=== PATIENT | male | born 1945 | race American Indian/Alaskan Native ===

== ENCOUNTER 2019-01-18 06:24 | Inpatient (IN) | payer MEDICARE, OTHER ==
[2019-01-18 07:16] LABS: Hematocrit 25.9 % (35.5-45.6); Hemoglobin 8.9 gm/dl (11.8-15.2); Mean Corpuscular HGB Conc 34 % (32-34); Mean Corpuscular Volume 90 fl (84-94); Platelet Count 157 K/mm3 (140-440); Red Cell Distribution Width 16.6 % (13.2-15.2)
[2019-01-18 08:11] LABS: Alanine Aminotransferase 17 units/L (7-56); Albumin 3.6 g/dL (3.9-5); BUN/Creatinine Ratio 11; Blood Urea Nitrogen 72 mg/dL (9-20); Hemolysis Index 16
[2019-01-18 08:16] LABS: Calcium 15.5 mg/dL (8.4-10.2)
--- NOTE | 2019-01-18 09:08 | Emergency Department Report ---
ED GI Bleed HPI - General Chief complaint: Abdominal Pain Stated complaint: COUGHING UP BLOOD ABD PAIN Time Seen by Provider: 01/18/19 09:02 Source: patient Mode of arrival: Ambulatory Limitations: No Limitations - History of Present Illness Initial comments: Patient is a 73-year-old male that presents emergency room with complaints of nausea vomiting and vomiting blood and abdominal pain 2 days. Patient states symptoms are working. Patient states he feels weak and fatigued. Patient states he still is difficult for him to walk. Patient states she's had a poor appetite as well. Patient states his pain is a 10 out of 10. Patient states it's nonradiating and the pain is in his diffuse abdomen. Patient states the pain is better with rest and worse with eating and movement. is at bedside to assist with history. Patient states she has a past medical history hypertension, kidney disease and high cholesterol. MD complaint: gross hematemesis, melena -: Sudden Location: diffuse Radiation: none Severity scale (0 -10): 4 Quality: cramping Consistency: constant Improves with: rest Worsens with: eating, movement Associated Symptoms: abdominal pain, nausea, vomiting, malaise, weakness. denies: epistaxis, fever/chills, headaches, loss of appetite, easy bruising, rash, other bleeding, shortness of breath, syncope - Related Data Home Medications Medication Instructions Recorded Confirmed Last Taken Labetalol [Labetalol 200mg TAB] 200 mg PO BID 01/18/19 01/18/19 01/17/19 NIFEdipine [Nifedipine ER] 90 mg PO QDAY 01/18/19 01/18/19 01/17/19 Simvastatin 20 mg PO QHS 01/18/19 01/18/19 01/17/19 Allergies Allergy/AdvReac Type Severity Reaction Status Date / Time No Known Allergies Allergy Unverified 01/18/19 06:38 ED Review of Systems ROS: Stated complaint: COUGHING UP BLOOD ABD PAIN Other details as noted in HPI Constitutional: malaise, weakness. denies: chills, fever Eyes: denies: eye pain, eye discharge, vision change ENT: denies: ear pain, throat pain Respiratory: denies: cough, shortness of breath, wheezing Cardiovascular: denies: chest pain, palpitations Endocrine: no symptoms reported Gastrointestinal: abdominal pain, nausea, vomiting, hematemesis, melena. denies: diarrhea, constipation Genitourinary: denies: urgency, dysuria Musculoskeletal: denies: back pain, joint swelling, arthralgia Skin: denies: rash, lesions Neurological: weakness. denies: headache, paresthesias Psychiatric: denies: anxiety, depression Hematological/Lymphatic: denies: easy bleeding, easy bruising ED Past Medical Hx - Past Medical History Previous Medical History?: Yes Hx Hypertension: Yes Hx Renal Disease: Yes Additional medical history: High Cholesterol - Surgical History Past Surgical History?: Yes Hx Cholecystectomy: Yes - Family History Family history: no significant - Social History Smoking Status: Never Smoker Substance Use Type: None - Medications Home Medications: Home Medications Medication Instructions Recorded Confirmed Last Taken Type Labetalol [Labetalol 200mg TAB] 200 mg PO BID 01/18/19 01/18/19 01/17/19 History NIFEdipine [Nifedipine ER] 90 mg PO QDAY 01/18/19 01/18/19 01/17/19 History Simvastatin 20 mg PO QHS 01/18/19 01/18/19 01/17/19 History ED Physical Exam - General Limitations: No Limitations General appearance: alert, in no apparent distress - Head Head exam: Present: atraumatic, normocephalic - Eye Eye exam: Present: normal appearance - ENT ENT exam: Present: mucous membranes moist - Neck Neck exam: Present: normal inspection - Respiratory Respiratory exam: Present: normal lung sounds bilaterally. Absent: respiratory distress, wheezes, rales - Cardiovascular Cardiovascular Exam: Present: regular rate, normal rhythm. Absent: systolic murmur, diastolic murmur, rubs, gallop - GI/Abdominal GI/Abdominal exam: Present: soft, normal bowel sounds. Absent: distended, t enderness, guarding - Rectal Rectal exam: Present: deferred - Extremities Exam Extremities exam: Present: normal inspection - Back Exam Back exam: Present: normal inspection - Neurological Exam Neurological exam: Present: alert, oriented X3 - Psychiatric Psychiatric exam: Present: normal affect, normal mood - Skin Skin exam: Present: warm, dry, intact, normal color. Absent: rash ED Course Vital Signs 01/18/19 01/18/19 01/18/19 06:30 07:32 07:40 Temperature 97.7 F Pulse Rate 115 H 100 H Respiratory 20 Rate Blood Pressure 156/90 Blood Pressure [Left] O2 Sat by Pulse 96 93 Oximetry 07/18/19 07/18/19 07/18/19 08:00 09:00 10:00 Temperature Pulse Rate 99 H Respiratory 12 Rate Blood Pressure 162/87 159/96 152/72 Blood Pressure [Left] O2 Sat by Pulse 92 100 91 Oximetry 01/18/19 01/18/19 01/18/19 10:31 11:00 11:30 Temperature Pulse Rate 104 H Respiratory 24 Rate Blood Pressure 145/72 122/36 135/94 Blood Pressure [Left] O2 Sat by Pulse 94 94 Oximetry 01/18/19 01/18/19 01/18/19 12:00 12:30 13:44 Temperature Pulse Rate 98 H 97 H Respiratory 22 11 L Rate Blood Pressure 136/57 146/67 159/84 Blood Pressure [Left] O2 Sat by Pulse Oximetry 01/18/19 01/18/19 13:45 14:00 Temperature 97.7 F Pulse Rate 91 H Respiratory 16 Rate Blood Pressure 164/83 Blood Pressure 159/84 [Left] O2 Sat by Pulse 96 Oximetry - Reevaluation(s) Reevaluation #1: Discussed all results with patient and . Patient to be admitted to the hospitalist service. Patient and agree with the plan of care 01/18/19 11:16 - Consultations Consultation #1: Hospitalist consult for admission. Hospitalist to admit patient and assume care of patient. Bridge orders placed. 01/18/19 11:11 Consultation #2: Discussed case with GI nurse practitioner. GI to see the patient. 01/18/19 11:15 ED Medical Decision Making - Lab Data Result diagrams: 01/18/19 06:47 01/18/19 07:24 - Radiology Data Radiology results: report reviewed CT ABDOMEN AND PELVIS WITHOUT CONTRAST HISTORY: Abdominal pain, GI bleeding, spitting up blood COMPARISON: None. TECHNIQUE: Axial CT images were obtained through the abdomen and pelvis without IV contrast. Sagittal and coronal reformatted images. All CT scans at this location are perfo rmed using CT dose reduction for ALARA by means of automated exposure control. FINDINGS: CT ABDOMEN: Lung Bases: The visualized lung bases are clear. Mild cardiomegaly. Liver: No significant abnormality. Biliary: Cholecystectomy. No significant abnormality. Spleen: No significant abnormality. Unenlarged. Pancreas: No significant abnormality. Adrenals: No significant abnormality. Kidneys: No significant abnormality. Lymphatics: No lymphadenopathy. Vasculature: No significant abnormality. Bowel/Peritoneum: Mild diverticulosis of the distal colon is identified. Otherwise, the bowel loops are within normal limits.. No free air. No free fluid. The appendix is not confidently identified. CT PELVIS: : No significant abnormality. Osseous Structures: Severe osteopenia is evident. No evidence for suspicious bony lesion or fracture. Additional Findings: None IMPRESSION: No acute abdominal process is identified. Mild cardiomegaly. Assuming cholecystectomy and appendectomy. Severe osteopenia. Mild diverticulosis of the distal colon. No site of GI bleeding is appreciated on noncontrast CT. - Medical Decision Making Patient is a 73 -year-old male presents to emergency room for multiple complaints. Patient's complaints include dark stool, vomiting blood, nausea, abdominal pain, weakness and fatigue. Patient's labs are unremarkable for worsening renal disease, elevated bilirubin, anemia. Patient has CT done which shows no acute process. Patient has multiple chronic findings on the CT scan. GI consultation done in er. Patient admitted to the hospitalist service. - Differential Diagnosis abdominal pain. GI bleed. Melena. Vomiting. Anemia Critical Care Time: Yes Critical care attestation.: If time is entered above; I have spent that time in minutes in the direct care of this critically ill patient, excluding procedure time. Critical Care Time: 35 minutes ED Disposition Clinical Impression: Melena Hematemesis Qualifiers: Nausea presence: with nausea Qualified Code(s): K92.0 - Hematemesis Fatigue Qualifiers: Fatigue type: unspecified Qualified Code(s): R53.83 - Other fatigue Anemia Qualifiers: Anemia type: unspecified type Qualified Code(s): D64.9 - Anemia, unspecified Renal failure Qualifiers: Renal failure chronicity: acute on chronic Acute renal failure type: unspecified Chronic kidney disease stage: unspecified stage Qualified Code(s): N17.9 - Acute kidney failure, unspecified Abdominal pain Qualifiers: Abdominal location: generalized Qualified Code(s): R10.84 - Generalized abdominal pain Disposition: OP ADMIT IP TO THIS HOSP Is pt being admited?: Yes Does the pt Need Aspirin: No Condition: Critical Time of Disposition: 11:11
--- NOTE | 2019-01-18 10:55 | Cat Scan Report ---
CT ABDOMEN AND PELVIS WITHOUT CONTRAST HISTORY: Abdominal pain, GI bleeding, spitting up blood COMPARISON: None. TECHNIQUE: Axial CT images were obtained through the abdomen and pelvis without IV contrast. Sagittal and coronal reformatted images. All CT scans at this location are performed using CT dose reduction for ALARA by means of automated exposure control. FINDINGS: CT ABDOMEN: Lung Bases: The visualized lung bases are clear. Mild cardiomegaly. Liver: No significant abnormality. Biliary: Cholecystectomy. No significant abnormality. Spleen: No significant abnormality. Unenlarged. Pancreas: No significant abnormality. Adrenals: No significant abnormality. Kidneys: No significant abnormality. Lymphatics: No lymphadenopathy. Vasculature: No significant abnormality. Bowel/Peritoneum: Mild diverticulosis of the distal colon is identified. Otherwise, the bowel loops a re within normal limits.. No free air. No free fluid. The appendix is not confidently identified. CT PELVIS: : No significant abnormality. Osseous Structures: Severe osteopenia is evident. No evidence for suspicious bony lesion or fracture. Additional Findings: None IMPRESSION: No acute abdominal process is identified. Mild cardiomegaly. Assuming cholecystectomy and appendectomy. Severe osteopenia. Mild diverticulosis of the distal colon. No site of GI bleeding is appreciated on noncontrast CT. Signer Name: Ross Bucio Jr, MD Signed: 01/18/2019 10:51 AM Workstation Name: [id number]
[2019-01-18] MEDS ORDERED: NACL 0.9% 500 ML 500 ML IV ONE (11:16)
[2019-01-18] MEDS: PROTONIX 80 MG in NACL 0.9% 100 ML IV SCH (11:52)
[2019-01-18] MEDS ORDERED: NACL 0.9% 500 ML 500 ML ONE (11:56)
[2019-01-18 13:29] LABS: Band Neutrophils # (Manual) 0.2 K/mm3; Platelet Estimate Consistent w Auto; RBC Morphology Normal; Total Cells Counted 100
--- NOTE | 2019-01-18 14:16 | History and Physical Report ---
History of Present Illness Date of examination: 01/18/19 Date of admission: 01/18/19 11:17 Chief complaint: Vomiting blood for 1 day History of present illness: 73-year-old -[place] male with history of hypertension, chronic kidney disease and hyperlipidemia comes in for vomiting blood for 2 days and abdominal pain for 2 days. Patient is a very poor historian. Patient feels weak and fatigued and has difficulty walking. Patient feels as if he is going to pass out. Patient had a similar episode a few months ago . Pain is epigastric. Patient does not say whether he took Goody powders BC powders or any nonsteroidal anti-inflammatory drugs. No exacerbating or relieving factors. Patient also has dark melanotic stools. No fever or chills. Past Medical History Previous Medical History?: Yes Hypertension: Yes Renal Disease: Yes Additional medical history: High Cholesterol Surgical History Past Surgical History?: Yes Hx Cholecystectomy: Yes Family History Family history: no significant Social History Smoking Status: Never Smoker Substance Use Type: None Review of systems ROS: Stated complaint: COUGHING UP BLOOD ABD PAIN Other details as noted in HPI Constitutional: malaise, weakness. denies: chills, fever Eyes: denies: eye pain, eye discharge, vision change ENT: denies: ear pain, throat pain Respiratory: denies: cough, shortness of breath, wheezing Cardiovascular: denies: chest pain, palpitations Endocrine: no symptoms reported Gastrointestinal: abdominal pain, nausea, vomiting, hematemesis, melena. denies: diarrhea, constipation Genitourinary: denies: urgency, dysuria Musculoskeletal: denies: back pain, joint swelling, arthralgia Skin: denies: rash, lesions Neurological: weakness. denies: headache, paresthesias Psychiatric: denies: anxiety, depression Hematological/Lymphatic: denies: easy bleeding, easy bruising 14 point review of systems done--- otherwise negative Medications and Allergies Allergies Allergy/AdvReac Type Severity Reaction Status Date / Time No Known Allergies Allergy Unverified 01/18/19 06:38 Home Medications Medication Instructions Recorded Confirmed Last Taken Type Labetalol [Labetalol 200mg TAB] 200 mg PO BID 01/18/19 01/18/19 01/17/19 History NIFEdipine [Nifedipine ER] 90 mg PO QDAY 01/18/19 01/18/19 01/17/19 History Simvastatin 20 mg PO QHS 01/18/19 01/18/19 01/17/19 History Active Meds: Active Medications Pantoprazole Sodium 80 mg/ (Sodium Chloride) 100 mls @ 10 mls/hr IV DIRECT GILBERTO Last Admin: 01/18/19 11:52 Dose: 8 mg/hr, 10 mls/hr Documented by: Exam - Constitutional Vitals: Temp Pulse Resp BP Pulse Ox 97.7 F 91 H 16 159/84 96 01/18/19 13:45 01/18/19 13:45 01/18/19 13:45 01/18/19 13:45 01/18/19 13:45 General appearance: Present: no acute distress, well-nourished - EENT Eyes: Present: PERRL ENT: hearing intact, clear oral mucosa - Neck Neck: Present: supple, normal ROM - Respiratory Respiratory effort: normal Respiratory: bilateral: CTA - Cardiovascular Heart rate: 98 Rhythm: regular Heart Sounds: Present: S1 & S2. Absent: rub, click - Extremities Extremities: no ischemia, pulses intact, pulses symmetrical, No edema Peripheral Pulses: within normal limits - Abdominal General gastrointestinal: Present: soft, non-tender, tender, non-distended, normal bowel sounds Localized gastrointestinal: tender: epigastric periumbilical Male genitourinary: Present: normal - Rectal Rectal Exam: stool dark (occult blood positive) - Integumentary Integumentary: Present: clear, warm, dry - Musculoskeletal Musculoskeletal: gait normal, strength equal bilaterally - Psychiatric Psychiatric: appropriate mood/affect, intact judgment & insight - Neurologic Neurologic: CNII-XII intact, moves all extremities - Allied Health Allied health notes reviewed: nursing, case management Results - Labs CBC & Chem 7: 01/18/19 06:47 01/18/19 07:24 Labs: Laboratory Last Values WBC 8.2 K/mm3 (4.5-11.0) 01/18/19 06:47 RBC 2.90 M/mm3 (3.65-5.03) L 01/18/19 06:47 Hgb 8.9 gm/dl (11.8-15.2) L 01/18/19 06:47 Hct 25.9 % (35.5-45.6) L 01/18/19 06:47 MCV 90 fl (84-94) 01/18/19 06:47 MCH 31 pg (28-32) 01/18/19 06:47 MCHC 34 % (32-34) 01/18/19 06:47 RDW 16.6 % (13.2-15.2) H 01/18/19 06:47 Plt Count 157 K/mm3 (140-440) 01/18/19 06:47 Lymph % (Auto) Database Security Expert 01/18/19 06:47 [place] % (Auto) Database Security Expert 01/18/19 06:47 Eos % (Auto) Database Security Expert 01/18/19 06:47 Baso % (Auto) Database Security Expert 01/18/19 06:47 Lymph # Database Security Expert 01/18/19 06:47 [place] # Database Security Expert 01/18/19 06:47 Eos # Database Security Expert 01/18/19 06:47 Baso # Database Security Expert 01/18/19 06:47 Add Manual Diff Complete 01/18/19 06:47 Total Counted 100 01/18/19 06:47 Seg Neutrophils % Database Security Expert 01/18/19 06:47 Seg Neuts % (Manual) 74.0 % (40.0-70.0) H 01/18/19 06:47 3.0 % 01/18/19 06:47 12.0 % (13.4-35.0) L 01/18/19 06:47 Reactive Lymphs % (Man) 0 % 01/18/19 06:47 9.0 % (0.0-7.3) H 01/18/19 06:47 1.0 % (0.0-4.3) 01/18/19 06:47 1.0 % (0.0-1.8) 01/18/19 06:47 0 % 01/18/19 06:47 0 % 01/18/19 06:47 0 % 01/18/19 06:47 0 % 01/18/19 06:47 Nucleated RBC % Not Reportable 01/18/19 06:47 Seg Neutrophils # Database Security Expert 01/18/19 06:47 Seg Neutrophils # Man 6.1 K/mm3 (1.8-7.7) 01/18/19 06:47 Band Neutrophils # 0.2 K/mm3 01/18/19 06:47 1.0 K/mm3 (1.2-5.4) L 01/18/19 06:47 Abs React Lymphs (Man) 0.0 K/mm3 01/18/19 06:47 0.7 K/mm3 (0.0-0.8) 01/18/19 06:47 0.1 K/mm3 (0.0-0.4) 01/18/19 06:47 0.1 K/mm3 (0.0-0.1) 01/18/19 06:47 0.0 K/mm3 01/18/19 06:47 0.0 K/mm3 01/18/19 06:47 0.0 K/mm3 01/18/19 06:47 Blast Cells # 0.0 K/mm3 01/18/19 06:47 WBC Morphology Not Reportable 01/18/19 06:47 Hypersegmented Neuts Not Reportable 01/18/19 06:47 Hyposegmented Neuts Not Reportable 01/18/19 06:47 Hypogranular Neuts Not Reportable 01/18/19 06:47 Not Reportable 01/18/19 06:47 Not Reportable 01/18/19 06:47 Not Reportable 01/18/19 06:47 Not Reportable 01/18/19 06:47 Not Reportable 01/18/19 06:47 Not Reportable 01/18/19 06:47 Consistent w auto 01/18/19 06:47 Not Reportable 01/18/19 06:47 Plt Clumps, EDTA Not Reportable 01/18/19 06:47 Not Reportable 01/18/19 06:47 Not Reportable 01/18/19 06:47 Not Reportable 01/18/19 06:47 Plt Morphology Comment Not Reportable 01/18/19 06:47 RBC Morphology Normal 01/18/19 06:47 Dimorphic RBCs Not Reportable 01/18/19 06:47 Not Reportable 01/18/19 06:47 Not Reportable 01/18/19 06:47 Not Reportable 01/18/19 06:47 Not Reportable 01/18/19 06:47 Not Reportable 01/18/19 06:47 Not Reportable 01/18/19 06:47 Not Reportable 01/18/19 06:47 Not Reportable 01/18/19 06:47 Not Reportable 01/18/19 06:47 Not Reportable 01/18/19 06:47 Not Reportable 01/18/19 06:47 Not Reportable 01/18/19 06:47 Not Reportable 01/18/19 06:47 Not Reportable 01/18/19 06:47 Not Reportable 01/18/19 06:47 Not Reportable 01/18/19 06:47 Not Reportable 01/18/19 06:47 Not Reportable 01/18/19 06:47 Not Reportable 01/18/19 06:47 Acanthocytes (Spur) Not Reportable 01/18/19 06:47 Rouleaux Not Reportable 01/18/19 06:47 Not Reportable 01/18/19 06:47 Not Reportable 01/18/19 06:47 Not Reportable 01/18/19 06:47 Not Reportable 01/18/19 06:47 Hem Pathologist Commnt No 01/18/19 06:47 Sodium 134 mmol/L (137-145) L 01/18/19 07:24 Potassium 4.1 mmol/L (3.6-5.0) 01/18/19 07:24 Chloride 102.0 mmol/L (98-107) 01/18/19 07:24 Carbon Dioxide 23 mmol/L (22-30) 01/18/19 07:24 13 mmol/L 01/18/19 07:24 BUN 72 mg/dL (9-20) H 01/18/19 07:24 6.5 mg/dL (0.8-1.5) H 01/18/19 07:24 Estimated GFR 10 ml/min 01/18/19 07:24 11 % 01/18/19 07:24 Glucose 109 mg/dL (75-100) H 01/18/19 07:24 Calcium 15.5 mg/dL (8.4-10.2) H* 01/18/19 07:24 1.70 mg/dL (0.1-1.2) H 01/18/19 07:24 AST 20 units/L (5-40) 01/18/19 07:24 ALT 17 units/L (7-56) 01/18/19 07:24 105 units/L (35-129) 01/18/19 07:24 > 12.0 g/dL (6.3-8.2) H 01/18/19 07:24 3.6 g/dL (3.9-5) L 01/18/19 07:24 0.0 % 01/18/19 07:24 Blood Type O POSITIVE 01/18/19 10:38 Antibody Screen Negative 01/18/19 10:38 Short CBC 01/18/19 Range/Units 06:47 WBC 8.2 (4.5-11.0) K/mm3 Hgb 8.9 L (11.8-15.2) gm/dl Hct 25.9 L (35.5-45.6) % Plt Count 157 (140-440) K/mm3 BMP 01/18/19 07:24 Sodium 134 L Potassium 4.1 Chloride 102.0 Carbon Dioxide 23 BUN 72 H Creatinine 6.5 H Glucose 109 H Calcium 15.5 H* Liver Function 01/18/19 Range/Units 07:24 Total Bilirubin 1.70 H (0.1-1.2) mg/dL AST 20 (5-40) units/L ALT 17 (7-56) units/L Alkaline Phosphatase 105 (35-129) units/L Albumin 3.6 L (3.9-5) g/dL - Imaging and Cardiology EKG: report reviewed (no EKG was done) CT scan - abdomen: report reviewed Imaging and Cardiology: CT abdomen IMPRESSION: No acute abdominal process is identified. Mild cardiomegaly. Assuming cholecystectomy and appendectomy. Severe osteopenia. Mild diverticulosis of the distal colon. No site of GI bleeding is appreciated on noncontrast CT. Assessment and Plan Assessment and plan: 1.Upper GI bleed Patient initiated on IV Protonix drip IV fluids GI consult Possible upper endoscopy today or tomorrow 2. Hypertension Hold antihypertensives Catapres patch initiated 3. Hyperlipidemia Statins on hold 4.End-stage renal disease Nephrology consultation requested His dialysis status is not known 5. Acute anemia Multifactorial Secondary to end-stage renal disease and GI bleed Transfuse as necessary 6. Hyperglobulinemia Rule out multiple myeloma Skeletal survey ordered SPEP and UPEP ordered 7. Hypercalcemia Calcitrol given Will check PTH level 8. Hyponatremia Mild 9. DVT prophylaxis SCDs for now and GI prophylaxis Advance Directives: Yes (full code) VTE prophylaxis?: Mechanical Plan of care discussed with patient/family: Yes
--- NOTE | 2019-01-18 15:10 | Gastroenterology Consultation ---
History of Present Illness - Reason for Consult Consult date: 01/18/19 GI bleed, anemia Requesting physician: LANI MOBLEY III - History of Present Illness Patient is a 73 y/o male with PMH of HTN, CKD, and HLD who presented to ED with multiple complaints to include abdominal pain, N/V with bloody emesis, dark stools, weakness, fatigue, and decrease appetite with recent associated wt loss. Upon admission, patient was found to have kidney failure with Creat 6.5/BUN [address] was negative for acute process (mild cardiomegaly, cholecystectomy/appendectomy, osteopenia, mild diverticulosis). GI has been consulted for GI bleed. This afternoon patient was resting on stretcher in ED w/o acute distress but with noted weakness. at bedside. Patient/ reports "spitting up" white mucous mixed with small amount of dark red blood. When asked if patient was coughing up blood or vomiting up blood, states "he gags when he brushes his teeth" (answers are unclear; noted to be poor historian). Admits to dark black stool over the past 2-3 days, along with a significant recent decrease in appetite with ability to tolerate very limited PO intake with associated wt loss. Has abd pain described as predominately in RUQ (details of pain unable to obtain). Denies fever, CP, SOB, dysphagia, odynophagia, diarrhea, constipation, or hematochezia. No NSAID use or hx of PUD/liver disease. No prior EGD. Patient is previously known to our service due to a hx of colon polyps with last colonoscopy in 2016 that revealed polyps. No known Fhx of GI cancers. Upon exam, rectal revealed light brown stool. Past History Past Medical History: other (as per HPI) Past Surgical History: appendectomy, cholecystectomy Social history: denies: smoking, alcohol abuse Medications and Allergies Allergies Allergy/AdvReac Type Severity Reaction Status Date / Time No Known Allergies Allergy Unverified 01/18/19 06:38 Home Medications Medication Instructions Recorded Confirmed Last Taken Type Labetalol [Labetalol 200mg TAB] 200 mg PO BID 01/18/19 01/18/19 01/17/19 History NIFEdipine [Nifedipine ER] 90 mg PO QDAY 01/18/19 01/18/19 01/17/19 History Simvastatin 20 mg PO QHS 01/18/19 01/18/19 01/17/19 History Active Meds: Active Medications Pantoprazole Sodium 80 mg/ (Sodium Chloride) 100 mls @ 10 mls/hr IV DIRECT [facility] Last Admin: 01/18/19 11:52 Dose: 8 mg/hr, 10 mls/hr Documented by: medications reviewed/updated as required Review of Systems - Review of Systems All systems: negative Constitutional: weight loss, fatigue, weakness, poor appetite Gastrointestinal: abdominal pain, vomiting, hematemesis, melena Exam - Constitutional Vital Signs: Temp Pulse Resp BP Pulse Ox 97.7 F 91 H 16 159/84 96 01/18/19 13:45 01/18/19 13:45 01/18/19 13:45 01/18/19 13:45 01/18/19 13:45 General appearance: no acute distress, other (weak appearing) - Respiratory Respiratory effort: normal - Cardiovascular Rhythm: regular - Gastrointestinal General gastrointestinal: Present: soft, non-tender, non-distended, normal bowel sounds Rectal Exam: other (light brown stool-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 (moody MYERS)) - Labs CBC & Chem 7: 01/18/19 06:47 01/18/19 07:24 Lab Results: Laboratory Results - last 24 hr 01/18/19 01/18/19 01/18/19 06:47 07:24 10:38 WBC 8.2 RBC 2.90 L Hgb 8.9 L Hct 25.9 L MCV 90 MCH 31 MCHC 34 RDW 16.6 H Plt Count 157 Lymph % (Auto) Pilot Supervisor [place] % (Auto) Pilot Supervisor Eos % (Auto) Pilot Supervisor Baso % (Auto) Pilot Supervisor Lymph # Pilot Supervisor [place] # Pilot Supervisor Eos # Pilot Supervisor Baso # Pilot Supervisor Add Manual Diff Complete Total Counted 100 Seg Neutrophils % Pilot Supervisor Seg Neuts % (Manual) 74.0 H Band Neutrophils % 3.0 Lymphocytes % (Manual) 12.0 L Reactive Lymphs % (Man) 0 Monocytes % (Manual) 9.0 H Eosinophils % (Manual) 1.0 Basophils % (Manual) 1.0 Metamyelocytes % 0 Myelocytes % 0 Promyelocytes % 0 Blast Cells % 0 Nucleated RBC % Not Reportable Seg Neutrophils # Pilot Supervisor Seg Neutrophils # Man 6.1 Band Neutrophils # 0.2 Lymphocytes # (Manual) 1.0 L Abs React Lymphs (Man) 0.0 Monocytes # (Manual) 0.7 Eosinophils # (Manual) 0.1 Basophils # (Manual) 0.1 Metamyelocytes # 0.0 Myelocytes # 0.0 Promyelocytes # 0.0 Blast Cells # 0.0 WBC Morphology Not Reportable Hypersegmented Neuts Not Reportable Hyposegmented Neuts Not Reportable Hypogranular Neuts Not Reportable Smudge Cells Not Reportable Toxic Granulation Not Reportable Toxic Vacuolation Not Reportable Dohle Bodies Not Reportable Pelger-Huet Anomaly Not Reportable Lizet Rods Not Reportable Platelet Estimate Consistent w auto Clumped Platelets Not Reportable Plt Clumps, EDTA Not Reportable Large Platelets Not Reportable Giant Platelets Not Reportable Platelet Satelliting Not Reportable Plt Morphology Comment Not Reportable RBC Morphology Normal Dimorphic RBCs Not Reportable Polychromasia Not Reportable Hypochromasia Not Reportable Poikilocytosis Not Reportable Anisocytosis Not Reportable Microcytosis Not Reportable Macrocytosis Not Reportable Spherocytes Not Reportable Pappenheimer Bodies Not Reportable Sickle Cells Not Reportable Target Cells Not Reportable Tear Drop Cells Not Reportable Ovalocytes Not Reportable Helmet Cells Not Reportable [place] Bodies Not Reportable [place] Rings Not Reportable [place] Cells Not Reportable Bite Cells Not Reportable Crenated Cell Not Reportable Elliptocytes Not Reportable Acanthocytes (Spur) Not Reportable Rouleaux Not Reportable Hemoglobin C Crystals Not Reportable Schistocytes Not Reportable Malaria parasites Not Reportable Robin Bodies Not Reportable Hem Pathologist Commnt No Sodium 134 L Potassium 4.1 Chloride 102.0 Carbon Dioxide 23 Anion Gap 13 BUN 72 H Creatinine 6.5 H Estimated GFR 10 BUN/Creatinine Ratio 11 Glucose 109 H Calcium 15.5 H* Total Bilirubin 1.70 H AST 20 ALT 17 Alkaline Phosphatase 105 Total Protein > 12.0 H Albumin 3.6 L Albumin/Globulin Ratio 0.0 Blood Type O POSITIVE Antibody Screen Negative Assessment and Plan 1.GI bleed 2.anemia (unknown baseline) 3.decrease appetite/wt loss 4.abdominal pain -H/H 8.9/25.6 -continue to monitor H/H and transfuse as needed -abd CT negative for acute process (mild cardiomegaly, cholecystectomy/a ppendectomy, osteopenia, mild diverticulosis) -last colonoscopy in 2015 revealed polyps -patient reports "spitting up dark red blood" and dark black stools x 2-3 days- unclear if patient coughing up or vomiting blood and rectal exam revealed light brown stool. No hematochezia or active signs of bleeding noted since admission per nursing. -etiology unclear- no clinical evidence of significant GI bleeding; worsening kidney failure possibly contributing to anemia? -currently HD stable -will discuss with Dr. Almonte a possible EGD tomorrow for further evaluation -NPO after MN -continue PPI and supportive care -further recommendations to follow
[2019-01-18] MEDS ORDERED: TYLENOL PO PRN (15:51)
[2019-01-18] MEDS ORDERED: REGLAN IV PRN (15:51)
[2019-01-18] MEDS ORDERED: CATAPRES-TTS PATCH TD SCH (17:00)
[2019-01-18] MEDS ORDERED: NACL 0.9% 1000 ML 1,000 ML IV SCH (17:00)
[2019-01-18 17:24] LABS: Hematocrit 25.1 % (35.5-45.6); Hemoglobin 8.5 gm/dl (11.8-15.2)
[2019-01-18] MEDS: ROCALTROL PO SCH (18:02)
[2019-01-18] MEDS: NACL 0.9% IV SCH (18:03)
[2019-01-18] MEDS: AREDIA IV SCH (18:03)
[2019-01-18] MEDS: MIACALCIN SUB-Q SCH ×2 (18:04→23:01)
[2019-01-18] MEDS: DILAUDID IV PRN (20:03)
[2019-01-18] MEDS: ZOFRAN IV PRN (20:04)
[2019-01-18] MEDS: SODIUM CHLORIDE FLUSH SYRINGE 10 ML IV SCH (22:00)
--- NOTE | 2019-01-18 23:16 | Consultation ---
Past History Past Medical History: other (as per HPI) Past Surgical History: appendectomy, cholecystectomy Social history: denies: smoking, alcohol abuse Medications and Allergies Allergies Allergy/AdvReac Type Severity Reaction Status Date / Time No Known Allergies Allergy Unverified 01/18/19 06:38 Home Medications Medication Instructions Recorded Confirmed Last Taken Type Labetalol [Labetalol 200mg TAB] 200 mg PO BID 01/18/19 01/18/19 01/17/19 History NIFEdipine [Nifedipine ER] 90 mg PO QDAY 01/18/19 01/18/19 01/17/19 History Simvastatin 20 mg PO QHS 01/18/19 01/18/19 01/17/19 History Active Meds: Active Medications Acetaminophen (Tylenol) 650 mg PO Q4H PRN PRN Reason: Pain MILD(1-3)/Fever >100.5/SOTO Calcitonin [place] (Miacalcin) 50 unit SUB-Q Q12HR [facility] Last Admin: 01/18/19 23:01 Dose: 50 unit Documented by: Calcitriol (Rocaltrol) 0.5 mcg PO QDAY [facility] Last Admin: 01/18/19 18:02 Dose: 0.5 mcg Documented by: Clonidine HCl (Catapres-Tts Patch) 0.2 mg TD Th [facility] Last Admin: 01/18/19 18:07 Dose: 0.2 mg Documented by: Hydromorphone HCl (Dilaudid) 0.5 mg IV Q3H PRN PRN Reason: Pain , Severe (7-10) Last Admin: 01/18/19 20:03 Dose: 0.5 mg Documented by: Pantoprazole Sodium 80 mg/ (Sodium Chloride) 100 mls @ 10 mls/hr IV DIRECT [facility] Last Admin: 01/18/19 11:52 Dose: 8 mg/hr, 10 mls/hr Documented by: Pamidronate Disodium 30 mg/ (Sodium Chloride) 503.3333 mls @ 125 mls/hr IV Q24H [facility] Stop: 01/20/19 21:02 Last Admin: 01/18/19 18:03 Dose: 125 mls/hr Documented by: Metoclopramide HCl (Reglan) 10 mg IV Q6H PRN PRN Reason: Nausea And Vomiting Ondansetron HCl (Zofran) 4 mg IV Q8H PRN PRN Reason: Nausea And Vomiting Last Admin: 01/18/19 20:04 Dose: 4 mg Documented by: Sodium Chloride (Sodium Chloride Flush Syringe 10 Ml) 10 ml IV BID [facility] Sodium Chloride (Sodium Chloride Flush Syringe 10 Ml) 10 ml IV PRN PRN PRN Reason: LINE FLUSH Exam - Vital Signs Vital signs: Vital Signs Temp Pulse Resp BP Pulse Ox 97.7 F 115 H 20 156/90 96 01/18/19 06:30 01/18/19 06:30 01/18/19 06:30 01/18/19 06:30 01/18/19 06:30 Results - Lab Results 01/18/19 16:42 01/18/19 07:24 Most recent lab results Calcium 15.5 mg/dL (8.4-10.2) H* 01/18/19 07:24
[2019-01-19] MEDS: PROTONIX 80 MG in NACL 0.9% 100 ML IV SCH (00:46)
[2019-01-19 01:22] LABS: Hematocrit 25.2 % (35.5-45.6); Hemoglobin 8.4 gm/dl (11.8-15.2)
[2019-01-19] MEDS: DILAUDID IV PRN (03:02)
[2019-01-19 05:26] LABS: Hemoglobin 8.5 gm/dl (11.8-15.2); Mean Corpuscular HGB Conc 34 % (32-34); Mean Corpuscular Volume 90 fl (84-94); Platelet Count 137 K/mm3 (140-440); Red Blood Count 2.77 M/mm3 (3.65-5.03); Red Cell Distribution Width 16.4 % (13.2-15.2)
[2019-01-19 08:16] LABS: Hematocrit 24.1 % (35.5-45.6); Hemoglobin 8.1 gm/dl (11.8-15.2)
[2019-01-19 08:32] LABS: Alanine Aminotransferase 16 units/L (7-56); Albumin 3.3 g/dL (3.9-5); BUN/Creatinine Ratio 12; Blood Urea Nitrogen 81 mg/dL (9-20); Hemolysis Index 2
[2019-01-19 08:40] LABS: Calcium 13.9 mg/dL (8.4-10.2)
--- NOTE | 2019-01-19 08:48 | Consultation ---
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 Almonte in outpatient setting Abdominal pain nausea vomiting GI bleed: Currently being followed by gastroenterology service Discontinue calcitriol due to hypercalcemia Hypercalcemia: The patient has received pamidronate and is currently on calcitonin, calcitonin can be discontinued, calcium is to be monitored closely Anemia requires further workup requires GI and hematology follow-up, Had a long discussion with patient's yesterday and educated her about the process of dialysis and need to initiate renal replacement therapy during this admission Patient has very limited understanding of his health Prognosis remains guarded/poor at this time We'll continue to follow and make recommendation from renal standpoint She have any questions please feel free to contact me at [phone] Tano [address] M[address]. [facility], [address] [place] [address] History of presenting illness Patient is 73-year-old male who has been admitted here with multiple health issues including nausea vomiting abdominal pain GI bleed and has also been noted to be hypercalcemic patient also has been encephalopathy is unable to provide any history of most information is obtained from patient's yesterday. He is currently being followed by Dr. Cao and was also supposed to see Dr. Almonte in the outpatient setting details of which are not known. Patient's also is very poorly educated as far as his renal diagnosis is concern she told me that he was to supposed to see a blood specialist for something, He is currently being followed by multiple disciplines also been noted to be in severe renal failure with hypercalcemia Consultation is placed for management of renal failure Discussed with Dr. Martinez patient was treated for hypercalcemia yesterday as been started on Martha calcitonin He has been also noted to have elevated bilirubin Past medical history significant for advance chronic kidney disease Anemia Hypertension ? Myeloma Hyperlipidemia Current allergies: None Home medications present medication: Reviewed Social history, family history: Reviewed Review of system a difficult historian also appears to be encephalopathic Patient is not a reliable historian Motor to have nausea vomiting abdominal pain GI bleed Physical examination: General: No acute distress HEENT: Oral mucosa moist no icterus, no facial swelling, moderate pallor present Neck: Supple no thyromegaly no lymphadenopathy no JVD Chest: Clear to auscultation no crackles rales or wheezes Heart: Regular rate and rhythm S1-S2 heard no S3-S4 Abdomen: Soft patient has some epigastric tenderness ,no organomegaly no masses palpable no renal bruit no suprapubic masses no CVA tenderness Dermatology: No skin rashes noted Extremity: Recent has 1+ peripheral edema, dry skin no petechial rashes Musculoskeletal: No joint effusion noted in knee and ankle area Psych: patient appears to be encephalopathic Neurological: patient appears to be encephalopathic Back: No CVA tenderness Past History Past Medical History: other (as per HPI) Past Surgical History: appendectomy, cholecystectomy Social history: denies: smoking, alcohol abuse Medications and Allergies Allergies Allergy/AdvReac Type Severity Reaction Status Date / Time No Known Allergies Allergy Unverified 01/18/19 06:38 Home Medications Medication Instructions Recorded Confirmed Last Taken Type Labetalol [Labetalol 200mg TAB] 200 mg PO BID 01/18/19 01/18/19 01/17/19 History NIFEdipine [Nifedipine ER] 90 mg PO QDAY 01/18/19 01/18/19 01/17/19 History Simvastatin 20 mg PO QHS 01/18/19 01/18/19 01/17/19 History Active Meds: Active Medications Acetaminophen (Tylenol) 650 mg PO Q4H PRN PRN Reason: Pain MILD(1-3)/Fever >100.5/SOTO Alprazolam (Xanax) 1 mg PO ONCE [facility] Calcitonin [place] (Miacalcin) 50 unit SUB-Q Q12HR [facility] Last Admin: 01/18/19 23:01 Dose: 50 unit Documented by: Calcitriol (Rocaltrol) 0.5 mcg PO QDAY [facility] Last Admin: 01/18/19 18:02 Dose: 0.5 mcg Documented by: Clonidine HCl (Catapres-Tts Patch) 0.2 mg TD Th [facility] Last Admin: 01/18/19 18:07 Dose: 0.2 mg Documented by: Hydromorphone HCl (Dilaudid) 0.5 mg IV Q3H PRN PRN Reason: Pain , Severe (7-10) Last Admin: 01/19/19 03:02 Dose: 0.5 mg Documented by: Pantoprazole Sodium 80 mg/ (Sodium Chloride) 100 mls @ 10 mls/hr IV DIRECT [facility] Last Admin: 01/19/19 00:46 Dose: 8 mg/hr, 10 mls/hr Documented by: Pamidronate Disodium 30 mg/ (Sodium Chloride) 503.3333 mls @ 125 mls/hr IV Q24H [facility] Stop: 01/20/19 21:02 Last Admin: 01/18/19 18:03 Dose: 125 mls/hr Documented by: Metoclopramide HCl (Reglan) 10 mg IV Q6H PRN PRN Reason: Nausea And Vomiting Ondansetron HCl (Zofran) 4 mg IV Q8H PRN PRN Reason: Nausea And Vomiting Last Admin: 01/18/19 20:04 Dose: 4 mg Documented by: Sodium Chloride (Sodium Chloride Flush Syringe 10 Ml) 10 ml IV BID [facility] Last Admin: 01/18/19 22:00 Dose: 10 ml Documented by: Sodium Chloride (Sodium Chloride Flush Syringe 10 Ml) 10 ml IV PRN PRN PRN Reason: LINE FLUSH Exam - Vital Signs Vital signs: Vital Signs Temp Pulse Resp BP Pulse Ox 97.7 F 115 H 20 156/90 96 01/18/19 06:30 01/18/19 06:30 01/18/19 06:30 01/18/19 06:30 01/18/19 06:30 Results - Lab Results 01/19/19 06:28 01/19/19 06:28 Most recent lab results Calcium 13.9 mg/dL (8.4-10.2) H* 01/19/19 06:28
[2019-01-19] MEDS: MIACALCIN SUB-Q SCH ×2 (08:59→22:00)
[2019-01-19] MEDS: SODIUM CHLORIDE FLUSH SYRINGE 10 ML IV SCH (09:00)
[2019-01-19] MEDS: ROCALTROL PO SCH (09:00)
[2019-01-19] MEDS ORDERED: XANAX PO SCH (09:00)
[2019-01-19 09:20] LABS: Basophils % (Manual) 0 % (0.0-1.8); Platelet Estimate Consistent w Auto; RBC Morphology Normal; Total Cells Counted 100
[2019-01-19 09:38] LABS: Bacteria,Urine 1+ /HPF (Negative); Bilirubin,Urine NEG (Negative); Blood,Urine MOD (Negative); Color,Urine Yellow (Yellow); Mucus,Urine FEW /HPF; Urobilinogen,Urine < 2.0 mg/dL (<2.0)
[2019-01-19 11:04] LABS: Creatinine,Urine 181.1 mg/dL (0.1-20.0)
[2019-01-19 11:10] LABS: % Iron Saturation 46.63 %
[2019-01-19 11:19] LABS: Hepatitis B Surface Antigen Non-Reactive (Negative); Hepatitis C Virus Antibody Non-Reactive (NonReactive)
--- NOTE | 2019-01-19 11:19 | Consultation ---
History of Present Illness - Reason for Consult Consult date: 01/19/19 end stage renal disease - History of Present Illness Patient with a history of abdominal pain, altered mental status, possible GI bleed, hypercalcemia presents to the ER with worsening mental status and abdominal pain. Was noted to be in end-stage renal disease. Past History Past Medical History: other (as per HPI) Past Surgical History: appendectomy, cholecystectomy Social history: denies: smoking, alcohol abuse Medications and Allergies Allergies Allergy/AdvReac Type Severity Reaction Status Date / Time No Known Allergies Allergy Unverified 01/18/19 06:38 Home Medications Medication Instructions Recorded Confirmed Last Taken Type Labetalol [Labetalol 200mg TAB] 200 mg PO BID 01/18/19 01/18/19 01/17/19 History NIFEdipine [Nifedipine ER] 90 mg PO QDAY 01/18/19 01/18/19 01/17/19 History Simvastatin 20 mg PO QHS 01/18/19 01/18/19 01/17/19 History Active Meds: Active Medications Acetaminophen (Tylenol) 650 mg PO Q4H PRN PRN Reason: Pain MILD(1-3)/Fever >100.5/SOTO Calcitonin [place] (Miacalcin) 50 unit SUB-Q Q12HR [facility] Last Admin: 01/19/19 08:59 Dose: 50 unit Documented by: Clonidine HCl (Catapres-Tts Patch) 0.2 mg TD Th [facility] Last Admin: 01/18/19 18:07 Dose: 0.2 mg Documented by: Hydromorphone HCl (Dilaudid) 0.5 mg IV Q3H PRN PRN Reason: Pain , Severe (7-10) Last Admin: 01/19/19 03:02 Dose: 0.5 mg Documented by: Pantoprazole Sodium 80 mg/ (Sodium Chloride) 100 mls @ 10 mls/hr IV DIRECT [facility] Last Admin: 01/19/19 00:46 Dose: 8 mg/hr, 10 mls/hr Documented by: Pamidronate Disodium 30 mg/ (Sodium Chloride) 503.3333 mls @ 125 mls/hr IV Q24H [facility] Stop: 01/20/19 21:02 Last Admin: 01/18/19 18:03 Dose: 125 mls/hr Documented by: Metoclopramide HCl (Reglan) 10 mg IV Q6H PRN PRN Reason: Nausea And Vomiting Ondansetron HCl (Zofran) 4 mg IV Q8H PRN PRN Reason: Nausea And Vomiting Last Admin: 01/18/19 20:04 Dose: 4 mg Documented by: Sodium Chloride (Sodium Chloride Flush Syringe 10 Ml) 10 ml IV BID [facility] Last Admin: 01/19/19 09:00 Dose: 10 ml Documented by: Sodium Chloride (Sodium Chloride Flush Syringe 10 Ml) 10 ml IV PRN PRN PRN Reason: LINE FLUSH Review of Systems ROS unobtainable: due to mental status Exam - Constitutional Vitals: Temp Pulse Resp BP Pulse Ox 98.4 F 102 H 18 159/82 91 01/19/19 06:16 01/19/19 10:00 01/19/19 06:16 01/19/19 06:16 01/19/19 06:16 General appearance: Present: no acute distress - EENT Eyes: Present: EOM intact ENT: hearing intact - Neck Neck: Present: supple - Respiratory Respiratory effort: normal - Abdominal General gastrointestinal: Present: deferred Male genitourinary: Present: deferred - Rectal Rectal Exam: deferred - Psychiatric Psychiatric: agitated - Neurologic Neurologic: moves all extremities Results - Labs CBC & Chem 7: 01/19/19 06:28 01/19/19 06:28 Labs: Abnormal lab results 01/18/19 01/18/19 01/19/19 Range/Units 06:47 16:42 00:41 RBC (3.65-5.03) M/mm3 Hgb 8.5 L 8.4 L (11.8-15.2) gm/dl Hct 25.1 L 25.2 L (35.5-45.6) % RDW (13.2-15.2) % Plt Count (140-440) K/mm3 Seg Neuts % (Manual) 74.0 H (40.0-70.0) % Lymphocytes % (Manual) 12.0 L (13.4-35.0) % Monocytes % (Manual) 9.0 H (0.0-7.3) % Nucleated RBC % (0.0-0.9) % Lymphocytes # (Manual) 1.0 L (1.2-5.4) K/mm3 Chloride (98-107) mmol/L BUN (9-20) mg/dL Creatinine (0.8-1.5) mg/dL Glucose (75-100) mg/dL Calcium (8.4-10.2) mg/dL TIBC (250-450) mcg/dL Transferrin (180-329) mg/dl Total Bilirubin (0.1-1.2) mg/dL Total Protein (6.3-8.2) g/dL Albumin (3.9-5) g/dL Urine Creatinine (0.1-20.0) mg/dL Urine Total Protein (5-11.8) mg/dL 01/19/19 01/19/19 01/19/19 Range/Units 04:40 06:28 06:28 RBC 2.77 L (3.65-5.03) M/mm3 Hgb 8.5 L 8.1 L (11.8-15.2) gm/dl Hct 25.0 L 24.1 L (35.5-45.6) % RDW 16.4 H (13.2-15.2) % Plt Count 137 L (140-440) K/mm3 Seg Neuts % (Manual) (40.0-70.0) % Lymphocytes % (Manual) (13.4-35.0) % Monocytes % (Manual) (0.0-7.3) % Nucleated RBC % 1.0 H (0.0-0.9) % Lymphocytes # (Manual) (1.2-5.4) K/mm3 Chloride 107.4 H (98-107) mmol/L BUN 81 H (9-20) mg/dL Creatinine 7.0 H (0.8-1.5) mg/dL Glucose 102 H (75-100) mg/dL Calcium 13.9 H* (8.4-10.2) mg/dL TIBC (250-450) mcg/dL Transferrin (180-329) mg/dl Total Bilirubin 1.40 H (0.1-1.2) mg/dL Total Protein > 12.0 H (6.3-8.2) g/dL Albumin 3.3 L (3.9-5) g/dL Urine Creatinine (0.1-20.0) mg/dL Urine Total Protein (5-11.8) mg/dL 01/19/19 01/19/19 Range/Units 08:55 10:15 RBC (3.65-5.03) M/mm3 Hgb (11.8-15.2) gm/dl Hct (35.5-45.6) % RDW (13.2-15.2) % Plt Count (140-440) K/mm3 Seg Neuts % (Manual) (40.0-70.0) % Lymphocytes % (Manual) (13.4-35.0) % Monocytes % (Manual) (0.0-7.3) % Nucleated RBC % (0.0-0.9) % Lymphocytes # (Manual) (1.2-5.4) K/mm3 Chloride (98-107) mmol/L BUN (9-20) mg/dL Creatinine (0.8-1.5) mg/dL Glucose (75-100) mg/dL Calcium (8.4-10.2) mg/dL TIBC 163 L (250-450) mcg/dL Transferrin 129 L (180-329) mg/dl Total Bilirubin (0.1-1.2) mg/dL Total Protein (6.3-8.2) g/dL Albumin (3.9-5) g/dL Urine Creatinine 181.1 H (0.1-20.0) mg/dL Urine Total Protein 297 H (5-11.8) mg/dL Assessment and Plan We'll plan on placement of permacath today.
[2019-01-19] MEDS ORDERED: HEPARIN/NS 5000 UNIT/500ML(CATH LAB) 500 ML IR ONE (11:34)
[2019-01-19] MEDS ORDERED: VERSED ONE (11:34)
[2019-01-19] MEDS ORDERED: SUBLIMAZE ONE (11:34)
[2019-01-19] MEDS ORDERED: XYLOCAINE 1%/ EPI 1:100,000 INFILTRATI ONE (11:35)
[2019-01-19] MEDS ORDERED: NACL 0.9% 250ML 250 ML ONE (11:35)
[2019-01-19] MEDS: HEPARIN 10,000 UNITS/10 ML ONE ×2 (12:21→12:22)
--- NOTE | 2019-01-19 12:27 | Operative Report ---
Operative Report Operative Report: Exam: Ultrasound and fluoroscopic guided placement of tunneled hemodialysis catheter Clinical indication: Patient with end-stage renal disease requiring dialysis access Date: 01/19/2019 Procedure: Following an explanation of the risks, benefits and alternatives; written informed consent was obtained. The patient was brought to the angiographic suite and placed in supine position on the examination table. Initial ultrasound evaluation of the neck demonstrated a patent right internal jugular vein. The patient's right neck and chest wall were prepped and draped in the usual sterile fashion. 1% lidocaine was used for anesthesia. Under ultrasound guidance, the right internal jugular vein was cannulated with a 7 cm 18-gauge needle. A 0.035 guidewire was advanced into the IVC under fluoroscopy to document venous positioning and for anchoring. The needle was removed. An appropriate catheter exit site was chosen along the lateral right chest wall. 1% lidocaine was used for anesthesia at the catheter exit site and along the tunnel tract. A Bard 23 cm tunneled hemodialysis catheter was then tunneled anterior grade from the catheter exit site to the venotomy site. Following serial dilation over the guidewire under fluoroscopy, a 15 [place] peel-away sheath was placed over the guidewire under fluoroscopy and advanced centrally. The guidewire and trocar were removed. The catheter was placed through the peel-away sheath in the peel-away sheath removed. The catheter tip was positioned in the proximal right atrium. Both ports flushed and aspirated easily and were then locked with appropriate volumes of heparin. The ami was closed using 4-0 Vicryl suture and Dermabond. 4-0 Vicryl suture was also used to approximate the catheter exit site and additional Dermabond placed. Sterile dressings were then applied. The patient tolerated the procedure well. There were no immediate post procedure complications. Conscious sedation was performed under the guidance of radiologic nursing. Continuous cardiopulmonary monitoring was utilized. Impression: Ultrasound and fluoroscopic guided placement of tunneled hemodialysis catheter via the right internal jugular vein.
--- NOTE | 2019-01-19 14:06 | XRay Report ---
CHEST 1 VIEW INDICATION: hypercalcemia and hyperglobulinemia. COMPARISON: None FINDINGS: Support devices: A right IJ dual-lumen venous catheter terminates in the lower SVC. Heart: Mild cardiomegaly. Lungs/Pleura: Mild central pulmonary venous congestion. No infiltrate, pleural effusion or pneumothor ax. Additional findings: None. IMPRESSION: Mild cardiomegaly and central pulmonary venous congestion. Signer Name: Ross Bucio Jr, MD Signed: 01/19/2019 2:02 PM Workstation Name: [id number]
[2019-01-19] MEDS ORDERED: NACL 0.9% 100 ML IV PRN (14:36)
[2019-01-19] MEDS ORDERED: NACL 0.9% 1000 ML 1,000 ML ONE ×2 (14:40→15:30)
--- NOTE | 2019-01-19 14:42 | Anesthesia Day of Surgery ---
Anesthesia Day of Surgery - Day of Surgery Patient Examined: Yes Patient H&P Reviewed: Yes Patient is NPO: Yes
--- NOTE | 2019-01-19 14:57 | Progress Note ---
Assessment and Plan Assessment and plan: Severe hypercalcemia, with renal failure - Could be due to multiple myeloma - Calcium was 15.5 yesterday and was given IVF and this morning it was 13.2 - Hematology oncology consulted - Patient had polyuria and polydypsia for the last 2 weeks - Couldn't do skeletal survey because the patient was agitated, will do when the patient is more calm - CT showed severe osteoporosis Acute metabolic encephalopathy -Due to hypercalcemia -On haldol Acute on chronic renal failure - Nephrology was consulted and will start the patient on HD - Vasc cath placed Upper GI bleed - Patient initiated on IV Protonix drip - IV fluids - GI consulted and recommend EGD tomorrow Hypertension - Hold antihypertensives - Catapres patch initiated Hyperlipidemia - Statins on hold Anemia - Multifactorial - Secondary to end-stage renal disease and GI bleed, anemia of chronic illness, ?myeloma - Transfuse as necessary Hyperglobulinemia R/O MM - Rule out multiple myeloma - Skeletal survey ordered - SPEP and UPEP ordered - Hematology consulted Prognosis; Poor Discussed with the patient's . Disposition; continue inpatient care. History Interval history: Patient was seen and evaluated this morning is at bedside, patient was confused, agitated and on restraints. Management plan was discussed with patient's . Hospitalist Physical - Physical exam Narrative exam: Patient is agitated and on restraints. The patient is obese. Vital signs as documented. Head exam is unremarkable. No scleral icterus . Neck is without jugular venous distension, thyromegaly, or carotid bruits. Lungs are clear to auscultation. Cardiac exam reveals regular rate and Rhythm. Abdominal exam reveals normal bowel sounds, no masses, no organomegaly and no aortic enlargement. Extremities are nonedematous and both femoral and pedal pulses are normal. 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 - Constitutional Vitals: Temp Pulse Resp BP Pulse Ox 97.6 F 107 H 20 186/96 90 01/19/19 13:36 01/19/19 13:36 01/19/19 13:36 01/19/19 13:36 01/19/19 13:36 General appearance: Present: no acute distress Results - Labs CBC & Chem 7: 01/19/19 06:28 01/19/19 06:28 Labs: Laboratory Last Values WBC 6.8 K/mm3 (4.5-11.0) 01/19/19 04:40 RBC 2.77 M/mm3 (3.65-5.03) L 01/19/19 04:40 Hgb 8.1 gm/dl (11.8-15.2) L 01/19/19 06:28 Hct 24.1 % (35.5-45.6) L 01/19/19 06:28 MCV 90 fl (84-94) 01/19/19 04:40 MCH 31 pg (28-32) 01/19/19 04:40 MCHC 34 % (32-34) 01/19/19 04:40 RDW 16.4 % (13.2-15.2) H 01/19/19 04:40 Plt Count 137 K/mm3 (140-440) L 01/19/19 04:40 Lymph % (Auto) [employer] 01/18/19 06:47 [place] % (Auto) [employer] 01/18/19 06:47 Eos % (Auto) [employer] 01/18/19 06:47 Baso % (Auto) [employer] 01/18/19 06:47 Lymph # [employer] 01/18/19 06:47 [place] # [employer] 01/18/19 06:47 Eos # [employer] 01/18/19 06:47 Baso # [employer] 01/18/19 06:47 Add Manual Diff Complete 01/19/19 04:40 Total Counted 100 01/19/19 04:40 Seg Neutrophils % [employer] 01/18/19 06:47 Seg Neuts % (Manual) 65.0 % (40.0-70.0) 01/19/19 04:40 0 % 01/19/19 04:40 26.0 % (13.4-35.0) 01/19/19 04:40 Reactive Lymphs % (Man) 0 % 01/19/19 04:40 5.0 % (0.0-7.3) 01/19/19 04:40 1.0 % (0.0-4.3) 01/19/19 04:40 0 % (0.0-1.8) 01/19/19 04:40 3.0 % 01/19/19 04:40 0 % 01/19/19 04:40 0 % 01/19/19 04:40 0 % 01/19/19 04:40 Nucleated RBC % 1.0 % (0.0-0.9) H 01/19/19 04:40 Seg Neutrophils # [employer] 01/18/19 06:47 Seg Neutrophils # Man 4.4 K/mm3 (1.8-7.7) 01/19/19 04:40 Band Neutrophils # 0.0 K/mm3 01/19/19 04:40 1.8 K/mm3 (1.2-5.4) 01/19/19 04:40 Abs React Lymphs (Man) 0.0 K/mm3 01/19/19 04:40 0.3 K/mm3 (0.0-0.8) 01/19/19 04:40 0.1 K/mm3 (0.0-0.4) 01/19/19 04:40 0.0 K/mm3 (0.0-0.1) 01/19/19 04:40 0.2 K/mm3 01/19/19 04:40 0.0 K/mm3 01/19/19 04:40 0.0 K/mm3 01/19/19 04:40 Blast Cells # 0.0 K/mm3 01/19/19 04:40 WBC Morphology Not Reportable 01/19/19 04:40 Hypersegmented Neuts Not Reportable 01/19/19 04:40 Hyposegmented Neuts Not Reportable 01/19/19 04:40 Hypogranular Neuts Not Reportable 01/19/19 04:40 Not Reportable 01/19/19 04:40 Not Reportable 01/19/19 04:40 Not Reportable 01/19/19 04:40 Not Reportable 01/19/19 04:40 Not Reportable 01/19/19 04:40 Not Reportable 01/19/19 04:40 Consistent w auto 01/19/19 04:40 Not Reportable 01/19/19 04:40 Plt Clumps, EDTA Not Reportable 01/19/19 04:40 Not Reportable 01/19/19 04:40 Not Reportable 01/19/19 04:40 Not Reportable 01/19/19 04:40 Plt Morphology Comment Not Reportable 01/19/19 04:40 RBC Morphology Normal 01/19/19 04:40 Dimorphic RBCs Not Reportable 01/19/19 04:40 Not Reportable 01/19/19 04:40 Not Reportable 01/19/19 04:40 Not Reportable 01/19/19 04:40 Not Reportable 01/19/19 04:40 Not Reportable 01/19/19 04:40 Not Reportable 01/19/19 04:40 Not Reportable 01/19/19 04:40 Not Reportable 01/19/19 04:40 Not Reportable 01/19/19 04:40 Not Reportable 01/19/19 04:40 Not Reportable 01/19/19 04:40 Not Reportable 01/19/19 04:40 Not Reportable 01/19/19 04:40 Not Reportable 01/19/19 04:40 Not Reportable 01/19/19 04:40 Not Reportable 01/19/19 04:40 Not Reportable 01/19/19 04:40 Not Reportable 01/19/19 04:40 Not Reportable 01/19/19 04:40 Acanthocytes (Spur) Not Reportable 01/19/19 04:40 Rouleaux Not Reportable 01/19/19 04:40 Not Reportable 01/19/19 04:40 Not Reportable 01/19/19 04:40 Not Reportable 01/19/19 04:40 Not Reportable 01/19/19 04:40 Hem Pathologist Commnt No 01/19/19 04:40 Sodium 137 mmol/L (137-145) 01/19/19 06:28 Potassium 3.9 mmol/L (3.6-5.0) 01/19/19 06:28 Chloride 107.4 mmol/L (98-107) H 01/19/19 06:28 Carbon Dioxide 23 mmol/L (22-30) 01/19/19 06:28 11 mmol/L 01/19/19 06:28 BUN 81 mg/dL (9-20) H 01/19/19 06:28 7.0 mg/dL (0.8-1.5) H 01/19/19 06:28 Estimated GFR 9 ml/min 01/19/19 06:28 12 % 01/19/19 06:28 Glucose 102 mg/dL (75-100) H 01/19/19 06:28 POC Glucose 101 (70-105) 01/19/19 07:35 6.0 % (4-6) 01/19/19 04:40 Calcium 13.9 mg/dL (8.4-10.2) H* 01/19/19 06:28 Iron 76 ug/dL (49-181) 01/19/19 10:15 TIBC 163 mcg/dL (250-450) L 01/19/19 10:15 % Saturation 46.63 % 01/19/19 10:15 129 mg/dl (180-329) L 01/19/19 10:15 1.40 mg/dL (0.1-1.2) H 01/19/19 06:28 AST 20 units/L (5-40) 01/19/19 06:28 ALT 16 units/L (7-56) 01/19/19 06:28 104 units/L (35-129) 01/19/19 06:28 > 12.0 g/dL (6.3-8.2) H 01/19/19 06:28 3.3 g/dL (3.9-5) L 01/19/19 06:28 0.0 % 01/19/19 06:28 PTH Intact 30.34 pg/mL (15-65) 01/18/19 16:42 Yellow (Yellow) 01/19/19 09:18 Cloudy (Clear) 01/19/19 09:18 5.0 (5.0-7.0) 01/19/19 09:18 Ur Specific [place] 1.016 (1.003-1.030) 01/19/19 09:18 100 mg/dl mg/dL (Negative) 01/19/19 09:18 Neg mg/dL (Negative) 01/19/19 09:18 Neg mg/dL (Negative) 01/19/19 09:18 Mod (Negative) 01/19/19 09:18 Neg (Negative) 01/19/19 09:18 Neg (Negative) 01/19/19 09:18 < 2.0 mg/dL (<2.0) 01/19/19 09:18 Ur Leukocyte Esterase Neg (Negative) 01/19/19 09:18 6.0 /HPF (0.0-6.0) 01/19/19 09:18 3.0 /HPF (0.0-6.0) 01/19/19 09:18 U Epithel Cells (Auto) 3.0 /HPF (0-13.0) 01/19/19 09:18 1+ /HPF (Negative) 01/19/19 09:18 Few /HPF 01/19/19 09:18 181.1 mg/dL (0.1-20.0) H 01/19/19 08:55 19 mmol/L 01/19/19 08:55 297 mg/dL (5-11.8) H 01/19/19 08:55 Hepatitis A IgM Ab Non-reactive (NonReactive) 01/19/19 10:15 Hep Bs Antigen Non-reactive (Negative) 01/19/19 10:15 Hep B Core IgM Ab Non-reactive (NonReactive) 01/19/19 10:15 Non-reactive (NonReactive) 01/19/19 10:15 Blood Type O POSITIVE 01/18/19 10:38 Antibody Screen Negative 01/18/19 10:38 Active Medications - Current Medications Current Medications: Generic Name Dose Route Start Last Admin Trade Name Freq PRN Reason Stop Dose Admin Acetaminophen 650 mg 01/18/19 15:51 Tylenol PO Q4H PRN Pain MILD(1-3)/Fever >100.5/SOTO Calcitonin [place] 50 unit 01/18/19 16:00 01/19/19 08:59 Miacalcin SUB-Q 50 unit Q12HR GILBERTO Administration Clonidine HCl 0.2 mg 01/18/19 17:00 01/18/19 18:07 Catapres-Tts Patch TD 0.2 mg Th GILBERTO Administration Hydromorphone HCl 0.5 mg 01/18/19 15:51 01/19/19 03:02 Dilaudid IV 0.5 mg Q3H PRN Administration Pain , Severe (7-10) Pantoprazole Sodium 80 mg/ 100 mls @ 10 mls/hr 01/18/19 12:00 01/19/19 00:46 Sodium Chloride IV 8 mg/hr DIRECT GILBERTO 10 mls/hr Administration 8 MG/HR Pamidronate Disodium 30 mg/ 503.3333 mls @ 125 mls/hr 01/18/19 17:00 01/18/19 18:03 Sodium Chloride IV 01/20/19 21:02 125 mls/hr Q24H GILBERTO Administration Sodium Chloride 100 mls @ 999 mls/hr 01/19/19 14:36 Nacl 0.9% IV REYES PRN Hypotension Metoclopramide HCl 10 mg 01/18/19 15:51 Reglan IV Q6H PRN Nausea And Vomiting Ondansetron HCl 4 mg 01/18/19 15:51 01/18/19 20:04 Zofran IV 4 mg Q8H PRN Administration Nausea And Vomiting Sodium Chloride 10 ml 01/18/19 22:00 01/19/19 09:00 Sodium Chloride Flush Syringe 10 Ml IV 10 ml BID GILBERTO Administration Sodium Chloride 10 ml 01/18/19 15:51 Sodium Chloride Flush Syringe 10 Ml IV PRN PRN LINE FLUSH
--- NOTE | 2019-01-19 15:00 | Anesthesia Consultation ---
Anesthesia Consult and Med Hx Date of service: 01/19/19 - Pre-Operative Health Status ASA Pre-Surgery Classification: ASA4 Proposed Anesthetic Plan: MAC - Pre-Anesthesia Comment Pre-Anesthesia Comments: unable to assess airway/mental status. not following commands. - Pulmonary Hx Smoking: Yes (For the past 10 years) - Cardiovascular System Hx Hypertension: Yes (high cholesterol) - Endocrine Hx Renal Disease: Yes Hx End Stage Renal Disease: Yes - Other Systems Hx Cancer: No Hx Obesity: Yes
[2019-01-19] MEDS ORDERED: XYLOCAINE MPF 2% ONE (15:30)
--- NOTE | 2019-01-19 15:54 | Post Operative Note ---
Pre-op diagnosis: gi bleed Post-op diagnosis: same Findings: EGD; hiatal hernia - multiple shallow ulcers throughout stomach w/o bleeding stigmata (bx's) - negative other Procedure: EGD Anesthesia: MAC Surgeon: MAYKEL LAWTON Estimated blood loss: none Pathology: list Specimen disposition: to lab Condition: stable Disposition: floor
[2019-01-19] MEDS ORDERED: DIPRIVAN 10 MG/ML IV ONE (16:01)
--- NOTE | 2019-01-19 16:22 | Operative Report ---
PROCEDURE: EGD with cold biopsies. INDICATIONS: 1. Anemia. 2. Coffee emesis. MEDICATIONS: Propofol per CANDY DIPPER HAND. COMPLICATIONS: None. DESCRIPTION OF PROCEDURE: The patient was brought to the procedure suite. The patient had the procedure discussed with him and his family at length. All risks, complications, and benefits were discussed, after which the patient and family signed for the procedure to be performed. The patient was placed in left lateral decubitus position. Mouth block placed in the patient's oral cavity. After adequate sedation medication as above, endoscope was introduced into the mouth and brought to the level of the second portion of duodenum. Retroflexion view performed. The patient's vital signs remained stable throughout the procedure. FINDINGS: There was noted to be grade 1 esophagitis GE junction at 30 cm from the gums. Medium hiatal hernia at GE junction. Esophagus otherwise appeared to be normal. There were scattered small white based ulcerations noted throughout the stomach. These were mainly 4-5 mm in size. No stigmata of bleeding was noted. Biopsies were taken of the antrum and sent to pathology. The remaining stomach otherwise appeared to be normal. Duodenum appeared to be normal. Retroflexion view performed in the stomach showed no other pathology other than noted above. The patient tolerated the procedure well. No complications during the procedure. IMPRESSION: 1. Hiatal hernia. 2. Grade 1 esophagitis. 3. Scattered small ulcers throughout the stomach, status post biopsy of the stomach. 4. Otherwise, normal EGD. RECOMMENDATIONS: 1. Follow up biopsy results. 2. If H. pylori positive, treat. 3. PPI daily. 4. Advance diet. 5. Okay to discharge from GI standpoint, we will sign off, call if needed. JOB# [id number] CAB/NTS
--- NOTE | 2019-01-19 16:35 | Consultation ---
History of Present Illness - Reason for Consult Consult date: 01/19/19 hypercalcemia. - History of Present Illness Thank you for this consult, patient seen/examined, resting in bed, records revtue. Patient presented with AMS, labs showed elevated calcium. May very well be all renal. Renal on the case now. Will await SPEP. renal with dialyasis./ Past History Past Medical History: other (as per HPI) Past Surgical History: appendectomy, cholecystectomy Social history: denies: smoking, alcohol abuse Medications and Allergies Allergies Allergy/AdvReac Type Severity Reaction Status Date / Time No Known Allergies Allergy Unverified 01/18/19 06:38 Home Medications Medication Instructions Recorded Confirmed Last Taken Type Labetalol [Labetalol 200mg TAB] 200 mg PO BID 01/18/19 01/18/19 01/17/19 History NIFEdipine [Nifedipine ER] 90 mg PO QDAY 01/18/19 01/18/19 01/17/19 History Simvastatin 20 mg PO QHS 01/18/19 01/18/19 01/17/19 History Active Meds: Active Medications Acetaminophen (Tylenol) 650 mg PO Q4H PRN PRN Reason: Pain MILD(1-3)/Fever >100.5/SOTO Calcitonin [place] (Miacalcin) 50 unit SUB-Q Q12HR GILBERTO Last Admin: 01/19/19 08:59 Dose: 50 unit Documented by: Clonidine HCl (Catapres-Tts Patch) 0.2 mg TD Th GILBERTO Last Admin: 01/18/19 18:07 Dose: 0.2 mg Documented by: Hydromorphone HCl (Dilaudid) 0.5 mg IV Q3H PRN PRN Reason: Pain , Severe (7-10) Last Admin: 01/19/19 03:02 Dose: 0.5 mg Documented by: Pantoprazole Sodium 80 mg/ (Sodium Chloride) 100 mls @ 10 mls/hr IV DIRECT GILBERTO Last Admin: 01/19/19 00:46 Dose: 8 mg/hr, 10 mls/hr Documented by: Pamidronate Disodium 30 mg/ (Sodium Chloride) 503.3333 mls @ 125 mls/hr IV Q24H GILBERTO Stop: 01/20/19 21:02 Last Admin: 01/18/19 18:03 Dose: 125 mls/hr Documented by: Sodium Chloride (Nacl 0.9%) 100 mls @ 999 mls/hr IV REYES PRN PRN Reason: Hypotension Metoclopramide HCl (Reglan) 10 mg IV Q6H PRN PRN Reason: Nausea And Vomiting Ondansetron HCl (Zofran) 4 mg IV Q8H PRN PRN Reason: Nausea And Vomiting Last Admin: 01/18/19 20:04 Dose: 4 mg Documented by: Sodium Chloride (Sodium Chloride Flush Syringe 10 Ml) 10 ml IV BID GILBERTO Last Admin: 01/19/19 09:00 Dose: 10 ml Documented by: Sodium Chloride (Sodium Chloride Flush Syringe 10 Ml) 10 ml IV PRN PRN PRN Reason: LINE FLUSH Exam - Constitutional Vitals: Temp Pulse Resp BP Pulse Ox 98.3 F 108 H 16 193/93 92 01/19/19 15:11 01/19/19 15:11 01/19/19 15:11 01/19/19 15:11 01/19/19 15:11 General appearance: Present: no acute distress - EENT Eyes: Present: PERRL ENT: hearing intact, clear oral mucosa - Neck Neck: Present: supple, normal ROM - Respiratory Respiratory effort: normal Respiratory: bilateral: CTA - Cardiovascular Heart Sounds: Present: S1 & S2. Absent: rub, click - Extremities Extremities: pulses symmetrical, No edema Peripheral Pulses: within normal limits - Abdominal General gastrointestinal: Present: soft, non-tender, non-distended, normal bowel sounds Male genitourinary: Present: deferred - Rectal Rectal Exam: deferred - Integumentary Integumentary: Present: clear, warm, dry - Musculoskeletal Musculoskeletal: gait normal, strength equal bilaterally - Psychiatric Psychiatric: appropriate mood/affect, intact judgment & insight - Neurologic Neurologic: CNII-XII intact, moves all extremities Results - Labs CBC & Chem 7: 01/19/19 06:28 01/19/19 06:28 Labs: Abnormal lab results 01/18/19 01/19/19 01/19/19 Range/Units 16:42 00:41 04:40 RBC 2.77 L (3.65-5.03) M/mm3 Hgb 8.5 L 8.4 L 8.5 L (11.8-15.2) gm/dl Hct 25.1 L 25.2 L 25.0 L (35.5-45.6) % RDW 16.4 H (13.2-15.2) % Plt Count 137 L (140-440) K/mm3 Nucleated RBC % 1.0 H (0.0-0.9) % Chloride (98-107) mmol/L BUN (9-20) mg/dL Creatinine (0.8-1.5) mg/dL Glucose (75-100) mg/dL Calcium (8.4-10.2) mg/dL TIBC (250-450) mcg/dL Transferrin (180-329) mg/dl Total Bilirubin (0.1-1.2) mg/dL Total Protein (6.3-8.2) g/dL Albumin (3.9-5) g/dL Urine Creatinine (0.1-20.0) mg/dL Urine Total Protein (5-11.8) mg/dL 01/19/19 01/19/19 01/19/19 Range/Units 06:28 06:28 08:55 RBC (3.65-5.03) M/mm3 Hgb 8.1 L (11.8-15.2) gm/dl Hct 24.1 L (35.5-45.6) % RDW (13.2-15.2) % Plt Count (140-440) K/mm3 Nucleated RBC % (0.0-0.9) % Chloride 107.4 H (98-107) mmol/L BUN 81 H (9-20) mg/dL Creatinine 7.0 H (0.8-1.5) mg/dL Glucose 102 H (75-100) mg/dL Calcium 13.9 H* (8.4-10.2) mg/dL TIBC (250-450) mcg/dL Transferrin (180-329) mg/dl Total Bilirubin 1.40 H (0.1-1.2) mg/dL Total Protein > 12.0 H (6.3-8.2) g/dL Albumin 3.3 L (3.9-5) g/dL Urine Creatinine 181.1 H (0.1-20.0) mg/dL Urine Total Protein 297 H (5-11.8) mg/dL 01/19/19 Range/Units 10:15 RBC (3.65-5.03) M/mm3 Hgb (11.8-15.2) gm/dl Hct (35.5-45.6) % RDW (13.2-15.2) % Plt Count (140-440) K/mm3 Nucleated RBC % (0.0-0.9) % Chloride (98-107) mmol/L BUN (9-20) mg/dL Creatinine (0.8-1.5) mg/dL Glucose (75-100) mg/dL Calcium (8.4-10.2) mg/dL TIBC 163 L (250-450) mcg/dL Transferrin 129 L (180-329) mg/dl Total Bilirubin (0.1-1.2) mg/dL Total Protein (6.3-8.2) g/dL Albumin (3.9-5) g/dL Urine Creatinine (0.1-20.0) mg/dL Urine Total Protein (5-11.8) mg/dL Assessment and Plan - Patient Problems (1) Anemia Current Visit: Yes Status: Acute Qualifiers: Anemia type: unspecified type Qualified Code(s): D64.9 - Anemia, unspecified Plan to address problem: will follow labs. (2) Renal failure Current Visit: Yes Status: Acute Qualifiers: Renal failure chronicity: acute on chronic Acute renal failure type: unspecified Chronic kidney disease stage: unspecified stage Qualified Code(s): N17.9 - Acute kidney failure, unspecified; N18.9 - Chronic kidney disease, unspecified Plan to address problem: follow renal.
[2019-01-19] MEDS: NACL 0.9% IV SCH (18:33)
[2019-01-19] MEDS: AREDIA IV SCH (18:33)
--- NOTE | 2019-01-19 22:06 | Event Note ---
discussed the case with patient's president & ceo [employer] at 1004 am today had a long discussion with the patient's primary president & ceo [employer] Dr. Cao, patient has been known to him for many years He has been suffering from advanced chronic kidney disease Patient has had abnormal electrophoresis for which she was sent to the grapple yarder operator I did ask him whether the patient would benefit from kidney biopsy He indicated that no kidney biopsy is necessary at this time He agreed that patient does need to initiate renal replacement therapy I did communicate this to patient's
[2019-01-20 05:39] LABS: Hematocrit 26.2 % (35.5-45.6); Hemoglobin 8.9 gm/dl (11.8-15.2); Mean Corpuscular HGB Conc 34 % (32-34); Mean Corpuscular Volume 91 fl (84-94); Platelet Count 139 K/mm3 (140-440); Red Blood Count 2.89 M/mm3 (3.65-5.03); Red Cell Distribution Width 16.8 % (13.2-15.2)
--- NOTE | 2019-01-20 05:58 | Ultrasound Report ---
ULTRASOUND RENAL INDICATION: renal failure. COMPARISON: CT of the abdomen and pelvis without contrast from 01/18/2019. FINDINGS: RIGHT KIDNEY: Size: 9 cm. Echogenicity: Normal. Cortical thickness: Mild thinning, 1 cm. Hydronephrosis: None. Cyst or mass: None. Stones: None. LEFT KIDNEY: Size: 10 cm. Echogenicity: Normal. Cortical thickness: Mild thinning, 1.2 cm. Hydronephrosis: None. Cyst or mass: None. Stones: None. Urinary Bladder: No significant abnormality. Free Fluid: None. Additional Findings: None. IMPRESSION 1. No acute sonographic abnormality of the kidneys. 2. Mild bilateral renal cortical thinning. Signer Name: Mat Anthony MD Signed: 01/20/2019 5:54 AM Workstation Name: [id number]
[2019-01-20 07:01] LABS: Anisocytosis 1+; Band Neutrophils # (Manual) 0.5 K/mm3; Basophils % (Manual) 0 % (0.0-1.8); Macrocytosis Few; Platelet Estimate Consistent w Auto; Total Cells Counted 100
[2019-01-20 08:52] LABS: BUN/Creatinine Ratio 9; Blood Urea Nitrogen 71 mg/dL (9-20)
[2019-01-20 08:53] LABS: Alanine Aminotransferase 19 units/L (7-56); Albumin 3.6 g/dL (3.9-5); Hemolysis Index 4
[2019-01-20] MEDS ORDERED: NORMODYNE IV PRN (08:56)
[2019-01-20 09:18] LABS: Calcium 12.5 mg/dL (8.4-10.2)
[2019-01-20] MEDS: DILAUDID IV PRN ×2 (10:51→13:36)
[2019-01-20] MEDS ORDERED: NACL 0.9% 100 ML IV PRN (11:05)
--- NOTE | 2019-01-20 11:11 | Progress Note ---
Assessment and Plan Impression * End-stage renal disease * Hypercalcemia * Hypertension * Anemia * Hyperlipidemia Recommendations * Patient had his first dialysis treatment yesterday. * Schedule patient for the gentle treatment today * Adjust dialysis bath based on his chemistries today * Patient is currently receiving Aredia for his hypercalcemia * Follow up on the results of SPEP and UPEP as well as skeletal bone survey. * Avoid nephrotoxins * Procrit with dialysis * Patient will also require outpatient dialysis arrangement Subjective Date of service: 01/20/19 Interval history: Patient is awake and alert. Appears comfortable. Status post right IJ PermCath placement and initiation of dialysis. Denies any shortness of breath. Objective - Vital Signs Vital signs: Vital Signs - 12hr 01/19/19 01/20/19 01/20/19 23:49 02:40 07:38 Temperature 98.6 F 98.4 F 97.6 F Pulse Rate 119 H 121 H 108 H Respiratory 20 20 20 Rate Blood Pressure 155/85 140/82 151/87 O2 Sat by Pulse 91 96 97 Oximetry - General Appearance General appearance: well-developed, well-nourished, appears stated age EENT: PERRL, mucous membranes moist Neck: no JVD, no thyromegaly, no carotid bruit, supple, other (right IJ PermCath in place) Respiratory: Present: Clear to Ascultation Cardiology: regular, normal heart rate, S1S2, no murmurs Gastrointestinal: normal, normoactive bowel sounds Integumentary: other (no edema) - Lab 01/20/19 04:58 01/20/19 07:28 Most recent lab results Calcium 12.5 mg/dL (8.4-10.2) H* 01/20/19 07:28 181.1 mg/dL (0.1-20.0) H 01/19/19 08:55 19 mmol/L 01/19/19 08:55 297 mg/dL (5-11.8) H 01/19/19 08:55 Medications & Allergies - Medications Allergies/Adverse Reactions: Allergies No Known Allergies Allergy (Unverified 01/18/19 06:38) Home Medications: Home Medications Medication Instructions Recorded Confirmed Last Taken Type Labetalol [Labetalol 200mg TAB] 200 mg PO BID 01/18/19 01/18/19 01/17/19 History NIFEdipine [Nifedipine ER] 90 mg PO QDAY 01/18/19 01/18/19 01/17/19 History Simvastatin 20 mg PO QHS 01/18/19 01/18/19 01/17/19 History Active Medications: Generic Name Dose Route Start Last Admin Trade Name Freq PRN Reason Stop Dose Admin Acetaminophen 650 mg 01/18/19 15:51 Tylenol PO Q4H PRN Pain MILD(1-3)/Fever >100.5/SOTO Haloperidol Lactate 5 mg 01/20/19 11:04 Haldol IM Q6H PRN Agitation Hydromorphone HCl 0.5 mg 01/18/19 15:51 01/20/19 10:51 Dilaudid IV 0.5 mg Q3H PRN Administration Pain , Severe (7-10) Pantoprazole Sodium 80 mg/ 100 mls @ 10 mls/hr 01/18/19 12:00 01/19/19 00:46 Sodium Chloride IV 8 mg/hr DIRECT GILBERTO 10 mls/hr Administration 8 MG/HR Pamidronate Disodium 30 mg/ 503.3333 mls @ 125 mls/hr 01/18/19 17:00 01/19/19 18:33 Sodium Chloride IV 01/20/19 21:02 125 mls/hr Q24H GILBERTO Administration Sodium Chloride 100 mls @ 999 mls/hr 01/19/19 14:36 Nacl 0.9% IV REYES PRN Hypotension Sodium Chloride 100 mls @ 999 mls/hr 01/20/19 11:05 Nacl 0.9% IV REYES PRN Hypotension Labetalol HCl 10 mg 01/20/19 08:56 Normodyne IV Q4H PRN Hypertension Metoclopramide HCl 10 mg 01/18/19 15:51 Reglan IV Q6H PRN Nausea And Vomiting Ondansetron HCl 4 mg 01/18/19 15:51 01/18/19 20:04 Zofran IV 4 mg Q8H PRN Administration Nausea And Vomiting Sodium Chloride 10 ml 01/18/19 22:00 01/19/19 09:00 Sodium Chloride Flush Syringe 10 Ml IV 10 ml BID GILBERTO Administration Sodium Chloride 10 ml 01/18/19 15:51 Sodium Chloride Flush Syringe 10 Ml IV PRN PRN LINE FLUSH
--- NOTE | 2019-01-20 12:03 | Progress Note ---
Assessment and Plan Assessment and plan: 73-year-old -[place] male with history of hypertension, chronic kidney disease and hyperlipidemia comes in for vomiting blood for 2 days and abdominal pain for 2 days. Patient is a very poor historian. Patient feels weak and fatigued and has difficulty walking. Patient feels as if he is going to pass out. Patient had a similar episode a few months ago . Pain is epigastric. Patient does not say whether he took Goody powders BC powders or any nonsteroidal anti-inflammatory drugs. No exacerbating or relieving factors. Patient also has dark melanotic stools. No fever or chills. Severe hypercalcemia, with renal failure - Could be due to multiple myeloma - Calcium this morning was 12.5 - Hematology oncology consulted - Patient had polyuria and polydypsia for the last 2 weeks - Couldn't do skeletal survey because the patient was agitated, will do when the patient is more calm - CT showed severe osteoporosis - patient was given pamidronate Acute metabolic encephalopathy -Due to hypercalcemia -On haldol prn Acute on chronic renal failure - Nephrology was consulted and will start the patient on HD - Vasc cath placed Upper GI bleed - Patient initiated on IV Protonix drip - IV fluids - GI consulted and recommend EGD tomorrow Hypertension - Hold antihypertensives - Catapres patch initiated Hyperlipidemia - Statins on hold Anemia - Multifactorial - Secondary to end-stage renal disease and GI bleed, anemia of chronic illness, ?myeloma - Transfuse as necessary Hyperglobulinemia R/O MM - Rule out multiple myeloma - Skeletal survey ordered - SPEP and UPEP ordered - Hematology consulted Prognosis; Poor Discussed with the patient's . Disposition; continue inpatient care. History Interval history: Patient was seen and evaluated this morning is at bedside, patient was confused, agitated and on restraints. Management plan was discussed with patient's . Hospitalist Physical - Physical exam Narrative exam: Patient is agitated and on restraints. The patient is obese. Vital signs as documented. Head exam is unremarkable. No scleral icterus . Neck is without jugular venous distension, thyromegaly, or carotid bruits. Lungs are clear to auscultation. Cardiac exam reveals regular rate and Rhythm. Abdominal exam reveals normal bowel sounds, no masses, no organomegaly and no aortic enlargement. Extremities are nonedematous and both femoral and pedal pulses are normal. 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 - Constitutional Vitals: Temp Pulse Resp BP Pulse Ox 97.6 F 112 H 20 151/87 96 01/20/19 07:38 01/20/19 10:00 01/20/19 07:38 01/20/19 07:38 01/20/19 10:00 General appearance: Present: no acute distress Results - Labs CBC & Chem 7: 01/20/19 04:58 01/20/19 07:28 Labs: Laboratory Last Values WBC 6.5 K/mm3 (4.5-11.0) 01/20/19 04:58 RBC 2.89 M/mm3 (3.65-5.03) L 01/20/19 04:58 Hgb 8.9 gm/dl (11.8-15.2) L 01/20/19 04:58 Hct 26.2 % (35.5-45.6) L 01/20/19 04:58 MCV 91 fl (84-94) 01/20/19 04:58 MCH 31 pg (28-32) 01/20/19 04:58 MCHC 34 % (32-34) 01/20/19 04:58 RDW 16.8 % (13.2-15.2) H 01/20/19 04:58 Plt Count 139 K/mm3 (140-440) L 01/20/19 04:58 Lymph % (Auto) Piano Mechanic 01/18/19 06:47 [place] % (Auto) Piano Mechanic 01/18/19 06:47 Eos % (Auto) Piano Mechanic 01/18/19 06:47 Baso % (Auto) Piano Mechanic 01/18/19 06:47 Lymph # Piano Mechanic 01/18/19 06:47 [place] # Piano Mechanic 01/18/19 06:47 Eos # Piano Mechanic 01/18/19 06:47 Baso # Piano Mechanic 01/18/19 06:47 Add Manual Diff Complete 01/20/19 04:58 Total Counted 100 01/20/19 04:58 Seg Neutrophils % Piano Mechanic 01/18/19 06:47 Seg Neuts % (Manual) 67.0 % (40.0-70.0) 01/20/19 04:58 7.0 % 01/20/19 04:58 18.0 % (13.4-35.0) 01/20/19 04:58 Reactive Lymphs % (Man) 0 % 01/20/19 04:58 6.0 % (0.0-7.3) 01/20/19 04:58 1.0 % (0.0-4.3) 01/20/19 04:58 0 % (0.0-1.8) 01/20/19 04:58 1.0 % 01/20/19 04:58 0 % 01/20/19 04:58 0 % 01/20/19 04:58 0 % 01/20/19 04:58 Nucleated RBC % 3.0 % (0.0-0.9) H 01/20/19 04:58 Seg Neutrophils # Piano Mechanic 01/18/19 06:47 Seg Neutrophils # Man 4.4 K/mm3 (1.8-7.7) 01/20/19 04:58 Band Neutrophils # 0.5 K/mm3 01/20/19 04:58 1.2 K/mm3 (1.2-5.4) 01/20/19 04:58 Abs React Lymphs (Man) 0.0 K/mm3 01/20/19 04:58 0.4 K/mm3 (0.0-0.8) 01/20/19 04:58 0.1 K/mm3 (0.0-0.4) 01/20/19 04:58 0.0 K/mm3 (0.0-0.1) 01/20/19 04:58 0.1 K/mm3 01/20/19 04:58 0.0 K/mm3 01/20/19 04:58 0.0 K/mm3 01/20/19 04:58 Blast Cells # 0.0 K/mm3 01/20/19 04:58 WBC Morphology Not Reportable 01/20/19 04:58 Hypersegmented Neuts Not Reportable 01/20/19 04:58 Hyposegmented Neuts Not Reportable 01/20/19 04:58 Hypogranular Neuts Not Reportable 01/20/19 04:58 Not Reportable 01/20/19 04:58 Not Reportable 01/20/19 04:58 Not Reportable 01/20/19 04:58 Not Reportable 01/20/19 04:58 Not Reportable 01/20/19 04:58 Not Reportable 01/20/19 04:58 Consistent w auto 01/20/19 04:58 Not Reportable 01/20/19 04:58 Plt Clumps, EDTA Not Reportable 01/20/19 04:58 Not Reportable 01/20/19 04:58 Not Reportable 01/20/19 04:58 Not Reportable 01/20/19 04:58 Plt Morphology Comment Not Reportable 01/20/19 04:58 RBC Morphology Not Reportable 01/20/19 04:58 Dimorphic RBCs Not Reportable 01/20/19 04:58 Not Reportable 01/20/19 04:58 Not Reportable 01/20/19 04:58 Not Reportable 01/20/19 04:58 1+ 01/20/19 04:58 Not Reportable 01/20/19 04:58 Few 01/20/19 04:58 Not Reportable 01/20/19 04:58 Not Reportable 01/20/19 04:58 Not Reportable 01/20/19 04:58 Not Reportable 01/20/19 04:58 Not Reportable 01/20/19 04:58 Not Reportable 01/20/19 04:58 Not Reportable 01/20/19 04:58 Not Reportable 01/20/19 04:58 Not Reportable 01/20/19 04:58 Not Reportable 01/20/19 04:58 Not Reportable 01/20/19 04:58 Not Reportable 01/20/19 04:58 Not Reportable 01/20/19 04:58 Acanthocytes (Spur) Not Reportable 01/20/19 04:58 Rouleaux Not Reportable 01/20/19 04:58 Not Reportable 01/20/19 04:58 Not Reportable 01/20/19 04:58 Not Reportable 01/20/19 04:58 Not Reportable 01/20/19 04:58 Hem Pathologist Commnt No 01/20/19 04:58 Sodium 134 mmol/L (137-145) L 01/20/19 07:28 Potassium 3.5 mmol/L (3.6-5.0) L 01/20/19 07:28 Chloride 102.5 mmol/L (98-107) 01/20/19 07:28 Carbon Dioxide 24 mmol/L (22-30) 01/20/19 07:28 11 mmol/L 01/20/19 07:28 BUN 71 mg/dL (9-20) H 01/20/19 07:28 7.6 mg/dL (0.8-1.5) H 01/20/19 07:28 Estimated GFR 9 ml/min 01/20/19 07:28 9 % 01/20/19 07:28 Glucose 101 mg/dL (75-100) H 01/20/19 07:28 POC Glucose 101 (70-105) 01/19/19 07:35 6.0 % (4-6) 01/19/19 04:40 Calcium 12.5 mg/dL (8.4-10.2) H* 01/20/19 07:28 Iron 76 ug/dL (49-181) 01/19/19 10:15 TIBC 163 mcg/dL (250-450) L 01/19/19 10:15 % Saturation 46.63 % 01/19/19 10:15 129 mg/dl (180-329) L 01/19/19 10:15 0.70 mg/dL (0.1-1.2) 01/20/19 07:28 AST 36 units/L (5-40) 01/20/19 07:28 ALT 19 units/L (7-56) 01/20/19 07:28 116 units/L (35-129) 01/20/19 07:28 > 12.0 g/dL (6.3-8.2) H 01/20/19 07:28 3.6 g/dL (3.9-5) L 01/20/19 07:28 0.0 % 01/20/19 07:28 PTH Intact 30.34 pg/mL (15-65) 01/18/19 16:42 Yellow (Yellow) 01/19/19 09:18 Cloudy (Clear) 01/19/19 09:18 5.0 (5.0-7.0) 01/19/19 09:18 Ur Specific [place] 1.016 (1.003-1.030) 01/19/19 09:18 100 mg/dl mg/dL (Negative) 01/19/19 09:18 Neg mg/dL (Negative) 01/19/19 09:18 Neg mg/dL (Negative) 01/19/19 09:18 Mod (Negative) 01/19/19 09:18 Neg (Negative) 01/19/19 09:18 Neg (Negative) 01/19/19 09:18 < 2.0 mg/dL (<2.0) 01/19/19 09:18 Ur Leukocyte Esterase Neg (Negative) 01/19/19 09:18 6.0 /HPF (0.0-6.0) 01/19/19 09:18 3.0 /HPF (0.0-6.0) 01/19/19 09:18 U Epithel Cells (Auto) 3.0 /HPF (0-13.0) 01/19/19 09:18 1+ /HPF (Negative) 01/19/19 09:18 Few /HPF 01/19/19 09:18 181.1 mg/dL (0.1-20.0) H 01/19/19 08:55 19 mmol/L 01/19/19 08:55 297 mg/dL (5-11.8) H 01/19/19 08:55 Hepatitis A IgM Ab Non-reactive (NonReactive) 01/19/19 10:15 Hep Bs Antigen Non-reactive (Negative) 01/19/19 10:15 Hep B Core IgM Ab Non-reactive (NonReactive) 01/19/19 10:15 Non-reactive (NonReactive) 01/19/19 10:15 Blood Type O POSITIVE 01/18/19 10:38 Antibody Screen Negative 01/18/19 10:38 Active Medications - Current Medications Current Medications: Generic Name Dose Route Start Last Admin Trade Name Freq PRN Reason Stop Dose Admin Acetaminophen 650 mg 01/18/19 15:51 Tylenol PO Q4H PRN Pain MILD(1-3)/Fever >100.5/SOTO Haloperidol Lactate 5 mg 01/20/19 11:04 Haldol IM Q6H PRN Agitation Hydromorphone HCl 0.5 mg 01/18/19 15:51 01/20/19 10:51 Dilaudid IV 0.5 mg Q3H PRN Administration Pain , Severe (7-10) Pantoprazole Sodium 80 mg/ 100 mls @ 10 mls/hr 01/18/19 12:00 01/19/19 00:46 Sodium Chloride IV 8 mg/hr DIRECT GILBERTO 10 mls/hr Administration 8 MG/HR Pamidronate Disodium 30 mg/ 503.3333 mls @ 125 mls/hr 01/18/19 17:00 01/19/19 18:33 Sodium Chloride IV 01/20/19 21:02 125 mls/hr Q24H GILBERTO Administration Sodium Chloride 100 mls @ 999 mls/hr 01/19/19 14:36 Nacl 0.9% IV REYES PRN Hypotension Sodium Chloride 100 mls @ 999 mls/hr 01/20/19 11:05 Nacl 0.9% IV REYES PRN Hypotension Dextrose/Sodium Chloride 1,000 mls @ 75 mls/hr 01/20/19 13:00 D5/0.45ns IV DIRECT GILBERTO Labetalol HCl 10 mg 01/20/19 08:56 Normodyne IV Q4H PRN Hypertension Metoclopramide HCl 10 mg 01/18/19 15:51 Reglan IV Q6H PRN Nausea And Vomiting Ondansetron HCl 4 mg 01/18/19 15:51 01/18/19 20:04 Zofran IV 4 mg Q8H PRN Administration Nausea And Vomiting Sodium Chloride 10 ml 01/18/19 22:00 01/19/19 09:00 Sodium Chloride Flush Syringe 10 Ml IV 10 ml BID GILBERTO Administration Sodium Chloride 10 ml 01/18/19 15:51 Sodium Chloride Flush Syringe 10 Ml IV PRN PRN LINE FLUSH
[2019-01-20] MEDS ORDERED: NACL 0.9 (PRIMING MACHINE ONLY DIALYSIS) MC ONE (13:17)
[2019-01-20] MEDS: D5/0.45NS 1,000 ML IV SCH (14:55)
--- NOTE | 2019-01-20 16:21 | Progress Note ---
Assessment and Plan - Patient Problems (1) Anemia Current Visit: Yes Status: Acute Qualifiers: Anemia type: unspecified type Qualified Code(s): D64.9 - Anemia, unspecified Plan to address problem: will follow labs. (2) Renal failure Current Visit: Yes Status: Acute Qualifiers: Renal failure chronicity: acute on chronic Acute renal failure type: unspecified Chronic kidney disease stage: unspecified stage Qualified Code(s): N17.9 - Acute kidney failure, unspecified; N18.9 - Chronic kidney disease, unspecified Plan to address problem: follow renal. Subjective Date of service: 01/20/19 Interval history: Patient seen, resting in bed, labs/notes reviewed. No new issues at this time. Still awaiting w/up lab results.will follow you. Objective - Constitutional Vitals: Vital Signs - 12hr 01/20/19 01/20/19 01/20/19 07:38 10:00 12:15 Temperature 97.6 F 99.3 F Pulse Rate 108 H 112 H 107 H Pulse Rate [ 112 H Right Apical] Respiratory 20 18 Rate Blood Pressure 151/87 130/78 O2 Sat by Pulse 97 96 Oximetry 01/20/19 01/20/19 01/20/19 12:31 12:45 13:00 Temperature Pulse Rate 113 H 116 H 121 H Pulse Rate [ Right Apical] Respiratory Rate Blood Pressure 114/74 111/69 99/67 O2 Sat by Pulse Oximetry 01/20/19 01/20/19 01/20/19 13:15 13:25 13:30 Temperature Pulse Rate 129 H 122 H 122 H Pulse Rate [ Right Apical] Respiratory Rate Blood Pressure 86/59 115/63 103/60 O2 Sat by Pulse Oximetry 01/20/19 01/20/19 01/20/19 13:45 14:00 14:15 Temperature 98.0 F Pulse Rate 125 H 125 H 114 H Pulse Rate [ Right Apical] Respiratory 22 20 Rate Blood Pressure 107/61 78/60 103/63 O2 Sat by Pulse 92 Oximetry 01/20/19 01/20/19 01/20/19 14:35 14:55 14:56 Temperature Pulse Rate 117 H 113 H 111 H Pulse Rate [ Right Apical] Respiratory 22 22 Rate Blood Pressure 92/56 108/61 O2 Sat by Pulse 99 98 98 Oximetry General appearance: Present: no acute distress - EENT Eyes: PERRL, EOM intact ENT: hearing intact, clear oral mucosa Ears: bilateral: normal - Neck Neck: supple, normal ROM - Respiratory Respiratory effort: normal Respiratory: bilateral: CTA - Breasts Breasts: deferred - Cardiovascular Rhythm: regular Heart Sounds: Present: S1 & S2. Absent: gallop, rub Extremities: pulses intact, No edema, normal color, Full ROM - Gastrointestinal General gastrointestinal: Present: soft, non-tender, non-distended, normal bowel sounds Rectal Exam: deferred - Genitourinary Male genitourinary: deferred - Integumentary Integumentary: clear, warm, dry - Musculoskeletal Musculoskeletal: 1, strength equal bilaterally - Neurologic Neurologic: moves all extremities - Psychiatric Psychiatric: appropriate mood/affect - Labs CBC & Chem 7: 01/20/19 04:58 01/20/19 07:28 Labs: Abnormal lab results 01/20/19 01/20/19 Range/Units 04:58 07:28 RBC 2.89 L (3.65-5.03) M/mm3 Hgb 8.9 L (11.8-15.2) gm/dl Hct 26.2 L (35.5-45.6) % RDW 16.8 H (13.2-15.2) % Plt Count 139 L (140-440) K/mm3 Nucleated RBC % 3.0 H (0.0-0.9) % Sodium 134 L (137-145) mmol/L Potassium 3.5 L (3.6-5.0) mmol/L BUN 71 H (9-20) mg/dL Creatinine 7.6 H (0.8-1.5) mg/dL Glucose 101 H (75-100) mg/dL Calcium 12.5 H* (8.4-10.2) mg/dL Total Protein > 12.0 H (6.3-8.2) g/dL Albumin 3.6 L (3.9-5) g/dL Medications & Allergies - Medications Allergies/Adverse Reactions: Allergies No Known Allergies Allergy (Unverified 01/18/19 06:38) Home Medications: Home Medications Medication Instructions Recorded Confirmed Last Taken Type Labetalol [Labetalol 200mg TAB] 200 mg PO BID 01/18/19 01/18/19 01/17/19 History NIFEdipine [Nifedipine ER] 90 mg PO QDAY 01/18/19 01/18/19 01/17/19 History Simvastatin 20 mg PO QHS 01/18/19 01/18/19 01/17/19 History Active Medications: Generic Name Dose Route Start Last Admin Trade Name Freq PRN Reason Stop Dose Admin Acetaminophen 650 mg 01/18/19 15:51 Tylenol PO Q4H PRN Pain MILD(1-3)/Fever >100.5/SOTO Haloperidol Lactate 5 mg 01/20/19 11:04 Haldol IM Q6H PRN Agitation Pantoprazole Sodium 80 mg/ 100 mls @ 10 mls/hr 01/18/19 12:00 01/19/19 00:46 Sodium Chloride IV 8 mg/hr DIRECT GILBERTO 10 mls/hr Administration 8 MG/HR Pamidronate Disodium 30 mg/ 503.3333 mls @ 125 mls/hr 01/18/19 17:00 01/19/19 18:33 Sodium Chloride IV 01/20/19 21:02 125 mls/hr Q24H GILBERTO Administration Sodium Chloride 100 mls @ 999 mls/hr 01/19/19 14:36 Nacl 0.9% IV REYES PRN Hypotension Sodium Chloride 100 mls @ 999 mls/hr 01/20/19 11:05 Nacl 0.9% IV REYES PRN Hypotension Dextrose/Sodium Chloride 1,000 mls @ 75 mls/hr 01/20/19 13:00 01/20/19 14:55 D5/0.45ns IV 75 mls/hr DIRECT GILBERTO Administration Labetalol HCl 10 mg 01/20/19 08:56 Normodyne IV Q4H PRN Hypertension Metoclopramide HCl 10 mg 01/18/19 15:51 Reglan IV Q6H PRN Nausea And Vomiting Ondansetron HCl 4 mg 01/18/19 15:51 01/18/19 20:04 Zofran IV 4 mg Q8H PRN Administration Nausea And Vomiting Sodium Chloride 10 ml 01/18/19 22:00 01/19/19 09:00 Sodium Chloride Flush Syringe 10 Ml IV 10 ml BID GILBERTO Administration Sodium Chloride 10 ml 01/18/19 15:51 Sodium Chloride Flush Syringe 10 Ml IV PRN PRN LINE FLUSH
[2019-01-20] MEDS: NACL 0.9% IV SCH (19:47)
[2019-01-20] MEDS: AREDIA IV SCH (19:47)
[2019-01-20] MEDS: SODIUM CHLORIDE FLUSH SYRINGE 10 ML IV SCH (19:53)
[2019-01-20] MEDS: PROTONIX 80 MG in NACL 0.9% 100 ML IV SCH (21:00)
[2019-01-20] MEDS: HALDOL IM PRN (21:01)
[2019-01-21] MEDS: SODIUM CHLORIDE FLUSH SYRINGE 10 ML IV SCH ×4 (01:25→22:05)
[2019-01-21] MEDS: HALDOL IM PRN ×3 (02:45→20:09)
[2019-01-21] MEDS: D5/0.45NS 1,000 ML IV SCH (02:48)
[2019-01-21] MEDS: PROTONIX 80 MG in NACL 0.9% 100 ML IV SCH ×2 (05:05→17:43)
[2019-01-21 06:25] LABS: Hematocrit 23.2 % (35.5-45.6); Hemoglobin 7.9 gm/dl (11.8-15.2); Mean Corpuscular HGB Conc 34 % (32-34); Mean Corpuscular Volume 90 fl (84-94); Platelet Count 109 K/mm3 (140-440); Red Blood Count 2.57 M/mm3 (3.65-5.03)
[2019-01-21 06:43] LABS: Calcium 10.5 mg/dL (8.4-10.2)
[2019-01-21 09:34] LABS: Band Neutrophils # (Manual) 0.1 K/mm3; Basophils % (Manual) 0 % (0.0-1.8); Myelocytes # (Manual) 0.1 K/mm3; Total Cells Counted 100
[2019-01-21 09:35] LABS: Hypochromasia Few; Rouleaux Few
[2019-01-21 09:36] LABS: Platelet Estimate Consistent w Auto
[2019-01-21] MEDS ORDERED: NACL 0.9% 100 ML IV PRN (12:32)
--- NOTE | 2019-01-21 12:32 | Progress Note ---
Assessment and Plan Impression * End-stage renal disease * Hypercalcemia * Hypertension * Anemia * Hyperlipidemia Recommendations * Patient has had 2 dialysis treatment thus far. * Planned for a short dialysis treatment again tomorrow. * Adjust his dialysis potassium bath * Patient is status post [place] for his hypercalcemia. Serum calcium is better. * Follow up on the results of SPEP and UPEP as well as skeletal bone survey. * Avoid nephrotoxins * Procrit with dialysis * Patient will also require outpatient dialysis arrangement Subjective Date of service: 01/21/19 Interval history: Patient is awake and alert. Appears comfortable. Denies any shortness of breath. Patient had a short dialysis treatment yesterday. Terminated early due to tachycardia Objective - Vital Signs Vital signs: Vital Signs - 12hr 01/21/19 01/21/19 01:49 07:35 Temperature 99.2 F Pulse Rate 99 H Respiratory 20 Rate Blood Pressure 127/64 O2 Sat by Pulse 97 98 Oximetry - General Appearance General appearance: well-developed, well-nourished, appears stated age EENT: PERRL, mucous membranes moist Neck: no JVD, no thyromegaly, no carotid bruit, supple, other (right IJ PermCath in place) Respiratory: Present: Clear to Ascultation Cardiology: regular, normal heart rate, S1S2, no murmurs Gastrointestinal: normal, normoactive bowel sounds Integumentary: other (no edema) - Lab 01/21/19 04:35 01/21/19 04:35 Most recent lab results Calcium 10.5 mg/dL (8.4-10.2) H D 01/21/19 04:35 181.1 mg/dL (0.1-20.0) H 01/19/19 08:55 19 mmol/L 01/19/19 08:55 297 mg/dL (5-11.8) H 01/19/19 08:55 Medications & Allergies - Medications Allergies/Adverse Reactions: Allergies No Known Allergies Allergy (Unverified 01/18/19 06:38) Home Medications: Home Medications Medication Instructions Recorded Confirmed Last Taken Type Labetalol [Labetalol 200mg TAB] 200 mg PO BID 01/18/19 01/18/19 01/17/19 History NIFEdipine [Nifedipine ER] 90 mg PO QDAY 01/18/19 01/18/19 01/17/19 History Simvastatin 20 mg PO QHS 01/18/19 01/18/19 01/17/19 History Active Medications: Generic Name Dose Route Start Last Admin Trade Name Freq PRN Reason Stop Dose Admin Acetaminophen 650 mg 01/18/19 15:51 Tylenol PO Q4H PRN Pain MILD(1-3)/Fever >100.5/SOTO Haloperidol Lactate 5 mg 01/20/19 11:04 01/21/19 09:27 Haldol IM 5 mg Q6H PRN Administration Agitation Pantoprazole Sodium 80 mg/ 100 mls @ 10 mls/hr 01/18/19 12:00 01/21/19 05:05 Sodium Chloride IV 8 mg/hr DIRECT GILBERTO 10 mls/hr Administration 8 MG/HR Sodium Chloride 100 mls @ 999 mls/hr 01/19/19 14:36 Nacl 0.9% IV REYES PRN Hypotension Sodium Chloride 100 mls @ 999 mls/hr 01/20/19 11:05 Nacl 0.9% IV REYES PRN Hypotension Dextrose/Sodium Chloride 1,000 mls @ 75 mls/hr 01/20/19 13:00 01/21/19 02:48 D5/0.45ns IV 75 mls/hr DIRECT GILBERTO Administration Labetalol HCl 10 mg 01/20/19 08:56 Normodyne IV Q4H PRN Hypertension Metoclopramide HCl 10 mg 01/18/19 15:51 Reglan IV Q6H PRN Nausea And Vomiting Ondansetron HCl 4 mg 01/18/19 15:51 01/18/19 20:04 Zofran IV 4 mg Q8H PRN Administration Nausea And Vomiting Sodium Chloride 10 ml 01/18/19 22:00 01/21/19 09:24 Sodium Chloride Flush Syringe 10 Ml IV 10 ml BID GILBERTO Administration Sodium Chloride 10 ml 01/18/19 15:51 Sodium Chloride Flush Syringe 10 Ml IV PRN PRN LINE FLUSH Ziprasidone 20 mg 01/21/19 11:12 Geodon IM Q4H PRN Agitation
--- NOTE | 2019-01-21 13:57 | Progress Note ---
Assessment and Plan - Patient Problems (1) Anemia Current Visit: Yes Status: Acute Qualifiers: Anemia type: unspecified type Qualified Code(s): D64.9 - Anemia, unspecified Plan to address problem: will follow labs. (2) Renal failure Current Visit: Yes Status: Acute Qualifiers: Renal failure chronicity: acute on chronic Acute renal failure type: unspecified Chronic kidney disease stage: unspecified stage Qualified Code(s): N17.9 - Acute kidney failure, unspecified; N18.9 - Chronic kidney disease, unspecified Plan to address problem: follow renal. Subjective Date of service: 01/21/19 Interval history: Patient seen, resting in bed, labs/notes reviewed. No new issues at this time. Still awaiting w/up lab results.will follow you. patient seen, resting in bed, records/notes reviewed, no new issues at this time. Objective - Constitutional Vitals: Vital Signs - 12hr 01/21/19 01/21/19 01/21/19 07:35 07:48 13:38 Temperature 99.1 F 98.7 F Pulse Rate 101 H 69 Respiratory 20 20 Rate Blood Pressure 110/62 Blood Pressure 123/52 [Left] O2 Sat by Pulse 98 95 Oximetry General appearance: Present: no acute distress - EENT Eyes: PERRL, EOM intact ENT: hearing intact, clear oral mucosa Ears: bilateral: normal - Neck Neck: supple, normal ROM - Respiratory Respiratory effort: normal Respiratory: bilateral: CTA - Breasts Breasts: deferred - Cardiovascular Rhythm: regular Heart Sounds: Present: S1 & S2. Absent: gallop, rub Extremities: pulses intact, No edema, normal color, Full ROM - Gastrointestinal General gastrointestinal: Present: soft, non-tender, non-distended, normal bowel sounds Rectal Exam: deferred - Genitourinary Male genitourinary: deferred - Integumentary Integumentary: clear, warm, dry - Musculoskeletal Musculoskeletal: 1, strength equal bilaterally - Neurologic Neurologic: moves all extremities - Psychiatric Psychiatric: appropriate mood/affect - Labs CBC & Chem 7: 01/21/19 04:35 01/21/19 04:35 Labs: Abnormal lab results 01/21/19 01/21/19 Range/Units 04:35 04:35 RBC 2.57 L (3.65-5.03) M/mm3 Hgb 7.9 L (11.8-15.2) gm/dl Hct 23.2 L (35.5-45.6) % RDW 16.0 H (13.2-15.2) % Plt Count 109 L (140-440) K/mm3 Sodium 134 L (137-145) mmol/L Potassium 3.3 L (3.6-5.0) mmol/L BUN 64 H (9-20) mg/dL Creatinine 7.6 H (0.8-1.5) mg/dL Glucose 107 H (75-100) mg/dL Calcium 10.5 H D (8.4-10.2) mg/dL Medications & Allergies - Medications Allergies/Adverse Reactions: Allergies No Known Allergies Allergy (Unverified 01/18/19 06:38) Home Medications: Home Medications Medication Instructions Recorded Confirmed Last Taken Type Labetalol [Labetalol 200mg TAB] 200 mg PO BID 01/18/19 01/18/19 01/17/19 History NIFEdipine [Nifedipine ER] 90 mg PO QDAY 01/18/19 01/18/19 01/17/19 History Simvastatin 20 mg PO QHS 01/18/19 01/18/19 01/17/19 History Active Medications: Generic Name Dose Route Start Last Admin Trade Name Freq PRN Reason Stop Dose Admin Acetaminophen 650 mg 01/18/19 15:51 Tylenol PO Q4H PRN Pain MILD(1-3)/Fever >100.5/SOTO Epoetin Oscar 10,000 unit 01/21/19 12:32 Procrit IV REYES PRN hemodialysis Haloperidol Lactate 5 mg 01/20/19 11:04 01/21/19 09:27 Haldol IM 5 mg Q6H PRN Administration Agitation Pantoprazole Sodium 80 mg/ 100 mls @ 10 mls/hr 01/18/19 12:00 01/21/19 05:05 Sodium Chloride IV 8 mg/hr DIRECT GILBERTO 10 mls/hr Administration 8 MG/HR Sodium Chloride 100 mls @ 999 mls/hr 01/19/19 14:36 Nacl 0.9% IV REYES PRN Hypotension Sodium Chloride 100 mls @ 999 mls/hr 01/20/19 11:05 Nacl 0.9% IV REYES PRN Hypotension Dextrose/Sodium Chloride 1,000 mls @ 75 mls/hr 01/20/19 13:00 01/21/19 02:48 D5/0.45ns IV 75 mls/hr DIRECT GILBERTO Administration Sodium Chloride 100 mls @ 999 mls/hr 01/21/19 12:32 Nacl 0.9% IV REYES PRN Hypotension Labetalol HCl 10 mg 01/20/19 08:56 Normodyne IV Q4H PRN Hypertension Metoclopramide HCl 10 mg 01/18/19 15:51 Reglan IV Q6H PRN Nausea And Vomiting Ondansetron HCl 4 mg 01/18/19 15:51 01/18/19 20:04 Zofran IV 4 mg Q8H PRN Administration Nausea And Vomiting Sodium Chloride 10 ml 01/18/19 22:00 01/21/19 09:24 Sodium Chloride Flush Syringe 10 Ml IV 10 ml BID GILBERTO Administration Sodium Chloride 10 ml 01/18/19 15:51 Sodium Chloride Flush Syringe 10 Ml IV PRN PRN LINE FLUSH Ziprasidone 20 mg 01/21/19 11:12 Geodon IM Q4H PRN Agitation
--- NOTE | 2019-01-21 15:51 | Progress Note ---
Assessment and Plan Assessment and plan: 73-year-old -[place] male with history of hypertension, chronic kidney disease and hyperlipidemia comes in for vomiting blood for 2 days and abdominal pain for 2 days. Patient is a very poor historian. Patient feels weak and fatigued and has difficulty walking. Patient feels as if he is going to pass out. Patient had a similar episode a few months ago . Pain is epigastric. Patient does not say whether he took Goody powders BC powders or any nonsteroidal anti-inflammatory drugs. No exacerbating or relieving factors. Patient also has dark melanotic stools. No fever or chills. Severe hypercalcemia of malignancy, with renal failure - Could be due to multiple myeloma - Couldn't do skeletal survey because the patient was agitated, will do when the patient is more calm - CT showed severe osteoporosis - patient was given pamidronate, ca improving Acute metabolic encephalopathy -Due to hypercalcemia/malignancy -On haldol prn Acute on chronic renal failure - Nephrology was consulted, started on HD - Vasc cath placed Upper GI bleed - Patient initiated on IV Protonix drip - IV fluids - GI consulted and recommend EGD tomorrow Hypertension - Catapres patch initiated Hyperlipidemia - Statins on hold hypokalemia repleted Anemia - Multifactorial - Secondary to end-stage renal disease and GI bleed, anemia of chronic illness, ?myeloma - Transfuse as necessary Hyperglobulinemia R/O MM - Rule out multiple myeloma - Skeletal survey ordered - SPEP and UPEP ordered - Hematology consulted Prognosis; Poor Discussed with the patient's . Disposition; continue inpatient care. subjective Patient was seen and evaluated this morning is at bedside, patient was confused, agitated and on restraints. Management plan was discussed with patient's . A1c is 6, DM ruled out Hospitalist Physical - Physical exam Narrative exam: Patient is agitated and on restraints. The patient is obese. Vital signs as documented. Head exam is unremarkable. No scleral icterus . Neck is without jugular venous distension, thyromegaly, or carotid bruits. Lungs are clear to auscultation. Cardiac exam reveals regular rate and Rhythm. Abdominal exam reveals normal bowel sounds, no masses, no organomegaly and no aortic enlargement. Extremities are nonedematous and both femoral and pedal pulses are normal. 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 Hospitalist Physical - Constitutional Vitals: Temp Pulse Resp BP Pulse Ox 98.7 F 69 20 123/52 95 01/21/19 13:38 01/21/19 13:38 01/21/19 13:38 01/21/19 13:38 01/21/19 07:48 General appearance: Present: no acute distress Results - Labs CBC & Chem 7: 01/21/19 04:35 01/21/19 04:35 Labs: Laboratory Last Values WBC 5.8 K/mm3 (4.5-11.0) 01/21/19 04:35 RBC 2.57 M/mm3 (3.65-5.03) L 01/21/19 04:35 Hgb 7.9 gm/dl (11.8-15.2) L 01/21/19 04:35 Hct 23.2 % (35.5-45.6) L 01/21/19 04:35 MCV 90 fl (84-94) 01/21/19 04:35 MCH 31 pg (28-32) 01/21/19 04:35 MCHC 34 % (32-34) 01/21/19 04:35 RDW 16.0 % (13.2-15.2) H 01/21/19 04:35 Plt Count 109 K/mm3 (140-440) L 01/21/19 04:35 Lymph % (Auto) Welfare Adviser 01/18/19 06:47 [place] % (Auto) Welfare Adviser 01/21/19 04:35 Eos % (Auto) Welfare Adviser 01/18/19 06:47 Baso % (Auto) Welfare Adviser 01/18/19 06:47 Lymph # Welfare Adviser 01/18/19 06:47 [place] # Welfare Adviser 01/18/19 06:47 Eos # Welfare Adviser 01/18/19 06:47 Baso # Welfare Adviser 01/18/19 06:47 Add Manual Diff Complete 01/21/19 04:35 Total Counted 100 01/21/19 04:35 Seg Neutrophils % Welfare Adviser 01/18/19 06:47 Seg Neuts % (Manual) 62.0 % (40.0-70.0) 01/21/19 04:35 2.0 % 01/21/19 04:35 24.0 % (13.4-35.0) 01/21/19 04:35 Reactive Lymphs % (Man) 2.0 % 01/21/19 04:35 4.0 % (0.0-7.3) 01/21/19 04:35 2.0 % (0.0-4.3) 01/21/19 04:35 0 % (0.0-1.8) 01/21/19 04:35 3.0 % 01/21/19 04:35 1.0 % 01/21/19 04:35 0 % 01/21/19 04:35 0 % 01/21/19 04:35 Nucleated RBC % Not Reportable 01/21/19 04:35 Seg Neutrophils # Welfare Adviser 01/18/19 06:47 Seg Neutrophils # Man 3.6 K/mm3 (1.8-7.7) 01/21/19 04:35 Band Neutrophils # 0.1 K/mm3 01/21/19 04:35 1.4 K/mm3 (1.2-5.4) 01/21/19 04:35 Abs React Lymphs (Man) 0.1 K/mm3 01/21/19 04:35 0.2 K/mm3 (0.0-0.8) 01/21/19 04:35 0.1 K/mm3 (0.0-0.4) 01/21/19 04:35 0.0 K/mm3 (0.0-0.1) 01/21/19 04:35 0.2 K/mm3 01/21/19 04:35 0.1 K/mm3 01/21/19 04:35 0.0 K/mm3 01/21/19 04:35 Blast Cells # 0.0 K/mm3 01/21/19 04:35 WBC Morphology Not Reportable 01/21/19 04:35 Hypersegmented Neuts Not Reportable 01/21/19 04:35 Hyposegmented Neuts Not Reportable 01/21/19 04:35 Hypogranular Neuts Not Reportable 01/21/19 04:35 Not Reportable 01/21/19 04:35 Not Reportable 01/21/19 04:35 Not Reportable 01/21/19 04:35 Not Reportable 01/21/19 04:35 Not Reportable 01/21/19 04:35 Not Reportable 01/21/19 04:35 Consistent w auto 01/21/19 04:35 Not Reportable 01/21/19 04:35 Plt Clumps, EDTA Not Reportable 01/21/19 04:35 Not Reportable 01/21/19 04:35 Not Reportable 01/21/19 04:35 Not Reportable 01/21/19 04:35 Plt Morphology Comment Not Reportable 01/21/19 04:35 RBC Morphology Not Reportable 01/21/19 04:35 Dimorphic RBCs Not Reportable 01/21/19 04:35 Not Reportable 01/21/19 04:35 Few 01/21/19 04:35 Not Reportable 01/21/19 04:35 Not Reportable 01/21/19 04:35 Not Reportable 01/21/19 04:35 Not Reportable 01/21/19 04:35 Not Reportable 01/21/19 04:35 Not Reportable 01/21/19 04:35 Not Reportable 01/21/19 04:35 Not Reportable 01/21/19 04:35 Not Reportable 01/21/19 04:35 Not Reportable 01/21/19 04:35 Not Reportable 01/21/19 04:35 Not Reportable 01/21/19 04:35 Not Reportable 01/21/19 04:35 Not Reportable 01/21/19 04:35 Not Reportable 01/21/19 04:35 Not Reportable 01/21/19 04:35 Not Reportable 01/21/19 04:35 Acanthocytes (Spur) Not Reportable 01/21/19 04:35 Rouleaux Few 01/21/19 04:35 Not Reportable 01/21/19 04:35 Not Reportable 01/21/19 04:35 Not Reportable 01/21/19 04:35 Not Reportable 01/21/19 04:35 Hem Pathologist Commnt No 01/21/19 04:35 Sodium 134 mmol/L (137-145) L 01/21/19 04:35 Potassium 3.3 mmol/L (3.6-5.0) L 01/21/19 04:35 Chloride 102.7 mmol/L (98-107) 01/21/19 04:35 Carbon Dioxide 23 mmol/L (22-30) 01/21/19 04:35 12 mmol/L 01/21/19 04:35 BUN 64 mg/dL (9-20) H 01/21/19 04:35 7.6 mg/dL (0.8-1.5) H 01/21/19 04:35 Estimated GFR 9 ml/min 01/21/19 04:35 8 % 01/21/19 04:35 Glucose 107 mg/dL (75-100) H 01/21/19 04:35 POC Glucose 101 (70-105) 01/19/19 07:35 6.0 % (4-6) 01/19/19 04:40 Calcium 10.5 mg/dL (8.4-10.2) H D 01/21/19 04:35 Iron 76 ug/dL (49-181) 01/19/19 10:15 TIBC 163 mcg/dL (250-450) L 01/19/19 10:15 % Saturation 46.63 % 01/19/19 10:15 129 mg/dl (180-329) L 01/19/19 10:15 0.70 mg/dL (0.1-1.2) 01/20/19 07:28 AST 36 units/L (5-40) 01/20/19 07:28 ALT 19 units/L (7-56) 01/20/19 07:28 116 units/L (35-129) 01/20/19 07:28 > 12.0 g/dL (6.3-8.2) H 01/20/19 07:28 3.6 g/dL (3.9-5) L 01/20/19 07:28 0.0 % 01/20/19 07:28 PTH Intact 30.34 pg/mL (15-65) 01/18/19 16:42 Yellow (Yellow) 01/19/19 09:18 Cloudy (Clear) 01/19/19 09:18 5.0 (5.0-7.0) 01/19/19 09:18 Ur Specific [place] 1.016 (1.003-1.030) 01/19/19 09:18 100 mg/dl mg/dL (Negative) 01/19/19 09:18 Neg mg/dL (Negative) 01/19/19 09:18 Neg mg/dL (Negative) 01/19/19 09:18 Mod (Negative) 01/19/19 09:18 Neg (Negative) 01/19/19 09:18 Neg (Negative) 01/19/19 09:18 < 2.0 mg/dL (<2.0) 01/19/19 09:18 Ur Leukocyte Esterase Neg (Negative) 01/19/19 09:18 6.0 /HPF (0.0-6.0) 01/19/19 09:18 3.0 /HPF (0.0-6.0) 01/19/19 09:18 U Epithel Cells (Auto) 3.0 /HPF (0-13.0) 01/19/19 09:18 1+ /HPF (Negative) 01/19/19 09:18 Few /HPF 01/19/19 09:18 181.1 mg/dL (0.1-20.0) H 01/19/19 08:55 19 mmol/L 01/19/19 08:55 297 mg/dL (5-11.8) H 01/19/19 08:55 Hepatitis A IgM Ab Non-reactive (NonReactive) 01/19/19 10:15 Hep Bs Antigen Non-reactive (Negative) 01/19/19 10:15 Hep B Core IgM Ab Non-reactive (NonReactive) 01/19/19 10:15 Non-reactive (NonReactive) 01/19/19 10:15 Blood Type O POSITIVE 01/18/19 10:38 Antibody Screen Negative 01/18/19 10:38 Active Medications - Current Medications Current Medications: Generic Name Dose Route Start Last Admin Trade Name Freq PRN Reason Stop Dose Admin Acetaminophen 650 mg 01/18/19 15:51 Tylenol PO Q4H PRN Pain MILD(1-3)/Fever >100.5/SOTO Epoetin Oscar 10,000 unit 01/21/19 12:32 Procrit IV REYES PRN hemodialysis Haloperidol Lactate 5 mg 01/20/19 11:04 01/21/19 09:27 Haldol IM 5 mg Q6H PRN Administration Agitation Pantoprazole Sodium 80 mg/ 100 mls @ 10 mls/hr 01/18/19 12:00 01/21/19 05:05 Sodium Chloride IV 8 mg/hr DIRECT GILBERTO 10 mls/hr Administration 8 MG/HR Sodium Chloride 100 mls @ 999 mls/hr 01/19/19 14:36 Nacl 0.9% IV REYES PRN Hypotension Sodium Chloride 100 mls @ 999 mls/hr 01/20/19 11:05 Nacl 0.9% IV REYES PRN Hypotension Dextrose/Sodium Chloride 1,000 mls @ 75 mls/hr 01/20/19 13:00 01/21/19 02:48 D5/0.45ns IV 75 mls/hr DIRECT GILBERTO Administration Sodium Chloride 100 mls @ 999 mls/hr 01/21/19 12:32 Nacl 0.9% IV REYES PRN Hypotension Labetalol HCl 10 mg 01/20/19 08:56 Normodyne IV Q4H PRN Hypertension Metoclopramide HCl 10 mg 01/18/19 15:51 Reglan IV Q6H PRN Nausea And Vomiting Ondansetron HCl 4 mg 01/18/19 15:51 01/18/19 20:04 Zofran IV 4 mg Q8H PRN Administration Nausea And Vomiting Potassium Chloride 40 meq 01/21/19 15:49 K-Dur PO 01/21/19 15:50 ONCE ONE Sodium Chloride 10 ml 01/18/19 22:00 01/21/19 09:24 Sodium Chloride Flush Syringe 10 Ml IV 10 ml BID GILBERTO Administration Sodium Chloride 10 ml 01/18/19 15:51 Sodium Chloride Flush Syringe 10 Ml IV PRN PRN LINE FLUSH Ziprasidone 20 mg 01/21/19 11:12 Geodon IM Q4H PRN Agitation
[2019-01-21] MEDS: ATIVAN IV PRN ×2 (16:26→20:45)
--- NOTE | 2019-01-21 16:31 | Event Note ---
Date: 01/21/19 Request for BM biopsy/aspiration. NPO after MN except sips of water. It appears he couldn't have a skeletal survey due to agitation. Plan for tomorrow if patient is agreeable.
[2019-01-21] MEDS ORDERED: K-DUR PO ONE (16:49)
[2019-01-21] MEDS ORDERED: KCL 40 MEQ in NACL 0.45% 500 ML IV SCH (17:15)
[2019-01-21] MEDS: GEODON IM PRN (18:26)
[2019-01-21] MEDS: RisperDAL PO SCH (22:11)
--- NOTE | 2019-01-21 22:43 | XRay Report ---
BONE SURVEY METASTATIC, MULTIPLE IMAGES INDICATION / CLINICAL INFORMATION: check for lytic lesions.. COMPARISON: CT abdomen/pelvis, 01/18/2019 FINDINGS: Chest radiograph shows presence of venous access catheter with tip in the expected location of the SV C. Mild cardiomegaly. There are several small lytic lesions seen within the left scapula, and to a le sser extent the right scapula as well. There are a few small lytic lesions in both clavicles. Numerou s small lytic lesions are seen in the ribs bilaterally. AP views of the pelvis show numerous small round lytic lesions throughout the pelvis most notable wit hin the left hip and bilateral pubic rami. Several round lytic lesions are seen throughout the visualized femurs bilaterally. Multiple images of the cervical, thoracic, and lumbar spine also show presence of numerous round lyti c lesions. No compression or pathologic fractures of the spine are noted. Multiple small round lytic lesions are seen in the proximal humeri bilaterally. Lateral view of the skull shows innumerable round lytic lesions throughout the calvarium and mandible . IMPRESSION: Innumerable lytic lesions throughout all parts of the imaged skeletal system. Lytic lesio ns are especially prominent throughout the calvarium. The appearance is most suggestive for multiple myeloma. Signer Name: India Ortega MD Signed: 01/21/2019 10:39 PM Workstation Name: [id number]
[2019-01-22] MEDS: D5/0.45NS 1,000 ML IV SCH (02:58)
[2019-01-22] MEDS: HALDOL IM PRN ×2 (02:58→23:56)
[2019-01-22] MEDS: ATIVAN IV PRN ×2 (03:41→17:03)
[2019-01-22] MEDS: PROTONIX 80 MG in NACL 0.9% 100 ML IV SCH (05:02)
[2019-01-22 06:05] LABS: Hematocrit 21.9 % (35.5-45.6); Hemoglobin 7.4 gm/dl (11.8-15.2); Mean Corpuscular HGB Conc 34 % (32-34); Mean Corpuscular Volume 90 fl (84-94); Red Blood Count 2.45 M/mm3 (3.65-5.03); Red Cell Distribution Width 17.1 % (13.2-15.2)
[2019-01-22 06:06] LABS: Platelet Count 93 K/mm3 (140-440)
[2019-01-22 06:35] LABS: Calcium 10.2 mg/dL (8.4-10.2)
[2019-01-22 07:01] LABS: Basophils % (Manual) 0 % (0.0-1.8); Total Cells Counted 100
[2019-01-22 07:02] LABS: Anisocytosis 1+; Hypochromasia 1+; Platelet Estimate Appears Decreased; Poikilocytosis 1+
--- NOTE | 2019-01-22 08:16 | XRay Report ---
CHEST 1 VIEW INDICATION: fluid overload.. COMPARISON: 01/21/2019. FINDINGS: Support devices: Dialysis catheter unchanged. Heart: Stable cardiomegaly. Lungs/Pleura: Mild vascular congestion remains. Negative for significant infiltrate. Additional findings: None. IMPRESSION: No significant change. Signer Name: Jerad Dixon MD Signed: 01/22/2019 8:11 AM Workstation Name: [id number]
[2019-01-22] MEDS ORDERED: TYLENOL PR PRN (09:37)
--- NOTE | 2019-01-22 09:54 | Event Note ---
Date: 01/22/19 In dialysis, will reschedule for tomorrow. Diagnostic radiology or interventional radiology will attempt tomorrow.
[2019-01-22] MEDS: SODIUM CHLORIDE FLUSH SYRINGE 10 ML IV SCH ×2 (10:14→22:37)
--- NOTE | 2019-01-22 10:19 | Progress Note ---
Assessment and Plan - Patient Problems (1) Acute kidney injury Current Visit: Yes Status: Acute Plan to address problem: Acute kidney injury baseline creatinine unknown Currently oliguric Associated hypercalcemia noted Currently dialysis dependent Awaiting bone marrow biopsyconcern for myeloma also awaiting serum electrophoresis Continue dialysis Tuesday for now (2) Hypercalcemia Current Visit: Yes Status: Acute Plan to address problem: Hypercalcemia Serum electrophoresis pending Use low calcium bath dialysis (3) Anemia Current Visit: Yes Status: Acute Qualifiers: Anemia type: unspecified type Qualified Code(s): D64.9 - Anemia, unspecified Plan to address problem: Moderate anemia hemoglobin 7.6 g per DL Worsening renal function consent for paraproteinemia Plan for bone marrow biopsy (4) Sepsis Current Visit: Yes Status: Acute Plan to address problem: Sepsis SIRS criteria 2 out of 4. Source of infection is unclear Has right IJ PermCath Obtain cultures Broad-spectrum antibiotics if clinically indicated Subjective Interval history: 73-year-old gentleman with medical history significant for recent hypercalcemia acute kidney injury in a relative for possible multiple myeloma Patient seen on dialysis today he is febrile also appears confused Tylenol suppository been administered by nurse Blood cultures will be drawn Patient is tachycardic Review of systems unobtainable due to patient's altered mental status Objective - Vital Signs Vital signs: Vital Signs - 12hr 01/21/19 01/22/19 01/22/19 23:39 02:46 07:22 Temperature 99.4 F 99.6 F Pulse Rate 104 H 111 H 104 H Respiratory 40 H 22 Rate Blood Pressure 152/72 135/73 O2 Sat by Pulse 97 94 Oximetry 01/22/19 01/22/19 08:17 09:16 Temperature 101 F H Pulse Rate Respiratory 48 H Rate Blood Pressure O2 Sat by Pulse Oximetry - General Appearance General appearance: well-developed, well-nourished EENT: ATNC, PERRL, mucous membranes moist Neck: no JVD Respiratory: Present: Clear to Ascultation Cardiology: regular, S1S2 Gastrointestinal: normal, normoactive bowel sounds Integumentary: no rash Neurologic: confused, disoriented, CN 3-12 intact Musculoskeletal: deferred Psychiatric: depressed - Lab 01/22/19 05:49 01/22/19 05:49 Most recent lab results Calcium 10.2 mg/dL (8.4-10.2) 01/22/19 05:49 Phosphorus 2.40 mg/dL (2.5-4.5) L 01/22/19 05:49 Magnesium 1.80 mg/dL (1.7-2.3) 01/22/19 05:49 181.1 mg/dL (0.1-20.0) H 01/19/19 08:55 19 mmol/L 01/19/19 08:55 297 mg/dL (5-11.8) H 01/19/19 08:55 - Imaging Chest x-ray: other (I reviewed chest x-ray right IJ PermCath bilateral hazy opacities) Medications & Allergies - Medications Allergies/Adverse Reactions: Allergies No Known Allergies Allergy (Unverified 01/18/19 06:38) Home Medications: Home Medications Medication Instructions Recorded Confirmed Last Taken Type Labetalol [Labetalol 200mg TAB] 200 mg PO BID 01/18/19 01/18/19 01/17/19 History NIFEdipine [Nifedipine ER] 90 mg PO QDAY 01/18/19 01/18/19 01/17/19 History Simvastatin 20 mg PO QHS 01/18/19 01/18/19 01/17/19 History Active Medications: Generic Name Dose Route Start Last Admin Trade Name Freq PRN Reason Stop Dose Admin Acetaminophen 650 mg 01/22/19 09:08 Tylenol PO Q4H PRN Pain, Mild (1-3) Acetaminophen 650 mg 01/22/19 09:37 01/22/19 10:05 Tylenol [place] 650 mg Q4H PRN Administration Pain, Mild (1-3) Epoetin [place] 10,000 unit 01/21/19 12:32 Procrit IV REYES PRN hemodialysis Haloperidol Lactate 5 mg 01/20/19 11:04 01/22/19 02:58 Haldol IM 5 mg Q6H PRN Administration Agitation Pantoprazole Sodium 80 mg/ 100 mls @ 10 mls/hr 01/18/19 12:00 01/22/19 05:02 Sodium Chloride IV 01/22/19 11:59 8 mg/hr DIRECT GILBERTO 10 mls/hr Administration 8 MG/HR Sodium Chloride 100 mls @ 999 mls/hr 01/20/19 11:05 Nacl 0.9% IV REYES PRN Hypotension Sodium Chloride 100 mls @ 999 mls/hr 01/21/19 12:32 Nacl 0.9% IV REYES PRN Hypotension Labetalol HCl 10 mg 01/20/19 08:56 Normodyne IV Q4H PRN Hypertension Lorazepam 1 mg 01/21/19 16:19 01/22/19 03:41 Ativan IV 1 mg Q4H PRN Administration Agitation Metoclopramide HCl 10 mg 01/18/19 15:51 Reglan IV Q6H PRN Nausea And Vomiting Ondansetron HCl 4 mg 01/18/19 15:51 01/18/19 20:04 Zofran IV 4 mg Q8H PRN Administration Nausea And Vomiting Pantoprazole Sodium 40 mg 01/22/19 22:00 Protonix IV BID GILBERTO Risperidone 3 mg 01/21/19 22:00 01/21/19 22:11 Risperdal PO Not Given QHS GILBERTO Sodium Chloride 10 ml 01/18/19 22:00 01/22/19 10:14 Sodium Chloride Flush Syringe 10 Ml IV Not Given BID GILBERTO Sodium Chloride 10 ml 01/18/19 15:51 Sodium Chloride Flush Syringe 10 Ml IV PRN PRN LINE FLUSH Ziprasidone 20 mg 01/21/19 11:12 01/21/19 18:26 Geodon IM 20 mg Q4H PRN Administration Agitation
[2019-01-22] MEDS: PROCRIT IV PRN (12:00)
[2019-01-22] MEDS ORDERED: NACL 0.9 (PRIMING MACHINE ONLY DIALYSIS) MC ONE ×2 (12:57→15:12)
--- NOTE | 2019-01-22 13:52 | Progress Note ---
Assessment and Plan Assessment and plan: 73-year-old -Citizen Of [place] male with history of hypertension, chronic kidney disease and hyperlipidemia comes in for vomiting blood for 2 days and abdominal pain for 2 days. Patient is a very poor historian. Patient feels weak and fatigued and has difficulty walking. Patient feels as if he is going to pass out. Patient had a similar episode a few months ago . Pain is epigastric. Patient does not say whether he took Goody powders BC powders or any nonsteroidal anti-inflammatory drugs. No exacerbating or relieving factors. Patient also has dark melanotic stools. No fever or chills. Sepsis/ suspect line infection obtain blood cx, empiric abx, cxr neg for infiltrate Severe hypercalcemia of malignancy, with renal failure - Could be due to multiple myeloma - Couldn't do skeletal survey because the patient was agitated, will do when the patient is more calm - CT showed severe osteoporosis - patient was given pamidronate, ca improving Acute metabolic encephalopathy -Due to hypercalcemia/malignancy -On haldol prn Acute on chronic renal failure - Nephrology was consulted, started on HD - Vasc cath placed Upper GI bleed - Patient initiated on IV Protonix drip - IV fluids - GI consulted and recommend EGD tomorrow Hypertension - Catapres patch initiated Hyperlipidemia - Statins on hold hypokalemia repleted Anemia - Multifactorial - Secondary to end-stage renal disease and GI bleed, anemia of chronic illness, ?myeloma - Transfuse as necessary Hyperglobulinemia R/O MM - Rule out multiple myeloma - Skeletal survey ordered - SPEP and UPEP ordered - Hematology consulted Prognosis; Poor Discussed with the patient's . Disposition; continue inpatient care. subjective Patient was seen and evaluated this morning is at bedside, patient was confused, agitated and on restraints. Management plan was discussed with patient's . A1c is 6, DM ruled out Hospitalist Physical - Physical exam Narrative exam: Patient is agitated and on restraints. The patient is obese. Vital signs as documented. Head exam is unremarkable. No scleral icterus . Neck is without jugular venous distension, thyromegaly, or carotid bruits. Lungs are clear to auscultation. Cardiac exam reveals regular rate and Rhythm. Abdominal exam reveals normal bowel sounds, no masses, no organomegaly and no aortic enlargement. Extremities are nonedematous and both femoral and pedal pulses are normal. MANAGEMENT CONSULTANT: Agitated confused. Hospitalist Physical - Constitutional Vitals: Temp Pulse Resp BP Pulse Ox 101 F H 104 H 48 H 135/73 94 01/22/19 09:16 01/22/19 07:22 01/22/19 08:17 01/22/19 07:22 01/22/19 07:22 General appearance: Present: no acute distress Results - Labs CBC & Chem 7: 01/22/19 05:49 01/22/19 05:49 Labs: Laboratory Last Values WBC 6.0 K/mm3 (4.5-11.0) 01/22/19 05:49 RBC 2.45 M/mm3 (3.65-5.03) L 01/22/19 05:49 Hgb 7.4 gm/dl (11.8-15.2) L 01/22/19 05:49 Hct 21.9 % (35.5-45.6) L 01/22/19 05:49 MCV 90 fl (84-94) 01/22/19 05:49 MCH 30 pg (28-32) 01/22/19 05:49 MCHC 34 % (32-34) 01/22/19 05:49 RDW 17.1 % (13.2-15.2) H 01/22/19 05:49 Plt Count 93 K/mm3 (140-440) L 01/22/19 05:49 Lymph % (Auto) Freight [place] 01/18/19 06:47 [place] % (Auto) Freight [place] 01/22/19 05:49 Eos % (Auto) Freight [place] 01/18/19 06:47 Baso % (Auto) Freight [place] 01/18/19 06:47 Lymph # Freight [place] 01/18/19 06:47 [place] # Freight [place] 01/18/19 06:47 Eos # Freight [place] 01/18/19 06:47 Baso # Freight [place] 01/18/19 06:47 Add Manual Diff Complete 01/22/19 05:49 Total Counted 100 01/22/19 05:49 Seg Neutrophils % Freight [place] 01/18/19 06:47 Seg Neuts % (Manual) 55.0 % (40.0-70.0) 01/22/19 05:49 0 % 01/22/19 05:49 29.0 % (13.4-35.0) 01/22/19 05:49 Reactive Lymphs % (Man) 0 % 01/22/19 05:49 12.0 % (0.0-7.3) H 01/22/19 05:49 3.0 % (0.0-4.3) 01/22/19 05:49 0 % (0.0-1.8) 01/22/19 05:49 1.0 % 01/22/19 05:49 0 % 01/22/19 05:49 0 % 01/22/19 05:49 0 % 01/22/19 05:49 Nucleated RBC % 2.0 % (0.0-0.9) H 01/22/19 05:49 Seg Neutrophils # Freight [place] 01/18/19 06:47 Seg Neutrophils # Man 3.3 K/mm3 (1.8-7.7) 01/22/19 05:49 Band Neutrophils # 0.0 K/mm3 01/22/19 05:49 1.7 K/mm3 (1.2-5.4) 01/22/19 05:49 Abs React Lymphs (Man) 0.0 K/mm3 01/22/19 05:49 0.7 K/mm3 (0.0-0.8) 01/22/19 05:49 0.2 K/mm3 (0.0-0.4) 01/22/19 05:49 0.0 K/mm3 (0.0-0.1) 01/22/19 05:49 0.1 K/mm3 01/22/19 05:49 0.0 K/mm3 01/22/19 05:49 0.0 K/mm3 01/22/19 05:49 Blast Cells # 0.0 K/mm3 01/22/19 05:49 WBC Morphology Not Reportable 01/22/19 05:49 Hypersegmented Neuts Not Reportable 01/22/19 05:49 Hyposegmented Neuts Not Reportable 01/22/19 05:49 Hypogranular Neuts Not Reportable 01/22/19 05:49 Not Reportable 01/22/19 05:49 Not Reportable 01/22/19 05:49 Not Reportable 01/22/19 05:49 Not Reportable 01/22/19 05:49 Not Reportable 01/22/19 05:49 Not Reportable 01/22/19 05:49 Appears decreased 01/22/19 05:49 Not Reportable 01/22/19 05:49 Plt Clumps, EDTA Not Reportable 01/22/19 05:49 Not Reportable 01/22/19 05:49 Not Reportable 01/22/19 05:49 Not Reportable 01/22/19 05:49 Plt Morphology Comment Not Reportable 01/22/19 05:49 RBC Morphology Not Reportable 01/22/19 05:49 Dimorphic RBCs Not Reportable 01/22/19 05:49 Not Reportable 01/22/19 05:49 1+ 01/22/19 05:49 1+ 01/22/19 05:49 1+ 01/22/19 05:49 Not Reportable 01/22/19 05:49 Not Reportable 01/22/19 05:49 Not Reportable 01/22/19 05:49 Not Reportable 01/22/19 05:49 Not Reportable 01/22/19 05:49 Not Reportable 01/22/19 05:49 Not Reportable 01/22/19 05:49 Not Reportable 01/22/19 05:49 Not Reportable 01/22/19 05:49 Not Reportable 01/22/19 05:49 Not Reportable 01/22/19 05:49 Not Reportable 01/22/19 05:49 Not Reportable 01/22/19 05:49 Not Reportable 01/22/19 05:49 Not Reportable 01/22/19 05:49 Acanthocytes (Spur) Not Reportable 01/22/19 05:49 Rouleaux Not Reportable 01/22/19 05:49 Not Reportable 01/22/19 05:49 Not Reportable 01/22/19 05:49 Not Reportable 01/22/19 05:49 Not Reportable 01/22/19 05:49 Hem Pathologist Commnt No 01/22/19 05:49 Sodium 133 mmol/L (137-145) L 01/22/19 05:49 Potassium 4.0 mmol/L (3.6-5.0) D 01/22/19 05:49 Chloride 103.6 mmol/L (98-107) 01/22/19 05:49 Carbon Dioxide 20 mmol/L (22-30) L 01/22/19 05:49 13 mmol/L 01/22/19 05:49 BUN 80 mg/dL (9-20) H 01/22/19 05:49 10.9 mg/dL (0.8-1.5) H 01/22/19 05:49 Estimated GFR 6 ml/min 01/22/19 05:49 7 % 01/22/19 05:49 Glucose 117 mg/dL (75-100) H 01/22/19 05:49 POC Glucose 101 (70-105) 01/19/19 07:35 6.0 % (4-6) 01/19/19 04:40 Calcium 10.2 mg/dL (8.4-10.2) 01/22/19 05:49 Phosphorus 2.40 mg/dL (2.5-4.5) L 01/22/19 05:49 Magnesium 1.80 mg/dL (1.7-2.3) 01/22/19 05:49 Iron 76 ug/dL (49-181) 01/19/19 10:15 TIBC 163 mcg/dL (250-450) L 01/19/19 10:15 % Saturation 46.63 % 01/19/19 10:15 129 mg/dl (180-329) L 01/19/19 10:15 0.70 mg/dL (0.1-1.2) 01/20/19 07:28 AST 36 units/L (5-40) 01/20/19 07:28 ALT 19 units/L (7-56) 01/20/19 07:28 116 units/L (35-129) 01/20/19 07:28 > 12.0 g/dL (6.3-8.2) H 01/20/19 07:28 3.6 g/dL (3.9-5) L 01/20/19 07:28 0.0 % 01/20/19 07:28 PTH Intact 30.34 pg/mL (15-65) 01/18/19 16:42 Yellow (Yellow) 01/19/19 09:18 Cloudy (Clear) 01/19/19 09:18 5.0 (5.0-7.0) 01/19/19 09:18 Ur Specific [place] 1.016 (1.003-1.030) 01/19/19 09:18 100 mg/dl mg/dL (Negative) 01/19/19 09:18 Neg mg/dL (Negative) 01/19/19 09:18 Neg mg/dL (Negative) 01/19/19 09:18 Mod (Negative) 01/19/19 09:18 Neg (Negative) 01/19/19 09:18 Neg (Negative) 01/19/19 09:18 < 2.0 mg/dL (<2.0) 01/19/19 09:18 Ur Leukocyte Esterase Neg (Negative) 01/19/19 09:18 6.0 /HPF (0.0-6.0) 01/19/19 09:18 3.0 /HPF (0.0-6.0) 01/19/19 09:18 U Epithel Cells (Auto) 3.0 /HPF (0-13.0) 01/19/19 09:18 1+ /HPF (Negative) 01/19/19 09:18 Few /HPF 01/19/19 09:18 181.1 mg/dL (0.1-20.0) H 01/19/19 08:55 19 mmol/L 01/19/19 08:55 297 mg/dL (5-11.8) H 01/19/19 08:55 Hepatitis A IgM Ab Non-reactive (NonReactive) 01/19/19 10:15 Hep Bs Antigen Non-reactive (Negative) 01/19/19 10:15 Hep B Core IgM Ab Non-reactive (NonReactive) 01/19/19 10:15 Non-reactive (NonReactive) 01/19/19 10:15 Blood Type O POSITIVE 01/18/19 10:38 Antibody Screen Negative 01/18/19 10:38 Active Medications - Current Medications Current Medications: Generic Name Dose Route Start Last Admin Trade Name Freq PRN Reason Stop Dose Admin Acetaminophen 650 mg 01/22/19 09:08 Tylenol PO Q4H PRN Pain, Mild (1-3) Acetaminophen 650 mg 01/22/19 09:37 01/22/19 10:05 Tylenol [place] 650 mg Q4H PRN Administration Pain, Mild (1-3) Epoetin Oscar 10,000 unit 01/21/19 12:32 Procrit IV REYES PRN hemodialysis Haloperidol Lactate 5 mg 01/20/19 11:04 01/22/19 02:58 Haldol IM 5 mg Q6H PRN Administration Agitation Sodium Chloride 100 mls @ 999 mls/hr 01/20/19 11:05 Nacl 0.9% IV REYES PRN Hypotension Sodium Chloride 100 mls @ 999 mls/hr 01/21/19 12:32 Nacl 0.9% IV REYES PRN Hypotension Labetalol HCl 10 mg 01/20/19 08:56 Normodyne IV Q4H PRN Hypertension Lorazepam 1 mg 01/21/19 16:19 01/22/19 03:41 Ativan IV 1 mg Q4H PRN Administration Agitation Metoclopramide HCl 10 mg 01/18/19 15:51 Reglan IV Q6H PRN Nausea And Vomiting Ondansetron HCl 4 mg 01/18/19 15:51 01/18/19 20:04 Zofran IV 4 mg Q8H PRN Administration Nausea And Vomiting Pantoprazole Sodium 40 mg 01/22/19 22:00 Protonix IV BID GILBERTO Risperidone 3 mg 01/21/19 22:00 01/21/19 22:11 Risperdal PO Not Given QHS GILBERTO Sodium Chloride 10 ml 01/18/19 22:00 01/22/19 10:14 Sodium Chloride Flush Syringe 10 Ml IV Not Given BID GILBERTO Sodium Chloride 10 ml 01/18/19 15:51 Sodium Chloride Flush Syringe 10 Ml IV PRN PRN LINE FLUSH Ziprasidone 20 mg 01/21/19 11:12 01/21/19 18:26 Geodon IM 20 mg Q4H PRN Administration Agitation
[2019-01-22] MEDS ORDERED: VANCOMYCIN PHARMACY TO DOSE IV SCH (14:00)
[2019-01-22] MEDS ORDERED: VANCOMYCIN 2,000 MG in NACL 0.9% 500 ML 500 ML IV ONE (16:00)
[2019-01-22] MEDS ORDERED: SODIUM BICARBONATE FEEDTUBE PRN (17:02)
[2019-01-22] MEDS ORDERED: SIMPLE SYRUP FEEDTUBE PRN ×2 (17:02)
[2019-01-22] MEDS ORDERED: PANCREAZE DR 10,500 UNIT FEEDTUBE PRN (17:02)
[2019-01-22] MEDS: MAXIPIME/NS 1 GM/100 ML 1 GM/100 ML BAG IV SCH (17:04)
[2019-01-22] MEDS ORDERED: WATER FOR INJ Sterile (PF) IM PRN (18:12)
[2019-01-22] MEDS: GEODON IM PRN (18:45)
--- NOTE | 2019-01-22 18:47 | XRay Report ---
ABDOMEN 1 VIEW 6:14 PM INDICATION / CLINICAL INFORMATION: NG tube placement. COMPARISON: None available. FINDINGS: TUBES / LINES: There is a new weighted enteric feeding tube with the tip overlying the proximal gastr ic body. BOWEL GAS PATTERN: No significant abnormality. FREE AIR / EXTRALUMINAL GAS: None seen. ADDITIONAL FINDINGS: No significant additional findings. IMPRESSION: The tip of the feeding tube overlies the proximal gastric body. Signer Name: Ermias Prado MD Signed: 01/22/2019 6:43 PM Workstation Name: [id number]
--- NOTE | 2019-01-22 19:20 | Progress Note ---
Assessment and Plan - Patient Problems (1) Anemia Current Visit: Yes Status: Acute Qualifiers: Anemia type: unspecified type Qualified Code(s): D64.9 - Anemia, unspecified Plan to address problem: will follow labs. (2) Renal failure Current Visit: Yes Status: Acute Qualifiers: Renal failure chronicity: acute on chronic Acute renal failure type: unspecified Chronic kidney disease stage: unspecified stage Qualified Code(s): N17.9 - Acute kidney failure, unspecified; N18.9 - Chronic kidney disease, unspecified Plan to address problem: follow renal. (3) Lytic bone lesion of femur Current Visit: Yes Status: Acute Plan to address problem: This is diffuse including in the calverium.. see notes. Subjective Date of service: 01/22/19 Interval history: Patient seen, resting in bed, labs/notes reviewed. No new issues at this time. Still awaiting w/up lab results.will follow you. patient seen, resting in bed, records/notes reviewed, no new issues at this time. Patient seen/examined, resting in bed, scan/labs reviewed. i had d/w patients son, that this is clearly multiple myeloma,Patient has diffuse lytic lesions, including in the calverium. Patient need bm bx quick, so we can make dx, and begin tx, which will be out patient. He will need tx for the bone mets, agent is quite expensive, but ,can be started out patient, as soon as tissue dx is made via BM bx/asp. Objective - Constitutional Vitals: Vital Signs - 12hr 01/22/19 01/22/19 01/22/19 07:22 08:17 08:50 Temperature 99.6 F 101.0 F H Pulse Rate 104 H 104 H Respiratory 22 48 H 18 Rate Blood Pressure 135/73 175/90 O2 Sat by Pulse 94 Oximetry 01/22/19 01/22/19 01/22/19 09:00 09:15 09:16 Temperature 101 F H Pulse Rate 105 H 104 H Respiratory Rate Blood Pressure 177/90 170/92 O2 Sat by Pulse Oximetry 01/22/19 01/22/19 01/22/19 09:30 09:45 10:00 Temperature Pulse Rate 112 H 110 H 112 H Respiratory Rate Blood Pressure 149/76 148/74 158/70 O2 Sat by Pulse Oximetry 01/22/19 01/22/1901/22/19 10:15 10:30 10:45 Temperature Pulse Rate 108 H 107 H 104 H Respiratory Rate Blood Pressure 169/74 127/61 124/62 O2 Sat by Pulse Oximetry 01/22/19 01/22/19 01/22/19 11:00 11:15 11:30 Temperature Pulse Rate 106 H 104 H 108 H Respiratory Rate Blood Pressure 120/60 122/62 120/64 O2 Sat by Pulse Oximetry 01/22/19 01/22/19 01/22/19 11:45 12:00 12:20 Temperature Pulse Rate 102 H 100 H 104 H Respiratory Rate Blood Pressure 126/66 120/64 160/78 O2 Sat by Pulse Oximetry 01/22/19 01/22/19 12:30 13:58 Temperature 98.2 F 99.6 F Pulse Rate 116 H 117 H Respiratory 18 20 Rate Blood Pressure 164/78 123/71 O2 Sat by Pulse 92 Oximetry General appearance: Present: mild distress - EENT Eyes: PERRL, EOM intact ENT: hearing intact, clear oral mucosa Ears: bilateral: normal - Neck Neck: supple, normal ROM - Respiratory Respiratory effort: normal Respiratory: bilateral: CTA - Breasts Breasts: deferred - Cardiovascular Rhythm: regular Heart Sounds: Present: S1 & S2. Absent: gallop, rub Extremities: pulses intact, No edema, normal color, Full ROM - Gastrointestinal General gastrointestinal: Present: soft, non-tender, non-distended, normal bowel sounds Rectal Exam: deferred - Genitourinary Male genitourinary: deferred - Integumentary Integumentary: clear, warm, dry - Musculoskeletal Musculoskeletal: 1, strength equal bilaterally - Neurologic Neurologic: moves all extremities - Psychiatric Psychiatric: appropriate mood/affect - Labs CBC & Chem 7: 01/22/19 05:49 01/22/19 05:49 Labs: Abnormal lab results 01/22/19 01/22/19 Range/Units 05:49 05:49 RBC 2.45 L (3.65-5.03) M/mm3 Hgb 7.4 L (11.8-15.2) gm/dl Hct 21.9 L (35.5-45.6) % RDW 17.1 H (13.2-15.2) % Plt Count 93 L (140-440) K/mm3 Monocytes % (Manual) 12.0 H (0.0-7.3) % Nucleated RBC % 2.0 H (0.0-0.9) % Sodium 133 L (137-145) mmol/L Carbon Dioxide 20 L (22-30) mmol/L BUN 80 H (9-20) mg/dL Creatinine 10.9 H (0.8-1.5) mg/dL Glucose 117 H (75-100) mg/dL Phosphorus 2.40 L (2.5-4.5) mg/dL Medications & Allergies - Medications Allergies/Adverse Reactions: Allergies No Known Allergies Allergy (Unverified 01/18/19 06:38) Home Medications: Home Medications Medication Instructions Recorded Confirmed Last Taken Type Labetalol [Labetalol 200mg TAB] 200 mg PO BID 01/18/19 01/18/19 01/17/19 History NIFEdipine [Nifedipine ER] 90 mg PO QDAY 01/18/19 01/18/19 01/17/19 History Simvastatin 20 mg PO QHS 01/18/19 01/18/19 01/17/19 History Active Medications: Generic Name Dose Route Start Last Admin Trade Name Freq PRN Reason Stop Dose Admin Acetaminophen 650 mg 01/22/19 09:08 Tylenol PO Q4H PRN Pain, Mild (1-3) Acetaminophen 650 mg 01/22/19 09:37 01/22/19 10:05 Tylenol [place] 650 mg Q4H PRN Administration Pain, Mild (1-3) Lipase/Protease/Amylase 1 each 01/22/19 17:02 Pancreaze 10,500 Unit FEEDTUBE PRN PRN For Clogged Feeding Tube Epoetin Oscar 10,000 unit 01/21/19 12:32 01/22/19 12:00 Procrit IV 10,000 unit REYES PRN Administration hemodialysis Haloperidol Lactate 5 mg 01/20/19 11:04 01/22/19 02:58 Haldol IM 5 mg Q6H PRN Administration Agitation Sodium Chloride 100 mls @ 999 mls/hr 01/21/19 12:32 Nacl 0.9% IV REYES PRN Hypotension Cefepime HCl 1 gm in 100 mls @ 200 mls/hr 01/22/19 15:00 01/22/19 17:04 Maxipime/Ns 1 Gm/100 Ml IV 200 mls/hr Q24H GILBERTO Administration Protocol Labetalol HCl 10 mg 01/20/19 08:56 Normodyne IV Q4H PRN Hypertension Lorazepam 1 mg 01/21/19 16:19 01/22/19 17:03 Ativan IV 1 mg Q4H PRN Administration Agitation Metoclopramide HCl 10 mg 01/18/19 15:51 Reglan IV Q6H PRN Nausea And Vomiting Ondansetron HCl 4 mg 01/18/19 15:51 01/18/19 20:04 Zofran IV 4 mg Q8H PRN Administration Nausea And Vomiting Pantoprazole Sodium 40 mg 01/22/19 22:00 Protonix IV BID GILBERTO Risperidone 3 mg 01/21/19 22:00 01/21/19 22:11 Risperdal PO Not Given QHS GILBERTO Simple Syrup 15 ml 01/22/19 17:02 Simple Syrup FEEDTUBE PRN PRN Hypoglycemia Simple Syrup 30 ml 01/22/19 17:02 Simple Syrup FEEDTUBE PRN PRN Hypoglycemia Sodium Bicarbonate 325 mg 01/22/19 17:02 Sodium Bicarbonate FEEDTUBE PRN PRN For Clogged Feeding Tube Sodium Chloride 10 ml 01/18/19 22:00 01/22/19 10:14 Sodium Chloride Flush Syringe 10 Ml IV Not Given BID GILBERTO Sodium Chloride 10 ml 01/18/19 15:51 Sodium Chloride Flush Syringe 10 Ml IV PRN PRN LINE FLUSH Sterile Water 0 ml 01/22/19 18:12 Water For Inj Sterile (Pf) IM PRN PRN MIXING GEODON
--- NOTE | 2019-01-22 22:01 | Cat Scan Report ---
CT head/brain wo con INDICATION / CLINICAL INFORMATION: 73 years Male; ams. TECHNIQUE: Routine CT head without contrast. All CT scans at this location are performed using CT dos e reduction for ALARA by means of automated exposure control. Motion artifact. COMPARISON: None. FINDINGS: BRAIN / INTRACRANIAL CONTENTS: No acute hemorrhage, mass effect, midline shift, hydrocephalus, or acu te, large territorial infarct. Mild cerebral atrophy. Small area of encephalomalacia seen in the left parietal temporal region, whic h may related to prior trauma or old branch MCA infarct. There are mild areas of decreased attenuation in the white matter of the cerebral hemispheres. These are nonspecific findings and may be related to microangiopathy (hypertension, diabetes, atheroscleros is), given the patient's age. It might be difficult to evaluate for small areas of ischemia without d iffusion imaging by MRI. CRANIOCERVICAL JUNCTION: No significant abnormality. ORBITS: No significant abnormality of visualized orbits. SINUSES / MASTOIDS: There is mild mucosal thickening in the ethmoids. Large mucous retention cyst/aysha yp seen in the right maxillary antrum. Very small air-fluid levels suggested in the left maxillary an trum. ADDITIONAL FINDINGS: Multiple lucencies seen in the calvarium worrisome for multiple myeloma or metas tatic disease, given the patient's age. No associated extraosseous extension appreciated. Atherosclerotic disease is seen in the anterior circulation. IMPRESSION: 1. No focal mass, hemorrhage, hydrocephalus, or acute, large territorial infarct. 2. Multiple calvarial lucencies identified, worrisome for metastatic disease or myeloma. Signer Name: Nehemiah Restrepo MD, III Signed: 01/22/2019 9:57 PM Workstation Name: [id number]
[2019-01-22] MEDS: PROTONIX IV SCH (22:37)
[2019-01-22] MEDS: RisperDAL PO SCH (22:37)
[2019-01-23 00:51] LABS: Abnormal Protein Band 1 6.5 g/dL; Albumin 4.3 g/dL (3.8-4.8); Gamma Globulin 6.8 g/dL (0.8-1.7)
[2019-01-23 06:27] LABS: Hematocrit 21.3 % (35.5-45.6); Hemoglobin 7.2 gm/dl (11.8-15.2); Mean Corpuscular HGB Conc 34 % (32-34); Mean Corpuscular Volume 90 fl (84-94); Red Blood Count 2.37 M/mm3 (3.65-5.03); Red Cell Distribution Width 16.6 % (13.2-15.2)
[2019-01-23 06:32] LABS: Platelet Count 94 K/mm3 (140-440)
[2019-01-23] MEDS: PROTONIX IV SCH (09:03)
[2019-01-23] MEDS: SODIUM CHLORIDE FLUSH SYRINGE 10 ML IV SCH (09:04)
[2019-01-23] MEDS ORDERED: SIMPLE SYRUP FEEDTUBE PRN ×2 (10:06)
[2019-01-23] MEDS ORDERED: PANCREAZE DR 10,500 UNIT FEEDTUBE PRN (10:06)
[2019-01-23] MEDS ORDERED: SODIUM BICARBONATE FEEDTUBE PRN (10:06)
--- NOTE | 2019-01-23 10:34 | Consultation ---
History of Present Illness - Reason for Consult Consult date: 01/23/19 sepsis Requesting physician: GAUDENCIO WRIGHT - History of Present Illness 73 y/o male with history of hypertension, chronic kidney disease and hyperlipidemia admitted on 01/18/2019 due to 3-day history of epigastric abdominal pain, melanoic stools and vomiting blood associated with generalized weakness and lightheadedness. In the ED, temp 97.7, HR 115, BP 156/90. WBC 6.8.Hg 8.5. Creat 6.8. Calcium 15. UA negative. Patient was started on HD and GI med did EGD found with hiatal hernia, multiple shallow ulcers throughout stomach w/o bleeding stigmata (bx's). By 01/22/2019 patient spiked a temp 101 and tachycardia. Blood culture 01/22/2019 [facility] 1 of 4 bottles. CXR shows bilateral pulmonary edema. Patient is unable to provide any history due to altered mental status. ID consulted for management of sepsis. Review of Systems: unable to obtain Past History Past Medical History: other (as per HPI) Past Surgical History: appendectomy, cholecystectomy Social history: denies: smoking, alcohol abuse Medications and Allergies Allergies Allergy/AdvReac Type Severity Reaction Status Date / Time No Known Allergies Allergy Unverified 01/18/19 06:38 Home Medications Medication Instructions Recorded Confirmed Last Taken Type Labetalol [Labetalol 200mg TAB] 200 mg PO BID 01/18/19 01/18/19 01/17/19 History NIFEdipine [Nifedipine ER] 90 mg PO QDAY 01/18/19 01/18/19 01/17/19 History Simvastatin 20 mg PO QHS 01/18/19 01/18/19 01/17/19 History Active Meds: Active Medications Acetaminophen (Tylenol) 650 mg PO Q4H PRN PRN Reason: Pain, Mild (1-3) Acetaminophen (Tylenol) 650 mg MT Q4H PRN PRN Reason: Pain, Mild (1-3) Last Admin: 01/22/19 10:05 Dose: 650 mg Documented by: Lipase/Protease/Amylase (Rafael Lainez 10,500 Unit) 1 each FEEDTUBE PRN PRN PRN Reason: For Clogged Feeding Tube Epoetin Oscar (Procrit) 10,000 unit IV REYES PRN PRN Reason: hemodialysis Last Admin: 01/22/19 12:00 Dose: 10,000 unit Documented by: Haloperidol Lactate (Haldol) 5 mg IM Q6H PRN PRN Reason: Agitation Last Admin: 01/22/19 23:56 Dose: 5 mg Documented by: Sodium Chloride (Nacl 0.9%) 100 mls @ 999 mls/hr IV REYES PRN PRN Reason: Hypotension Cefepime HCl (Maxipime/Ns 1 Gm/100 Ml) 1 gm in 100 mls @ 200 mls/hr IV Q24H [facility]; Protocol Last Infusion: 01/22/19 20:32 Dose: Infused Documented by: Labetalol HCl (Normodyne) 10 mg IV Q4H PRN PRN Reason: Hypertension Lorazepam (Ativan) 1 mg IV Q4H PRN PRN Reason: Agitation Last Admin: 01/22/19 17:03 Dose: 1 mg Documented by: Metoclopramide HCl (Reglan) 10 mg IV Q6H PRN PRN Reason: Nausea And Vomiting Ondansetron HCl (Zofran) 4 mg IV Q8H PRN PRN Reason: Nausea And Vomiting Last Admin: 01/18/19 20:04 Dose: 4 mg Documented by: Pantoprazole Sodium (Protonix) 40 mg IV BID [facility] Last Admin: 01/23/19 09:03 Dose: 40 mg Documented by: Risperidone (Risperdal) 3 mg PO QHS [facility] Last Admin: 01/22/19 22:37 Dose: 3 mg Documented by: Simple Syrup (Simple Syrup) 15 ml FEEDTUBE PRN PRN PRN Reason: Hypoglycemia Simple Syrup (Simple Syrup) 30 ml FEEDTUBE PRN PRN PRN Reason: Hypoglycemia Sodium Bicarbonate (Sodium Bicarbonate) 325 mg FEEDTUBE PRN PRN PRN Reason: For Clogged Feeding Tube Sodium Chloride (Sodium Chloride Flush Syringe 10 Ml) 10 ml IV BID [facility] Last Admin: 01/23/19 09:04 Dose: 10 ml Documented by: Sodium Chloride (Sodium Chloride Flush Syringe 10 Ml) 10 ml IV PRN PRN PRN Reason: LINE FLUSH Sterile Water (Water For Inj Sterile (Pf)) 0 ml IM PRN PRN PRN Reason: MIXING GEODON Physical Examination - Physical Exam Narrative exam: General appearance: lethargic in moderate respiratory distress Eyes: anicteric sclerae, moist conjunctivae; no lid-lag; PERRLA HENT: Atraumatic; oropharynx dry edentulous Lungs: right crackles CV: RRR no murmur Abdomen: Soft, non-tender Extremities: joshua leg edema Skin: No rash. Psych: no agitated. Neuro: lethargic - Constitutional Vitals: Vital Signs Temp Pulse Resp BP Pulse Ox 98.5 F 100 H 22 121/62 95 01/23/19 07:33 01/23/19 07:33 01/23/19 07:33 01/23/19 07:33 01/23/19 07:33 Temperature -Last 24 Hours Temperature 98.5 F Temperature 98.6 F Temperature 99.9 F Temperature 99.6 F Temperature 98.2 F Results - Labs CBC & Chem 7: 01/23/19 05:51 01/22/19 05:49 Labs: Abnormal lab results 01/19/19 01/23/19 Range/Units 06:28 05:51 RBC 2.37 L (3.65-5.03) M/mm3 Hgb 7.2 L (11.8-15.2) gm/dl Hct 21.3 L (35.5-45.6) % RDW 16.6 H (13.2-15.2) % Plt Count 94 L (140-440) K/mm3 Serum Total Protein 13.0 H (6.1-8.1) g/dL [id number] 0.4 H (0.2-0.3) g/dL Gamma Globulins 6.8 H (0.8-1.7) g/dL Abnorm Protein Band 1 6.5 H g/dL PEP Interpretation see below H Assessment and Plan Cultures: Blood culture 01/22/2019 [facility] 1 of 4 bottles. Assessment: 73 y/o male with history of hypertension, chronic kidney disease and hype rlipidemia admitted on 01/18/2019 due to 3-day history of epigastric abdominal pain, melanoic stools and vomiting blood associated with generalized weakness and lightheadedness found to have a GI bleed, OCTAVIA on CKD now on HD. By 01/22/2019 patient spiked a temp 101 and tachycardia: 1) SIRS: NOT present on admission with fever, tachycardia; source unclear. DDx aspiration pneumonia, bacteremia, malignancy, UTI. CXR shows bilateral pulmonary edema. Blood culture 01/22/2019 [facility] 1 of 4 bottles. ? contaminant or real. Perm cath placed 01/19/2019. 2) Acute encephalopathy: due to malignancy 3) OCTAVIA on CKD now on HD 4) Anemia 5) GI bleed: EGD found with hiatal hernia, multiple shallow ulcers throughout stomach w/o bleeding stigmata (bx's). Recommendations: follow up blood culture repeat blood culture tomorrow repeat CXR continue cefepime and vancomycin renally adjusted and PK consult add flagyl for aspiration pneumonia Guarded prognosis Will follow. Lea Cain MD Infectious Diseases Tv Technician [facility] M [phone] O [phone]
--- NOTE | 2019-01-23 11:31 | Consultation ---
History of Present Illness - Reason for Consult Consult date: 01/23/19 Reason for consult: Mental Health Evaluation Requesting physician: GAUDENCIO WRIGHT - Chief Complaint Chief complaint: "The patient is lethargic" - History of Present Psychiatric Illness 73 y.o. AA male who presented to the ER for N/V, vomiting blood, and abdominal pain 2 days. Psychiatry was consulted to see the patient for behavioral disturbances. Today the patient was lethargic during the assessment. he could not answer any questions asked of him. Per collateral information from staff, the patient is confused and attempted to take out his IV yesterday. The staff could not confirm or deny if the patient is sleeping at night. The psy assessment could not be completed at this time. No gestures of SI/HI's. Medications and Allergies Allergies Allergy/AdvReac Type Severity Reaction Status Date / Time No Known Allergies Allergy Unverified 01/18/19 06:38 Home Medications Medication Instructions Recorded Confirmed Last Taken Type Labetalol [Labetalol 200mg TAB] 200 mg PO BID 01/18/19 01/18/19 01/17/19 History NIFEdipine [Nifedipine ER] 90 mg PO QDAY 01/18/19 01/18/19 01/17/19 History Simvastatin 20 mg PO QHS 01/18/19 01/18/19 01/17/19 History Active Meds: Active Medications Acetaminophen (Tylenol) 650 mg PO Q4H PRN PRN Reason: Pain, Mild (1-3) Acetaminophen (Tylenol) 650 mg [place] Q4H PRN PRN Reason: Pain, Mild (1-3) Last Admin: 01/22/19 10:05 Dose: 650 mg Documented by: Lipase/Protease/Amylase (Pancreaze Dr 10,500 Unit) 1 each FEEDTUBE PRN PRN PRN Reason: For Clogged Feeding Tube Epoetin Oscar (Procrit) 10,000 unit IV REYES PRN PRN Reason: hemodialysis Last Admin: 01/22/19 12:00 Dose: 10,000 unit Documented by: Haloperidol Lactate (Haldol) 5 mg IM Q6H PRN PRN Reason: Agitation Last Admin: 01/22/19 23:56 Dose: 5 mg Documented by: Sodium Chloride (Nacl 0.9%) 100 mls @ 999 mls/hr IV REYES PRN PRN Reason: Hypotension Cefepime HCl (Maxipime/Ns 1 Gm/100 Ml) 1 gm in 100 mls @ 200 mls/hr IV Q24H [facility]; Protocol Last Infusion: 01/22/19 20:32 Dose: Infused Documented by: Labetalol HCl (Normodyne) 10 mg IV Q4H PRN PRN Reason: Hypertension Lorazepam (Ativan) 1 mg IV Q4H PRN PRN Reason: Agitation Last Admin: 01/22/19 17:03 Dose: 1 mg Documented by: Metoclopramide HCl (Reglan) 10 mg IV Q6H PRN PRN Reason: Nausea And Vomiting Ondansetron HCl (Zofran) 4 mg IV Q8H PRN PRN Reason: Nausea And Vomiting Last Admin: 01/18/19 20:04 Dose: 4 mg Documented by: Pantoprazole Sodium (Protonix) 40 mg IV BID [facility] Last Admin: 01/23/19 09:03 Dose: 40 mg Documented by: Risperidone (Risperdal) 3 mg PO QHS [facility] Last Admin: 01/22/19 22:37 Dose: 3 mg Documented by: Simple Syrup (Simple Syrup) 15 ml FEEDTUBE PRN PRN PRN Reason: Hypoglycemia Simple Syrup (Simple Syrup) 30 ml FEEDTUBE PRN PRN PRN Reason: Hypoglycemia Sodium Bicarbonate (Sodium Bicarbonate) 325 mg FEEDTUBE PRN PRN PRN Reason: For Clogged Feeding Tube Sodium Chloride (Sodium Chloride Flush Syringe 10 Ml) 10 ml IV BID [facility] Last Admin: 01/23/19 09:04 Dose: 10 ml Documented by: Sodium Chloride (Sodium Chloride Flush Syringe 10 Ml) 10 ml IV PRN PRN PRN Reason: LINE FLUSH Sterile Water (Water For Inj Sterile (Pf)) 0 ml IM PRN PRN PRN Reason: MIXING GEODON Past psychiatric history - Past Medical History Past Medical History: ESRD Past Surgical History: Other (Unable to obtain ) - past Psychiatric treatment and history psychiatric treatment history: Unable to obtain a psy hx and fam psy hx. - Social History Social history: other (Unable to obtain ) Mental Status Exam - Vital signs Last Vital Signs Temp 98.5 F 01/23/19 07:33 Pulse 100 H 01/23/19 07:33 Resp 22 01/23/19 07:33 BP 121/62 01/23/19 07:33 Pulse Ox 95 01/23/19 07:33 Results Result Diagrams: 01/23/19 05:51 01/23/19 10:55 Abnormal lab results 01/19/19 01/23/19 Range/Units 06:28 05:51 RBC 2.37 L (3.65-5.03) M/mm3 Hgb 7.2 L (11.8-15.2) gm/dl Hct 21.3 L (35.5-45.6) % RDW 16.6 H (13.2-15.2) % Plt Count 94 L (140-440) K/mm3 Serum Total Protein 13.0 H (6.1-8.1) g/dL Enrfu-0-Sbuynunqd 0.4 H (0.2-0.3) g/dL Gamma Globulins 6.8 H (0.8-1.7) g/dL Abnorm Protein Band 1 6.5 H g/dL PEP Interpretation see below H All other labs normal. Assessment and Plan Assessment and plan: Impression: AMS per the record. Today the patient was lethargic during the assessment. The patient has mittens. Cr 10.8. Nephro, GI, and ID is following the patient. Recommendation/Plan: Continue Haldol 5 mg IM Q6hrs PRN for acute psychosis and start Melatonin 5 mg PO HS PRN for sleep.Psy will follow up with the patient in 24 hours. Recommend Delirium precautions below: 1. Frequently reorient patient and involve him/her in their care (simple explanations of procedures, tests, medications). 2. Lights on and shades open during daytime hours. 3. Write date and goals of care in a visible place. 4. Try to avoid unnecessary interruptions to sleep during nighttime hours. 5. Obtain glasses, hearing aids from home if patient uses these at baseline. 6. Avoid medications that may exacerbate delirium (especially narcotics, benzodiazepines, barbiturates, ambien, lunesta, and medications with excessive anticholinergic properties). 7. Recommend 1:1 sitter for safety. Staffed with Dr Delia gilliam.
[2019-01-23 12:02] LABS: INR 1.36 (0.87-1.13)
[2019-01-23 12:18] LABS: Calcium 8.3 mg/dL (8.4-10.2)
[2019-01-23 12:26] LABS: Band Neutrophils # (Manual) 0.1 K/mm3; Hypochromasia 1+; Myelocytes # (Manual) 0.1 K/mm3; Platelet Estimate Consistent w Auto; Total Cells Counted 100
--- NOTE | 2019-01-23 13:49 | Progress Note ---
Assessment and Plan - Patient Problems (1) Acute kidney injury Current Visit: Yes Status: Acute Plan to address problem: Acute kidney injury baseline creatinine unknown Currently oliguric Associated hypercalcemia noted Currently dialysis dependent Serum electrophoresis with M spike We'll need recommendations from oncology Awaiting bone marrow biopsy concern for myeloma also awaiting serum electrophoresis Continue dialysis Tuesday for now (2) Hypercalcemia Current Visit: Yes Status: Acute Plan to address problem: Hypercalcemia Serum electrophoresis pending Use low calcium bath dialysis (3) Anemia Current Visit: Yes Status: Acute Qualifiers: Anemia type: unspecified type Qualified Code(s): D64.9 - Anemia, unspecified Plan to address problem: Moderate anemia hemoglobin 7.6 g per DL Worsening renal function consent for paraproteinemia Plan for bone marrow biopsy (4) Sepsis Current Visit: Yes Status: Acute Plan to address problem: Sepsis SIRS criteria 2 out of 4. Source of infection is unclear Has right IJ PermCath Obtain cultures Broad-spectrum antibiotics if clinically indicated Subjective Interval history: 73-year-old gentleman with medical history significant for recent hypercalcemia acute kidney injury in a relative for possible multiple myeloma Patient seen on dialysis remains confused Blood cultures with gram positive cocci one of two bottles. Patient is tachycardic Review of systems unobtainable due to patient's altered mental status Have a feeding tube in place Objective - Vital Signs Vital signs: Vital Signs - 12hr 01/23/19 01/23/19 01/23/19 03:21 07:33 10:00 Temperature 98.6 F 98.5 F Pulse Rate 109 H 100 H 102 H Pulse Rate [ 102 H Right Apical] Respiratory 20 22 22 Rate Blood Pressure 118/76 121/62 O2 Sat by Pulse 97 95 95 Oximetry - General Appearance General appearance: well-developed, well-nourished EENT: ATNC, PERRL Neck: no JVD, JVD Respiratory: Present: Decreased Breath Sounds Cardiology: regular, S1S2 Gastrointestinal: normal, normoactive bowel sounds Integumentary: no rash Neurologic: confused, disoriented Psychiatric: agitated - Lab 01/23/19 05:51 01/23/19 10:55 Most recent lab results Calcium 8.3 mg/dL (8.4-10.2) L D 01/23/19 10:55 Phosphorus 2.40 mg/dL (2.5-4.5) L 01/22/19 05:49 Magnesium 1.80 mg/dL (1.7-2.3) 01/22/19 05:49 181.1 mg/dL (0.1-20.0) H 01/19/19 08:55 19 mmol/L 01/19/19 08:55 297 mg/dL (5-11.8) H 01/19/19 08:55 - Imaging Chest x-ray: other (I reviewed chest x-ray with bilateral patchy opacities) Medications & Allergies - Medications Allergies/Adverse Reactions: Allergies No Known Allergies Allergy (Unverified 01/18/19 06:38) Home Medications: Home Medications Medication Instructions Recorded Confirmed Last Taken Type Labetalol [Labetalol 200mg TAB] 200 mg PO BID 01/18/19 01/18/19 01/17/19 History NIFEdipine [Nifedipine ER] 90 mg PO QDAY 01/18/19 01/18/19 01/17/19 History Simvastatin 20 mg PO QHS 01/18/19 01/18/19 01/17/19 History Active Medications: Generic Name Dose Route Start Last Admin Trade Name Freq PRN Reason Stop Dose Admin Acetaminophen 650 mg 01/22/19 09:08 Tylenol PO Q4H PRN Pain, Mild (1-3) Acetaminophen 650 mg 01/22/19 09:37 01/22/19 10:05 Tylenol AR 650 mg Q4H PRN Administration Pain, Mild (1-3) Lipase/Protease/Amylase 1 each 01/23/19 10:06 Pancreaze 10,500 Unit FEEDTUBE PRN PRN For Clogged Feeding Tube Epoetin Oscar 10,000 unit 01/21/19 12:32 01/22/19 12:00 Procrit IV 10,000 unit REYES PRN Administration hemodialysis Haloperidol Lactate 5 mg 01/20/19 11:04 01/22/19 23:56 Haldol IM 5 mg Q6H PRN Administration Agitation Sodium Chloride 100 mls @ 999 mls/hr 01/21/19 12:32 Nacl 0.9% IV REYES PRN Hypotension Cefepime HCl 1 gm in 100 mls @ 200 mls/hr 01/22/19 15:00 01/22/19 20:32 Maxipime/Ns 1 Gm/100 Ml IV Infused Q24H [facility] Infusion Protocol Labetalol HCl 10 mg 01/20/19 08:56 Normodyne IV Q4H PRN Hypertension Melatonin 5 mg 01/23/19 22:00 Melatonin PO QHS PRN Sleep Metoclopramide HCl 10 mg 01/18/19 15:51 Reglan IV Q6H PRN Nausea And Vomiting Ondansetron HCl 4 mg 01/18/19 15:51 01/18/19 20:04 Zofran IV 4 mg Q8H PRN Administration Nausea And Vomiting Pantoprazole Sodium 40 mg 01/22/19 22:00 01/23/19 09:03 Protonix IV 40 mg BID [facility] Administration Simple Syrup 15 ml 01/23/19 10:06 Simple Syrup FEEDTUBE PRN PRN Hypoglycemia Simple Syrup 30 ml 01/23/19 10:06 Simple Syrup FEEDTUBE PRN PRN Hypoglycemia Sodium Bicarbonate 325 mg 01/23/19 10:06 Sodium Bicarbonate FEEDTUBE PRN PRN For Clogged Feeding Tube Sodium Chloride 10 ml 01/18/19 22:00 01/23/19 09:04 Sodium Chloride Flush Syringe 10 Ml IV 10 ml BID [facility] Administration Sodium Chloride 10 ml 01/18/19 15:51 Sodium Chloride Flush Syringe 10 Ml IV PRN PRN LINE FLUSH Sterile Water 0 ml 01/22/19 18:12 Water For Inj Sterile (Pf) IM PRN PRN MIXING GEODON
[2019-01-23] MEDS: MAXIPIME/NS 1 GM/100 ML 1 GM/100 ML BAG IV SCH (14:05)
[2019-01-23] MEDS: SODIUM CHLORIDE FLUSH SYRINGE 10 ML IV PRN (14:07)
--- NOTE | 2019-01-23 15:20 | Progress Note ---
Assessment and Plan Assessment and plan: 73-year-old -Faroese male with history of hypertension, chronic kidney disease and hyperlipidemia comes in for vomiting blood for 2 days and abdominal pain for 2 days. Patient is a very poor historian. Patient feels weak and fatigued and has difficulty walking. Patient feels as if he is going to pass out. Patient had a similar episode a few months ago . Pain is epigastric. Patient does not say whether he took Goody powders BC powders or any nonsteroidal anti-inflammatory drugs. No exacerbating or relieving factors. Patient also has dark melanotic stools. No fever or chills. Sepsis/ suspect line infection cont abx, BC grow gram pos cocci in clusters, ID input appreciated Severe hypercalcemia of malignancy, with renal failure - Could be due to multiple myeloma - skeletal survey show extensive lytic lesions - patient was given pamidronate, ca improving Acute metabolic encephalopathy -Due to hypercalcemia/malignancy -On haldol prn Acute on chronic renal failure - Nephrology was consulted, started on HD - Vasc cath placed Upper GI bleed egd 01/19, multiple gastric ulcers, cont ppi daily Hypertension - Catapres patch initiated Hyperlipidemia - Statins on hold hypokalemia repleted acute blood loss Anemia upon chronic anemia - Multifactorial - Secondary to GI bleed, anemia of chronic illness, ?myeloma - Transfuse as necessary Hyperglobulinemia R/O MM - Rule out multiple myeloma - Skeletal survey ordered - SPEP and UPEP ordered - Hematology consulted Prognosis; Poor Discussed with the patient's . Disposition; continue inpatient care. subjective Patient was seen and evaluated this morning is at bedside, patient was confused, agitated and on restraints. Management plan was discussed with patient's . A1c is 6, DM ruled out Hospitalist Physical - Physical exam Narrative exam: Patient is agitated and on restraints. The patient is obese. Vital signs as documented. Head exam is unremarkable. No scleral icterus . Neck is without jugular venous distension, thyromegaly, or carotid bruits. Lungs are clear to auscultation. Cardiac exam reveals regular rate and Rhythm. Abdominal exam reveals normal bowel sounds, no masses, no organomegaly and no aortic enlargement. Extremities are nonedematous and both femoral and pedal pulses are normal. 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 Hospitalist Physical - Constitutional Vitals: Temp Pulse Resp BP Pulse Ox 98.5 F 102 H 22 121/62 95 07/23/19 07:33 01/23/19 10:00 01/23/19 10:00 01/23/19 07:33 01/23/19 10:00 General appearance: Present: mild distress Results - Labs CBC & Chem 7: 01/23/19 05:51 01/23/19 10:55 Labs: Laboratory Last Values WBC 5.9 K/mm3 (4.5-11.0) 01/23/19 05:51 RBC 2.37 M/mm3 (3.65-5.03) L 01/23/19 05:51 Hgb 7.2 gm/dl (11.8-15.2) L 01/23/19 05:51 Hct 21.3 % (35.5-45.6) L 01/23/19 05:51 MCV 90 fl (84-94) 01/23/19 05:51 MCH 31 pg (28-32) 01/23/19 05:51 MCHC 34 % (32-34) 01/23/19 05:51 RDW 16.6 % (13.2-15.2) H 01/23/19 05:51 Plt Count 94 K/mm3 (140-440) L 01/23/19 05:51 Lymph % (Auto) Underground Production Foreperson 01/18/19 06:47 [place] % (Auto) Underground Production Foreperson 01/23/19 05:51 Eos % (Auto) Underground [employer] Foreperson 01/18/19 06:47 Baso % (Auto) Underground [employer] Foreperson 01/18/19 06:47 Lymph # Underground [employer] Foreperson 01/18/19 06:47 [place] # Underground Production Foreperson 01/18/19 06:47 Eos # Underground Production Foreperson 01/18/19 06:47 Baso # Underground [employer] Foreperson 01/18/19 06:47 Add Manual Diff Complete 01/23/19 05:51 Total Counted 100 01/23/19 05:51 Seg Neutrophils % Underground [employer] Foreperson 01/18/19 06:47 Seg Neuts % (Manual) 62.0 % (40.0-70.0) 01/23/19 05:51 2.0 % 01/23/19 05:51 22.0 % (13.4-35.0) 01/23/19 05:51 Reactive Lymphs % (Man) 0 % 01/23/19 05:51 9.0 % (0.0-7.3) H 01/23/19 05:51 1.0 % (0.0-4.3) 01/23/19 05:51 2.0 % (0.0-1.8) H 01/23/19 05:51 1.0 % 01/23/19 05:51 1.0 % 01/23/19 05:51 0 % 01/23/19 05:51 0 % 01/23/19 05:51 Nucleated RBC % 1.0 % (0.0-0.9) H 01/23/19 05:51 Seg Neutrophils # Underground [employer] Foreperson 01/18/19 06:47 Seg Neutrophils # Man 3.7 K/mm3 (1.8-7.7) 01/23/19 05:51 Band Neutrophils # 0.1 K/mm3 01/23/19 05:51 1.3 K/mm3 (1.2-5.4) 01/23/19 05:51 Abs React Lymphs (Man) 0.0 K/mm3 01/23/19 05:51 0.5 K/mm3 (0.0-0.8) 01/23/19 05:51 0.1 K/mm3 (0.0-0.4) 01/23/19 05:51 0.1 K/mm3 (0.0-0.1) 01/23/19 05:51 0.1 K/mm3 01/23/19 05:51 0.1 K/mm3 01/23/19 05:51 0.0 K/mm3 01/23/19 05:51 Blast Cells # 0.0 K/mm3 01/23/19 05:51 WBC Morphology Not Reportable 01/23/19 05:51 Hypersegmented Neuts Not Reportable 01/23/19 05:51 Hyposegmented Neuts Not Reportable 01/23/19 05:51 Hypogranular Neuts Not Reportable 01/23/19 05:51 Not Reportable 01/23/19 05:51 Not Reportable 01/23/19 05:51 Not Reportable 01/23/19 05:51 Not Reportable 01/23/19 05:51 Not Reportable 01/23/19 05:51 Not Reportable 01/23/19 05:51 Consistent w auto 01/23/19 05:51 Not Reportable 01/23/19 05:51 Plt Clumps, EDTA Not Reportable 01/23/19 05:51 Not Reportable 01/23/19 05:51 Not Reportable 01/23/19 05:51 Not Reportable 01/23/19 05:51 Plt Morphology Comment Not Reportable 01/23/19 05:51 RBC Morphology Not Reportable 01/23/19 05:51 Dimorphic RBCs Not Reportable 01/23/19 05:51 Not Reportable 01/23/19 05:51 1+ 01/23/19 05:51 Not Reportable 01/23/19 05:51 Not Reportable 01/23/19 05:51 Not Reportable 01/23/19 05:51 Not Reportable 01/23/19 05:51 Not Reportable 01/23/19 05:51 Not Reportable 01/23/19 05:51 Not Reportable 01/23/19 05:51 Not Reportable 01/23/19 05:51 Not Reportable 01/23/19 05:51 Not Reportable 01/23/19 05:51 Not Reportable 01/23/19 05:51 Not Reportable 01/23/19 05:51 Not Reportable 01/23/19 05:51 Not Reportable 01/23/19 05:51 Not Reportable 01/23/19 05:51 Not Reportable 01/23/19 05:51 Not Reportable 01/23/19 05:51 Acanthocytes (Spur) Not Reportable 01/23/19 05:51 Rouleaux Not Reportable 01/23/19 05:51 Not Reportable 01/23/19 05:51 Not Reportable 01/23/19 05:51 Not Reportable 01/23/19 05:51 Not Reportable 01/23/19 05:51 Hem Pathologist Commnt No 01/23/19 05:51 PT 16.4 Sec. (12.2-14.9) H 01/23/19 10:55 INR 1.36 (0.87-1.13) H 01/23/19 10:55 APTT 32.0 Sec. (24.2-36.6) 01/23/19 10:55 Sodium 131 mmol/L (137-145) L 01/23/19 10:55 Potassium 4.2 mmol/L (3.6-5.0) 01/23/19 10:55 Chloride 99.7 mmol/L (98-107) 01/23/19 10:55 Carbon Dioxide 22 mmol/L (22-30) 01/23/19 10:55 14 mmol/L 01/23/19 10:55 BUN 58 mg/dL (9-20) H 01/23/19 10:55 9.5 mg/dL (0.8-1.5) H 01/23/19 10:55 Estimated GFR 7 ml/min 01/23/19 10:55 6 % 01/23/19 10:55 Glucose 121 mg/dL (75-100) H 01/23/19 10:55 POC Glucose 101 (70-105) 01/19/19 07:35 6.0 % (4-6) 01/19/19 04:40 Calcium 8.3 mg/dL (8.4-10.2) L D 01/23/19 10:55 Phosphorus 2.40 mg/dL (2.5-4.5) L 01/22/19 05:49 Magnesium 1.80 mg/dL (1.7-2.3) 01/22/19 05:49 Iron 76 ug/dL (49-181) 01/19/19 10:15 TIBC 163 mcg/dL (250-450) L 01/19/19 10:15 % Saturation 46.63 % 01/19/19 10:15 129 mg/dl (180-329) L 01/19/19 10:15 0.70 mg/dL (0.1-1.2) 01/20/19 07:28 AST 36 units/L (5-40) 01/20/19 07:28 ALT 19 units/L (7-56) 01/20/19 07:28 116 units/L (35-129) 01/20/19 07:28 13.0 g/dL (6.1-8.1) H 01/19/19 06:28 > 12.0 g/dL (6.3-8.2) H 01/20/19 07:28 3.6 g/dL (3.9-5) L 01/20/19 07:28 0.0 % 01/20/19 07:28 0.4 g/dL (0.2-0.3) H 01/19/19 06:28 0.8 g/dL (0.5-0.9) 01/19/19 06:28 0.3 g/dL (0.2-0.5) 01/19/19 06:28 6.8 g/dL (0.8-1.7) H 01/19/19 06:28 Abnorm Protein Band 1 6.5 g/dL H 01/19/19 06:28 PEP Interpretation see below H 01/19/19 06:28 PTH Intact 30.34 pg/mL (15-65) 01/18/19 16:42 Yellow (Yellow) 01/19/19 09:18 Cloudy (Clear) 01/19/19 09:18 5.0 (5.0-7.0) 01/19/19 09:18 Ur Specific [place] 1.016 (1.003-1.030) 01/19/19 09:18 100 mg/dl mg/dL (Negative) 01/19/19 09:18 Neg mg/dL (Negative) 01/19/19 09:18 Neg mg/dL (Negative) 01/19/19 09:18 Mod (Negative) 01/19/19 09:18 Neg (Negative) 01/19/19 09:18 Neg (Negative) 01/19/19 09:18 < 2.0 mg/dL (<2.0) 01/19/19 09:18 Ur Leukocyte Esterase Neg (Negative) 01/19/19 09:18 6.0 /HPF (0.0-6.0) 01/19/19 09:18 3.0 /HPF (0.0-6.0) 01/19/19 09:18 U Epithel Cells (Auto) 3.0 /HPF (0-13.0) 01/19/19 09:18 1+ /HPF (Negative) 01/19/19 09:18 Few /HPF 01/19/19 09:18 181.1 mg/dL (0.1-20.0) H 01/19/19 08:55 19 mmol/L 01/19/19 08:55 297 mg/dL (5-11.8) H 01/19/19 08:55 127 mg/dL (82-185) 01/19/19 10:15 16 mg/dL (15-53) 01/19/19 10:15 Hepatitis A IgM Ab Non-reactive (NonReactive) 01/19/19 10:15 Hep Bs Antigen Non-reactive (Negative) 01/19/19 10:15 Hep B Core IgM Ab Non-reactive (NonReactive) 01/19/19 10:15 Non-reactive (NonReactive) 01/19/19 10:15 Blood Type O POSITIVE 01/18/19 10:38 Antibody Screen Negative 01/18/19 10:38 Active Medications - Current Medications Current Medications: Generic Name Dose Route Start Last Admin Trade Name Freq PRN Reason Stop Dose Admin Acetaminophen 650 mg 01/22/19 09:08 Tylenol PO Q4H PRN Pain, Mild (1-3) Acetaminophen 650 mg 01/22/19 09:37 01/22/19 10:05 Tylenol [place] 650 mg Q4H PRN Administration Pain, Mild (1-3) Lipase/Protease/Amylase 1 each 01/23/19 10:[address] 10,500 Unit FEEDTUBE PRN PRN For Clogged Feeding Tube Epoetin Oscar 10,000 unit 01/21/19 12:32 01/22/19 12:00 Procrit IV 10,000 unit REYES PRN Administration hemodialysis Haloperidol Lactate 5 mg 01/20/19 11:04 01/22/19 23:56 Haldol IM 5 mg Q6H PRN Administration Agitation Sodium Chloride 100 mls @ 999 mls/hr 01/21/19 12:32 Nacl 0.9% IV REYES PRN Hypotension Cefepime HCl 1 gm in 100 mls @ 200 mls/hr 01/22/19 15:00 01/23/19 14:05 Maxipime/Ns 1 Gm/100 Ml IV 100 mls/hr Q24H GILBERTO Administration Protocol Labetalol HCl 10 mg 01/20/19 08:56 Normodyne IV Q4H PRN Hypertension Melatonin 5 mg 01/23/19 22:00 Melatonin PO QHS PRN Sleep Metoclopramide HCl 10 mg 01/18/19 15:51 Reglan IV Q6H PRN Nausea And Vomiting Ondansetron HCl 4 mg 01/18/19 15:51 01/18/19 20:04 Zofran IV 4 mg Q8H PRN Administration Nausea And Vomiting Pantoprazole Sodium 40 mg 01/22/19 22:00 01/23/19 09:03 Protonix IV 40 mg BID GILBERTO Administration Simple Syrup 15 ml 01/23/19 10:06 Simple Syrup FEEDTUBE PRN PRN Hypoglycemia Simple Syrup 30 ml 01/23/19 10:06 Simple Syrup FEEDTUBE PRN PRN Hypoglycemia Sodium Bicarbonate 325 mg 01/23/19 10:06 Sodium Bicarbonate FEEDTUBE PRN PRN For Clogged Feeding Tube Sodium Chloride 10 ml 01/18/19 22:00 01/23/19 09:04 Sodium Chloride Flush Syringe 10 Ml IV 10 ml BID GILBERTO Administration Sodium Chloride 10 ml 01/18/19 15:51 01/23/19 14:07 Sodium Chloride Flush Syringe 10 Ml IV 10 ml PRN PRN Administration LINE FLUSH Sterile Water 0 ml 01/22/19 18:12 Water For Inj Sterile (Pf) IM PRN PRN MIXING GEODON Nutrition/Malnutrition Assess - Dietary Evaluation Nutrition/Malnutrition Findings: Nutrition Notes Start: 01/23/19 10:00 Freq: Status: Active Protocol: Document 01/23/19 10:00 BETZAIDA (Rec: 01/23/19 10:06 BETZAIDA [email or web address]) Nutrition Notes Need for Assessment generated from: MD Order Initial or Follow up Assessment Current Diagnosis CKD(stage I-IV),Sepsis, Hypertension,Hyperlipidemia Other Pertinent Diagnosis Upper GIB, Acute metabolic encephalopathy Current Diet NPO Labs/Tests Reviewed Pertinent Medications Reviewed Height 5 ft 9 in Weight 101.9 kg [place] Body Weight (kg) 72.72 BMI 33.1 Weight Status Obese Subjective/Other Information RD consulted for TF. Pt on HD . Burn Absent Trauma Absent #1 Nutrition Diagnosis Inadequate oral intake Etiology encephalopathy As Evidenced by Signs and Symptoms pt NPO Is patient on ventilator? No Is Patient Ambulatory and/or Out of Bed No REE-([facility]-confined to bed) 2105.136 Kcal/Kg value to use for calculation 16 Approximate Energy Requirements Using 1630 kcal/Kg Calculation Used for Recommendations Kcal/kg Additional Notes Pro needs 1.2-1.4g/kg adjBW: 105-122g/day Fluid needs 1-1.5L/day Nutrition Intervention Nutrition Support: Nepro at 40ml/hr with 150ml water flush q4h. Kcal 1,728 Protein (gm) 78 Carbohydrates (gm) 155 Fat (gm) 92 Fluid (mL) 698 Fiber (gm) 12 Goal #1 TF tolerance Goal #2 TF at goal rate to meet at least 75% energy and pro needs Anticipated Discharge Needs: Continue TF if necessary Follow-Up By: 01/25/19 Additional Comments F/U: new TF, renal function
--- NOTE | 2019-01-23 19:41 | Progress Note ---
Assessment and Plan - Patient Problems (1) Anemia Current Visit: Yes Status: Acute Qualifiers: Anemia type: unspecified type Qualified Code(s): D64.9 - Anemia, unspecified Plan to address problem: will follow labs. (2) Renal failure Current Visit: Yes Status: Acute Qualifiers: Renal failure chronicity: acute on chronic Acute renal failure type: unspecified Chronic kidney disease stage: unspecified stage Qualified Code(s): N17.9 - Acute kidney failure, unspecified; N18.9 - Chronic kidney disease, unspecified Plan to address problem: follow renal. (3) Lytic bone lesion of femur Current Visit: Yes Status: Acute Plan to address problem: This is diffuse including in the calverium.. see notes. Subjective Date of service: 01/23/19 Interval history: Patient seen, resting in bed, labs/notes reviewed. No new issues at this time. Still awaiting w/up lab results.will follow you. patient seen, resting in bed, records/notes reviewed, no new issues at this time. Patient seen/examined, resting in bed, scan/labs reviewed. i had d/w patients son, that this is clearly multiple myeloma,Patient has diffuse lytic lesions, including in the calverium. Patient need bm bx quick, so we can make dx, and begin tx, which will be out patient. He will need tx for the bone mets, agent is quite expensive, but ,can be started out patient, as soon as tissue dx is made via BM bx/asp. Patient seen/examined, resting in bed, notes reviewed,bm/bone bx not done, SPEP/UPEP still pending. Dr Ibanez back, and will take over. Objective - Constitutional Vitals: Vital Signs - 12hr 01/23/19 01/23/19 01/23/19 10:00 14:02 19:23 Temperature 98.3 F Pulse Rate 102 H 110 H Pulse Rate [ 102 H Right Apical] Respiratory 22 22 Rate Blood Pressure 139/74 O2 Sat by Pulse 95 93 95 Oximetry General appearance: Present: mild distress, well-nourished - EENT Eyes: PERRL, EOM intact ENT: hearing intact, clear oral mucosa Ears: bilateral: normal - Neck Neck: supple, normal ROM - Respiratory Respiratory effort: labored Respiratory: bilateral: CTA - Breasts Breasts: deferred - Cardiovascular Rhythm: regular Heart Sounds: Present: S1 & S2. Absent: gallop, rub Extremities: pulses intact, No edema, normal color, Full ROM - Gastrointestinal General gastrointestinal: Present: soft, non-tender, non-distended, normal bowel sounds Rectal Exam: deferred - Genitourinary Male genitourinary: deferred - Integumentary Integumentary: clear, warm, dry - Musculoskeletal Musculoskeletal: 1, strength equal bilaterally - Neurologic Neurologic: moves all extremities - Labs CBC & Chem 7: 01/23/19 05:51 01/23/19 10:55 Labs: Abnormal lab results 01/19/19 01/23/19 01/23/19 Range/Units 06:28 05:51 10:55 RBC 2.37 L (3.65-5.03) M/mm3 Hgb 7.2 L (11.8-15.2) gm/dl Hct 21.3 L (35.5-45.6) % RDW 16.6 H (13.2-15.2) % Plt Count 94 L (140-440) K/mm3 Monocytes % (Manual) 9.0 H (0.0-7.3) % Basophils % (Manual) 2.0 H (0.0-1.8) % Nucleated RBC % 1.0 H (0.0-0.9) % PT (12.2-14.9) Sec. INR (0.87-1.13) Sodium 131 L (137-145) mmol/L BUN 58 H (9-20) mg/dL Creatinine 9.5 H (0.8-1.5) mg/dL Glucose 121 H (75-100) mg/dL Calcium 8.3 L D (8.4-10.2) mg/dL Serum Total Protein 13.0 H (6.1-8.1) g/dL Edlzo-3-Uneosevpf 0.4 H (0.2-0.3) g/dL Gamma Globulins 6.8 H (0.8-1.7) g/dL Abnorm Protein Band 1 6.5 H g/dL PEP Interpretation see below H 01/23/19 Range/Units 10:55 RBC (3.65-5.03) M/mm3 Hgb (11.8-15.2) gm/dl Hct (35.5-45.6) % RDW (13.2-15.2) % Plt Count (140-440) K/mm3 Monocytes % (Manual) (0.0-7.3) % Basophils % (Manual) (0.0-1.8) % Nucleated RBC % (0.0-0.9) % PT 16.4 H (12.2-14.9) Sec. INR 1.36 H (0.87-1.13) Sodium (137-145) mmol/L BUN (9-20) mg/dL Creatinine (0.8-1.5) mg/dL Glucose (75-100) mg/dL Calcium (8.4-10.2) mg/dL Serum Total Protein (6.1-8.1) g/dL Kxcei-1-Hmdocwjqn (0.2-0.3) g/dL Gamma Globulins (0.8-1.7) g/dL Abnorm Protein Band 1 g/dL PEP Interpretation Medications & Allergies - Medications Allergies/Adverse Reactions: Allergies No Known Allergies Allergy (Unverified 01/18/19 06:38) Home Medications: Home Medications Medication Instructions Recorded Confirmed Last Taken Type Labetalol [Labetalol 200mg TAB] 200 mg PO BID 01/18/19 01/18/19 01/17/19 History NIFEdipine [Nifedipine ER] 90 mg PO QDAY 01/18/19 01/18/19 01/17/19 History Simvastatin 20 mg PO QHS 01/18/19 01/18/19 01/17/19 History Active Medications: Generic Name Dose Route Start Last Admin Trade Name Freq PRN Reason Stop Dose Admin Acetaminophen 650 mg 01/22/19 09:08 Tylenol PO Q4H PRN Pain, Mild (1-3) Acetaminophen 650 mg 01/22/19 09:37 01/22/19 10:05 Tylenol [place] 650 mg Q4H PRN Administration Pain, Mild (1-3) Lipase/Protease/Amylase 1 each 01/23/19 10:06 Pancrejennie Lainez 10,500 Unit FEEDTUBE PRN PRN For Clogged Feeding Tube Epoetin Oscar 10,000 unit 01/21/19 12:32 01/22/19 12:00 Procrit IV 10,000 unit REYES PRN Administration hemodialysis Haloperidol Lactate 5 mg 01/20/19 11:04 01/22/19 23:56 Haldol IM 5 mg Q6H PRN Administration Agitation Sodium Chloride 100 mls @ 999 mls/hr 01/21/19 12:32 Nacl 0.9% IV REYES PRN Hypotension Cefepime HCl 1 gm in 100 mls @ 200 mls/hr 01/22/19 15:00 01/23/19 14:05 Maxipime/Ns 1 Gm/100 Ml IV 100 mls/hr Q24H GILBERTO Administration Protocol Labetalol HCl 10 mg 01/20/19 08:56 Normodyne IV Q4H PRN Hypertension Melatonin 5 mg 01/23/19 22:00 Melatonin PO QHS PRN Sleep Metoclopramide HCl 10 mg 01/18/19 15:51 Reglan IV Q6H PRN Nausea And Vomiting Ondansetron HCl 4 mg 01/18/19 15:51 01/18/19 20:04 Zofran IV 4 mg Q8H PRN Administration Nausea And Vomiting Pantoprazole Sodium 40 mg 01/22/19 22:00 01/23/19 09:03 Protonix IV 40 mg BID GILBERTO Administration Simple Syrup 15 ml 01/23/19 10:06 Simple Syrup FEEDTUBE PRN PRN Hypoglycemia Simple Syrup 30 ml 01/23/19 10:06 Simple Syrup FEEDTUBE PRN PRN Hypoglycemia Sodium Bicarbonate 325 mg 01/23/19 10:06 Sodium Bicarbonate FEEDTUBE PRN PRN For Clogged Feeding Tube Sodium Chloride 10 ml 01/18/19 22:00 01/23/19 09:04 Sodium Chloride Flush Syringe 10 Ml IV 10 ml BID GILBERTO Administration Sodium Chloride 10 ml 01/18/19 15:51 01/23/19 14:07 Sodium Chloride Flush Syringe 10 Ml IV 10 ml PRN PRN Administration LINE FLUSH Sterile Water 0 ml 01/22/19 18:12 Water For Inj Sterile (Pf) IM PRN PRN MIXING GEODON
[2019-01-23] MEDS ORDERED: MELATONIN PO PRN (22:00)
[2019-01-24] MEDS: PROTONIX IV SCH (00:31)
[2019-01-24] MEDS: TYLENOL PO PRN (00:31)
[2019-01-24] MEDS: SODIUM CHLORIDE FLUSH SYRINGE 10 ML IV SCH ×2 (00:38→09:08)
[2019-01-24 05:19] LABS: Hematocrit 20.4 % (35.5-45.6); Mean Corpuscular HGB Conc 34 % (32-34); Mean Corpuscular Volume 90 fl (84-94); Red Blood Count 2.26 M/mm3 (3.65-5.03); Red Cell Distribution Width 16.8 % (13.2-15.2)
[2019-01-24 05:21] LABS: Platelet Count 91 K/mm3 (140-440)
[2019-01-24 06:26] LABS: Basophils % (Manual) 0 % (0.0-1.8); Eosinophils % (Manual) 0 % (0.0-4.3); Myelocytes # (Manual) 0.1 K/mm3; Rouleaux 1+; Total Cells Counted 100
[2019-01-24 06:27] LABS: Platelet Estimate Consistent w Auto
[2019-01-24 06:36] LABS: Calcium 8.1 mg/dL (8.4-10.2)
[2019-01-24] MEDS: FLAGYL 500 MG/100 ML 500 MG/100 ML BAG IV SCH ×2 (09:08→18:53)
--- NOTE | 2019-01-24 09:14 | Progress Note ---
Assessment and Plan Cultures: Blood culture 01/22/2019 Staph Aureus, 1 of 4 bottles. Assessment: 73 y/o male with history of hypertension, chronic kidney disease and hyperlipidemia admitted on 01/18/2019 due to 3-day history of epigastric abdominal pain, melanoic stools and vomiting blood associated with generalized weakness and lightheadedness found to have a GI bleed, OCTAVIA on CKD now on HD. By 01/22/2019 patient spiked a temp 101 and tachycardia: 1) SIRS: NOT present on admission. Fever noted 100.7, etiology staph aureus bactermia , likely source HD catheter, placed 01/19/19. . DDx aspiration pneumonia, bacteremia, malignancy, UTI. CXR shows bilateral pulmonary edema. Blood culture 01/22/2019 grew Staph aureus bacteremia. Currently being treated with Vancomycin and flagyl. 2) Staph Aureus Bacteremia: 1 out of 4 bottles. ? CLABSI perm cath placed 01/19/19. follow-up for ID and susceptibility. Will order new blood cultures to ensure clearance. Order TTE 3) Acute encephalopathy: due to malignancy 4) OCTAVIA on CKD now on HD 5) Anemia 6) GI bleed: EGD found with hiatal hernia, multiple shallow ulcers throughout stomach w/o bleeding stigmata (bx's). Recommendations: d/w Dr. Fletcher will exchange HD catheter tomorrow follow up blood cultures for ID and susceptibility follow-up repeat blood culture discontinue cefepime continue vancomycin renally adjusted and PK consult continue flagyl for aspiration pneumonia order TTE Guarded prognosis [facility] M: [id number] O:[phone] Subjective Date of service: 01/24/19 Interval history: Patient seen and examined. Somnolent. Family at bedside . Low grade fevers. Objective - Exam Narrative Exam: General appearance: Somnolent. Eyes: anicteric sclerae, moist conjunctivae; no lid-lag; PERRLA HENT: Atraumatic; oropharynx dry edentulous Lungs: clear to auscultation CV: RRR no murmur Abdomen: Soft, non-tender Extremities: joshua leg edema Skin: No rash. Psych: somnolent. Neuro: somnolent - Constitutional Vitals: Vital Signs Temp Pulse Resp BP Pulse Ox 98.7 F 88 20 140/77 98 01/24/19 07:46 01/24/19 03:29 01/24/19 07:46 01/24/19 07:46 01/24/19 07:54 Temperature -Last 24 Hours Temperature 98.7 F Temperature 98.6 F Temperature 100.7 F Temperature 98.3 F - Labs CBC & Chem 7: 01/24/19 04:35 01/24/19 05:52 Labs: Abnormal lab results 01/23/19 01/23/19 01/23/19 Range/Units 05:51 10:55 10:55 RBC (3.65-5.03) M/mm3 Hgb (11.8-15.2) gm/dl Hct (35.5-45.6) % RDW (13.2-15.2) % Plt Count (140-440) K/mm3 Monocytes % (Manual) 9.0 H (0.0-7.3) % Basophils % (Manual) 2.0 H (0.0-1.8) % Nucleated RBC % 1.0 H (0.0-0.9) % Lymphocytes # (Manual) (1.2-5.4) K/mm3 PT 16.4 H (12.2-14.9) Sec. INR 1.36 H (0.87-1.13) Sodium 131 L (137-145) mmol/L Carbon Dioxide (22-30) mmol/L BUN 58 H (9-20) mg/dL Creatinine 9.5 H (0.8-1.5) mg/dL Glucose 121 H (75-100) mg/dL POC Glucose (70-105) Calcium 8.3 L D (8.4-10.2) mg/dL 01/24/19 01/24/19 01/24/19 Range/Units 00:21 04:35 05:52 RBC 2.26 L (3.65-5.03) M/mm3 Hgb 7.0 L (11.8-15.2) gm/dl Hct 20.4 L (35.5-45.6) % RDW 16.8 H (13.2-15.2) % Plt Count 91 L (140-440) K/mm3 Monocytes % (Manual) (0.0-7.3) % Basophils % (Manual) (0.0-1.8) % Nucleated RBC % (0.0-0.9) % Lymphocytes # (Manual) 0.9 L (1.2-5.4) K/mm3 PT (12.2-14.9) Sec. INR (0.87-1.13) Sodium 136 L (137-145) mmol/L Carbon Dioxide 21 L (22-30) mmol/L BUN 82 H (9-20) mg/dL Creatinine 12.5 H (0.8-1.5) mg/dL Glucose 113 H (75-100) mg/dL POC Glucose 126 H (70-105) Calcium 8.1 L (8.4-10.2) mg/dL
[2019-01-24] MEDS ORDERED: PREVACID SOLUTAB FEEDTUBE SCH (10:00)
--- NOTE | 2019-01-24 14:10 | Progress Note ---
Subjective - Reason for Consult Consult date: 01/24/19 Reason for consult: Psychiatric Follow-up Evaluation - Chief Complaint Chief complaint: Patient is receiving dialysis. Patient is a 73 y.o. AA male who presented to the ER for N/V, vomiting blood, an d abdominal pain 2 days. Psychiatry was consulted to see the patient for behavioral disturbances. Today the provider was unable to assess patient because patient was taken to dialysis. Patient is not in room. Mental Status Exam - Vital signs Last Vital Signs Temp 98.7 F 01/24/19 07:46 Pulse 88 01/24/19 03:29 Resp 20 01/24/19 10:00 BP 140/77 01/24/19 07:46 Pulse Ox 98 01/24/19 10:00 - Exam Narrative exam: Unable to obtain a psy hx and fam psy hx. Patient not in room. Taken to dialysis. Assessment and Plan Impression: AMS per the record. Provider unable to assess patient. Patient is not in room. Patient taken to dialysis. Recommendation/Plan: Continue Haldol 5 mg IM Q6hrs PRN for acute psychosis and start Melatonin 5 mg PO HS PRN for sleep.Psy will follow up with the patient in 24 hours. Recommend Delirium precautions below: 1. Frequently reorient patient and involve him/her in their care (simple explanations of procedures, tests, medications). 2. Lights on and shades open during daytime hours. 3. Write date and goals of care in a visible place. 4. Try to avoid unnecessary interruptions to sleep during nighttime hours. 5. Obtain glasses, hearing aids from home if patient uses these at baseline. 6. Avoid medications that may exacerbate delirium (especially narcotics, benzodiazepines, barbiturates, ambien, lunesta, and medications with excessive anticholinergic properties). 7. Recommend 1:1 sitter for safety. Will staff with Dr. Delia gilliam.
[2019-01-24] MEDS: MAXIPIME/NS 1 GM/100 ML 1 GM/100 ML BAG IV SCH (14:25)
--- NOTE | 2019-01-24 16:34 | Progress Note ---
Assessment and Plan - Patient Problems (1) Acute kidney injury Current Visit: Yes Status: Acute Plan to address problem: Acute kidney injury baseline creatinine unknown Currently oliguric Associated hypercalcemia noted Currently dialysis dependent Serum electrophoresis with M spike Appreciate recommendations from oncology Awaiting bone marrow biopsy concern for myeloma also awaiting serum electrophoresis Continue dialysis Tuesday for now (2) Hypercalcemia Current Visit: Yes Status: Acute Plan to address problem: Hypercalcemia Serum electrophoresis with M spike. Use low calcium bath dialysis (3) Anemia Current Visit: Yes Status: Acute Qualifiers: Anemia type: unspecified type Qualified Code(s): D64.9 - Anemia, unspecified Plan to address problem: Moderate anemia hemoglobin 7.6 g per DL Worsening renal function consent for paraproteinemia Plan for bone marrow biopsy (4) Sepsis Current Visit: Yes Status: Acute Plan to address problem: Sepsis SIRS criteria 2 out of 4. has bacteremia Has right IJ PermCath continue Broad-spectrum antibiotics Plan for perm cath exchange tomorrow. Subjective Interval history: 73-year-old gentleman with medical history significant for recent hypercalcemia acute kidney injury in a relative for possible multiple myeloma Patient seen on dialysis remains confused Blood cultures with gram positive cocci one of two bottles. Patient is tachycardic Review of systems unobtainable due to patient's altered mental status I attest I saw the patient on dialysis awaiting perm cath exchange tomorrow. Objective - Vital Signs Vital signs: Vital Signs - 12hr 01/24/19 01/24/19 01/24/19 07:46 07:54 10:00 Temperature 98.7 F Pulse Rate Respiratory 20 20 Rate Blood Pressure 140/77 O2 Sat by Pulse 98 98 Oximetry 01/24/19 01/24/19 01/24/19 13:07 15:00 15:15 Temperature 98.3 F 99.8 F H Pulse Rate 88 80 84 Respiratory 20 20 Rate Blood Pressure 163/83 164/77 143/69 O2 Sat by Pulse 94 Oximetry 01/24/19 01/24/19 01/24/19 15:30 15:45 16:00 Temperature Pulse Rate 71 91 H 106 H Respiratory Rate Blood Pressure 140/70 129/80 137/80 O2 Sat by Pulse Oximetry - General Appearance General appearance: well-developed, well-nourished Neck: no JVD Respiratory: Present: Clear to Ascultation Cardiology: regular, S1S2 Gastrointestinal: normal, normoactive bowel sounds Integumentary: no rash Neurologic: alert and oriented x3, CN 3-12 intact Musculoskeletal: deferred Psychiatric: mood/affect appropriate - Lab 01/24/19 04:35 01/24/19 05:52 Most recent lab results Calcium 8.1 mg/dL (8.4-10.2) L 01/24/19 05:52 Phosphorus 2.40 mg/dL (2.5-4.5) L 01/22/19 05:49 Magnesium 1.80 mg/dL (1.7-2.3) 01/22/19 05:49 181.1 mg/dL (0.1-20.0) H 01/19/19 08:55 19 mmol/L 01/19/19 08:55 297 mg/dL (5-11.8) H 01/19/19 08:55 - Imaging Chest x-ray: image reviewed (I reviewed CXR with bilateral hazy opacities. ) Medications & Allergies - Medications Allergies/Adverse Reactions: Allergies No Known Allergies Allergy (Unverified 01/18/19 06:38) Home Medications: Home Medications Medication Instructions Recorded Confirmed Last Taken Type Labetalol [Labetalol 200mg TAB] 200 mg PO BID 01/18/19 01/18/19 01/17/19 History NIFEdipine [Nifedipine ER] 90 mg PO QDAY 01/18/19 01/18/19 01/17/19 History Simvastatin 20 mg PO QHS 01/18/19 01/18/19 01/17/19 History Active Medications: Generic Name Dose Route Start Last Admin Trade Name Reece PRN Reason Stop Dose Admin Acetaminophen 650 mg 01/22/19 09:08 01/24/19 00:31 Tylenol PO 650 mg Q4H PRN Administration Pain, Mild (1-3) Acetaminophen 650 mg 01/22/19 09:37 01/22/19 10:05 Tylenol AR 650 mg Q4H PRN Administration Pain, Mild (1-3) Lipase/Protease/Amylase 1 each 01/23/19 10:06 Pancrejennie Lainez 10,500 Unit FEEDTUBE PRN PRN For Clogged Feeding Tube Epoetin Oscar 10,000 unit 01/21/19 12:32 01/22/19 12:00 Procrit IV 10,000 unit REYES PRN Administration hemodialysis Haloperidol Lactate 5 mg 01/20/19 11:04 01/22/19 23:56 Haldol IM 5 mg Q6H PRN Administration Agitation Sodium Chloride 100 mls @ 999 mls/hr 01/21/19 12:32 Nacl 0.9% IV REYES PRN Hypotension Metronidazole 500 mg in 100 mls @ 100 mls/hr 01/24/19 10:00 01/24/19 09:08 Flagyl 500 Mg/100 Ml IV 100 mls/hr Q8H GILBERTO Administration Labetalol HCl 10 mg 01/20/19 08:56 Normodyne IV Q4H PRN Hypertension Lansoprazole 30 mg 01/24/19 10:00 01/24/19 09:09 Prevacid Solutab FEEDTUBE Not Given QDAY GILBERTO Melatonin 5 mg 01/23/19 22:00 Melatonin PO QHS PRN Sleep Metoclopramide HCl 10 mg 01/18/19 15:51 Reglan IV Q6H PRN Nausea And Vomiting Ondansetron HCl 4 mg 01/18/19 15:51 01/18/19 20:04 Zofran IV 4 mg Q8H PRN Administration Nausea And Vomiting Simple Syrup 15 ml 01/23/19 10:06 Simple Syrup FEEDTUBE PRN PRN Hypoglycemia Simple Syrup 30 ml 01/23/19 10:06 Simple Syrup FEEDTUBE PRN PRN Hypoglycemia Sodium Bicarbonate 325 mg 01/23/19 10:06 Sodium Bicarbonate FEEDTUBE PRN PRN For Clogged Feeding Tube Sodium Chloride 10 ml 01/18/19 22:00 01/24/19 09:08 Sodium Chloride Flush Syringe 10 Ml IV 10 ml BID GILBERTO Administration Sodium Chloride 10 ml 01/18/19 15:51 01/23/19 14:07 Sodium Chloride Flush Syringe 10 Ml IV 10 ml PRN PRN Administration LINE FLUSH Sterile Water 0 ml 01/22/19 18:12 Water For Inj Sterile (Pf) IM PRN PRN MIXING GEODON
--- NOTE | 2019-01-24 17:00 | Progress Note ---
Assessment and Plan 1.Upper GI bleed Patient initiated on IV Protonix drip Resolved 2. Hypertension Hold antihypertensives Catapres patch initiated 3. Hyperlipidemia Statins on hold 4.End-stage renal disease Nephrology consultation requested His dialysis status is not known 5. Acute anemia Multifactorial Secondary to end-stage renal disease and GI bleed Transfuse as necessary 6. Hyperglobulinemia Multiple Myeloma --Given Lucencies on Calvarium 7. Hypercalcemia Calcitrol given 8. Hyponatremia Mild 9. DVT prophylaxis SCDs for now and GI prophylaxis Subjective Date of service: 01/24/19 Principal diagnosis: ESRD and MMyeloma Interval history: Sx better Objective - Constitutional Vitals: Vital Signs - 12hr 01/24/19 01/24/19 01/24/19 07:46 07:54 10:00 Temperature 98.7 F Pulse Rate Respiratory 20 20 Rate Blood Pressure 140/77 O2 Sat by Pulse 98 98 Oximetry 01/24/19 01/24/19 01/24/19 13:07 15:00 15:15 Temperature 98.3 F 99.8 F H Pulse Rate 88 80 84 Respiratory 20 20 Rate Blood Pressure 163/83 164/77 143/69 O2 Sat by Pulse 94 Oximetry 01/24/19 01/24/19 01/24/19 15:30 15:45 16:00 Temperature Pulse Rate 71 91 H 106 H Respiratory Rate Blood Pressure 140/70 129/80 137/80 O2 Sat by Pulse Oximetry 01/24/19 01/24/19 16:15 16:30 Temperature Pulse Rate 107 H 109 H Respiratory Rate Blood Pressure 141/79 125/68 O2 Sat by Pulse Oximetry General appearance: Present: no acute distress, well-nourished - EENT Eyes: PERRL, EOM intact ENT: hearing intact, clear oral mucosa Ears: bilateral: normal - Neck Neck: supple, normal ROM - Respiratory Respiratory effort: normal Respiratory: bilateral: CTA - Breasts Breasts: normal - Cardiovascular Rhythm: regular Heart Sounds: Present: S1 & S2. Absent: gallop, rub Extremities: pulses intact, No edema, normal color, Full ROM - Gastrointestinal General gastrointestinal: Present: soft, non-tender, non-distended, normal bowel sounds - Genitourinary Male genitourinary: normal - Integumentary Integumentary: clear, warm, dry - Musculoskeletal Musculoskeletal: 1, strength equal bilaterally - Neurologic Neurologic: moves all extremities - Psychiatric Psychiatric: memory intact, appropriate mood/affect, intact judgment & insight - Labs CBC & Chem 7: 01/25/19 05:30 01/25/19 05:30 Labs: Abnormal lab results 01/24/19 01/24/19 01/24/19 Range/Units 00:21 04:35 05:52 RBC 2.26 L (3.65-5.03) M/mm3 Hgb 7.0 L (11.8-15.2) gm/dl Hct 20.4 L (35.5-45.6) % RDW 16.8 H (13.2-15.2) % Plt Count 91 L (140-440) K/mm3 Lymphocytes # (Manual) 0.9 L (1.2-5.4) K/mm3 Sodium 136 L (137-145) mmol/L Carbon Dioxide 21 L (22-30) mmol/L BUN 82 H (9-20) mg/dL Creatinine 12.5 H (0.8-1.5) mg/dL Glucose 113 H (75-100) mg/dL POC Glucose 126 H (70-105) Calcium 8.1 L (8.4-10.2) mg/dL 01/24/19 Range/Units 13:13 RBC (3.65-5.03) M/mm3 Hgb (11.8-15.2) gm/dl Hct (35.5-45.6) % RDW (13.2-15.2) % Plt Count (140-440) K/mm3 Lymphocytes # (Manual) (1.2-5.4) K/mm3 Sodium (137-145) mmol/L Carbon Dioxide (22-30) mmol/L BUN (9-20) mg/dL Creatinine (0.8-1.5) mg/dL Glucose (75-100) mg/dL POC Glucose 111 H (70-105) Calcium (8.4-10.2) mg/dL
[2019-01-24] MEDS ORDERED: NACL 0.9 (PRIMING MACHINE ONLY DIALYSIS) MC ONE (17:52)
[2019-01-24] MEDS: HALDOL IM PRN (20:40)
[2019-01-25] MEDS: FLAGYL 500 MG/100 ML 500 MG/100 ML BAG IV SCH ×3 (01:41→20:21)
[2019-01-25] MEDS: SODIUM CHLORIDE FLUSH SYRINGE 10 ML IV SCH ×3 (01:41→21:39)
[2019-01-25] MEDS: TYLENOL PO PRN (02:51)
--- NOTE | 2019-01-25 03:51 | Event Note ---
Date: 01/24/19 [id number]
[2019-01-25] MEDS: ZOFRAN IV PRN (04:27)
[2019-01-25 06:26] LABS: Calcium 7.3 mg/dL (8.4-10.2)
[2019-01-25 07:01] LABS: Hematocrit 20.2 % (35.5-45.6); Mean Corpuscular HGB Conc 34 % (32-34); Mean Corpuscular Volume 90 fl (84-94); Platelet Count 99 K/mm3 (140-440); Red Blood Count 2.26 M/mm3 (3.65-5.03); Red Cell Distribution Width 16.8 % (13.2-15.2)
--- NOTE | 2019-01-25 07:18 | Hem/Onc Progress Note ---
Assessment and Plan 1. Hypercalcemia, elevated total protein , bone lesions - clinically with multiple myeloma. The patient also has renal impairment and is on dialysis. start the patient on dexamethasone. I whad D/w Nephrology team for plasmapheresis. The patient would also benefit from chemotherapy initiation and transfer to a tertiary care center where this can be done is an option. 2. Anemia. The patient is on Procrit. 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 Mention of melena, h/o hemetemesis at admission - seen by GI team. 4. History of hypertension. 5. History of hyperlipidemia. 6. h/o Bacteremia. 7. For hypercalcemia, the patient received Aredia. 8. Thrombocytopenia, likely secondary to myeloma or other secondary issues. At this time, we will observe. We will investigate - anemia/low plt for other causes. Total proteins have been high twice no treatment given till today - started dexa 40 daily for 4 ays - PPI added called [facility] transfer team - Therapeutic plasma exchange for now, ESR [facility] transfer after TPE for velcade chemo. D/w nephrology team d/w blood bank - [facility] for TPE - plan for 2 sessions to start replacement fluid albumin - Patient Problems (1) Myeloma Current Visit: Yes Status: Acute Subjective Date of service: 01/25/19 Principal diagnosis: myeloma Interval history: responds to pain Objective - Exam Narrative Exam: Pain - pt not responding to q General appearance no acute distress Performance status need complete help Eyes - no icterus ENT - no bleeding from ear LNs cervical not palpable Neck - normal ROM Respiratory Normal Breath sounds - CTA CVS S1 S2 + Extremities normal temperature General GI Soft - distended Rectal deferred male - deferred Skin warm Musculoskeletal - not able to evaluate Neurologically not responding to verbal commands - minimal to pain - Constitutional Vitals: Last Vital Signs Temp 100.1 F H 01/25/19 02:40 Pulse 99 H 01/25/19 02:06 Resp 19 01/25/19 02:05 BP 127/71 01/25/19 02:05 Pulse Ox 99 01/25/19 02:06 - Labs Lab Results: Laboratory Results - last 24 hr 01/24/19 01/25/19 01/25/19 13:13 00:01 05:30 WBC 6.8 RBC 2.26 L Hgb 7.0 L Hct 20.2 L MCV 90 MCH 31 MCHC 34 RDW 16.8 H Plt Count 99 L Lymph % (Auto) Tape Maker [place] % (Auto) Tape Maker Eos % (Auto) Tape Maker Baso % (Auto) Tape Maker Lymph # Tape Maker [place] # Tape Maker Eos # Tape Maker Baso # Tape Maker Seg Neutrophils % Tape Maker Seg Neutrophils # Tape Maker Sodium Potassium Chloride Carbon Dioxide Anion Gap BUN Creatinine Estimated GFR BUN/Creatinine Ratio Glucose POC Glucose 111 H 127 H Calcium 01/25/19 01/25/19 05:30 06:07 WBC RBC Hgb Hct MCV MCH MCHC RDW Plt Count Lymph % (Auto) [place] % (Auto) Eos % (Auto) Baso % (Auto) Lymph # [place] # Eos # Baso # Seg Neutrophils % Seg Neutrophils # Sodium 132 L Potassium 3.9 Chloride 95.6 L Carbon Dioxide 23 Anion Gap 17 BUN 51 H Creatinine 8.5 H Estimated GFR 7 BUN/Creatinine Ratio 6 Glucose 119 H POC Glucose 124 H Calcium 7.3 L Medications & Allergies - Medications Allergies/Adverse Reactions: Allergies No Known Allergies Allergy (Unverified 01/18/19 06:38) Home Medications: Home Medications Medication Instructions Recorded Confirmed Last Taken Type Labetalol [Labetalol 200mg TAB] 200 mg PO BID 01/18/19 01/18/19 01/17/19 History RX: NIFEdipine [Nifedipine ER] 90 mg PO QDAY 01/18/19 01/18/19 01/17/19 History RX: Simvastatin 20 mg PO QHS 01/18/19 01/18/19 01/17/19 History Active Medications: Generic Name Dose Route Start Last Admin Trade Name Freq PRN Reason Stop Dose Admin Acetaminophen 650 mg 01/22/19 09:08 01/25/19 02:51 Tylenol PO 650 mg Q4H PRN Administration Pain, Mild (1-3) Acetaminophen 650 mg 01/22/19 09:37 01/22/19 10:05 Tylenol NV 650 mg Q4H PRN Administration Pain, Mild (1-3) Lipase/Protease/Amylase 1 each 01/23/19 10:06 Pancrejennie Lainez 10,500 Unit FEEDTUBE PRN PRN For Clogged Feeding Tube Epoetin Oscar 10,000 unit 01/21/19 12:32 01/22/19 12:00 Procrit IV 10,000 unit REYES PRN Administration hemodialysis Haloperidol Lactate 5 mg 01/20/19 11:04 01/24/19 20:40 Haldol IM 5 mg Q6H PRN Administration Agitation Sodium Chloride 100 mls @ 999 mls/hr 01/21/19 12:32 Nacl 0.9% IV REYES PRN Hypotension Metronidazole 500 mg in 100 mls @ 100 mls/hr 01/24/19 10:00 01/25/19 01:41 Flagyl 500 Mg/100 Ml IV 100 mls/hr Q8H GILBERTO Administration Dexamethasone 40 mg/ Sodium 60 mls @ 100 mls/hr 01/25/19 08:00 Chloride IV 01/28/19 08:35 DAILY@0800 GILBERTO Labetalol HCl 10 mg 01/20/19 08:56 Normodyne IV Q4H PRN Hypertension Melatonin 5 mg 01/23/19 22:00 01/24/19 22:31 Melatonin PO 5 mg QHS PRN Administration Sleep Metoclopramide HCl 10 mg 01/18/19 15:51 Reglan IV Q6H PRN Nausea And Vomiting Ondansetron HCl 4 mg 01/18/19 15:51 01/25/19 04:27 Zofran IV 4 mg Q8H PRN Administration Nausea And Vomiting Pantoprazole Sodium 40 mg 01/25/19 10:00 Protonix IV QDAY GILBERTO Simple Syrup 15 ml 01/23/19 10:06 Simple Syrup FEEDTUBE PRN PRN Hypoglycemia Simple Syrup 30 ml 01/23/19 10:06 Simple Syrup FEEDTUBE PRN PRN Hypoglycemia Sodium Bicarbonate 325 mg 01/23/19 10:06 Sodium Bicarbonate FEEDTUBE PRN PRN For Clogged Feeding Tube Sodium Chloride 10 ml 01/18/19 22:00 01/25/19 01:41 Sodium Chloride Flush Syringe 10 Ml IV 10 ml BID GILBERTO Administration Sodium Chloride 10 ml 01/18/19 15:51 01/23/19 14:07 Sodium Chloride Flush Syringe 10 Ml IV 10 ml PRN PRN Administration LINE FLUSH
--- NOTE | 2019-01-25 09:04 | Progress Note ---
Assessment and Plan Cultures: Blood culture 01/22/2019 MSSA, 1 of 4 bottles Blood culture 01/24/2019 : in progress Assessment: 73 y/o male with history of hypertension, chronic kidney disease and hyperlipidemia admitted on 01/18/2019 due to 3-day history of epigastric abdominal pain, melanoic stools and vomiting blood associated with generalized weakness and lightheadedness found to have a GI bleed, OCTAVIA on CKD now on HD. By 01/22/2019 patient spiked a temp 101 and tachycardia: 1) SIRS: NOT present on admission. low grade fever continuing. etiology MSSA bacteremia , likely source HD catheter, placed 01/19/19. . DDx aspiration pneumonia, bacteremia, malignancy, UTI. CXR shows bilateral pulmonary edema. Blood culture 01/22/2019 grew MSSA bacteremia. Currently being treated with Vancomycin and flagyl. 2) MSSA Bacteremia: 1 out of 4 bottles. ? CLABSI perm cath placed 01/19/19. Follow-up repeat blood cultures to ensure clearance. follow-up TTE. 3) Acute encephalopathy: due to malignancy 4) OCTAVIA on CKD now on HD : perm cath placed 01/19/19. 5) Anemia 6) GI bleed: EGD found with hiatal hernia, multiple shallow ulcers throughout stomach w/o bleeding stigmata (bx's). 7) Myeloma: Hematology recommendation to tertiary care for chemo Recommendations: d/w Dr. Fletcher will exchange HD catheter today follow-up repeat blood culture to ensure clearance discontinue vancomycin and flagyl start cefazolin 1 gm every 24 hours Anticipate discharge on Cefazolin 2 gms IV on Tuesday, 2 gms Tuesday and 3 gms Tuesday post HD for 4 weeks ending 02-22-19. 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 Awake. following simple commands. garbled speech. No family at bedside. Objective - Exam Narrative Exam: General appearance: Awake. Garbled speech. No acute distress Eyes: anicteric sclerae, moist conjunctivae; no lid-lag; PERRLA HENT: Atraumatic; oropharynx dry edentulous Lungs: clear to auscultation. CV: RRR no murmur Abdomen: Soft, non-tender. +NGT Extremities: joshua leg edema Skin: No rash. Psych: somnolent. Neuro: somnolent - Constitutional Vitals: Vital Signs Temp Pulse Resp BP Pulse Ox 98.0 F 93 H 20 144/63 92 01/25/19 07:36 01/25/19 07:36 01/25/19 07:36 01/25/19 07:36 01/25/19 07:36 Temperature -Last 24 Hours Temperature 98.0 F Temperature 100.1 F Temperature 98.3 F Temperature 99.8 F Temperature 98.3 F - Labs CBC & Chem 7: 01/25/19 05:30 01/25/19 05:30 Labs: Abnormal lab results 01/24/19 01/25/19 01/25/19 Range/Units 13:13 00:01 05:30 RBC 2.26 L (3.65-5.03) M/mm3 Hgb 7.0 L (11.8-15.2) gm/dl Hct 20.2 L (35.5-45.6) % RDW 16.8 H (13.2-15.2) % Plt Count 99 L (140-440) K/mm3 Sodium (137-145) mmol/L Chloride (98-107) mmol/L BUN (9-20) mg/dL Creatinine (0.8-1.5) mg/dL Glucose (75-100) mg/dL POC Glucose 111 H 127 H (70-105) Calcium (8.4-10.2) mg/dL Ferritin (13.0-400.0) ng/mL Vitamin B12 (211-911) pg/mL 01/25/19 01/25/19 01/25/19 Range/Units 05:30 05:30 06:07 RBC (3.65-5.03) M/mm3 Hgb (11.8-15.2) gm/dl Hct (35.5-45.6) % RDW (13.2-15.2) % Plt Count (140-440) K/mm3 Sodium 132 L (137-145) mmol/L Chloride 95.6 L (98-107) mmol/L BUN 51 H (9-20) mg/dL Creatinine 8.5 H (0.8-1.5) mg/dL Glucose 119 H (75-100) mg/dL POC Glucose 124 H (70-105) Calcium 7.3 L (8.4-10.2) mg/dL Ferritin 3921.0 H (13.0-400.0) ng/mL Vitamin B12 (211-911) pg/mL 01/25/19 Range/Units 07:01 RBC (3.65-5.03) M/mm3 Hgb (11.8-15.2) gm/dl Hct (35.5-45.6) % RDW (13.2-15.2) % Plt Count (140-440) K/mm3 Sodium (137-145) mmol/L Chloride (98-107) mmol/L BUN (9-20) mg/dL Creatinine (0.8-1.5) mg/dL Glucose (75-100) mg/dL POC Glucose (70-105) Calcium (8.4-10.2) mg/dL Ferritin (13.0-400.0) ng/mL Vitamin B12 921.1 H (211-911) pg/mL
[2019-01-25] MEDS: PROTONIX IV SCH (09:54)
[2019-01-25] MEDS: DECADRON IV SCH (09:54)
[2019-01-25] MEDS: NACL 0.9% IV SCH (09:54)
--- NOTE | 2019-01-25 10:23 | Event Note ---
Date: 01/25/19 73 year old male with multiple medical issues with recently placed permcath and bacteremia. Unclear the source. It is possible this could be related to the permcath, and we will perform a permcath exchange. This has a high chance of clearance (essentially as good as permcath removal and new placement) if this is the source. NPO except meds. Unable to get in touch with family despite calling all available numbers. Contacting nurse and caseworker to get in touch with family.
[2019-01-25 11:09] LABS: Band Neutrophils # (Manual) 0.5 K/mm3; Myelocytes # (Manual) 0.1 K/mm3; Total Cells Counted 100
[2019-01-25 11:10] LABS: Anisocytosis 1+; Giant Platelets Rare; Hypochromasia 1+; Macrocytosis Few; Platelet Estimate Consistent w Auto
--- NOTE | 2019-01-25 11:14 | Progress Note ---
Subjective - Reason for Consult Consult date: 01/25/19 Reason for consult: Psychiatry Follow-up - Chief Complaint Chief complaint: "The patient is still lethargic" 73 y.o. AA male who presented to the ER for N/V, vomiting blood, and abdominal pain 2 days. Psychiatry was consulted to see the patient for behavioral disturbances. Today the patient was lethargic during the assessment. A psy assessment could not be completed because of the patient's conditions. No gestures of SI/HI's. Mental Status Exam - Vital signs Last Vital Signs Temp 98.0 F 01/25/19 07:36 Pulse 93 H 01/25/19 07:36 Resp 20 01/25/19 07:36 BP 144/63 01/25/19 07:36 Pulse Ox 92 01/25/19 07:36 - Exam Narrative exam: Unable to complete the MSE because of the patient's condition. Assessment and Plan Impression: AMS per the record. Today the patient was lethargic during the assessment. The patient is wearing mittens. Cr 8.5, NA 132. Medical: Myeloma Recommendation/Plan: Continue Haldol 5 mg IM Q6hrs PRN for acute psychosis. Psy sign off. Recommend Delirium precautions below: 1. Frequently reorient patient and involve him/her in their care (simple explanations of procedures, tests, medications). 2. Lights on and shades open during daytime hours. 3. Write date and goals of care in a visible place. 4. Try to avoid unnecessary interruptions to sleep during nighttime hours. 5. Obtain glasses, hearing aids from home if patient uses these at baseline. 6. Avoid medications that may exacerbate delirium (especially narcotics, benzodiazepines, barbiturates, ambien, lunesta, and medications with excessive anticholinergic properties). 7. Recommend 1:1 sitter for safety. Dispo: Will be determined by the medical team. Staffed with Dr Delia Grimes.
--- NOTE | 2019-01-25 12:52 | XRay Report ---
CHEST 1 VIEW 1224 INDICATION / CLINICAL INFORMATION: evaluate for pna. COMPARISON: 01/22/2019 FINDINGS: SUPPORT DEVICES: Central line appears unchanged. A feeding tube is now seen extending well into the s tomach. HEART / MEDIASTINUM: Mild cardiomegaly LUNGS / PLEURA: Mild congestion continues. Patchy bilateral atelectatic changes are again seen. No pn eumothorax. ADDITIONAL FINDINGS: No significant additional findings. IMPRESSION: No significant change Signer Name: Darian Pillai MD Signed: 01/25/2019 12:48 PM Workstation Name: [id number]
[2019-01-25] MEDS ORDERED: ANCEF/NS 1 GM/50 ML 1 GM/50 ML BAG IV SCH (13:00)
[2019-01-25] MEDS ORDERED: VERSED ONE (14:47)
[2019-01-25] MEDS ORDERED: SUBLIMAZE ONE (14:48)
[2019-01-25] MEDS ORDERED: XYLOCAINE 1%/ EPI 1:100,000 INFILTRATI ONE (14:49)
[2019-01-25] MEDS ORDERED: ANCEF/STERILE WATER 2 GM/20 ML 2 GM/20 ML SYRINGE IV ONE (14:49)
[2019-01-25] MEDS ORDERED: NACL 0.9% 250ML 250 ML ONE (14:49)
[2019-01-25] MEDS ORDERED: HEPARIN/NS 5000 UNIT/500ML(CATH LAB) 500 ML IR ONE (14:57)
--- NOTE | 2019-01-25 15:20 | Consultation ---
REFERRED BY: Dr. Martinez. REASON FOR CONSULTATION: Possible multiple myeloma. HISTORY OF PRESENT ILLNESS: I saw the patient, a 73-year-old male in the [facility]. The patient is in restraints, is nonverbal. Most of the information came from the medical records. The patient was admitted on the with history of hematemesis. He has history of hypertension, CKD, hyperlipidemia, and he was vomiting for 2 days and then he had hematemesis. He was weak and fatigued, could not walk well. He had a feeling as if he was going to pass out. History of dark stools present. During this admission, the patient was found to have renal impairment. Nephrology team saw the patient. Calcium was high. The patient received Aredia 30 mg on the . The patient's total protein was high. Skeletal survey was done. Dr. Raman saw the patient. Blood tests suggest possible multiple myeloma. I have been asked to evaluate the patient. During this admission, the patient has been seen by Nephrology team, GI team. The patient has been started on dialysis. ID team, Psychiatric team has seen the patient. There was a plan for bone marrow biopsy. REVIEW OF SYSTEMS: Not reliable because of the patient's mentation. PAST MEDICAL HISTORY: As above, hypertension, CKD, hyperlipidemia. PAST SURGICAL HISTORY: Gallbladder surgery. FAMILY HISTORY: Noncontributory. SOCIAL HISTORY: Nonsmoker. ALLERGIES: None. HOME MEDICATIONS: Included labetalol, nifedipine, simvastatin. PHYSICAL EXAMINATION: VITAL SIGNS: Temperature 98.3, pulse 107, respirations 20, BP 124/76. HEENT: Pallor present. No icterus. NECK: No neck lymph nodes. Dialysis catheter seen. HEART: S1, S2. LUNGS: Decreased air entry. ABDOMEN: Soft. NEUROLOGIC: The patient not answering questions. LABORATORY DATA: White cell 6.3, hemoglobin 7, MCV 90, platelet 91. Blood smear shows rouleaux formation. PT, PTT normal. Potassium 4.2, creatinine 12.5, calcium was 15 and now 8.1. Total protein was raised at 13, gammaglobulin 6.8, abnormal protein band 6.5. Serum iron 76, total bilirubin 0.7. RADIOLOGY: Shows multiple lytic lesions. CT abdomen and pelvis was done. Skeletal survey was done. PATHOLOGY: EGD pathology showed negative for H. pylori, mild chronic inflammation. ASSESSMENT AND PLAN: 1. Hypercalcemia, elevated total protein ____ clinically with multiple myeloma. The patient also has renal impairment and is on dialysis. I will start the patient on dexamethasone. I will liaise with the Nephrology team for plasmapheresis. The patient would also benefit from chemotherapy initiation and transfer to a tertiary care center where this can be done is an option. 2. Anemia. The patient is on Procrit. 3. Mention of melena seen by GI team. 4. History of hypertension. 5. History of hyperlipidemia. 6. Bacteremia. 7. For hypercalcemia, the patient received Aredia. Presently, the patient is on Reglan, Zofran, Haldol, Procrit, Flagyl and Prevacid. 8. Thrombocytopenia, likely secondary to myeloma or other secondary issues. At this time, we will observe. We will investigate for anemia for other causes. JOB# [id number] NM/NTS
[2019-01-25] MEDS: HEPARIN 10,000 UNITS/10 ML ONE ×4 (15:29→15:35)
--- NOTE | 2019-01-25 15:36 | Progress Note ---
Assessment and Plan - Patient Problems (1) Acute kidney injury Current Visit: Yes Status: Acute Plan to address problem: Acute kidney injury baseline creatinine unknown Currently oliguric Associated hypercalcemia noted Currently dialysis dependent Serum electrophoresis with M spike Appreciate recommendations from oncology Awaiting bone marrow biopsy concern for myeloma also awaiting serum electrophoresis Understandably cause of renal failure is thought secondary to myeloma Discussed with Dr. Ibanez There is some Data regarding improvement in renal function with Plasma exchange however this results showing benefit has not been consistent in large studies and no consistent improvement in survival benefit with Plasma exchange versus chemotherapy only. Role of plasmapheresis in the management of myeloma kidney: a systematic review. Discussed with Hematology Dr. Ibanez he has obtained approval from [facility] for Plasmapheresis and recommend this. Appreciate Dr. Ibanez recommendations He will Place orders for plasmapheresis. Agree with Plan for chemotherapy . Dr. Ibanez tells me chemotherapy cannot be done here and He will be transferred to [place] for Chemotherapy. Continue dialysis Tuesday for now (2) Hypercalcemia Current Visit: Yes Status: Acute Plan to address problem: Hypercalcemia Serum electrophoresis with M spike. Use low calcium bath dialysis (3) Anemia Current Visit: Yes Status: Acute Qualifiers: Anemia type: unspecified type Qualified Code(s): D64.9 - Anemia, unspecified Plan to address problem: Moderate anemia hemoglobin 7.6 g per DL Worsening renal function consent for paraproteinemia Plan for bone marrow biopsy (4) Sepsis Current Visit: Yes Status: Acute Plan to address problem: Sepsis SIRS criteria 2 out of 4. has bacteremia Has right IJ PermCath continue Broad-spectrum antibiotics Plan for perm cath exchange today. Subjective Interval history: 73-year-old gentleman with medical history significant for recent hypercalcemia acute kidney injury in a relative for possible multiple myeloma Patient seen on dialysis remains confused Blood cultures with gram positive cocci one of two bottles. Patient is tachycardic Completed dialysis on 01/24 limited by hypotension He still has some altered mental status scheduled for perm cath exchange today. . Objective - Vital Signs Vital signs: Vital Signs - 12hr 01/25/19 01/25/19 07:36 10:00 Temperature 98.0 F Pulse Rate 93 H Respiratory 20 24 Rate Blood Pressure 144/63 O2 Sat by Pulse 92 96 Oximetry - General Appearance General appearance: well-developed, well-nourished EENT: ATNC, PERRL Neck: no JVD Respiratory: Present: Decreased Breath Sounds Cardiology: regular, S1S2 Gastrointestinal: normal, normoactive bowel sounds Integumentary: no rash Neurologic: alert and oriented x3, CN 3-12 intact Psychiatric: mood/affect appropriate - Lab 01/25/19 05:30 01/25/19 05:30 Most recent lab results Calcium 7.3 mg/dL (8.4-10.2) L 01/25/19 05:30 Phosphorus 2.40 mg/dL (2.5-4.5) L 01/22/19 05:49 Magnesium 1.80 mg/dL (1.7-2.3) 01/22/19 05:49 181.1 mg/dL (0.1-20.0) H 01/19/19 08:55 19 mmol/L 01/19/19 08:55 297 mg/dL (5-11.8) H 01/19/19 08:55 - Imaging Chest x-ray: image reviewed (I reviewed CXR with bibasilar opacities. ) Medications & Allergies - Medications Allergies/Adverse Reactions: Allergies No Known Allergies Allergy (Unverified 01/18/19 06:38) Home Medications: Home Medications Medication Instructions Recorded Confirmed Last Taken Type Labetalol [Labetalol 200mg TAB] 200 mg PO BID 01/18/19 01/18/19 01/17/19 History NIFEdipine [Nifedipine ER] 90 mg PO QDAY 01/18/19 01/18/19 01/17/19 History Simvastatin 20 mg PO QHS 01/18/19 01/18/19 01/17/19 History Active Medications: Generic Name Dose Route Start Last Admin Trade Name Freq PRN Reason Stop Dose Admin Acetaminophen 650 mg 01/22/19 09:08 01/25/19 02:51 Tylenol PO 650 mg Q4H PRN Administration Pain, Mild (1-3) Acetaminophen 650 mg 01/22/19 09:37 01/22/19 10:05 Tylenol IN 650 mg Q4H PRN Administration Pain, Mild (1-3) Lipase/Protease/Amylase 1 each 01/23/19 10:[address] 10,500 Unit FEEDTUBE PRN PRN For Clogged Feeding Tube Epoetin Oscar 10,000 unit 01/21/19 12:32 01/22/19 12:00 Procrit IV 10,000 unit REYES PRN Administration hemodialysis Haloperidol Lactate 5 mg 01/20/19 11:04 01/24/19 20:40 Haldol IM 5 mg Q6H PRN Administration Agitation Sodium Chloride 100 mls @ 999 mls/hr 01/21/19 12:32 Nacl 0.9% IV REYES PRN Hypotension Metronidazole 500 mg in 100 mls @ 100 mls/hr 01/24/19 10:00 01/25/19 10:07 Flagyl 500 Mg/100 Ml IV 100 mls/hr Q8H GILBERTO Administration Dexamethasone 40 mg/ Sodium 60 mls @ 100 mls/hr 01/25/19 08:00 01/25/19 09:54 Chloride IV 01/28/19 08:35 100 mls/hr DAILY@0800 GILBERTO Administration Cefazolin Sodium 1 gm in 50 mls @ 100 mls/hr 01/25/19 18:00 Ancef/Ns 1 Gm/50 Ml IV QPM [facility] Protocol Labetalol HCl 10 mg 01/20/19 08:56 Normodyne IV Q4H PRN Hypertension Metoclopramide HCl 10 mg 01/18/19 15:51 Reglan IV Q6H PRN Nausea And Vomiting Ondansetron HCl 4 mg 01/18/19 15:51 01/25/19 04:27 Zofran IV 4 mg Q8H PRN Administration Nausea And Vomiting Pantoprazole Sodium 40 mg 01/25/19 10:00 01/25/19 09:54 Protonix IV 40 mg QDAY GILBERTO Administration Simple Syrup 15 ml 01/23/19 10:06 Simple Syrup FEEDTUBE PRN PRN Hypoglycemia Simple Syrup 30 ml 01/23/19 10:06 Simple Syrup FEEDTUBE PRN PRN Hypoglycemia Sodium Bicarbonate 325 mg 01/23/19 10:06 Sodium Bicarbonate FEEDTUBE PRN PRN For Clogged Feeding Tube Sodium Chloride 10 ml 01/18/19 22:00 01/25/19 10:06 Sodium Chloride Flush Syringe 10 Ml IV 10 ml BID GILBERTO Administration Sodium Chloride 10 ml 01/18/19 15:51 01/23/19 14:07 Sodium Chloride Flush Syringe 10 Ml IV 10 ml PRN PRN Administration LINE FLUSH
--- NOTE | 2019-01-25 15:44 | Operative Report ---
Operative Report Operative Report: EXAM: 1. Fluoroscopic guided exchange of a right internal jugular tunneled cuffed hemodialysis catheter. DATE: 01/25/19 INDICATION: Fever of unknown origin. Sick contacts with fevers of unknown origin. 1 of 2 cultures positive for bacteremia. Unclear if catheter is the cause, but will perform PermCath exchange to be safe. MEDICATIONS: Please see nursing report for full details. BRAND SPECIALIST: MARLENA CRAIG MD DEVICES: 27 cm tip to cuff 15 Fr dual lumen hemodialysis catheter ; existing catheter was a 23 cm tip to cuff dual lumen hemodialysis catheter CONTRAST: None. PROCEDURE: The risks, benefits, and alternatives were discussed and informed consent was obtained. The patient was transported to the angiography suite in satisfactory/stable condition and was transported onto the angiography table. The patient was prepped and draped in a sterile fashion. The existing PermCath was prepped and draped in a sterile fashion. Heparin was removed from the lumens and then saline was used to flush the lumens. A stiff angled Glidewire was advanced through both lumens of the existing PermCath into the IVC. Suture was cut and the cuff was retracted. Over the 0.035 inch wires, the existing PermCath was removed. The wires were cleaned with ChloraPrep multiple times. A new PermCath was advanced over the wire and position centrally under fluoroscopic guidance. 2-0 Ethilon suture was used to secure the catheter at the dermatotomy. The catheter was charged with heparin 1000 units per mL at that space. Biopatch and sterile dressing applied. The patient was transferred from the angiography suite back to the floor in stable condition. FINDINGS: 1. Excellent flow was obtained through the dialysis catheter with 20 mL syringes. 2. The new catheter tip is in the right atrium. IMPRESSION: 1. Successful fluoroscopic guided replacement of a right internal jugular tunneled cuffed hemodialysis catheter.
--- NOTE | 2019-01-25 15:45 | Event Note ---
Date: 01/25/19 Status post PermCath exchange for possible bacteremia. Recommend antibiotics for 3 weeks per KDOQI guidelines. Noted the patient has not had bone marrow biopsy despite nothing by mouth for multiple days. It appears to be canceled due to agitation by diagnostic radiology. I contacted anesthesiology who will assist with bone marrow biopsy sedation tomorrow. Nothing by mouth after midnight except sips of water with meds.
[2019-01-25] MEDS ORDERED: PANCREAZE DR 10,500 UNIT FEEDTUBE PRN (16:20)
[2019-01-25] MEDS ORDERED: SODIUM BICARBONATE FEEDTUBE PRN (16:20)
[2019-01-25] MEDS ORDERED: SIMPLE SYRUP FEEDTUBE PRN ×2 (16:20)
--- NOTE | 2019-01-25 17:13 | Anesthesia Consultation ---
Anesthesia Consult and Med Hx Date of service: 01/25/19 - Airway Intubation Access Assessment: Possibly Difficult (uncooperative with airway exam; large neck and dry mucus membranes notes. Unable to assess dentition, neck ROM, or mallampati score.) - Pulmonary Exam CTA: Yes - Cardiac Exam Cardiac Exam: RRR - Pre-Operative Health Status ASA Pre-Surgery Classification: ASA3 Proposed Anesthetic Plan: MAC - Pulmonary Hx Smoking: Yes Hx Respiratory Symptoms: No - Cardiovascular System Hx Hypertension: Yes Hx Heart Attack/AMI: No ( denies) - Central Nervous System Hx Seizures: No CVA: No - Endocrine Hx Renal Disease: Yes (ARF now on HD; hypercalcemia, hyponatremia) Hx Liver Disease: No Hx Insulin Dependent Diabetes: No (A1c 6 this admission) Hx Thyroid Disease: No - Hematic Hx Anemia: Yes (+ thrombocytopenia) - Other Systems Hx Cancer: Yes (clinical signs/symptoms concerning for multiple myeloma) Hx Obesity: Yes - Additional Comments Anesthesia Medical History Comments: Patient somnolent, opens eyes to touch but does not answer questions or follow commands appropriately. Scheduled for bone marrow biopsy for possible multiple myeloma. Anesthesia consulted for sedation given ongoing agitation. All PMH obtained via chart review and discussion with patient's . Anesthetic plan discussed with Maude Chris () who provided phone consent for anesthesia.
--- NOTE | 2019-01-25 17:51 | Progress Note ---
Assessment and Plan 1.Upper GI bleed Patient initiated on IV Protonix drip Resolved 2. Hypertension Hold antihypertensives Catapres patch initiated 3. Hyperlipidemia Statins on hold 4.End-stage renal disease Nephrology consultation requested His dialysis status is not known 5. Acute anemia Multifactorial Secondary to end-stage renal disease and GI bleed Transfuse as necessary 6. Hyperglobulinemia Multiple Myeloma --Given Lucencies on Calvarium For biopsy tomorrow 7. Hypercalcemia Calcitrol given 8. Hyponatremia Mild 9. DVT prophylaxis SCDs for now and GI prophylaxis Subjective Date of service: 01/25/19 Principal diagnosis: ESRD and MMyeloma Interval history: Sx better Objective - Constitutional Vitals: Vital Signs - 12hr 01/25/19 01/25/19 07:36 10:00 Temperature 98.0 F Pulse Rate 93 H Respiratory 20 24 Rate Blood Pressure 144/63 O2 Sat by Pulse 92 96 Oximetry General appearance: Present: no acute distress, well-nourished - EENT Eyes: PERRL, EOM intact ENT: hearing intact, clear oral mucosa Ears: bilateral: normal - Neck Neck: supple, normal ROM - Respiratory Respiratory effort: normal Respiratory: bilateral: CTA - Breasts Breasts: normal - Cardiovascular Rhythm: regular Heart Sounds: Present: S1 & S2. Absent: gallop, rub Extremities: pulses intact, No edema, normal color, Full ROM - Gastrointestinal General gastrointestinal: Present: soft, non-tender, non-distended, normal bowel sounds - Genitourinary Male genitourinary: normal - Integumentary Integumentary: clear, warm, dry - Musculoskeletal Musculoskeletal: 1, strength equal bilaterally - Neurologic Neurologic: moves all extremities - Psychiatric Psychiatric: memory intact, appropriate mood/affect, intact judgment & insight - Labs CBC & Chem 7: 01/25/19 05:30 01/25/19 05:30 Labs: Abnormal lab results 01/25/19 01/25/19 01/25/19 Range/Units 00:01 05:30 05:30 RBC 2.26 L (3.65-5.03) M/mm3 Hgb 7.0 L (11.8-15.2) gm/dl Hct 20.2 L (35.5-45.6) % RDW 16.8 H (13.2-15.2) % Plt Count 99 L (140-440) K/mm3 Monocytes % (Manual) 8.0 H (0.0-7.3) % Sodium 132 L (137-145) mmol/L Chloride 95.6 L (98-107) mmol/L BUN 51 H (9-20) mg/dL Creatinine 8.5 H (0.8-1.5) mg/dL Glucose 119 H (75-100) mg/dL POC Glucose 127 H (70-105) Calcium 7.3 L (8.4-10.2) mg/dL Ferritin (13.0-400.0) ng/mL Vitamin B12 (211-911) pg/mL 01/25/19 01/25/19 01/25/19 Range/Units 05:30 06:07 07:01 RBC (3.65-5.03) M/mm3 Hgb (11.8-15.2) gm/dl Hct (35.5-45.6) % RDW (13.2-15.2) % Plt Count (140-440) K/mm3 Monocytes % (Manual) (0.0-7.3) % Sodium (137-145) mmol/L Chloride (98-107) mmol/L BUN (9-20) mg/dL Creatinine (0.8-1.5) mg/dL Glucose (75-100) mg/dL POC Glucose 124 H (70-105) Calcium (8.4-10.2) mg/dL Ferritin 3921.0 H (13.0-400.0) ng/mL Vitamin B12 921.1 H (211-911) pg/mL
[2019-01-25] MEDS: ANCEF/NS 1 GM/50 ML 1 GM/50 ML BAG IV SCH (18:29)
[2019-01-25 22:02] LABS: ANA Screen, IFA Negative (Negative)
[2019-01-26] MEDS: FLAGYL 500 MG/100 ML 500 MG/100 ML BAG IV SCH (02:24)
--- NOTE | 2019-01-26 07:55 | Hem/Onc Progress Note ---
Assessment and Plan 1. Hypercalcemia, elevated total protein , bone lesions - clinically multiple myeloma. The patient also has renal impairment and is on dialysis. the patient on dexamethasone. 2. Anemia. The patient is on Procrit. 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 Mention of melena, h/o hemetemesis at admission - seen by GI team. 4. History of hypertension. 5. History of hyperlipidemia. 6. h/o Bacteremia. 7. For hypercalcemia, the patient received Aredia. 8. Thrombocytopenia, likely secondary to myeloma or other secondary issues. At this time, we will observe. We will investigate - anemia/low plt for other causes. Total proteins have been high dexa 40 daily for 4 days - PPI added from 01/25 called [place] transfer team - Therapeutic plasma exchange for now, [place] transfer after TPE for velcade chemo. D/w nephrology team d/w blood bank - [facility] for TPE - plan for 2 sessions to start replacement fluid albumin on 01/26 - d/w dr Hurd - [facility] 01/26 - HD - bone bx - TPA 2 diff formulations of albumin - i told [facility] nurse - not to mix - Patient Problems (1) Myeloma Current Visit: Yes Status: Acute Subjective Date of service: 01/26/19 Principal diagnosis: myeloma Interval history: more awake Objective - Exam Narrative Exam: Pain - none General appearance no acute distress Performance status need complete help Eyes - no icterus ENT - no bleeding from ear LNs cervical not palpable Neck - normal ROM Respiratory Normal Breath sounds - CTA CVS S1 S2 + Extremities normal temperature General GI Soft - distended Rectal deferred male - deferred Skin warm Musculoskeletal - not able to evaluate Neurologically awake - Constitutional Vitals: Last Vital Signs Temp 97.8 F 01/26/19 02:00 Pulse 75 01/26/19 02:00 Resp 24 01/26/19 02:00 BP 128/52 01/26/19 02:00 Pulse Ox 96 01/26/19 02:00 - Labs Lab Results: Laboratory Results - last 24 hr 01/19/19 01/25/19 01/25/19 10:15 05:30 05:30 Add Manual Diff Complete Total Counted 100 Seg Neuts % (Manual) 59.0 Band Neutrophils % 7.0 Lymphocytes % (Manual) 23.0 Reactive Lymphs % (Man) 0 Monocytes % (Manual) 8.0 H Eosinophils % (Manual) 1.0 Basophils % (Manual) 1.0 Metamyelocytes % 0 Myelocytes % 1.0 Promyelocytes % 0 Blast Cells % 0 Nucleated RBC % Not Reportable Seg Neutrophils # Man 4.0 Band Neutrophils # 0.5 Lymphocytes # (Manual) 1.6 Abs React Lymphs (Man) 0.0 Monocytes # (Manual) 0.5 Eosinophils # (Manual) 0.1 Basophils # (Manual) 0.1 Metamyelocytes # 0.0 Myelocytes # 0.1 Promyelocytes # 0.0 Blast Cells # 0.0 WBC Morphology Not Reportable Hypersegmented Neuts Not Reportable Hyposegmented Neuts Not Reportable Hypogranular Neuts Not Reportable Smudge Cells Not Reportable Toxic Granulation Not Reportable Toxic Vacuolation Not Reportable Dohle Bodies Not Reportable Pelger-Huet Anomaly Not Reportable Lizet Rods Not Reportable Platelet Estimate Consistent w auto Clumped Platelets Not Reportable Plt Clumps, EDTA Not Reportable Large Platelets Not Reportable Giant Platelets Rare Platelet Satelliting Not Reportable Plt Morphology Comment Not Reportable RBC Morphology Not Reportable Dimorphic RBCs Not Reportable Polychromasia Not Reportable Hypochromasia 1+ Poikilocytosis Not Reportable Anisocytosis 1+ Microcytosis Not Reportable Macrocytosis Few Spherocytes Not Reportable Pappenheimer Bodies Not Reportable Sickle Cells Not Reportable Target Cells Not Reportable Tear Drop Cells Not Reportable Ovalocytes Not Reportable Helmet Cells Not Reportable Barrera-[place] Bodies Not Reportable [place] Rings Not Reportable Harts Cells Not Reportable Bite Cells Not Reportable Crenated Cell Not Reportable Elliptocytes Not Reportable Acanthocytes (Spur) Not Reportable Rouleaux Not Reportable Hemoglobin C Crystals Not Reportable Schistocytes Not Reportable Malaria parasites Not Reportable Robin Bodies Not Reportable Hem Pathologist Commnt No POC Glucose Ferritin 3921.0 H Vitamin B12 Folate PATSY Screen Negative 01/25/19 01/25/19 01/25/19 07:01 07:01 18:34 Add Manual Diff Total Counted Seg Neuts % (Manual) Band Neutrophils % Lymphocytes % (Manual) Reactive Lymphs % (Man) Monocytes % (Manual) Eosinophils % (Manual) Basophils % (Manual) Metamyelocytes % Myelocytes % Promyelocytes % Blast Cells % Nucleated RBC % Seg Neutrophils # Man Band Neutrophils # Lymphocytes # (Manual) Abs React Lymphs (Man) Monocytes # (Manual) Eosinophils # (Manual) Basophils # (Manual) Metamyelocytes # Myelocytes # Promyelocytes # Blast Cells # WBC Morphology Hypersegmented Neuts Hyposegmented Neuts Hypogranular Neuts Smudge Cells Toxic Granulation Toxic Vacuolation Dohle Bodies Pelger-Huet Anomaly Lizet Rods Platelet Estimate Clumped Platelets Plt Clumps, EDTA Large Platelets Giant Platelets Platelet Satelliting Plt Morphology Comment RBC Morphology Dimorphic RBCs Polychromasia Hypochromasia Poikilocytosis Anisocytosis Microcytosis Macrocytosis Spherocytes Pappenheimer Bodies Sickle Cells Target Cells Tear Drop Cells Ovalocytes Helmet Cells Barrera-[place] Bodies [place] Rings Johann Cells Bite Cells Crenated Cell Elliptocytes Acanthocytes (Spur) Rouleaux Hemoglobin C Crystals Schistocytes Malaria parasites Robin Bodies Hem Pathologist Commnt POC Glucose 181 H Ferritin Vitamin B12 921.1 H Folate 12.54 PATSY Screen 01/26/19 01/26/19 00:05 05:50 Add Manual Diff Total Counted Seg Neuts % (Manual) Band Neutrophils % Lymphocytes % (Manual) Reactive Lymphs % (Man) Monocytes % (Manual) Eosinophils % (Manual) Basophils % (Manual) Metamyelocytes % Myelocytes % Promyelocytes % Blast Cells % Nucleated RBC % Seg Neutrophils # Man Band Neutrophils # Lymphocytes # (Manual) Abs React Lymphs (Man) Monocytes # (Manual) Eosinophils # (Manual) Basophils # (Manual) Metamyelocytes # Myelocytes # Promyelocytes # Blast Cells # WBC Morphology Hypersegmented Neuts Hyposegmented Neuts Hypogranular Neuts Smudge Cells Toxic Granulation Toxic Vacuolation Dohle Bodies Pelger-Huet Anomaly Lizet Rods Platelet Estimate Clumped Platelets Plt Clumps, EDTA Large Platelets Giant Platelets Platelet Satelliting Plt Morphology Comment RBC Morphology Dimorphic RBCs Polychromasia Hypochromasia Poikilocytosis Anisocytosis Microcytosis Macrocytosis Spherocytes Pappenheimer Bodies Sickle Cells Target Cells Tear Drop Cells Ovalocytes Helmet Cells Barrera-[place] Bodies [place] Rings Harts Cells Bite Cells Crenated Cell Elliptocytes Acanthocytes (Spur) Rouleaux Hemoglobin C Crystals Schistocytes Malaria parasites Robin Bodies Hem Pathologist Commnt POC Glucose 147 H 119 H Ferritin Vitamin B12 Folate PATSY Screen Medications & Allergies - Medications Allergies/Adverse Reactions: Allergies No Known Allergies Allergy (Unverified 01/18/19 06:38) Home Medications: Home Medications Medication Instructions Recorded Confirmed Last Taken Type Labetalol [Labetalol 200mg TAB] 200 mg PO BID 01/18/19 01/18/19 01/17/19 History NIFEdipine [Nifedipine ER] 90 mg PO QDAY 01/18/19 01/18/19 01/17/19 History Simvastatin 20 mg PO QHS 01/18/19 01/18/19 01/17/19 History Active Medications: Generic Name Dose Route Start Last Admin Trade Name Freq PRN Reason Stop Dose Admin Acetaminophen 650 mg 01/22/19 09:08 01/25/19 02:51 Tylenol PO 650 mg Q4H PRN Administration Pain, Mild (1-3) Acetaminophen 650 mg 01/22/19 09:37 01/22/19 10:05 Tylenol PA 650 mg Q4H PRN Administration Pain, Mild (1-3) Lipase/Protease/Amylase 1 each 01/25/19 16:20 Pancreaze 10,500 Unit FEEDTUBE PRN PRN For Clogged Feeding Tube Epoetin Oscar 10,000 unit 01/21/19 12:32 01/22/19 12:00 Procrit IV 10,000 unit REYES PRN Administration hemodialysis Haloperidol Lactate 5 mg 01/20/19 11:04 01/24/19 20:40 Haldol IM 5 mg Q6H PRN Administration Agitation Sodium Chloride 100 mls @ 999 mls/hr 01/21/19 12:32 Nacl 0.9% IV REYES PRN Hypotension Dexamethasone 40 mg/ Sodium 60 mls @ 100 mls/hr 01/25/19 08:00 01/25/19 20:34 Chloride IV 01/28/19 08:35 Infused DAILY@0800 GILBERTO Infusion Cefazolin Sodium 1 gm in 50 mls @ 100 mls/hr 01/25/19 18:00 01/25/19 20:35 Ancef/Ns 1 Gm/50 Ml IV 02/22/19 18:29 Infused QPM GILBERTO Infusion Protocol Calcium Gluconate 2,000 mg/ 120 mls @ 660 mls/hr 01/26/19 10:00 Sodium Chloride IV 01/26/19 10:10 ONCE ONE Labetalol HCl 10 mg 01/20/19 08:56 Normodyne IV Q4H PRN Hypertension Lansoprazole 30 mg 01/29/19 10:00 Prevacid Solutab FEEDTUBE QDAY GILBERTO Metoclopramide HCl 5 mg 01/26/19 08:00 Reglan IV Q6H PRN Nausea And Vomiting Ondansetron HCl 4 mg 01/18/19 15:51 01/25/19 04:27 Zofran IV 4 mg Q8H PRN Administration Nausea And Vomiting Pantoprazole Sodium 40 mg 01/25/19 10:00 01/25/19 09:54 Protonix IV 01/28/19 12:00 40 mg QDAY GILBERTO Administration Simple Syrup 15 ml 01/25/19 16:20 Simple Syrup FEEDTUBE PRN PRN Hypoglycemia Simple Syrup 30 ml 01/25/19 16:20 Simple Syrup FEEDTUBE PRN PRN Hypoglycemia Sodium Bicarbonate 325 mg 01/25/19 16:20 Sodium Bicarbonate FEEDTUBE PRN PRN For Clogged Feeding Tube Sodium Chloride 10 ml 01/18/19 22:00 01/25/19 21:39 Sodium Chloride Flush Syringe 10 Ml IV 10 ml BID GILBERTO Administration Sodium Chloride 10 ml 01/18/19 15:51 01/23/19 14:07 Sodium Chloride Flush Syringe 10 Ml IV 10 ml PRN PRN Administration LINE FLUSH
[2019-01-26] MEDS ORDERED: REGLAN IV PRN (08:00)
[2019-01-26 08:31] LABS: Hematocrit 20.8 % (35.5-45.6); Hemoglobin 7.1 gm/dl (11.8-15.2); Mean Corpuscular HGB Conc 34 % (32-34); Mean Corpuscular Volume 90 fl (84-94); Red Blood Count 2.33 M/mm3 (3.65-5.03); Red Cell Distribution Width 16.6 % (13.2-15.2)
[2019-01-26 08:39] LABS: INR 1.46 (0.87-1.13)
[2019-01-26 08:40] LABS: Partial Thromboplastin Time 27.5 Sec. (24.2-36.6)
[2019-01-26 08:44] LABS: Platelet Count 99 K/mm3 (140-440)
[2019-01-26 08:48] LABS: Albumin SEE SCANNED RESULT; Creatinine, Random Urine SEE SCANNED RESULT; Gamma Globulin SEE SCANNED RESULT; Protein/Creatinine Ratio SEE SCANNED RESULT
[2019-01-26 08:49] LABS: Abnormal Protein Band 1 SEE SCANNED RESULT; Abnormal Protein Band 2 SEE SCANNED RESULT; Interpretation SEE SCANNED RESULT
--- NOTE | 2019-01-26 08:59 | Progress Note ---
Assessment and Plan Cultures: Blood culture 01/22/2019 MSSA, 1 of 4 bottles Blood culture 01/24/2019 : no growth to date Assessment: 73 y/o male with history of hypertension, chronic kidney disease and hyperlipidemia admitted on 01/18/2019 due to 3-day history of epigastric abdominal pain, melanoic stools and vomiting blood associated with generalized weakness and lightheadedness found to have a GI bleed, OCTAVIA on CKD now on HD. By 01/22/2019 patient spiked a temp 101 and tachycardia: 1) SIRS: NOT present on admission. low grade fever continuing. etiology MSSA bacteremia , likely source HD catheter, placed 01/19/19. . DDx aspiration pneumonia, bacteremia, malignancy, UTI. CXR shows bilateral pulmonary edema. B lood culture 01/22/2019 grew MSSA bacteremia. Rpt CXR no change. 2) MSSA Bacteremia: 1 out of 4 bottles. ? CLABSI perm cath placed 01/19/19. Repeat blood cultures show no growth to date. TTE no valvular vegetation. s/p permCath exchange 01/25/19. 3) Acute encephalopathy: due to malignancy 4) OCTAVIA on CKD now on HD : perm cath placed 01/19/19. 5) Anemia 6) GI bleed: EGD found with hiatal hernia, multiple shallow ulcers throughout stomach w/o bleeding stigmata (bx's). 7) Myeloma: [place] transfer after TPE for velcade chemo. Recommendations: follow-up repeat blood culture to ensure clearance continue cefazolin 1 gm every 24 hours Anticipate discharge on Cefazolin 2 gms IV on Tuesday, 2 gms Tuesday and 3 gms Tuesday post HD for 4 weeks ending 02-22-19. order placed with case management follow-up ID clinic in 3 weeks (sent to music engineer) Guarded prognosis [facility] M: [phone] O:[phone] Subjective Date of service: 01/26/19 Principal diagnosis: myeloma Interval history: Patient seen and examined in HD. Awake. following simple commands. garbled sp eech. Objective - Exam Narrative Exam: General appearance: Awake. Garbled speech. No acute distress Eyes: anicteric sclerae, moist conjunctivae; no lid-lag; PERRLA HENT: Atraumatic; oropharynx dry edentulous Lungs: clear to auscultation. CV: RRR no murmur Abdomen: Soft, non-tender. +NGT Extremities: joshua leg edema Skin: No rash. Psych: somnolent. Neuro: somnolent - Constitutional Vitals: Vital Signs Temp Pulse Resp BP Pulse Ox 97.8 F 75 24 128/52 96 01/26/19 02:00 01/26/19 02:00 01/26/19 02:00 01/26/19 02:00 01/26/19 02:00 Temperature -Last 24 Hours Temperature 97.8 F Temperature 97.4 F - Labs CBC & Chem 7: 01/26/19 07:38 01/26/19 Unknown Labs: Abnormal lab results 01/25/19 01/25/19 01/26/19 Range/Units 05:30 18:34 00:05 RBC (3.65-5.03) M/mm3 Hgb (11.8-15.2) gm/dl Hct (35.5-45.6) % RDW (13.2-15.2) % Plt Count (140-440) K/mm3 Monocytes % (Manual) 8.0 H (0.0-7.3) % PT (12.2-14.9) Sec. INR (0.87-1.13) POC Glucose 181 H 147 H (70-105) 01/26/19 01/26/19 01/26/19 Range/Units 05:50 07:38 07:38 RBC 2.33 L (3.65-5.03) M/mm3 Hgb 7.1 L (11.8-15.2) gm/dl Hct 20.8 L (35.5-45.6) % RDW 16.6 H (13.2-15.2) % Plt Count 99 L (140-440) K/mm3 Monocytes % (Manual) (0.0-7.3) % PT 17.4 H (12.2-14.9) Sec. INR 1.46 H (0.87-1.13) POC Glucose 119 H (70-105)
[2019-01-26] MEDS ORDERED: DIPRIVAN 10 MG/ML IV ONE ×2 (09:28→09:29)
[2019-01-26] MEDS ORDERED: SUBLIMAZE ONE (09:29)
[2019-01-26] MEDS ORDERED: VERSED ONE (09:29)
[2019-01-26] MEDS ORDERED: QUELICIN ONE (09:30)
[2019-01-26] MEDS ORDERED: ZEMURON IV ONE (09:30)
[2019-01-26] MEDS ORDERED: XYLOCAINE MPF 2% ONE (09:32)
--- NOTE | 2019-01-26 09:37 | Progress Note ---
Assessment and Plan - Patient Problems (1) Acute kidney injury Current Visit: Yes Status: Acute Plan to address problem: Acute kidney injury baseline creatinine unknown Currently oliguric Associated hypercalcemia noted Currently dialysis dependent Serum electrophoresis with M spike Appreciate recommendations from oncology Awaiting bone marrow biopsy concern for myeloma also awaiting serum electrophoresis Understandably cause of renal failure is thought secondary to myeloma Discussed with Dr. Ibanez There is some Data regarding improvement in renal function with Plasma exchange however this results showing benefit has not been consistent in large studies and no consistent improvement in survival benefit with Plasma exchange versus chemotherapy only. Role of plasmapheresis in the management of myeloma kidney: a systematic review. Discussed with Hematology Dr. Ibanez he has obtained approval from [facility] for Plasmapheresis First session of Plasmapheresis today following dialysis. Agree with Plan for chemotherapy . Dr. Ibanez tells me chemotherapy cannot be done here and He will be transferred to [place] for Chemotherapy. Continue dialysis Tuesday for now (2) Hypercalcemia Current Visit: Yes Status: Acute Plan to address problem: Hypercalcemia Serum electrophoresis with M spike. Use low calcium bath dialysis (3) Anemia Current Visit: Yes Status: Acute Qualifiers: Anemia type: unspecified type Qualified Code(s): D64.9 - Anemia, un specified Plan to address problem: Moderate anemia hemoglobin 7.6 g per DL Worsening renal function consent for paraproteinemia Plan for bone marrow biopsy Anesthesia was consulted. (4) Sepsis Current Visit: Yes Status: Acute Plan to address problem: Sepsis SIRS criteria 2 out of 4. has bacteremia Has right IJ PermCath continue Broad-spectrum antibiotics s/p perm cath exchange. Subjective Principal diagnosis: myeloma Interval history: 73-year-old gentleman with medical history significant for recent hypercalcemia acute kidney injury in a relative for possible multiple myeloma Patient seen on dialysis remains confused Blood cultures with gram positive cocci one of two bottles. I attest I saw the patient on dialysis Low grade fevers yesterday He still has some altered mental status s/p perm cath exchange. Objective - Vital Signs Vital signs: Vital Signs - 12hr 01/25/19 01/26/19 01/26/19 22:00 02:00 09:07 Temperature 97.8 F Pulse Rate 75 Respiratory 20 24 22 Rate Blood Pressure 128/52 O2 Sat by Pulse 96 96 96 Oximetry - General Appearance General appearance: well-developed, well-nourished EENT: ATNC, PERRL, mucous membranes moist Neck: no JVD Respiratory: Present: Decreased Breath Sounds Cardiology: regular, S1S2 Gastrointestinal: normal, normoactive bowel sounds Integumentary: no rash Neurologic: confused Psychiatric: depressed - Lab 01/26/19 07:38 01/25/19 05:30 Most recent lab results Calcium 7.3 mg/dL (8.4-10.2) L 01/25/19 05:30 Phosphorus 2.40 mg/dL (2.5-4.5) L 01/22/19 05:49 Magnesium 1.80 mg/dL (1.7-2.3) 01/22/19 05:49 181.1 mg/dL (0.1-20.0) H 01/19/19 08:55 19 mmol/L 01/19/19 08:55 297 mg/dL (5-11.8) H 01/19/19 08:55 - Imaging Chest x-ray: image reviewed (I reviewed CXR with bibasilar opacities. ) Medications & Allergies - Medications Allergies/Adverse Reactions: Allergies No Known Allergies Allergy (Unverified 01/18/19 06:38) Home Medications: Home Medications Medication Instructions Recorded Confirmed Last Taken Type Labetalol [Labetalol 200mg TAB] 200 mg PO BID 01/18/19 01/18/19 01/17/19 History NIFEdipine [Nifedipine ER] 90 mg PO QDAY 01/18/19 01/18/19 01/17/19 History Simvastatin 20 mg PO QHS 01/18/19 01/18/19 01/17/19 History Active Medications: Generic Name Dose Route Start Last Admin Trade Name Freq PRN Reason Stop Dose Admin Acetaminophen 650 mg 01/22/19 09:08 01/25/19 02:51 Tylenol PO 650 mg Q4H PRN Administration Pain, Mild (1-3) Acetaminophen 650 mg 01/22/19 09:37 01/22/19 10:05 Tylenol [place] 650 mg Q4H PRN Administration Pain, Mild (1-3) Albumin Human 200 gm 01/26/19 08:19 Albutein IV 01/26/19 08:20 ONCE ONE Lipase/Protease/Amylase 1 each 01/25/19 16:[address] 10,500 Unit FEEDTUBE PRN PRN For Clogged Feeding Tube Epoetin Oscar 10,000 unit 01/21/19 12:32 01/22/19 12:00 Procrit IV 10,000 unit REYES PRN Administration hemodialysis Haloperidol Lactate 5 mg 01/20/19 11:04 01/24/19 20:40 Haldol IM 5 mg Q6H PRN Administration Agitation Sodium Chloride 100 mls @ 999 mls/hr 01/21/19 12:32 Nacl 0.9% IV REYES PRN Hypotension Dexamethasone 40 mg/ Sodium 60 mls @ 100 mls/hr 01/25/19 08:00 01/25/19 20:34 Chloride IV 01/28/19 08:35 Infused DAILY@0800 GILBERTO Infusion Cefazolin Sodium 1 gm in 50 mls @ 100 mls/hr 01/25/19 18:00 01/25/19 20:35 Ancef/Ns 1 Gm/50 Ml IV 02/22/19 18:29 Infused QPM GILBERTO Infusion Protocol Calcium Gluconate 2,000 mg/ 120 mls @ 660 mls/hr 01/26/19 10:00 Sodium Chloride IV 01/26/19 10:10 ONCE ONE Labetalol HCl 10 mg 01/20/19 08:56 Normodyne IV Q4H PRN Hypertension Lansoprazole 30 mg 01/29/19 10:00 Prevacid Solutab FEEDTUBE QDAY GILBERTO Metoclopramide HCl 5 mg 01/26/19 08:00 Reglan IV Q6H PRN Nausea And Vomiting Ondansetron HCl 4 mg 01/18/19 15:51 01/25/19 04:27 Zofran IV 4 mg Q8H PRN Administration Nausea And Vomiting Pantoprazole Sodium 40 mg 01/25/19 10:00 01/25/19 09:54 Protonix IV 01/28/19 12:00 40 mg QDAY GILBERTO Administration Simple Syrup 15 ml 01/25/19 16:20 Simple Syrup FEEDTUBE PRN PRN Hypoglycemia Simple Syrup 30 ml 01/25/19 16:20 Simple Syrup FEEDTUBE PRN PRN Hypoglycemia Sodium Bicarbonate 325 mg 01/25/19 16:20 Sodium Bicarbonate FEEDTUBE PRN PRN For Clogged Feeding Tube Sodium Chloride 10 ml 01/18/19 22:00 01/25/19 21:39 Sodium Chloride Flush Syringe 10 Ml IV 10 ml BID GILBERTO Administration Sodium Chloride 10 ml 01/18/19 15:51 01/23/19 14:07 Sodium Chloride Flush Syringe 10 Ml IV 10 ml PRN PRN Administration LINE FLUSH
[2019-01-26 09:46] LABS: Alanine Aminotransferase 18 units/L (7-56); Albumin 3.3 g/dL (3.9-5); BUN/Creatinine Ratio 8; Blood Urea Nitrogen 92 mg/dL (9-20); Calcium 7.1 mg/dL (8.4-10.2); Hemolysis Index 18
[2019-01-26] MEDS ORDERED: CALCIUM GLUCONATE 2,000 MG in NACL 0.9% 100 ML IV ONE (10:00)
[2019-01-26] MEDS ORDERED: PHENYLEPHRINE/NS Syringe 1,000 MCG/10 ML IV ONE (10:00)
[2019-01-26] MEDS ORDERED: ZOFRAN ONE (10:00)
[2019-01-26] MEDS ORDERED: CALCIUM GLUCONATE 2,000 MG in NACL 0.9% 100 ML IV NR (10:00)
[2019-01-26] MEDS ORDERED: ALBUTEIN IV ONE ×3 (11:00→12:00)
[2019-01-26] MEDS ORDERED: ALBUTEIN ONE (11:00)
[2019-01-26] MEDS: PROCRIT IV PRN (11:45)
[2019-01-26 12:02] LABS: Basophils % (Manual) 0 % (0.0-1.8); Eosinophils % (Manual) 0 % (0.0-4.3); Myelocytes # (Manual) 0.2 K/mm3; Total Cells Counted 100
[2019-01-26 12:03] LABS: Anisocytosis 1+
[2019-01-26 12:04] LABS: Poikilocytosis Few
[2019-01-26] MEDS ORDERED: NACL 0.9% 1000 ML 1,000 ML ONE (12:22)
[2019-01-26] MEDS ORDERED: NACL 0.9% 500 ML 500 ML ONE (12:25)
[2019-01-26 13:08] LABS: Platelet Estimate Consistent w Auto
[2019-01-26 13:42] LABS: Erythrocyte Sedimentation Rate > 140.0 mm/Hr (0-20)
--- NOTE | 2019-01-26 14:48 | Cat Scan Report ---
CT-GUIDED PERCUTANEOUS BONE MARROW BIOPSY Indication: Possible multiple myeloma Contrast: None All CT scans at this location are performed using CT dose reduction for ALARA by means of automated e xposure control. Earlier this week this inpatient was brought to the department for an initial assessment. Patient has altered mental status currently and exhibited considerable random movement which had also been repor joleen earlier. I discussed the procedure briefly with the family at that time including the krista and christian clayton and decided anesthesia assistance would be needed to successfully perform this procedure. Thi s was discussed with the family and they agreed. Therefore, the procedure was scheduled with the [facility] department. Patient came to the department and I fully discussed the procedure with Mrs. Abel randolph including possible risks and benefits. Opportunity for questions was provided. Informed consent wa s obtained from Mrs. Perez on behalf of her . Timeout was performed. Patient had been sedated by the anesthesia team including an anesthesiologist. Patient was in a prone position. Area for biopsy in the right posterior ilium was selected by CT. Si te was marked and prepped. [place] local anesthesia was used. Under CT guidance an 11-gauge bone biop sy needle was placed through the cortex of the posterior right ilium. In the presence of the patholog y technologist, I attempted to aspirate samples. Despite attempts at 3 depths, including ultimately a spiration attempt with a large volume syringe, only a tiny amount of aspirate could be obtained not f elt usable by the technologist. Therefore I decided to obtain the core biopsy which was done using th e OnControl drill. The core sample was given to the technologist who deemed it acceptable. Site was s ecured and post images show no evidence of complication. Patient tolerated the procedure well and was sent back to his room in good condition for observation. I spoke to Mrs. Perez after the procedure as well. IMPRESSION: Successful CT-guided percutaneous bone marrow biopsy Signer Name: Darian Pillai MD Signed: 01/26/2019 2:44 PM Workstation Name: [id number]
--- NOTE | 2019-01-26 16:45 | Progress Note ---
Assessment and Plan 1.Upper GI bleed Patient initiated on IV Protonix drip Resolved 2) MSSA Bacteremia: 1 out of 4 bottles. ? CLABSI perm cath placed 01/19/19. Repeat blood cultures show no growth to date. TTE no valvular vegetation. s/p permCath exchange 01/25/19. follow-up repeat blood culture to ensure clearance continue cefazolin 1 gm every 24 hours Anticipate discharge on Cefazolin 2 gms IV on Tuesday, 2 gms Tuesday and 3 gms Tuesday post HD for 4 weeks ending 02-22-19. order placed with case management follow-up ID clinic in 3 weeks (sent to claim auditor) 3. Hypertension Hold antihypertensives Catapres patch initiated 4.End-stage renal disease Nephrology consultation requested His dialysis status is not known 5. Acute anemia Multifactorial Secondary to end-stage renal disease and GI bleed Transfuse as necessary 6. Hyperglobulinemia Multiple Myeloma --Given Lucencies on Calvarium For biopsy tomorrow 7. Hypercalcemia Calcitrol given 8. Hyponatremia Mild 9. DVT prophylaxis SCDs for now and GI prophylaxis Subjective Date of service: 01/26/19 Principal diagnosis: Multiple myeloma Interval history: Sx better Objective - Constitutional Vitals: Vital Signs - 12hr 01/26/19 01/26/19 01/26/19 08:05 08:30 08:45 Temperature 97.8 F Temperature [ Post-Procedure] Pulse Rate 78 75 74 Pulse Rate [ Intra-Procedure ] Pulse Rate [ Post-Procedure] Pulse Rate [Pre -Procedure] Respiratory 22 Rate Respiratory Rate [Intra- Procedure] Respiratory Rate [Post- Procedure] Respiratory Rate [Pre- Procedure] Blood Pressure 139/57 114/50 90/49 Blood Pressure [Intra- Procedure] Blood Pressure [Post-Procedure ] Blood Pressure [Pre-Procedure] O2 Sat by Pulse Oximetry O2 Sat by Pulse Oximetry [ Intra-Procedure ] O2 Sat by Pulse Oximetry [Post -Procedure] O2 Sat by Pulse Oximetry [Pre- Procedure] 01/26/19 01/26/19 01/26/19 09:00 09:15 09:30 Temperature Temperature [ Post-Procedure] Pulse Rate 83 83 87 Pulse Rate [ Intra-Procedure ] Pulse Rate [ Post-Procedure] Pulse Rate [Pre -Procedure] Respiratory Rate Respiratory Rate [Intra- Procedure] Respiratory Rate [Post- Procedure] Respiratory Rate [Pre- Procedure] Blood Pressure 107/50 92/53 95/57 Blood Pressure [Intra- Procedure] Blood Pressure [Post-Procedure ] Blood Pressure [Pre-Procedure] O2 Sat by Pulse Oximetry O2 Sat by Pulse Oximetry [ Intra-Procedure ] O2 Sat by Pulse Oximetry [Post -Procedure] O2 Sat by Pulse Oximetry [Pre- Procedure] 01/26/19 01/26/19 01/26/19 09:45 10:00 10:15 Temperature Temperature [ Post-Procedure] Pulse Rate 89 93 H 93 H Pulse Rate [ Intra-Procedure ] Pulse Rate [ Post-Procedure] Pulse Rate [Pre -Procedure] Respiratory 22 Rate Respiratory Rate [Intra- Procedure] Respiratory Rate [Post- Procedure] Respiratory Rate [Pre- Procedure] Blood Pressure 108/61 97/59 94/59 Blood Pressure [Intra- Procedure] Blood Pressure [Post-Procedure ] Blood Pressure [Pre-Procedure] O2 Sat by Pulse 96 Oximetry O2 Sat by Pulse Oximetry [ Intra-Procedure ] O2 Sat by Pulse Oximetry [Post -Procedure] O2 Sat by Pulse Oximetry [Pre- Procedure] 01/26/19 01/26/19 01/26/19 10:30 10:45 11:00 Temperature Temperature [ Post-Procedure] Pulse Rate 95 H 100 H 99 H Pulse Rate [ Intra-Procedure ] Pulse Rate [ Post-Procedure] Pulse Rate [Pre -Procedure] Respiratory Rate Respiratory Rate [Intra- Procedure] Respiratory Rate [Post- Procedure] Respiratory Rate [Pre- Procedure] Blood Pressure 89/52 103/74 97/56 Blood Pressure [Intra- Procedure] Blood Pressure [Post-Procedure ] Blood Pressure [Pre-Procedure] O2 Sat by Pulse Oximetry O2 Sat by Pulse Oximetry [ Intra-Procedure ] O2 Sat by Pulse Oximetry [Post -Procedure] O2 Sat by Pulse Oximetry [Pre- Procedure] 01/26/19 01/26/19 01/26/19 11:15 11:30 11:38 Temperature 97.8 F Temperature [ Post-Procedure] Pulse Rate 103 H 103 H 100 H Pulse Rate [ Intra-Procedure ] Pulse Rate [ Post-Procedure] Pulse Rate [Pre -Procedure] Respiratory 22 Rate Respiratory Rate [Intra- Procedure] Respiratory Rate [Post- Procedure] Respiratory Rate [Pre- Procedure] Blood Pressure 104/52 109/58 103/46 Blood Pressure [Intra- Procedure] Blood Pressure [Post-Procedure ] Blood Pressure [Pre-Procedure] O2 Sat by Pulse Oximetry O2 Sat by Pulse Oximetry [ Intra-Procedure ] O2 Sat by Pulse Oximetry [Post -Procedure] O2 Sat by Pulse Oximetry [Pre- Procedure] 01/26/19 01/26/19 01/26/19 12:59 13:02 13:44 Temperature Temperature [ 98.2 F Post-Procedure] Pulse Rate Pulse Rate [ 99 H Intra-Procedure ] Pulse Rate [ 94 H Post-Procedure] Pulse Rate [Pre 104 H -Procedure] Respiratory Rate Respiratory 28 H Rate [Intra- Procedure] Respiratory 30 H Rate [Post- Procedure] Respiratory 32 H Rate [Pre- Procedure] Blood Pressure Blood Pressure 93/54 [Intra- Procedure] Blood Pressure 101/45 [Post-Procedure ] Blood Pressure 103/60 [Pre-Procedure] O2 Sat by Pulse Oximetry O2 Sat by Pulse 99 Oximetry [ Intra-Procedure ] O2 Sat by Pulse 91 Oximetry [Post -Procedure] O2 Sat by Pulse 97 Oximetry [Pre- Procedure] 01/26/19 01/26/19 01/26/19 14:00 14:15 14:30 Temperature Temperature [ Post-Procedure] Pulse Rate Pulse Rate [ Intra-Procedure ] Pulse Rate [ 93 H 88 73 Post-Procedure] Pulse Rate [Pre -Procedure] Respiratory Rate Respiratory Rate [Intra- Procedure] Respiratory 27 H 22 22 Rate [Post- Procedure] Respiratory Rate [Pre- Procedure] Blood Pressure Blood Pressure [Intra- Procedure] Blood Pressure 88/40 87/49 96/63 [Post-Procedure ] Blood Pressure [Pre-Procedure] O2 Sat by Pulse Oximetry O2 Sat by Pulse Oximetry [ Intra-Procedure ] O2 Sat by Pulse 97 92 98 Oximetry [Post -Procedure] O2 Sat by Pulse Oximetry [Pre- Procedure] 01/26/19 14:45 Temperature Temperature [ Post-Procedure] Pulse Rate Pulse Rate [ Intra-Procedure ] Pulse Rate [ 95 H Post-Procedure] Pulse Rate [Pre -Procedure] Respiratory Rate Respiratory Rate [Intra- Procedure] Respiratory 22 Rate [Post- Procedure] Respiratory Rate [Pre- Procedure] Blood Pressure Blood Pressure [Intra- Procedure] Blood Pressure 114/62 [Post-Procedure ] Blood Pressure [Pre-Procedure] O2 Sat by Pulse Oximetry O2 Sat by Pulse Oximetry [ Intra-Procedure ] O2 Sat by Pulse 94 Oximetry [Post -Procedure] O2 Sat by Pulse Oximetry [Pre- Procedure] General appearance: Present: no acute distress, well-nourished - EENT Eyes: PERRL, EOM intact ENT: hearing intact, clear oral mucosa Ears: bilateral: normal - Neck Neck: supple, normal ROM - Respiratory Respiratory effort: normal Respiratory: bilateral: CTA - Breasts Breasts: normal - Cardiovascular Rhythm: regular Heart Sounds: Present: S1 & S2. Absent: gallop, rub Extremities: pulses intact, No edema, normal color, Full ROM - Gastrointestinal General gastrointestinal: Present: soft, non-tender, non-distended, normal bowel sounds - Genitourinary Male genitourinary: normal - Integumentary Integumentary: clear, warm, dry - Musculoskeletal Musculoskeletal: 1, strength equal bilaterally - Neurologic Neurologic: moves all extremities - Psychiatric Psychiatric: memory intact, appropriate mood/affect, intact judgment & insight - Labs CBC & Chem 7: 01/26/19 07:38 01/26/19 Unknown Labs: Abnormal lab results 01/25/19 01/26/19 01/26/19 Range/Units 18:34 00:05 05:50 RBC (3.65-5.03) M/mm3 Hgb (11.8-15.2) gm/dl Hct (35.5-45.6) % RDW (13.2-15.2) % Plt Count (140-440) K/mm3 PT (12.2-14.9) Sec. INR (0.87-1.13) Sodium (137-145) mmol/L Chloride (98-107) mmol/L Carbon Dioxide (22-30) mmol/L BUN (9-20) mg/dL Creatinine (0.8-1.5) mg/dL Glucose (75-100) mg/dL POC Glucose 181 H 147 H 119 H (70-105) Calcium (8.4-10.2) mg/dL AST (5-40) units/L Total Protein (6.3-8.2) g/dL Albumin (3.9-5) g/dL 01/26/19 01/26/19 01/26/19 Range/Units 07:38 07:38 Unknown RBC 2.33 L (3.65-5.03) M/mm3 Hgb 7.1 L (11.8-15.2) gm/dl Hct 20.8 L (35.5-45.6) % RDW 16.6 H (13.2-15.2) % Plt Count 99 L (140-440) K/mm3 PT 17.4 H (12.2-14.9) Sec. INR 1.46 H (0.87-1.13) Sodium 134 L (137-145) mmol/L Chloride 96.8 L (98-107) mmol/L Carbon Dioxide 21 L (22-30) mmol/L BUN 92 H (9-20) mg/dL Creatinine 12.1 H (0.8-1.5) mg/dL Glucose 108 H (75-100) mg/dL POC Glucose (70-105) Calcium 7.1 L (8.4-10.2) mg/dL AST 42 H (5-40) units/L Total Protein > 12.0 H (6.3-8.2) g/dL Albumin 3.3 L (3.9-5) g/dL
[2019-01-26] MEDS ORDERED: VANCOMYCIN/NS 1 GM/250 ML 1 GM/250 ML BAG IV SCH (18:00)
[2019-01-26] MEDS ORDERED: NACL 0.9% 500 ML IV ONE (18:20)
--- NOTE | 2019-01-26 20:12 | XRay Report ---
Examination: Abdominal radiograph, one view, 01/26/2019 at 7:57 PM Clinical information: Dobbhoff tube placement Comparison: Abdominal radiograph, 01/22/2019 Findings: The distal tip of a feeding tube overlies the expected position of the stomach. Signer Name: Steph Castano MD Signed: 01/26/2019 8:08 PM Workstation Name: [id number]
[2019-01-26] MEDS: SODIUM CHLORIDE FLUSH SYRINGE 10 ML IV SCH (22:46)
[2019-01-27 05:33] LABS: Hematocrit 25.3 % (35.5-45.6); Hemoglobin 8.5 gm/dl (11.8-15.2); Mean Corpuscular HGB Conc 34 % (32-34); Mean Corpuscular Volume 90 fl (84-94); Red Blood Count 2.82 M/mm3 (3.65-5.03); Red Cell Distribution Width 16.6 % (13.2-15.2)
[2019-01-27 05:40] LABS: INR 1.64 (0.87-1.13)
[2019-01-27 06:07] LABS: Platelet Count 86 K/mm3 (140-440)
[2019-01-27 06:15] LABS: Albumin 4.5 g/dL (3.9-5); Calcium 7.4 mg/dL (8.4-10.2)
[2019-01-27 07:02] LABS: Anisocytosis 1+; Band Neutrophils # (Manual) 0.6 K/mm3; Basophils % (Manual) 0 % (0.0-1.8); Eosinophils % (Manual) 0 % (0.0-4.3); Promyelocytes # (Manual) 0.3 K/mm3; Total Cells Counted 100
[2019-01-27 07:03] LABS: Hypochromasia Few; Platelet Estimate Consistent w Auto
[2019-01-27] MEDS ORDERED: CALCIUM GLUCONATE 2,000 MG in NACL 0.9% 100 ML IV NR (07:50)
[2019-01-27] MEDS: NACL 0.9% IV SCH ×2 (08:38→08:39)
[2019-01-27] MEDS: DECADRON IV SCH ×2 (08:38→08:39)
[2019-01-27] MEDS: PROTONIX IV SCH ×2 (09:00→09:01)
[2019-01-27] MEDS: SODIUM CHLORIDE FLUSH SYRINGE 10 ML IV SCH ×3 (09:01→22:31)
--- NOTE | 2019-01-27 10:12 | Progress Note ---
Assessment and Plan Impression * End-stage renal disease * bacteremia * multiple myeloma * Hypercalcemia * sepsis * Hypertension * Anemia * Hyperlipidemia Recommendations * treatement of myeloma per oncology * iv abx for bacteremia * hd q mwf * strict i/os * Avoid nephrotoxins * Procrit with dialysis * Patient will also require outpatient dialysis arrangement Subjective Date of service: 01/27/19 Principal diagnosis: myeloma Interval history: resting well in bed today Objective - Vital Signs Vital signs: Vital Signs - 12hr 01/27/19 01/27/19 01/27/19 01:43 01:44 07:50 Temperature 97.8 F 97.4 F L Pulse Rate 99 H 99 H 110 H Pulse Rate [ Right Radial] Respiratory 22 18 Rate Blood Pressure 106/56 91/55 O2 Sat by Pulse 98 100 98 Oximetry 01/27/19 01/27/19 08:57 09:24 Temperature Pulse Rate Pulse Rate [ 110 H Right Radial] Respiratory 18 Rate Blood Pressure O2 Sat by Pulse 97 98 Oximetry - Lab 01/27/19 04:35 01/27/19 04:35 Most recent lab results Calcium 7.4 mg/dL (8.4-10.2) L 01/27/19 04:35 Phosphorus 2.40 mg/dL (2.5-4.5) L 01/22/19 05:49 Magnesium 1.80 mg/dL (1.7-2.3) 01/22/19 05:49 181.1 mg/dL (0.1-20.0) H 01/19/19 08:55 19 mmol/L 01/19/19 08:55 297 mg/dL (5-11.8) H 01/19/19 08:55 Medications & Allergies - Medications Allergies/Adverse Reactions: Allergies No Known Allergies Allergy (Unverified 01/18/19 06:38) Home Medications: Home Medications Medication Instructions Recorded Confirmed Last Taken Type Labetalol [Labetalol 200mg TAB] 200 mg PO BID 01/18/19 01/18/19 01/17/19 History NIFEdipine [Nifedipine ER] 90 mg PO QDAY 01/18/19 01/18/19 01/17/19 History Simvastatin 20 mg PO QHS 01/18/19 01/18/19 01/17/19 History Active Medications: Generic Name Dose Route Start Last Admin Trade Name Freq PRN Reason Stop Dose Admin Acetaminophen 650 mg 01/22/19 09:08 01/25/19 02:51 Tylenol PO 650 mg Q4H PRN Administration Pain, Mild (1-3) Acetaminophen 650 mg 01/22/19 09:37 01/22/19 10:05 Tylenol [place] 650 mg Q4H PRN Administration Pain, Mild (1-3) Albumin Human 200 gm 01/27/19 11:00 Albutein IV 01/27/19 11:01 ONCE ONE Lipase/Protease/Amylase 1 each 01/25/19 16:20 01/27/19 06:[address] 10,500 Unit FEEDTUBE 1 each PRN PRN Administration For Clogged Feeding Tube Epoetin Oscar 10,000 unit 01/21/19 12:32 01/26/19 11:45 Procrit IV 10,000 unit REYES PRN Administration hemodialysis Haloperidol Lactate 5 mg 01/20/19 11:04 01/24/19 20:40 Haldol IM 5 mg Q6H PRN Administration Agitation Sodium Chloride 100 mls @ 999 mls/hr 01/21/19 12:32 Nacl 0.9% IV REYES PRN Hypotension Dexamethasone 40 mg/ Sodium 60 mls @ 100 mls/hr 01/25/19 08:00 01/27/19 08:39 Chloride IV 01/28/19 08:35 100 mls/hr DAILY@0800 GILBERTO Administration Cefazolin Sodium 1 gm in 50 mls @ 100 mls/hr 01/25/19 18:00 01/25/19 20:35 Ancef/Ns 1 Gm/50 Ml IV 02/22/19 18:29 Infused QPM GILBERTO Infusion Protocol Labetalol HCl 10 mg 01/20/19 08:56 Normodyne IV Q4H PRN Hypertension Lansoprazole 30 mg 01/29/19 10:00 Prevacid Solutab FEEDTUBE QDAY GILBERTO Metoclopramide HCl 5 mg 01/26/19 08:00 Reglan IV Q6H PRN Nausea And Vomiting Ondansetron HCl 4 mg 01/18/19 15:51 01/25/19 04:27 Zofran IV 4 mg Q8H PRN Administration Nausea And Vomiting Pantoprazole Sodium 40 mg 01/25/19 10:00 01/27/19 09:01 Protonix IV 01/28/19 12:00 40 mg QDAY GILBERTO Administration Simple Syrup 15 ml 01/25/19 16:20 Simple Syrup FEEDTUBE PRN PRN Hypoglycemia Simple Syrup 30 ml 01/25/19 16:20 Simple Syrup FEEDTUBE PRN PRN Hypoglycemia Sodium Bicarbonate 325 mg 01/25/19 16:20 Sodium Bicarbonate FEEDTUBE PRN PRN For Clogged Feeding Tube Sodium Chloride 10 ml 01/18/19 22:00 01/27/19 09:01 Sodium Chloride Flush Syringe 10 Ml IV 10 ml BID GILBERTO Administration Sodium Chloride 10 ml 01/18/19 15:51 01/23/19 14:07 Sodium Chloride Flush Syringe 10 Ml IV 10 ml PRN PRN Administration LINE FLUSH
[2019-01-27] MEDS: ZOFRAN IV PRN (10:50)
[2019-01-27] MEDS ORDERED: ALBUTEIN IV ONE (11:00)
[2019-01-27] MEDS ORDERED: CALCIUM GLUCONATE 2,000 MG in NACL 0.9% 100 ML IV ONE (11:00)
[2019-01-27] MEDS: TYLENOL PO PRN (12:33)
--- NOTE | 2019-01-27 14:22 | Progress Note ---
Assessment and Plan 1.Upper GI bleed Resolved 2) MSSA Bacteremia: 1 out of 4 bottles. ? CLABSI perm cath placed 01/19/19. Repeat blood cultures show no growth to date. TTE no valvular vegetation. s/p permCath exchange 01/25/19. follow-up repeat blood culture to ensure clearance continue cefazolin 1 gm every 24 hours Anticipate discharge on Cefazolin 2 gms IV on Tuesday, 2 gms Tuesday and 3 gms Tuesday post HD for 4 weeks ending 02-22-19. order placed with case management follow-up ID clinic in 3 weeks (sent to nursing scheduler) 3. Hypertension Hold antihypertensives Catapres patch initiated 4.End-stage renal disease Nephrology consultation requested His dialysis status is not known 5. Acute anemia Multifactorial Secondary to end-stage renal disease and GI bleed Transfuse as necessary 6. Hyperglobulinemia Multiple Myeloma --Given Lucencies on Calvarium For biopsy 7. Hypercalcemia Calcitrol given 8. Hyponatremia Mild 9. DVT prophylaxis SCDs for now and GI prophylaxis Subjective Date of service: 01/27/19 Principal diagnosis: myeloma Interval history: Sx better Objective - Constitutional Vitals: Vital Signs - 12hr 01/27/19 01/27/19 01/27/19 07:50 08:57 10:00 Temperature 97.4 F L Pulse Rate 110 H Pulse Rate [ 110 H Right Radial] Respiratory 18 18 Rate Blood Pressure 91/55 O2 Sat by Pulse 98 97 98 Oximetry 01/27/19 12:33 Temperature Pulse Rate Pulse Rate [ Right Radial] Respiratory 18 Rate Blood Pressure O2 Sat by Pulse Oximetry General appearance: Present: no acute distress, well-nourished - EENT Eyes: PERRL, EOM intact ENT: hearing intact, clear oral mucosa Ears: bilateral: normal - Neck Neck: supple, normal ROM - Respiratory Respiratory effort: normal Respiratory: bilateral: CTA - Breasts Breasts: normal - Cardiovascular Rhythm: regular Heart Sounds: Present: S1 & S2. Absent: gallop, rub Extremities: pulses intact, No edema, normal color, Full ROM - Gastrointestinal General gastrointestinal: Present: soft, non-tender, non-distended, normal bowel sounds - Genitourinary Male genitourinary: normal - Integumentary Integumentary: clear, warm, dry - Musculoskeletal Musculoskeletal: 1, strength equal bilaterally - Neurologic Neurologic: moves all extremities - Psychiatric Psychiatric: memory intact, appropriate mood/affect, intact judgment & insight - Labs CBC & Chem 7: 01/28/19 04:40 01/28/19 04:40 Labs: Abnormal lab results 01/27/19 01/27/19 01/27/19 Range/Units 00:11 04:35 04:35 RBC 2.82 L (3.65-5.03) M/mm3 Hgb 8.5 L (11.8-15.2) gm/dl Hct 25.3 L (35.5-45.6) % RDW 16.6 H (13.2-15.2) % Plt Count 86 L (140-440) K/mm3 Monocytes % (Manual) 8.0 H (0.0-7.3) % Nucleated RBC % 3.0 H (0.0-0.9) % PT (12.2-14.9) Sec. INR (0.87-1.13) Sodium 133 L (137-145) mmol/L Chloride 97.1 L (98-107) mmol/L Carbon Dioxide 19 L (22-30) mmol/L BUN 53 H (9-20) mg/dL Creatinine 8.1 H (0.8-1.5) mg/dL Glucose 116 H (75-100) mg/dL POC Glucose 123 H (70-105) Calcium 7.4 L (8.4-10.2) mg/dL Total Protein 11.5 H (6.3-8.2) g/dL 01/27/19 01/27/19 01/27/19 Range/Units 04:35 05:50 11:25 RBC (3.65-5.03) M/mm3 Hgb (11.8-15.2) gm/dl Hct (35.5-45.6) % RDW (13.2-15.2) % Plt Count (140-440) K/mm3 Monocytes % (Manual) (0.0-7.3) % Nucleated RBC % (0.0-0.9) % PT 19.0 H (12.2-14.9) Sec. INR 1.64 H (0.87-1.13) Sodium (137-145) mmol/L Chloride (98-107) mmol/L Carbon Dioxide (22-30) mmol/L BUN (9-20) mg/dL Creatinine (0.8-1.5) mg/dL Glucose (75-100) mg/dL POC Glucose 113 H 138 H (70-105) Calcium (8.4-10.2) mg/dL Total Protein (6.3-8.2) g/dL
[2019-01-27] MEDS: ANCEF/NS 1 GM/50 ML 1 GM/50 ML BAG IV SCH ×2 (18:55)
[2019-01-27] MEDS: SODIUM CHLORIDE FLUSH SYRINGE 10 ML IV PRN (19:00)
[2019-01-28] MEDS: HALDOL IM PRN ×2 (04:32→19:09)
[2019-01-28 05:18] LABS: Hematocrit 26.5 % (35.5-45.6); Hemoglobin 8.8 gm/dl (11.8-15.2); Mean Corpuscular HGB Conc 33 % (32-34); Mean Corpuscular Volume 91 fl (84-94); Red Blood Count 2.93 M/mm3 (3.65-5.03); Red Cell Distribution Width 16.8 % (13.2-15.2)
[2019-01-28 05:19] LABS: Platelet Count 89 K/mm3 (140-440)
[2019-01-28 05:38] LABS: Calcium 6.8 mg/dL (8.4-10.2)
[2019-01-28 06:10] LABS: Anisocytosis 1+; Basophils % (Manual) 0 % (0.0-1.8); Eosinophils % (Manual) 0 % (0.0-4.3); Total Cells Counted 100
[2019-01-28 06:11] LABS: Platelet Estimate Consistent w Auto; Poikilocytosis 1+; Tear Drop Cells Few
--- NOTE | 2019-01-28 07:52 | Hem/Onc Progress Note ---
Assessment and Plan 1. Hypercalcemia, elevated total protein , bone lesions - clinically multiple myeloma. The patient also has renal impairment and is on dialysis. the patient on dexamethasone. 2. Anemia. The patient is on Procrit. 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 Mention of melena, h/o hemetemesis at admission - seen by GI team. 4. History of hypertension. 5. History of hyperlipidemia. 6. h/o Bacteremia. 7. For hypercalcemia, the patient received Aredia. 8. Thrombocytopenia, likely secondary to myeloma or other secondary issues. At this time, we will observe. We will investigate - anemia/low plt for other causes. Total proteins have been high dexa 40 daily for 4 days - PPI added from 01/25 called [facility] transfer team - Therapeutic plasma exchange done x2 [facility] transfer after TPE for velcade chemo. In past I had D/w nephrology team on 01/26 - d/w dr Hurd - [facility] 01/26 - bone bx will call [facility] again - Patient Problems (1) Myeloma Current Visit: Yes Status: Acute Subjective Date of service: 01/28/19 Principal diagnosis: myeloma Interval history: s/p 2 sessions of plasma exchange Objective - Exam Narrative Exam: Pain - none General appearance no acute distress Performance status need complete help Eyes - no icterus ENT - no bleeding from ear LNs cervical not palpable Neck - normal ROM Respiratory Normal Breath sounds - CTA CVS S1 S2 + Extremities normal temperature General GI Soft - distended Rectal deferred male - deferred Skin warm Musculoskeletal - moves all 4 extremitites Neurologically awake - Constitutional Vitals: Last Vital Signs Temp 98.6 F 01/28/19 02:22 Pulse 92 H 01/28/19 02:22 Resp 20 01/28/19 02:22 BP 104/42 01/28/19 02:22 Pulse Ox 95 01/28/19 02:22 - Labs Lab Results: Laboratory Results - last 24 hr 01/27/19 01/27/19 01/27/19 05:50 11:25 17:59 WBC RBC Hgb Hct MCV MCH MCHC RDW Plt Count Add Manual Diff Total Counted Seg Neuts % (Manual) Band Neutrophils % Lymphocytes % (Manual) Reactive Lymphs % (Man) Monocytes % (Manual) Eosinophils % (Manual) Basophils % (Manual) Metamyelocytes % Myelocytes % Promyelocytes % Blast Cells % Nucleated RBC % Seg Neutrophils # Man Band Neutrophils # Lymphocytes # (Manual) Abs React Lymphs (Man) Monocytes # (Manual) Eosinophils # (Manual) Basophils # (Manual) Metamyelocytes # Myelocytes # Promyelocytes # Blast Cells # WBC Morphology Hypersegmented Neuts Hyposegmented Neuts Hypogranular Neuts Smudge Cells Toxic Granulation Toxic Vacuolation Dohle Bodies Pelger-Huet Anomaly Lizet Rods Platelet Estimate Clumped Platelets Plt Clumps, EDTA Large Platelets Giant Platelets Platelet Satelliting Plt Morphology Comment RBC Morphology Dimorphic RBCs Polychromasia Hypochromasia Poikilocytosis Anisocytosis Microcytosis Macrocytosis Spherocytes Pappenheimer Bodies Sickle Cells Target Cells Tear Drop Cells Ovalocytes Helmet Cells Barrera-[place] Bodies [place] Rings Johann Cells Bite Cells Crenated Cell Elliptocytes Acanthocytes (Spur) Rouleaux Hemoglobin C Crystals Schistocytes Malaria parasites Robin Bodies Hem Pathologist Commnt Sodium Potassium Chloride Carbon Dioxide Anion Gap BUN Creatinine Estimated GFR BUN/Creatinine Ratio Glucose POC Glucose 113 H 138 H 224 H Calcium 01/28/19 01/28/19 01/28/19 00:05 04:40 04:40 WBC 12.1 H RBC 2.93 L Hgb 8.8 L Hct 26.5 L MCV 91 MCH 30 MCHC 33 RDW 16.8 H Plt Count 89 L Add Manual Diff Complete Total Counted 100 Seg Neuts % (Manual) 69.0 Band Neutrophils % 0 Lymphocytes % (Manual) 20.0 Reactive Lymphs % (Man) 0 Monocytes % (Manual) 9.0 H Eosinophils % (Manual) 0 Basophils % (Manual) 0 Metamyelocytes % 2.0 Myelocytes % 0 Promyelocytes % 0 Blast Cells % 0 Nucleated RBC % 2.0 H Seg Neutrophils # Man 8.3 H Band Neutrophils # 0.0 Lymphocytes # (Manual) 2.4 Abs React Lymphs (Man) 0.0 Monocytes # (Manual) 1.1 H Eosinophils # (Manual) 0.0 Basophils # (Manual) 0.0 Metamyelocytes # 0.2 Myelocytes # 0.0 Promyelocytes # 0.0 Blast Cells # 0.0 WBC Morphology Not Reportable Hypersegmented Neuts Not Reportable Hyposegmented Neuts Not Reportable Hypogranular Neuts Not Reportable Smudge Cells Not Reportable Toxic Granulation Not Reportable Toxic Vacuolation Not Reportable Dohle Bodies Not Reportable Pelger-Huet Anomaly Not Reportable Lizet Rods Not Reportable Platelet Estimate Consistent w auto Clumped Platelets Not Reportable Plt Clumps, EDTA Not Reportable Large Platelets Not Reportable Giant Platelets Not Reportable Platelet Satelliting Not Reportable Plt Morphology Comment Not Reportable RBC Morphology Not Reportable Dimorphic RBCs Not Reportable Polychromasia Not Reportable Hypochromasia Not Reportable Poikilocytosis 1+ Anisocytosis 1+ Microcytosis Not Reportable Macrocytosis Not Reportable Spherocytes Not Reportable Pappenheimer Bodies Not Reportable Sickle Cells Not Reportable Target Cells Not Reportable Tear Drop Cells Few Ovalocytes Not Reportable Helmet Cells Not Reportable Barrera-[place] Bodies Not Reportable [place] Rings Not Reportable Ebony Cells Not Reportable Bite Cells Not Reportable Crenated Cell Not Reportable Elliptocytes Few Acanthocytes (Spur) Not Reportable Rouleaux Not Reportable Hemoglobin C Crystals Not Reportable Schistocytes Not Reportable Malaria parasites Not Reportable Robin Bodies Not Reportable Hem Pathologist Commnt No Sodium 138 Potassium 4.3 Chloride 102.5 Carbon Dioxide 11 L D Anion Gap 29 BUN 78 H Creatinine 10.8 H Estimated GFR 6 BUN/Creatinine Ratio 7 Glucose 155 H POC Glucose 184 H Calcium 6.8 L 01/28/19 06:13 WBC RBC Hgb Hct MCV MCH MCHC RDW Plt Count Add Manual Diff Total Counted Seg Neuts % (Manual) Band Neutrophils % Lymphocytes % (Manual) Reactive Lymphs % (Man) Monocytes % (Manual) Eosinophils % (Manual) Basophils % (Manual) Metamyelocytes % Myelocytes % Promyelocytes % Blast Cells % Nucleated RBC % Seg Neutrophils # Man Band Neutrophils # Lymphocytes # (Manual) Abs React Lymphs (Man) Monocytes # (Manual) Eosinophils # (Manual) Basophils # (Manual) Metamyelocytes # Myelocytes # Promyelocytes # Blast Cells # WBC Morphology Hypersegmented Neuts Hyposegmented Neuts Hypogranular Neuts Smudge Cells Toxic Granulation Toxic Vacuolation Dohle Bodies Pelger-Huet Anomaly Lizet Rods Platelet Estimate Clumped Platelets Plt Clumps, EDTA Large Platelets Giant Platelets Platelet Satelliting Plt Morphology Comment RBC Morphology Dimorphic RBCs Polychromasia Hypochromasia Poikilocytosis Anisocytosis Microcytosis Macrocytosis Spherocytes Pappenheimer Bodies Sickle Cells Target Cells Tear Drop Cells Ovalocytes Helmet Cells Barrera-[place] Bodies [place] Rings Ebony Cells Bite Cells Crenated Cell Elliptocytes Acanthocytes (Spur) Rouleaux Hemoglobin C Crystals Schistocytes Malaria parasites Robin Bodies Hem Pathologist Commnt Sodium Potassium Chloride Carbon Dioxide Anion Gap BUN Creatinine Estimated GFR BUN/Creatinine Ratio Glucose POC Glucose 132 H Calcium Medications & Allergies - Medications Allergies/Adverse Reactions: Allergies No Known Allergies Allergy (Unverified 01/18/19 06:38) Home Medications: Home Medications Medication Instructions Recorded Confirmed Last Taken Type Labetalol [Labetalol 200mg TAB] 200 mg PO BID 01/18/19 01/18/19 01/17/19 History NIFEdipine [Nifedipine ER] 90 mg PO QDAY 01/18/19 01/18/19 01/17/19 History Simvastatin 20 mg PO QHS 01/18/19 01/18/19 01/17/19 History Active Medications: Generic Name Dose Route Start Last Admin Trade Name Freq PRN Reason Stop Dose Admin Acetaminophen 650 mg 01/22/19 09:08 01/27/19 12:33 Tylenol PO 650 mg Q4H PRN Administration Pain, Mild (1-3) Acetaminophen 650 mg 01/22/19 09:37 01/22/19 10:05 Tylenol MO 650 mg Q4H PRN Administration Pain, Mild (1-3) Lipase/Protease/Amylase 1 each 01/25/19 16:20 01/27/19 06:52 Pancreazsusana Lainez 10,500 Unit FEEDTUBE 1 each PRN PRN Administration For Clogged Feeding Tube Epoetin Oscar 10,000 unit 01/21/19 12:32 01/26/19 11:45 Procrit IV 10,000 unit REYES PRN Administration hemodialysis Haloperidol Lactate 5 mg 01/20/19 11:04 01/28/19 04:32 Haldol IM 5 mg Q6H PRN Administration Agitation Sodium Chloride 100 mls @ 999 mls/hr 01/21/19 12:32 Nacl 0.9% IV REYES PRN Hypotension Dexamethasone 40 mg/ Sodium 60 mls @ 100 mls/hr 01/25/19 08:00 01/27/19 08:39 Chloride IV 01/28/19 08:35 100 mls/hr DAILY@0800 GILBERTO Administration Cefazolin Sodium 1 gm in 50 mls @ 100 mls/hr 01/25/19 18:00 01/27/19 18:55 Ancef/Ns 1 Gm/50 Ml IV 02/22/19 18:29 100 mls/hr QPM GILBERTO Administration Protocol Labetalol HCl 10 mg 01/20/19 08:56 Normodyne IV Q4H PRN Hypertension Lansoprazole 30 mg 01/29/19 10:00 Prevacid Solutab FEEDTUBE QDAY GILBERTO Metoclopramide HCl 5 mg 01/26/19 08:00 Reglan IV Q6H PRN Nausea And Vomiting Ondansetron HCl 4 mg 01/18/19 15:51 01/27/19 10:50 Zofran IV 4 mg Q8H PRN Administration Nausea And Vomiting Pantoprazole Sodium 40 mg 01/25/19 10:00 01/27/19 09:01 Protonix IV 01/28/19 12:00 40 mg QDAY GILBERTO Administration Simple Syrup 15 ml 01/25/19 16:20 Simple Syrup FEEDTUBE PRN PRN Hypoglycemia Simple Syrup 30 ml 01/25/19 16:20 Simple Syrup FEEDTUBE PRN PRN Hypoglycemia Sodium Bicarbonate 325 mg 01/25/19 16:20 Sodium Bicarbonate FEEDTUBE PRN PRN For Clogged Feeding Tube Sodium Chloride 10 ml 01/18/19 22:00 01/27/19 22:31 Sodium Chloride Flush Syringe 10 Ml IV 10 ml BID GILBERTO Administration Sodium Chloride 10 ml 01/18/19 15:51 01/27/19 19:00 Sodium Chloride Flush Syringe 10 Ml IV 10 ml PRN PRN Administration LINE FLUSH
--- NOTE | 2019-01-28 09:19 | XRay Report ---
Examination: Abdominal radiograph, one view, 01/28/2019 Clinical information: Dobbhoff tube placement Comparison: Abdominal radiograph, 01/26/2019 Findings: The distal tip of a weighted feeding tube overlies the stomach. Signer Name: Steph Castano MD Signed: 01/28/2019 9:15 AM Workstation Name: [id number]
[2019-01-28] MEDS: NACL 0.9% IV SCH (09:25)
[2019-01-28] MEDS: DECADRON IV SCH (09:25)
[2019-01-28] MEDS: PROTONIX IV SCH (09:28)
[2019-01-28] MEDS: SODIUM CHLORIDE FLUSH SYRINGE 10 ML IV SCH ×2 (09:28→23:11)
--- NOTE | 2019-01-28 11:21 | Progress Note ---
Assessment and Plan Impression * End-stage renal disease * bacteremia * multiple myeloma * Hypercalcemia * sepsis * acidosis, metabolic * Hypertension * Anemia * Hyperlipidemia Recommendations * treatement of myeloma per oncology * iv abx for bacteremia * add po sodium bicarb and gtt * hd q mwf * strict i/os * Avoid nephrotoxins * Procrit with dialysis * Patient will also require outpatient dialysis arrangement Subjective Date of service: 01/28/19 Principal diagnosis: myeloma Interval history: resting well in bed today Objective - Exam Narrative Exam: General appearance: well-developed, well-nourished EENT: ATNC, PERRL Neck: no JVD Respiratory: Present: Decreased Breath Sounds Cardiology: regular, S1S2 Gastrointestinal: normal, normoactive bowel sounds Integumentary: no rash Neurologic: alert and oriented x3, CN 3-12 intact Psychiatric: mood/affect appropriate - Vital Signs Vital signs: Vital Signs - 12hr 01/28/19 01/28/19 01/28/19 02:22 07:34 09:04 Temperature 98.6 F 98.2 F Pulse Rate 92 H 105 H Respiratory 20 18 Rate Blood Pressure 130/63 Blood Pressure 104/42 [Left] O2 Sat by Pulse 95 97 95 Oximetry - Lab 01/28/19 04:40 01/28/19 04:40 Most recent lab results Calcium 6.8 mg/dL (8.4-10.2) L 01/28/19 04:40 Phosphorus 2.40 mg/dL (2.5-4.5) L 01/22/19 05:49 Magnesium 1.80 mg/dL (1.7-2.3) 01/22/19 05:49 181.1 mg/dL (0.1-20.0) H 01/19/19 08:55 19 mmol/L 01/19/19 08:55 297 mg/dL (5-11.8) H 01/19/19 08:55 Medications & Allergies - Medications Allergies/Adverse Reactions: Allergies No Known Allergies Allergy (Unverified 01/18/19 06:38) Home Medications: Home Medications Medication Instructions Recorded Confirmed Last Taken Type Labetalol [Labetalol 200mg TAB] 200 mg PO BID 01/18/19 01/18/19 01/17/19 History NIFEdipine [Nifedipine ER] 90 mg PO QDAY 01/18/19 01/18/19 01/17/19 History Simvastatin 20 mg PO QHS 01/18/19 01/18/19 01/17/19 History Active Medications: Generic Name Dose Route Start Last Admin Trade Name Freq PRN Reason Stop Dose Admin Acetaminophen 650 mg 01/22/19 09:08 01/27/19 12:33 Tylenol PO 650 mg Q4H PRN Administration Pain, Mild (1-3) Acetaminophen 650 mg 01/22/19 09:37 01/22/19 10:[address] 650 mg Q4H PRN Administration Pain, Mild (1-3) Lipase/Protease/Amylase 1 each 01/25/19 16:20 01/27/19 06:52 Pancreaze 10,500 Unit FEEDTUBE 1 each PRN PRN Administration For Clogged Feeding Tube Epoetin Oscar 10,000 unit 01/21/19 12:32 01/26/19 11:45 Procrit IV 10,000 unit REYES PRN Administration hemodialysis Haloperidol Lactate 5 mg 01/20/19 11:04 01/28/19 04:32 Haldol IM 5 mg Q6H PRN Administration Agitation Sodium Chloride 100 mls @ 999 mls/hr 01/21/19 12:32 Nacl 0.9% IV REYES PRN Hypotension Cefazolin Sodium 1 gm in 50 mls @ 100 mls/hr 01/25/19 18:00 01/27/19 18:55 Ancef/Ns 1 Gm/50 Ml IV 02/22/19 18:29 100 mls/hr QPM GILBERTO Administration Protocol Labetalol HCl 10 mg 01/20/19 08:56 Normodyne IV Q4H PRN Hypertension Lansoprazole 30 mg 01/29/19 10:00 Prevacid Solutab FEEDTUBE QDAY GILBERTO Metoclopramide HCl 5 mg 01/26/19 08:00 Reglan IV Q6H PRN Nausea And Vomiting Ondansetron HCl 4 mg 01/18/19 15:51 01/27/19 10:50 Zofran IV 4 mg Q8H PRN Administration Nausea And Vomiting Pantoprazole Sodium 40 mg 01/25/19 10:00 01/28/19 09:28 Protonix IV 01/28/19 12:00 40 mg QDAY GILBERTO Administration Simple Syrup 15 ml 01/25/19 16:20 Simple Syrup FEEDTUBE PRN PRN Hypoglycemia Simple Syrup 30 ml 01/25/19 16:20 Simple Syrup FEEDTUBE PRN PRN Hypoglycemia Sodium Bicarbonate 325 mg 01/25/19 16:20 Sodium Bicarbonate FEEDTUBE PRN PRN For Clogged Feeding Tube Sodium Chloride 10 ml 01/18/19 22:00 01/28/19 09:28 Sodium Chloride Flush Syringe 10 Ml IV 10 ml BID GILBERTO Administration Sodium Chloride 10 ml 01/18/19 15:51 01/27/19 19:00 Sodium Chloride Flush Syringe 10 Ml IV 10 ml PRN PRN Administration LINE FLUSH
[2019-01-28] MEDS: SODIUM BICARBONATE PO SCH ×2 (12:06→23:10)
[2019-01-28] MEDS: SODIUM BICARBONATE 150 MEQ in D5W 1,000 ML IV SCH (12:12)
--- NOTE | 2019-01-28 13:02 | Progress Note ---
Assessment and Plan 1.Upper GI bleed Resolved 2) MSSA Bacteremia: 1 out of 4 bottles. ? CLABSI perm cath placed 01/19/19. Repeat blood cultures show no growth to date. TTE no valvular vegetation. s/p permCath exchange 01/25/19. follow-up repeat blood culture to ensure clearance continue cefazolin 1 gm every 24 hours Anticipate discharge on Cefazolin 2 gms IV on Tuesday, 2 gms Tuesday and 3 gms Tuesday post HD for 4 weeks ending 02-22-19. order placed with case management follow-up ID clinic in 3 weeks (sent to scheduler maintenance) 3. Hypertension Hold antihypertensives Catapres patch initiated 4.End-stage renal disease Nephrology consultation requested His dialysis status is not known 5. Acute anemia Multifactorial Secondary to end-stage renal disease and GI bleed Transfuse as necessary 6. Hyperglobulinemia Multiple Myeloma --Given Lucencies on Calvarium For biopsy 7. Hypercalcemia Calcitrol given 8. Hyponatremia Mild 9. DVT prophylaxis SCDs for now and GI prophylaxis Subjective Date of service: 01/28/19 Principal diagnosis: myeloma Interval history: Sx better Objective - Constitutional Vitals: Vital Signs - 12hr 01/28/19 01/28/19 01/28/19 02:22 07:34 09:04 Temperature 98.6 F 98.2 F Pulse Rate 92 H 105 H Pulse Rate [ Right Radial] Respiratory 20 18 Rate Blood Pressure 130/63 Blood Pressure 104/42 [Left] O2 Sat by Pulse 95 97 95 Oximetry 01/28/19 10:00 Temperature Pulse Rate Pulse Rate [ 105 H Right Radial] Respiratory 18 Rate Blood Pressure Blood Pressure [Left] O2 Sat by Pulse 95 Oximetry General appearance: Present: no acute distress, well-nourished - EENT Eyes: PERRL, EOM intact ENT: hearing intact, clear oral mucosa Ears: bilateral: normal - Neck Neck: supple, normal ROM - Respiratory Respiratory effort: normal Respiratory: bilateral: CTA - Breasts Breasts: normal - Cardiovascular Heart rate: 78 Rhythm: regular Heart Sounds: Present: S1 & S2. Absent: gallop, rub Extremities: pulses intact, No edema, normal color, Full ROM - Gastrointestinal General gastrointestinal: Present: soft, non-tender, non-distended, normal bowel sounds - Genitourinary Male genitourinary: normal - Integumentary Integumentary: clear, warm, dry - Musculoskeletal Musculoskeletal: 1, strength equal bilaterally - Neurologic Neurologic: moves all extremities - Psychiatric Psychiatric: memory intact, appropriate mood/affect, intact judgment & insight - Allied health notes Allied health notes reviewed: nursing, case management - Labs CBC & Chem 7: 01/28/19 04:40 01/28/19 04:40 Labs: Abnormal lab results 01/25/19 01/27/19 01/28/19 Range/Units 05:30 17:59 00:05 WBC (4.5-11.0) K/mm3 RBC (3.65-5.03) M/mm3 Hgb (11.8-15.2) gm/dl Hct (35.5-45.6) % RDW (13.2-15.2) % Plt Count (140-440) K/mm3 Monocytes % (Manual) (0.0-7.3) % Nucleated RBC % (0.0-0.9) % Seg Neutrophils # Man (1.8-7.7) K/mm3 Monocytes # (Manual) (0.0-0.8) K/mm3 Carbon Dioxide (22-30) mmol/L BUN (9-20) mg/dL Creatinine (0.8-1.5) mg/dL Glucose (75-100) mg/dL POC Glucose 224 H 184 H (70-105) Calcium (8.4-10.2) mg/dL Immunofix Electrophor see below H 01/28/19 01/28/19 01/28/19 Range/Units 04:40 04:40 06:13 WBC 12.1 H (4.5-11.0) K/mm3 RBC 2.93 L (3.65-5.03) M/mm3 Hgb 8.8 L (11.8-15.2) gm/dl Hct 26.5 L (35.5-45.6) % RDW 16.8 H (13.2-15.2) % Plt Count 89 L (140-440) K/mm3 Monocytes % (Manual) 9.0 H (0.0-7.3) % Nucleated RBC % 2.0 H (0.0-0.9) % Seg Neutrophils # Man 8.3 H (1.8-7.7) K/mm3 Monocytes # (Manual) 1.1 H (0.0-0.8) K/mm3 Carbon Dioxide 11 L D (22-30) mmol/L BUN 78 H (9-20) mg/dL Creatinine 10.8 H (0.8-1.5) mg/dL Glucose 155 H (75-100) mg/dL POC Glucose 132 H (70-105) Calcium 6.8 L (8.4-10.2) mg/dL Immunofix Electrophor 01/28/19 Range/Units 11:35 WBC (4.5-11.0) K/mm3 RBC (3.65-5.03) M/mm3 Hgb (11.8-15.2) gm/dl Hct (35.5-45.6) % RDW (13.2-15.2) % Plt Count (140-440) K/mm3 Monocytes % (Manual) (0.0-7.3) % Nucleated RBC % (0.0-0.9) % Seg Neutrophils # Man (1.8-7.7) K/mm3 Monocytes # (Manual) (0.0-0.8) K/mm3 Carbon Dioxide (22-30) mmol/L BUN (9-20) mg/dL Creatinine (0.8-1.5) mg/dL Glucose (75-100) mg/dL POC Glucose 135 H (70-105) Calcium (8.4-10.2) mg/dL Immunofix Electrophor
[2019-01-28] MEDS: ANCEF/NS 1 GM/50 ML 1 GM/50 ML BAG IV SCH (17:15)
[2019-01-29] MEDS: HALDOL IM PRN ×2 (02:12→22:16)
[2019-01-29 05:37] LABS: Hematocrit 24.9 % (35.5-45.6); Hemoglobin 8.1 gm/dl (11.8-15.2); Mean Corpuscular HGB Conc 33 % (32-34); Mean Corpuscular Volume 91 fl (84-94); Red Blood Count 2.73 M/mm3 (3.65-5.03); Red Cell Distribution Width 16.9 % (13.2-15.2)
[2019-01-29 05:51] LABS: Albumin 4.5 g/dL (3.9-5); Calcium 6.5 mg/dL (8.4-10.2); Platelet Count 90 K/mm3 (140-440)
[2019-01-29 06:30] LABS: Hematocrit 23.3 % (35.5-45.6); Hemoglobin 7.8 gm/dl (11.8-15.2); Mean Corpuscular HGB Conc 34 % (32-34); Mean Corpuscular Volume 90 fl (84-94); Red Cell Distribution Width 17.3 % (13.2-15.2)
[2019-01-29 06:35] LABS: Platelet Count 92 K/mm3 (140-440)
[2019-01-29 06:53] LABS: Albumin 4.4 g/dL (3.9-5); Calcium 6.5 mg/dL (8.4-10.2)
[2019-01-29 07:34] LABS: Anisocytosis 1+; Band Neutrophils # (Manual) 0.4 K/mm3; Basophils % (Manual) 0 % (0.0-1.8); Eosinophils % (Manual) 0 % (0.0-4.3); Myelocytes # (Manual) 0.1 K/mm3; Total Cells Counted 100
[2019-01-29 07:35] LABS: Ovalocytes Few; Platelet Estimate Consistent w Auto; Poikilocytosis 1+; Tear Drop Cells Few
--- NOTE | 2019-01-29 08:18 | Progress Note ---
Assessment and Plan Impression * End-stage renal disease --Permcath insertion January 25 * MSSA bacteremia --Blood cx: MSSA (January 22), NGTD (January 24) * Multiple myeloma * Metabolic acidosis * Hypertension * Anemia * Hypercalcemia Recommendations * HD MWF * UF as tolerated * Abx per ID * Strict I/O * Avoid nephrotoxins * Dose medications for renal function * Epogen TIW prn * Outpatient hemodialysis placement pending Subjective Date of service: 01/29/19 Principal diagnosis: myeloma Interval history: No acute events overnight. Objective - Vital Signs Vital signs: Vital Signs - 12hr 01/28/19 01/29/19 01/29/19 21:18 00:07 02:56 Temperature 98.2 F 98.4 F Pulse Rate 94 H Pulse Rate [ 88 Right Radial] Respiratory 20 20 18 Rate Blood Pressure 157/63 123/59 O2 Sat by Pulse 98 100 95 Oximetry 01/29/19 07:46 Temperature Pulse Rate Pulse Rate [ Right Radial] Respiratory Rate Blood Pressure O2 Sat by Pulse 100 Oximetry - General Appearance General appearance: well-developed, well-nourished EENT: ATNC Respiratory: Present: Clear to Ascultation Cardiology: regular, S1S2 Gastrointestinal: normal, no tenderness, no distended Integumentary: no rash Neurologic: confused Musculoskeletal: other (trace edema) Psychiatric: cooperative - Lab 01/29/19 06:03 01/29/19 06:03 Most recent lab results Calcium 6.5 mg/dL (8.4-10.2) L 01/29/19 06:03 Phosphorus 2.40 mg/dL (2.5-4.5) L 01/22/19 05:49 Magnesium 1.80 mg/dL (1.7-2.3) 01/22/19 05:49 181.1 mg/dL (0.1-20.0) H 01/19/19 08:55 19 mmol/L 01/19/19 08:55 297 mg/dL (5-11.8) H 01/19/19 08:55 Medications & Allergies - Medications Allergies/Adverse Reactions: Allergies No Known Allergies Allergy (Unverified 01/18/19 06:38) Home Medications: Home Medications Medication Instructions Recorded Confirmed Last Taken Type Labetalol [Labetalol 200mg TAB] 200 mg PO BID 01/18/19 01/18/1901/17/19 History NIFEdipine [Nifedipine ER] 90 mg PO QDAY 01/18/19 01/18/19 01/17/19 History Simvastatin 20 mg PO QHS 01/18/19 01/18/19 01/17/19 History Active Medications: Generic Name Dose Route Start Last Admin Trade Name Freq PRN Reason Stop Dose Admin Acetaminophen 650 mg 01/22/19 09:08 01/27/19 12:33 Tylenol PO 650 mg Q4H PRN Administration Pain, Mild (1-3) Acetaminophen 650 mg 01/22/19 09:37 01/22/19 10:05 Tylenol [place] 650 mg Q4H PRN Administration Pain, Mild (1-3) Lipase/Protease/Amylase 1 each 01/25/19 16:20 01/27/19 06:52 Pancreazsusana Lainez 10,500 Unit FEEDTUBE 1 each PRN PRN Administration For Clogged Feeding Tube Epoetin Oscar 10,000 unit 01/21/19 12:32 01/26/19 11:45 Procrit IV 10,000 unit REYES PRN Administration hemodialysis Haloperidol Lactate 5 mg 01/20/19 11:04 01/29/19 02:12 Haldol IM 5 mg Q6H PRN Administration Agitation Sodium Chloride 100 mls @ 999 mls/hr 01/21/19 12:32 Nacl 0.9% IV REYES PRN Hypotension Cefazolin Sodium 1 gm in 50 mls @ 100 mls/hr 01/25/19 18:00 01/28/19 17:15 Ancef/Ns 1 Gm/50 Ml IV 02/22/19 18:29 100 mls/hr QPM GILBERTO Administration Protocol Sodium Bicarbonate 150 meq/ 1,150 mls @ 50 mls/hr 01/28/19 12:00 01/28/19 12:12 Dextrose IV 50 mls/hr DIRECT GILBERTO Administration Labetalol HCl 10 mg 01/20/19 08:56 Normodyne IV Q4H PRN Hypertension Lansoprazole 30 mg 01/29/19 10:00 Prevacid Solutab FEEDTUBE QDAY GILBERTO Metoclopramide HCl 5 mg 01/26/19 08:00 Reglan IV Q6H PRN Nausea And Vomiting Ondansetron HCl 4 mg 01/18/19 15:51 01/27/19 10:50 Zofran IV 4 mg Q8H PRN Administration Nausea And Vomiting Simple Syrup 15 ml 01/25/19 16:20 Simple Syrup FEEDTUBE PRN PRN Hypoglycemia Simple Syrup 30 ml 01/25/19 16:20 Simple Syrup FEEDTUBE PRN PRN Hypoglycemia Sodium Bicarbonate 325 mg 01/25/19 16:20 Sodium Bicarbonate FEEDTUBE PRN PRN For Clogged Feeding Tube Sodium Bicarbonate 1,300 mg 01/28/19 12:00 01/28/19 23:10 Sodium Bicarbonate PO 1,300 mg BID GILBERTO Administration Sodium Chloride 10 ml 01/18/19 22:00 01/28/19 23:11 Sodium Chloride Flush Syringe 10 Ml IV 10 ml BID GILBERTO Administration Sodium Chloride 10 ml 01/18/19 15:51 01/27/19 19:00 Sodium Chloride Flush Syringe 10 Ml IV 10 ml PRN PRN Administration LINE FLUSH
--- NOTE | 2019-01-29 08:54 | Progress Note ---
<KATHIE LUCIA - Last Filed: 01/29/19 15:25> Assessment and Plan Cultures: Blood culture 01/22/2019 MSSA, 1 of 4 bottles Blood culture 01/24/2019 : no growth Assessment: 73 y/o male with history of hypertension, chronic kidney disease and hyperlipidemia admitted on 01/18/2019 due to 3-day history of epigastric abdominal pain, melanoic stools and vomiting blood associated with generalized weakness and lightheadedness found to have a GI bleed, OCTAVIA on CKD now on HD. By 01/22/2019 patient spiked a temp 101 and tachycardia: 1) SIRS: Improved. now leukocytosis, not on admisson. etiology MSSA bacteremia , likely source HD catheter. DDx , bacteremia, malignancy . CXR shows bilateral pulmonary edema. Blood culture 01/22/2019 grew MSSA bacteremia. Rpt CXR no change 2) MSSA Bacteremia: 1 out of 4 bottles. ? CLABSI perm cath placed 01/19/19. Repeat blood cultures show no growth to date. TTE no valvular vegetation. s/p permCath exchange 01/25/19. 3) Acute encephalopathy: due to malignancy 4) OCTAVIA on CKD now on HD : perm cath exchanged 01/25/19 5) Anemia 6) GI bleed: EGD found with hiatal hernia, multiple shallow ulcers throughout stomach w/o bleeding stigmata (bx's). 7) Myeloma: s/p bone bx 01/26/19. Therapeutic plasma exchange X2. [place] transfer for velcade chemo. Recommendations: continue cefazolin 1 gm every 24 hours monitor leukocytosis CBC ordered for tomorrow Anticipate discharge on Cefazolin 2 gms IV on Tuesday, 2 gms Tuesday and 3 gms Tuesday post HD for 4 weeks ending 02-22-19. order placed with case management follow-up ID clinic in 3 weeks (sent to [facility] [employer]) [facility] M: [phone] O:[phone] Subjective Date of service: 01/29/19 Principal diagnosis: myeloma Interval history: Patient seen and examined in HD. Awake. following simple commands. garbled speech. Objective - Exam Narrative Exam: General appearance: Awake. Garbled speech. No acute distress Eyes: anicteric sclerae, moist conjunctivae; no lid-lag; PERRLA HENT: Atraumatic; oropharynx dry edentulous Lungs: clear to auscultation. CV: RRR no murmur Abdomen: Soft, non-tender. +NGT Extremities: joshua leg edema Skin: No rash. Psych: Awake. Neuro: Awake. more alert - Constitutional Vitals: Vital Signs Temp Pulse Resp BP Pulse Ox 98.5 F 105 H 20 142/56 99 01/29/19 07:57 01/29/19 07:57 01/29/19 07:57 01/29/19 07:57 01/29/19 07:57 Temperature -Last 24 Hours Temperature 98.5 F Temperature 98.4 F Temperature 98.2 F Temperature 97.5 F Temperature 97.9 F - Labs CBC & Chem 7: 01/29/19 06:03 01/29/19 06:03 Labs: Abnormal lab results 01/25/19 01/28/19 01/28/19 Range/Units 05:30 11:35 17:34 WBC (4.5-11.0) K/mm3 RBC (3.65-5.03) M/mm3 Hgb (11.8-15.2) gm/dl Hct (35.5-45.6) % RDW (13.2-15.2) % Plt Count (140-440) K/mm3 Nucleated RBC % (0.0-0.9) % Seg Neutrophils # Man (1.8-7.7) K/mm3 Chloride (98-107) mmol/L Carbon Dioxide (22-30) mmol/L BUN (9-20) mg/dL Creatinine (0.8-1.5) mg/dL Glucose (75-100) mg/dL POC Glucose 135 H 180 H (70-105) Calcium (8.4-10.2) mg/dL Total Protein (6.3-8.2) g/dL Immunofix Electrophor see below H 01/29/19 01/29/19 01/29/19 Range/Units 00:18 05:04 05:04 WBC 12.1 H (4.5-11.0) K/mm3 RBC 2.73 L (3.65-5.03) M/mm3 Hgb 8.1 L (11.8-15.2) gm/dl Hct 24.9 L (35.5-45.6) % RDW 16.9 H (13.2-15.2) % Plt Count 90 L (140-440) K/mm3 Nucleated RBC % 1.0 H (0.0-0.9) % Seg Neutrophils # Man 8.2 H (1.8-7.7) K/mm3 Chloride 97.9 L (98-107) mmol/L Carbon Dioxide 16 L (22-30) mmol/L BUN 101 H (9-20) mg/dL Creatinine 13.2 H (0.8-1.5) mg/dL Glucose 122 H (75-100) mg/dL POC Glucose 151 H (70-105) Calcium 6.5 L (8.4-10.2) mg/dL Total Protein 10.2 H (6.3-8.2) g/dL Immunofix Electrophor 01/29/19 01/29/19 01/29/19 Range/Units 05:51 06:03 06:03 WBC 12.9 H (4.5-11.0) K/mm3 RBC 2.60 L (3.65-5.03) M/mm3 Hgb 7.8 L (11.8-15.2) gm/dl Hct 23.3 L (35.5-45.6) % RDW 17.3 H (13.2-15.2) % Plt Count 92 L (140-440) K/mm3 Nucleated RBC % (0.0-0.9) % Seg Neutrophils # Man (1.8-7.7) K/mm3 Chloride (98-107) mmol/L Carbon Dioxide 15 L (22-30) mmol/L BUN 100 H (9-20) mg/dL Creatinine 13.2 H (0.8-1.5) mg/dL Glucose 118 H (75-100) mg/dL POC Glucose 132 H (70-105) Calcium 6.5 L (8.4-10.2) mg/dL Total Protein 10.0 H (6.3-8.2) g/dL Immunofix Electrophor <EUGENIE GARIBAY - Last Filed: 01/29/19 15:27> Assessment and Plan I have personally seen and evaluated this patient on 01/29/2019 with Kathie Lucia NP. I have reviewed and confirmed the medical history, physical examination findings, pertinent lab data, microbiologic data & personally reviewed the imaging. I evaluated the risk-benefit, side effect profile of anti- microbials and formulated the assessment and plan Objective - Constitutional Vitals: Vital Signs Temp Pulse Resp BP Pulse Ox 97.5 F L 124 H 18 111/61 96 01/29/19 14:30 01/29/19 14:30 01/29/19 14:30 01/29/19 14:30 01/29/19 14:30 Temperature -Last 24 Hours Temperature 97.5 F Temperature 98.5 F Temperature 98.5 F Temperature 98.5 F Temperature 98.4 F Temperature 98.2 F Temperature 97.5 F - Labs CBC & Chem 7: 01/29/19 06:03 01/29/19 06:03 Labs: Abnormal lab results 01/28/19 01/29/19 01/29/19 Range/Units 17:34 00:18 05:04 WBC (4.5-11.0) K/mm3 RBC (3.65-5.03) M/mm3 Hgb (11.8-15.2) gm/dl Hct (35.5-45.6) % RDW (13.2-15.2) % Plt Count (140-440) K/mm3 Nucleated RBC % (0.0-0.9) % Seg Neutrophils # Man (1.8-7.7) K/mm3 Chloride 97.9 L (98-107) mmol/L Carbon Dioxide 16 L (22-30) mmol/L BUN 101 H (9-20) mg/dL Creatinine 13.2 H (0.8-1.5) mg/dL Glucose 122 H (75-100) mg/dL POC Glucose 180 H 151 H (70-105) Calcium 6.5 L (8.4-10.2) mg/dL Total Protein 10.2 H (6.3-8.2) g/dL 01/29/19 01/29/19 01/29/19 Range/Units 05:04 05:51 06:03 WBC 12.1 H 12.9 H (4.5-11.0) K/mm3 RBC 2.73 L 2.60 L (3.65-5.03) M/mm3 Hgb 8.1 L 7.8 L (11.8-15.2) gm/dl Hct 24.9 L 23.3 L (35.5-45.6) % RDW 16.9 H 17.3 H (13.2-15.2) % Plt Count 90 L 92 L (140-440) K/mm3 Nucleated RBC % 1.0 H (0.0-0.9) % Seg Neutrophils # Man 8.2 H (1.8-7.7) K/mm3 Chloride (98-107) mmol/L Carbon Dioxide (22-30) mmol/L BUN (9-20) mg/dL Creatinine (0.8-1.5) mg/dL Glucose (75-100) mg/dL POC Glucose 132 H (70-105) Calcium (8.4-10.2) mg/dL Total Protein (6.3-8.2) g/dL 01/29/19 01/29/19 Range/Units 06:03 14:39 WBC (4.5-11.0) K/mm3 RBC (3.65-5.03) M/mm3 Hgb (11.8-15.2) gm/dl Hct (35.5-45.6) % RDW (13.2-15.2) % Plt Count (140-440) K/mm3 Nucleated RBC % (0.0-0.9) % Seg Neutrophils # Man (1.8-7.7) K/mm3 Chloride (98-107) mmol/L Carbon Dioxide 15 L (22-30) mmol/L BUN 100 H (9-20) mg/dL Creatinine 13.2 H (0.8-1.5) mg/dL Glucose 118 H (75-100) mg/dL POC Glucose 116 H (70-105) Calcium 6.5 L (8.4-10.2) mg/dL Total Protein 10.0 H (6.3-8.2) g/dL
[2019-01-29] MEDS: SODIUM BICARBONATE PO SCH (09:08)
--- NOTE | 2019-01-29 09:08 | Progress Note ---
Assessment and Plan 1.Multiple Myeloma F/u with oncology Confirmed Dr Ibanez/[place] for plasma exchange 2) MSSA Bacteremia: 1 out of 4 bottles. ? CLABSI perm cath placed 01/19/19. Repeat blood cultures show no growth to date. TTE no valvular vegetation. s/p permCath exchange continue cefazolin 1 gm every 24 hours Anticipate discharge on Cefazolin 2 gms IV on Tuesday, 2 gms Tuesday and 3 gms Tuesday post HD for 4 weeks ending 02-22-19. order placed with case management follow-up ID clinic in 3 weeks (sent to [employer]) 3.Hypertension Catapres patch initiated 4.End-stage renal disease Needs HD chair 5. Acute anemia Multifactorial Secondary to end-stage renal disease and GI bleed and Multiple Myeloma Transfuse as necessary 6. Hyperglobulinemia Multiple Myeloma --Given Lucencies on Calvarium For biopsy 7. Hypercalcemia Calcitrol given 8. Hyponatremia Mild 9. DVT prophylaxis SCDs for now and GI prophylaxis 10..Upper GI bleed resolved Subjective Date of service: 01/29/19 Principal diagnosis: myeloma.,MSSA,ESRD Interval history: Sx better Objective - Constitutional Vitals: Vital Signs - 12hr 01/28/19 01/29/19 01/29/19 21:18 00:07 02:56 Temperature 98.2 F 98.4 F Pulse Rate 94 H Pulse Rate [ 88 Right Radial] Respiratory 20 20 18 Rate Blood Pressure 157/63 123/59 O2 Sat by Pulse 98 100 95 Oximetry 01/29/19 01/29/19 07:46 07:57 Temperature 98.5 F Pulse Rate 105 H Pulse Rate [ Right Radial] Respiratory 20 Rate Blood Pressure 142/56 O2 Sat by Pulse 100 99 Oximetry General appearance: Present: no acute distress, well-nourished - EENT Eyes: PERRL, EOM intact ENT: hearing intact, clear oral mucosa Ears: bilateral: normal - Neck Neck: supple, normal ROM - Respiratory Respiratory effort: normal Respiratory: bilateral: CTA - Breasts Breasts: normal - Cardiovascular Rhythm: regular Heart Sounds: Present: S1 & S2. Absent: gallop, rub Extremities: pulses intact, No edema, normal color, Full ROM - Gastrointestinal General gastrointestinal: Present: soft, non-tender, non-distended, normal bowel sounds - Genitourinary Male genitourinary: normal - Integumentary Integumentary: clear, warm, dry - Musculoskeletal Musculoskeletal: 1, strength equal bilaterally - Neurologic Neurologic: moves all extremities - Psychiatric Psychiatric: memory intact, appropriate mood/affect, intact judgment & insight - Labs CBC & Chem 7: 01/29/19 06:03 01/29/19 06:03 Labs: Abnormal lab results 01/25/19 01/28/19 01/28/19 Range/Units 05:30 11:35 17:34 WBC (4.5-11.0) K/mm3 RBC (3.65-5.03) M/mm3 Hgb (11.8-15.2) gm/dl Hct (35.5-45.6) % RDW (13.2-15.2) % Plt Count (140-440) K/mm3 Nucleated RBC % (0.0-0.9) % Seg Neutrophils # Man (1.8-7.7) K/mm3 Chloride (98-107) mmol/L Carbon Dioxide (22-30) mmol/L BUN (9-20) mg/dL Creatinine (0.8-1.5) mg/dL Glucose (75-100) mg/dL POC Glucose 135 H 180 H (70-105) Calcium (8.4-10.2) mg/dL Total Protein (6.3-8.2) g/dL Immunofix Electrophor see below H 01/29/19 01/29/19 01/29/19 Range/Units 00:18 05:04 05:04 WBC 12.1 H (4.5-11.0) K/mm3 RBC 2.73 L (3.65-5.03) M/mm3 Hgb 8.1 L (11.8-15.2) gm/dl Hct 24.9 L (35.5-45.6) % RDW 16.9 H (13.2-15.2) % Plt Count 90 L (140-440) K/mm3 Nucleated RBC % 1.0 H (0.0-0.9) % Seg Neutrophils # Man 8.2 H (1.8-7.7) K/mm3 Chloride 97.9 L (98-107) mmol/L Carbon Dioxide 16 L (22-30) mmol/L BUN 101 H (9-20) mg/dL Creatinine 13.2 H (0.8-1.5) mg/dL Glucose 122 H (75-100) mg/dL POC Glucose 151 H (70-105) Calcium 6.5 L (8.4-10.2) mg/dL Total Protein 10.2 H (6.3-8.2) g/dL Immunofix Electrophor 01/29/19 01/29/19 01/29/19 Range/Units 05:51 06:03 06:03 WBC 12.9 H (4.5-11.0) K/mm3 RBC 2.60 L (3.65-5.03) M/mm3 Hgb 7.8 L (11.8-15.2) gm/dl Hct 23.3 L (35.5-45.6) % RDW 17.3 H (13.2-15.2) % Plt Count 92 L (140-440) K/mm3 Nucleated RBC % (0.0-0.9) % Seg Neutrophils # Man (1.8-7.7) K/mm3 Chloride (98-107) mmol/L Carbon Dioxide 15 L (22-30) mmol/L BUN 100 H (9-20) mg/dL Creatinine 13.2 H (0.8-1.5) mg/dL Glucose 118 H (75-100) mg/dL POC Glucose 132 H (70-105) Calcium 6.5 L (8.4-10.2) mg/dL Total Protein 10.0 H (6.3-8.2) g/dL Immunofix Electrophor
[2019-01-29] MEDS: SODIUM CHLORIDE FLUSH SYRINGE 10 ML IV SCH ×2 (09:09→22:17)
[2019-01-29] MEDS ORDERED: PREVACID SOLUTAB FEEDTUBE SCH (10:00)
[2019-01-29] MEDS: PROCRIT IV PRN (12:44)
[2019-01-29] MEDS: ANCEF/NS 1 GM/50 ML 1 GM/50 ML BAG IV SCH (17:30)
--- NOTE | 2019-01-29 21:52 | XRay Report ---
ABDOMEN 1 VIEW(S) INDICATION / CLINICAL INFORMATION: Verify dobhoff placement. COMPARISON: None available. FINDINGS: TUBES / LINES: Feeding tube has been placed but the tube is in the left lower lobe bronchus and needs to be removed. BOWEL GAS PATTERN: No significant abnormality. FREE AIR / EXTRALUMINAL GAS: None seen. ADDITIONAL FINDINGS: No significant additional findings. IMPRESSION: 1. Malpositioned feeding tube. CRITICAL RESULT: Time of Discovery: 2019 Time of Communication: 2029 Licensed Practitioner Receiving Report: Hanna Read Back Performed: Yes. Signer Name: Sohan Dixon MD Signed: 01/29/2019 9:48 PM Workstation Name: [id number]
[2019-01-29] MEDS: SODIUM BICARBONATE 150 MEQ in D5W 1,000 ML IV SCH (22:21)
[2019-01-30] MEDS: SODIUM BICARBONATE PO SCH (00:14)
--- NOTE | 2019-01-30 03:00 | XRay Report ---
ABDOMEN ONE VIEW INDICATION / CLINICAL INFORMATION: Verify placement of dobhoff. COMPARISON: None available. FINDINGS: A feeding tube is present with the tip superimposed over the expected position of the gastric fundus. The tube probably needs to be advanced Signer Name: Tez Vargas MD FACR Signed: 01/30/2019 2:56 AM Workstation Name: [id number]
--- NOTE | 2019-01-30 06:43 | Hem/Onc Progress Note ---
Assessment and Plan 1. Hypercalcemia, elevated total protein , bone lesions - IG G kappa - multiple myeloma. The patient also has renal impairment and is on dialysis. the patient got dexamethasone. 2. Anemia. The patient is on Procrit. 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 Mention of melena, h/o hemetemesis at admission - seen by GI team. 4. History of hypertension. 5. History of hyperlipidemia. 6. h/o Bacteremia. 7. For hypercalcemia, the patient received Aredia. 8. Thrombocytopenia, likely secondary to myeloma or other secondary issues. At this time, we will observe. We will investigate - anemia/low plt for other causes. Total proteins have been high dexa 40 daily for 4 days - PPI added from 01/25 called [place] transfer team - Therapeutic plasma exchange done x2 [place] transfer after TPE for velcade chemo. In past I had D/w nephrology team on 01/26 - d/w dr Hurd - [facility] 01/29 - bone marrow bx plasma cells - called [place] transfer services. s/p [address] Hurd for TPA - Patient Problems (1) Myeloma Current Visit: Yes Status: Acute Subjective Date of service: 01/29/19 Principal diagnosis: myeloma Interval history: awake - restrain Objective - Exam Narrative Exam: Pain - none General appearance no acute distress Performance status need complete help Eyes - no icterus ENT - no bleeding from ear LNs cervical not palpable Neck - normal ROM Respiratory Normal Breath sounds - CTA CVS S1 S2 + Extremities normal temperature General GI Soft - distended Rectal deferred male - deferred Skin warm Musculoskeletal - moves all 4 extremitites Neurologically awake - Constitutional Vitals: Last Vital Signs Temp 98.0 F 01/29/19 19:31 Pulse 105 H 01/29/19 19:33 Resp 26 H 01/29/19 19:31 BP 122/62 01/30/19 00:12 Pulse Ox 99 01/29/19 19:33 - Labs Lab Results: Laboratory Results - last 24 hr 01/23/19 01/29/19 01/29/19 19:58 05:04 06:03 WBC 12.9 H RBC 2.60 L Hgb 7.8 L Hct 23.3 L MCV 90 MCH 30 MCHC 34 RDW 17.3 H Plt Count 92 L Add Manual Diff Complete Total Counted 100 Seg Neuts % (Manual) 68.0 Band Neutrophils % 3.0 Lymphocytes % (Manual) 19.0 Reactive Lymphs % (Man) 0 Monocytes % (Manual) 5.0 Eosinophils % (Manual) 0 Basophils % (Manual) 0 Metamyelocytes % 4.0 Myelocytes % 1.0 Promyelocytes % 0 Blast Cells % 0 Nucleated RBC % 1.0 H Not Reportable Seg Neutrophils # Man 8.2 H Band Neutrophils # 0.4 Lymphocytes # (Manual) 2.3 Abs React Lymphs (Man) 0.0 Monocytes # (Manual) 0.6 Eosinophils # (Manual) 0.0 Basophils # (Manual) 0.0 Metamyelocytes # 0.5 Myelocytes # 0.1 Promyelocytes # 0.0 Blast Cells # 0.0 WBC Morphology Not Reportable Not Reportable Hypersegmented Neuts Not Reportable Not Reportable Hyposegmented Neuts Not Reportable Not Reportable Hypogranular Neuts Not Reportable Not Reportable Smudge Cells Not Reportable Not Reportable Toxic Granulation Not Reportable Not Reportable Toxic Vacuolation Not Reportable Not Reportable Dohle Bodies Not Reportable Not Reportable Pelger-Huet Anomaly Not Reportable Not Reportable Lizet Rods Not Reportable Not Reportable Platelet Estimate Consistent w auto Not Reportable Clumped Platelets Not Reportable Not Reportable Plt Clumps, EDTA Not Reportable Not Reportable Large Platelets Not Reportable Not Reportable Giant Platelets Not Reportable Not Reportable Platelet Satelliting Not Reportable Not Reportable Plt Morphology Comment Not Reportable Not Reportable RBC Morphology Not Reportable Not Reportable Dimorphic RBCs Not Reportable Not Reportable Polychromasia Not Reportable Not Reportable Hypochromasia Not Reportable Not Reportable Poikilocytosis 1+ Not Reportable Anisocytosis 1+ Not Reportable Microcytosis Not Reportable Not Reportable Macrocytosis Not Reportable Not Reportable Spherocytes Not Reportable Not Reportable Pappenheimer Bodies Not Reportable Not Reportable Sickle Cells Not Reportable Not Reportable Target Cells Not Reportable Not Reportable Tear Drop Cells Few Not Reportable Ovalocytes Few Not Reportable Helmet Cells Not Reportable Not Reportable Barrera-Arvin Bodies Not Reportable Not Reportable [place] Rings Not Reportable Not Reportable [place] Cells Not Reportable Not Reportable Bite Cells Not Reportable Not Reportable Crenated Cell Not Reportable Not Reportable Elliptocytes Few Not Reportable Acanthocytes (Spur) Not Reportable Not Reportable Rouleaux Not Reportable Not Reportable Hemoglobin C Crystals Not Reportable Not Reportable Schistocytes Not Reportable Not Reportable Malaria parasites Not Reportable Not Reportable Robin Bodies Not Reportable Not Reportable Hem Pathologist Commnt No Not Reportable Sodium Potassium Chloride Carbon Dioxide Anion Gap BUN Creatinine Estimated GFR BUN/Creatinine Ratio Glucose POC Glucose Calcium Total Bilirubin AST ALT Alkaline Phosphatase Total Protein Albumin Albumin/Globulin Ratio Miscellaneous Test Tnp 01/29/19 01/29/19 01/29/19 06:03 14:39 17:45 WBC RBC Hgb Hct MCV MCH MCHC RDW Plt Count Add Manual Diff Total Counted Seg Neuts % (Manual) Band Neutrophils % Lymphocytes % (Manual) Reactive Lymphs % (Man) Monocytes % (Manual) Eosinophils % (Manual) Basophils % (Manual) Metamyelocytes % Myelocytes % Promyelocytes % Blast Cells % Nucleated RBC % Seg Neutrophils # Man Band Neutrophils # Lymphocytes # (Manual) Abs React Lymphs (Man) Monocytes # (Manual) Eosinophils # (Manual) Basophils # (Manual) Metamyelocytes # Myelocytes # Promyelocytes # Blast Cells # WBC Morphology Hypersegmented Neuts Hyposegmented Neuts Hypogranular Neuts Smudge Cells Toxic Granulation Toxic Vacuolation Dohle Bodies Pelger-Huet Anomaly Lizet Rods Platelet Estimate Clumped Platelets Plt Clumps, EDTA Large Platelets Giant Platelets Platelet Satelliting Plt Morphology Comment RBC Morphology Dimorphic RBCs Polychromasia Hypochromasia Poikilocytosis Anisocytosis Microcytosis Macrocytosis Spherocytes Pappenheimer Bodies Sickle Cells Target Cells Tear Drop Cells Ovalocytes Helmet Cells Barrera-Arvin Bodies [place] Rings [place] Cells Bite Cells Crenated Cell Elliptocytes Acanthocytes (Spur) Rouleaux Hemoglobin C Crystals Schistocytes Malaria parasites Robin Bodies Hem Pathologist Commnt Sodium 138 Potassium 4.7 Chloride 98.7 Carbon Dioxide 15 L Anion Gap 29 BUN 100 H Creatinine 13.2 H Estimated GFR 5 BUN/Creatinine Ratio 8 Glucose 118 H POC Glucose 116 H 126 H Calcium 6.5 L Total Bilirubin 0.50 AST 35 ALT 23 Alkaline Phosphatase 48 Total Protein 10.0 H Albumin 4.4 Albumin/Globulin Ratio 0.8 Miscellaneous Test 01/29/19 01/30/19 23:43 06:22 WBC RBC Hgb Hct MCV MCH MCHC RDW Plt Count Add Manual Diff Total Counted Seg Neuts % (Manual) Band Neutrophils % Lymphocytes % (Manual) Reactive Lymphs % (Man) Monocytes % (Manual) Eosinophils % (Manual) Basophils % (Manual) Metamyelocytes % Myelocytes % Promyelocytes % Blast Cells % Nucleated RBC % Seg Neutrophils # Man Band Neutrophils # Lymphocytes # (Manual) Abs React Lymphs (Man) Monocytes # (Manual) Eosinophils # (Manual) Basophils # (Manual) Metamyelocytes # Myelocytes # Promyelocytes # Blast Cells # WBC Morphology Hypersegmented Neuts Hyposegmented Neuts Hypogranular Neuts Smudge Cells Toxic Granulation Toxic Vacuolation Dohle Bodies Pelger-Huet Anomaly Lizet Rods Platelet Estimate Clumped Platelets Plt Clumps, EDTA Large Platelets Giant Platelets Platelet Satelliting Plt Morphology Comment RBC Morphology Dimorphic RBCs Polychromasia Hypochromasia Poikilocytosis Anisocytosis Microcytosis Macrocytosis Spherocytes Pappenheimer Bodies Sickle Cells Target Cells Tear Drop Cells Ovalocytes Helmet Cells Barrera-Arvin Bodies [place] Rings Johann Cells Bite Cells Crenated Cell Elliptocytes Acanthocytes (Spur) Rouleaux Hemoglobin C Crystals Schistocytes Malaria parasites Robin Bodies Hem Pathologist Commnt Sodium Potassium Chloride Carbon Dioxide Anion Gap BUN Creatinine Estimated GFR BUN/Creatinine Ratio Glucose POC Glucose 124 H 109 H Calcium Total Bilirubin AST ALT Alkaline Phosphatase Total Protein Albumin Albumin/Globulin Ratio Miscellaneous Test Medications & Allergies - Medications Allergies/Adverse Reactions: Allergies No Known Allergies Allergy (Unverified 01/18/19 06:38) Home Medications: Home Medications Medication Instructions Recorded Confirmed Last Taken Type Labetalol [Labetalol 200mg TAB] 200 mg PO BID 01/18/19 01/18/19 01/17/19 History NIFEdipine [Nifedipine ER] 90 mg PO QDAY 01/18/19 01/18/19 01/17/19 History Simvastatin 20 mg PO QHS 01/18/19 01/18/19 01/17/19 History Active Medications: Generic Name Dose Route Start Last Admin Trade Name Freq PRN Reason Stop Dose Admin Acetaminophen 650 mg 01/22/19 09:08 01/27/19 12:33 Tylenol PO 650 mg Q4H PRN Administration Pain, Mild (1-3) Acetaminophen 650 mg 01/22/19 09:37 01/22/19 10:05 Tylenol [place] 650 mg Q4H PRN Administration Pain, Mild (1-3) Lipase/Protease/Amylase 1 each 01/25/19 16:20 01/27/19 06:52 Pancrejennie Lainez 10,500 Unit FEEDTUBE 1 each PRN PRN Administration For Clogged Feeding Tube Epoetin Oscar 10,000 unit 01/21/19 12:32 01/29/19 12:44 Procrit IV 10,000 unit REYES PRN Administration hemodialysis Haloperidol Lactate 5 mg 01/20/19 11:04 01/29/19 22:16 Haldol IM 5 mg Q6H PRN Administration Agitation Sodium Chloride 100 mls @ 999 mls/hr 01/21/19 12:32 Nacl 0.9% IV REYES PRN Hypotension Cefazolin Sodium 1 gm in 50 mls @ 100 mls/hr 01/25/19 18:00 01/29/19 17:30 Ancef/Ns 1 Gm/50 Ml IV 02/22/19 18:29 100 mls/hr QPM GILBERTO Administration Protocol Sodium Bicarbonate 150 meq/ 1,150 mls @ 50 mls/hr 01/28/19 12:00 01/29/19 22:21 Dextrose IV 50 mls/hr DIRECT GILBERTO Administration Labetalol HCl 10 mg 01/20/19 08:56 Normodyne IV Q4H PRN Hypertension Lansoprazole 30 mg 01/29/19 10:00 01/29/19 09:08 Prevacid Solutab FEEDTUBE 30 mg QDAY GILBERTO Administration Metoclopramide HCl 5 mg 01/26/19 08:00 Reglan IV Q6H PRN Nausea And Vomiting Ondansetron HCl 4 mg 01/18/19 15:51 01/27/19 10:50 Zofran IV 4 mg Q8H PRN Administration Nausea And Vomiting Simple Syrup 15 ml 01/25/19 16:20 Simple Syrup FEEDTUBE PRN PRN Hypoglycemia Simple Syrup 30 ml 01/25/19 16:20 Simple Syrup FEEDTUBE PRN PRN Hypoglycemia Sodium Bicarbonate 325 mg 01/25/19 16:20 Sodium Bicarbonate FEEDTUBE PRN PRN For Clogged Feeding Tube Sodium Bicarbonate 1,300 mg 01/28/19 12:00 01/30/19 00:14 Sodium Bicarbonate PO Not Given BID GILBERTO Sodium Chloride 10 ml 01/18/19 22:00 01/29/19 22:17 Sodium Chloride Flush Syringe 10 Ml IV 10 ml BID GILBERTO Administration Sodium Chloride 10 ml 01/18/19 15:51 01/27/19 19:00 Sodium Chloride Flush Syringe 10 Ml IV 10 ml PRN PRN Administration LINE FLUSH
--- NOTE | 2019-01-30 06:44 | Hem/Onc Progress Note ---
Assessment and Plan 1. Hypercalcemia, elevated total protein , bone lesions - IG G kappa - multiple myeloma. The patient also has renal impairment and is on dialysis. the patient got dexamethasone. 2. Anemia. The patient is on Procrit. 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 Mention of melena, h/o hemetemesis at admission - seen by GI team. 4. History of hypertension. 5. History of hyperlipidemia. 6. h/o Bacteremia. 7. For hypercalcemia, the patient received Aredia. 8. Thrombocytopenia, likely secondary to myeloma or other secondary issues. At this time, we will observe. We will investigate - anemia/low plt for other causes. Total proteins have been high dexa 40 daily for 4 days - PPI added from 01/25 called [place] transfer team - Therapeutic plasma exchange done x2 [place] transfer after TPE for velcade chemo. In past I had D/w nephrology team on 01/26 - d/w dr Hurd - [facility] 01/29 - bone marrow bx plasma cells - called [place] transfer services. s/p 2 [address] TPE called Dr Hurd for TPA 01/30 transfer to [place] for chemo cancel TPA - Patient Problems (1) Myeloma Current Visit: Yes Status: Acute Subjective Date of service: 01/30/19 Principal diagnosis: myeloma Interval history: awake - restrain Objective - Exam Narrative Exam: Pain - none General appearance no acute distress Performance status need complete help Eyes - no icterus ENT - no bleeding from ear LNs cervical not palpable Neck - normal ROM Respiratory Normal Breath sounds - CTA CVS S1 S2 + Extremities normal temperature General GI Soft - distended Rectal deferred male - deferred Skin warm Musculoskeletal - moves all 4 extremitites Neurologically awake - Constitutional Vitals: Last Vital Signs Temp 98.0 F 01/29/19 19:31 Pulse 105 H 01/29/19 19:33 Resp 26 H 01/29/19 19:31 BP 122/62 01/30/19 00:12 Pulse Ox 99 01/29/19 19:33 - Labs Lab Results: Laboratory Results - last 24 hr 01/23/19 01/29/19 01/29/19 19:58 05:04 06:03 Add Manual Diff Complete Total Counted 100 Seg Neuts % (Manual) 68.0 Band Neutrophils % 3.0 Lymphocytes % (Manual) 19.0 Reactive Lymphs % (Man) 0 Monocytes % (Manual) 5.0 Eosinophils % (Manual) 0 Basophils % (Manual) 0 Metamyelocytes % 4.0 Myelocytes % 1.0 Promyelocytes % 0 Blast Cells % 0 Nucleated RBC % 1.0 H Not Reportable Seg Neutrophils # Man 8.2 H Band Neutrophils # 0.4 Lymphocytes # (Manual) 2.3 Abs React Lymphs (Man) 0.0 Monocytes # (Manual) 0.6 Eosinophils # (Manual) 0.0 Basophils # (Manual) 0.0 Metamyelocytes # 0.5 Myelocytes # 0.1 Promyelocytes # 0.0 Blast Cells # 0.0 WBC Morphology Not Reportable Not Reportable Hypersegmented Neuts Not Reportable Not Reportable Hyposegmented Neuts Not Reportable Not Reportable Hypogranular Neuts Not Reportable Not Reportable Smudge Cells Not Reportable Not Reportable Toxic Granulation Not Reportable Not Reportable Toxic Vacuolation Not Reportable Not Reportable Dohle Bodies Not Reportable Not Reportable Pelger-Huet Anomaly Not Reportable Not Reportable Lizet Rods Not Reportable Not Reportable Platelet Estimate Consistent w auto Not Reportable Clumped Platelets Not Reportable Not Reportable Plt Clumps, EDTA Not Reportable Not Reportable Large Platelets Not Reportable Not Reportable Giant Platelets Not Reportable Not Reportable Platelet Satelliting Not Reportable Not Reportable Plt Morphology Comment Not Reportable Not Reportable RBC Morphology Not Reportable Not Reportable Dimorphic RBCs Not Reportable Not Reportable Polychromasia Not Reportable Not Reportable Hypochromasia Not Reportable Not Reportable Poikilocytosis 1+ Not Reportable Anisocytosis 1+ Not Reportable Microcytosis Not Reportable Not Reportable Macrocytosis Not Reportable Not Reportable Spherocytes Not Reportable Not Reportable Pappenheimer Bodies Not Reportable Not Reportable Sickle Cells Not Reportable Not Reportable Target Cells Not Reportable Not Reportable Tear Drop Cells Few Not Reportable Ovalocytes Few Not Reportable Helmet Cells Not Reportable Not Reportable Barrera-Horine Bodies Not Reportable Not Reportable [place] Rings Not Reportable Not Reportable Johann Cells Not Reportable Not Reportable Bite Cells Not Reportable Not Reportable Crenated Cell Not Reportable Not Reportable Elliptocytes Few Not Reportable Acanthocytes (Spur) Not Reportable Not Reportable Rouleaux Not Reportable Not Reportable Hemoglobin C Crystals Not Reportable Not Reportable Schistocytes Not Reportable Not Reportable Malaria parasites Not Reportable Not Reportable Robin Bodies Not Reportable Not Reportable Hem Pathologist Commnt No Not Reportable Sodium Potassium Chloride Carbon Dioxide Anion Gap BUN Creatinine Estimated GFR BUN/Creatinine Ratio Glucose POC Glucose Calcium Total Bilirubin AST ALT Alkaline Phosphatase Total Protein Albumin Albumin/Globulin Ratio Miscellaneous Test Tnp 01/29/19 01/29/19 01/29/19 06:03 14:39 17:45 Add Manual Diff Total Counted Seg Neuts % (Manual) Band Neutrophils % Lymphocytes % (Manual) Reactive Lymphs % (Man) Monocytes % (Manual) Eosinophils % (Manual) Basophils % (Manual) Metamyelocytes % Myelocytes % Promyelocytes % Blast Cells % Nucleated RBC % Seg Neutrophils # Man Band Neutrophils # Lymphocytes # (Manual) Abs React Lymphs (Man) Monocytes # (Manual) Eosinophils # (Manual) Basophils # (Manual) Metamyelocytes # Myelocytes # Promyelocytes # Blast Cells # WBC Morphology Hypersegmented Neuts Hyposegmented Neuts Hypogranular Neuts Smudge Cells Toxic Granulation Toxic Vacuolation Dohle Bodies Pelger-Huet Anomaly Lizet Rods Platelet Estimate Clumped Platelets Plt Clumps, EDTA Large Platelets Giant Platelets Platelet Satelliting Plt Morphology Comment RBC Morphology Dimorphic RBCs Polychromasia Hypochromasia Poikilocytosis Anisocytosis Microcytosis Macrocytosis Spherocytes Pappenheimer Bodies Sickle Cells Target Cells Tear Drop Cells Ovalocytes Helmet Cells Barrera-Horine Bodies [place] Rings Johann Cells Bite Cells Crenated Cell Elliptocytes Acanthocytes (Spur) Rouleaux Hemoglobin C Crystals Schistocytes Malaria parasites Robin Bodies Hem Pathologist Commnt Sodium 138 Potassium 4.7 Chloride 98.7 Carbon Dioxide 15 L Anion Gap 29 BUN 100 H Creatinine 13.2 H Estimated GFR 5 BUN/Creatinine Ratio 8 Glucose 118 H POC Glucose 116 H 126 H Calcium 6.5 L Total Bilirubin 0.50 AST 35 ALT 23 Alkaline Phosphatase 48 Total Protein 10.0 H Albumin 4.4 Albumin/Globulin Ratio 0.8 Miscellaneous Test 01/29/19 01/30/19 23:43 06:22 Add Manual Diff Total Counted Seg Neuts % (Manual) Band Neutrophils % Lymphocytes % (Manual) Reactive Lymphs % (Man) Monocytes % (Manual) Eosinophils % (Manual) Basophils % (Manual) Metamyelocytes % Myelocytes % Promyelocytes % Blast Cells % Nucleated RBC % Seg Neutrophils # Man Band Neutrophils # Lymphocytes # (Manual) Abs React Lymphs (Man) Monocytes # (Manual) Eosinophils # (Manual) Basophils # (Manual) Metamyelocytes # Myelocytes # Promyelocytes # Blast Cells # WBC Morphology Hypersegmented Neuts Hyposegmented Neuts Hypogranular Neuts Smudge Cells Toxic Granulation Toxic Vacuolation Dohle Bodies Pelger-Huet Anomaly Lizet Rods Platelet Estimate Clumped Platelets Plt Clumps, EDTA Large Platelets Giant Platelets Platelet Satelliting Plt Morphology Comment RBC Morphology Dimorphic RBCs Polychromasia Hypochromasia Poikilocytosis Anisocytosis Microcytosis Macrocytosis Spherocytes Pappenheimer Bodies Sickle Cells Target Cells Tear Drop Cells Ovalocytes Helmet Cells Barrera-Horine Bodies [place] Rings Johann Cells Bite Cells Crenated Cell Elliptocytes Acanthocytes (Spur) Rouleaux Hemoglobin C Crystals Schistocytes Malaria parasites Robin Bodies Hem Pathologist Commnt Sodium Potassium Chloride Carbon Dioxide Anion Gap BUN Creatinine Estimated GFR BUN/Creatinine Ratio Glucose POC Glucose 124 H 109 H Calcium Total Bilirubin AST ALT Alkaline Phosphatase Total Protein Albumin Albumin/Globulin Ratio Miscellaneous Test Medications & Allergies - Medications Allergies/Adverse Reactions: Allergies No Known Allergies Allergy (Unverified 01/18/19 06:38) Home Medications: Home Medications Medication Instructions Recorded Confirmed Last Taken Type Labetalol [Labetalol 200mg TAB] 200 mg PO BID 01/18/19 01/18/19 01/17/19 History NIFEdipine [Nifedipine ER] 90 mg PO QDAY 01/18/19 01/18/19 01/17/19 History Simvastatin 20 mg PO QHS 01/18/19 01/18/19 01/17/19 History Active Medications: Generic Name Dose Route Start Last Admin Trade Name Freq PRN Reason Stop Dose Admin Acetaminophen 650 mg 01/22/19 09:08 01/27/19 12:33 Tylenol PO 650 mg Q4H PRN Administration Pain, Mild (1-3) Acetaminophen 650 mg 01/22/19 09:37 01/22/19 10:05 Tylenol [place] 650 mg Q4H PRN Administration Pain, Mild (1-3) Lipase/Protease/Amylase 1 each 01/25/19 16:20 01/27/19 06:52 Pancrejennie Lainez 10,500 Unit FEEDTUBE 1 each PRN PRN Administration For Clogged Feeding Tube Epoetin Oscar 10,000 unit 01/21/19 12:32 01/29/19 12:44 Procrit IV 10,000 unit REYES PRN Administration hemodialysis Haloperidol Lactate 5 mg 01/20/19 11:04 01/29/19 22:16 Haldol IM 5 mg Q6H PRN Administration Agitation Sodium Chloride 100 mls @ 999 mls/hr 01/21/19 12:32 Nacl 0.9% IV REYES PRN Hypotension Cefazolin Sodium 1 gm in 50 mls @ 100 mls/hr 01/25/19 18:00 01/29/19 17:30 Ancef/Ns 1 Gm/50 Ml IV 02/22/19 18:29 100 mls/hr QPM GILBERTO Administration Protocol Sodium Bicarbonate 150 meq/ 1,150 mls @ 50 mls/hr 01/28/19 12:00 01/29/19 22:21 Dextrose IV 50 mls/hr DIRECT GILBERTO Administration Labetalol HCl 10 mg 01/20/19 08:56 Normodyne IV Q4H PRN Hypertension Lansoprazole 30 mg 01/29/19 10:00 01/29/19 09:08 Prevacid Solutab FEEDTUBE 30 mg QDAY GILBERTO Administration Metoclopramide HCl 5 mg 01/26/19 08:00 Reglan IV Q6H PRN Nausea And Vomiting Ondansetron HCl 4 mg 01/18/19 15:51 01/27/19 10:50 Zofran IV 4 mg Q8H PRN Administration Nausea And Vomiting Simple Syrup 15 ml 01/25/19 16:20 Simple Syrup FEEDTUBE PRN PRN Hypoglycemia Simple Syrup 30 ml 01/25/19 16:20 Simple Syrup FEEDTUBE PRN PRN Hypoglycemia Sodium Bicarbonate 325 mg 01/25/19 16:20 Sodium Bicarbonate FEEDTUBE PRN PRN For Clogged Feeding Tube Sodium Bicarbonate 1,300 mg 01/28/19 12:00 01/30/19 00:14 Sodium Bicarbonate PO Not Given BID GILBERTO Sodium Chloride 10 ml 01/18/19 22:00 01/29/19 22:17 Sodium Chloride Flush Syringe 10 Ml IV 10 ml BID GILBERTO Administration Sodium Chloride 10 ml 01/18/19 15:51 01/27/19 19:00 Sodium Chloride Flush Syringe 10 Ml IV 10 ml PRN PRN Administration LINE FLUSH
--- NOTE | 2019-01-30 07:39 | Discharge Summary ---
Providers - Providers Date of Admission: 01/18/19 11:17 Date of discharge: 01/27/19 Attending physician: AUGUSTA NEWBY 01/18/19 15:51 Consult to Physician [CONS] Routine Comment: GATO Consulting Provider: CANDIDO ROBERTS Physician Instructions: WAS NOTIFIED. Reason For Exam: ESRD 01/19/19 08:49 Consult to Physician [CONS] Routine Comment: spoke to dr. grace/ arlyn Consulting Provider: JIMENEZ GRACE Physician Instructions: Reason For Exam: suspected MM 01/21/19 14:05 Consult to Physician [CONS] Routine Comment: called answ. serv./ arlyn Consulting Provider: MARLENA GREGORY Physician Instructions: Reason For Exam: ,Bone marrow bc/asp,CT guided, to dx Multiple myel 01/22/19 13:52 Consult to Mental Health [CONS] Routine Reason For Exam: behavioral disturbance Place consult to:: [facility] Notified:: BILL 01/22/19 13:54 Consult to Physician [CONS] Routine Comment: Consulting Provider: NASH IBANEZ Physician Instructions: Reason For Exam: suspected line sepsis 01/22/19 17:02 Consult to Dietitian/Nutrition [CONS] Routine Physician Instructions: Reason For Exam: Reason for Consult: Write/Manage Tube Feeding Consult to Dietitian/Nutrition [CONS] Routine Physician Instructions: Assess nutrtn needs, initiate, modify, manage TF Reason For Exam: Reason for Consult: Write/Manage Tube Feeding Reason for Consult: Write/Manage Tube Feeding 01/24/19 17:14 Consult to Physician [CONS] Routine Comment: Consulting Provider: IGOR GALLAGHER Physician Instructions: Reason For Exam: multiple myeloma 01/25/19 13:14 Consult to Case Management [CONS] Routine Services Needed at Discharge: Other Notified:: Case Management Phone number called:: [phone] Was contact made?: Yes If yes, spoke with:: Kat Time called:: 09:10 Additional Physician Instructions: [facility] M [phone] O [phone] F [phone] OUTPATIENT PARENTERAL ANTIBIOTIC THERAPY ORDERS Diagnoses: MSSA bacteremia Antimicrobial administration: Cefazolin 2 gms IV on Tuesday, 2 gms Tuesday and 3 gms Tuesday post HD for 4 weeks ending 02-22-19 Lines: post HD Lab monitoring: CBC, ALT, AST, CK, once a week preferly on Tuesday morning. Please fax results to [phone] and call [phone] for critical lab results. oJ-Ann Lucia NP/Rafael Ibanez MD Date: 01/25/19 01/25/19 16:20 Consult to Dietitian/Nutrition [CONS] Routine Physician Instructions: Assess nutrtn needs, initiate, modify, manage TF Reason For Exam: Reason for Consult: Write/Manage Tube Feeding Reason for Consult: Write/Manage Tube Feeding Primary care [facility]: [facility] Hospitalization Condition: Fair Disposition: DC/TX-02 SH[facility]M [facility] HOSP IP - Discharge Diagnoses (1) Multiple myeloma Status: Acute (2) MSSA bacteremia Status: Acute (3) Hypertension Status: Acute (4) Hyperlipidemia Status: Acute (5) Hypercalcemia Status: Acute (6) Sepsis Status: Acute (7) ESRD (end stage renal disease) on dialysis Status: Acute Core Measure Documentation - Palliative Care Palliative Care/ Comfort Measures: Not Applicable Exam - Constitutional Vitals: Temp Pulse Resp BP Pulse Ox 98.0 F 105 H 26 H 122/62 96 01/29/19 19:31 01/29/19 19:33 01/29/19 19:31 01/30/19 00:12 01/30/19 07:25 Plan Diet: other (Tube feed) Additional Instructions: 1.Transfer to [facility] to Oncologist. 2.Hemodialysis MWF as per Nephrology. 3.Continue Ancef 1 g iv daily X 25 days more as recommended by ID Physician Follow up with: PATRICIA ISRAEL MD [Primary Care Provider] - 3-5 Days
[2019-01-30 08:09] VITALS: BP 151/58
--- NOTE | 2019-01-30 08:58 | Progress Note ---
Assessment and Plan Cultures: Blood culture 01/22/2019 MSSA, 1 of 4 bottles Blood culture 01/24/2019 : no growth Assessment: 73 y/o male with history of hypertension, chronic kidney disease and hyperlipidemia admitted on 01/18/2019 due to 3-day history of epigastric abdominal pain, melanoic stools and vomiting blood associated with generalized weakness and lightheadedness found to have a GI bleed, OCTAVIA on CKD now on HD. By 01/22/2019 patient spiked a temp 101 and tachycardia: 1) SIRS: Improved. now leukocytosis, not on admisson. etiology MSSA bacteremia , likely source HD catheter. DDx , bacteremia, malignancy . CXR shows bilateral pulmonary edema. Blood culture 01/22/2019 grew MSSA bacteremia. Rpt CXR no change 2) MSSA Bacteremia: 1 out of 4 bottles. ? CLABSI perm cath placed 01/19/19. Repeat blood cultures show no growth to date. TTE no valvular vegetation. s/p permCath exchange 01/25/19. 3) Acute encephalopathy: due to malignancy 4) OCTAVIA on CKD now on HD : perm cath exchanged 01/25/19 5) Anemia 6) GI bleed: EGD found with hiatal hernia, multiple shallow ulcers throughout stomach w/o bleeding stigmata (bx's). 7) Myeloma: s/p bone bx 01/26/19. Therapeutic plasma exchange X2. [facility] transfer for velcade chemo today. Recommendations: continue cefazolin 1 gm every 24 hours monitor leukocytosis Anticipate discharge on Cefazolin 2 gms IV on Tuesday, 2 gms Tuesday and 3 gms Tuesday post HD for 4 weeks ending 02-22-19. order placed with case management follow-up ID clinic in 3 weeks (sent to imaging scheduler) [facility] M: [phone] O:[phone] Subjective Date of service: 01/30/19 Principal diagnosis: myeloma Objective - Constitutional Vitals: Vital Signs Temp Pulse Resp BP Pulse Ox 98.2 F 107 H 20 151/58 99 01/30/19 08:10 01/30/19 07:50 01/30/19 07:50 01/30/19 07:50 01/30/19 07:50 Temperature -Last 24 Hours Temperature 98.2 F Temperature 98.6 F Temperature 98.0 F Temperature 97.5 F Temperature 98.5 F Temperature 98.5 F - Labs CBC & Chem 7: 01/29/19 06:03 01/29/19 06:03 Labs: Abnormal lab results 01/29/19 01/29/19 01/29/19 Range/Units 14:39 17:45 23:43 POC Glucose 116 H 126 H 124 H (70-105) 01/30/19 Range/Units 06:22 POC Glucose 109 H (70-105)
--- NOTE | 2019-01-30 08:59 | Progress Note ---
Assessment and Plan Impression * End-stage renal disease --Permcath insertion January 25 * MSSA bacteremia --Blood cx: MSSA (January 22), NGTD (January 24) * Multiple myeloma * Metabolic acidosis * Hypertension * Anemia * Hypercalcemia Recommendations * HD MWF * UF as tolerated * Abx per ID * Strict I/O * Avoid nephrotoxins * Dose medications for renal function * Epogen TIW prn * Outpatient hemodialysis placement pending Subjective Date of service: 01/30/19 Principal diagnosis: myeloma Objective - Vital Signs Vital signs: Vital Signs - 12hr 01/30/19 01/30/19 01/30/19 00:12 07:25 07:50 Temperature Pulse Rate 107 H Respiratory 20 Rate Blood Pressure 122/62 151/58 O2 Sat by Pulse 96 99 Oximetry 01/30/19 01/30/19 08:09 08:10 Temperature 98.6 F 98.2 F Pulse Rate Respiratory Rate Blood Pressure O2 Sat by Pulse Oximetry - Lab 01/29/19 06:03 01/29/19 06:03 Most recent lab results Calcium 6.5 mg/dL (8.4-10.2) L 01/29/19 06:03 Phosphorus 2.40 mg/dL (2.5-4.5) L 01/22/19 05:49 Magnesium 1.80 mg/dL (1.7-2.3) 01/22/19 05:49 181.1 mg/dL (0.1-20.0) H 01/19/19 08:55 19 mmol/L 01/19/19 08:55 297 mg/dL (5-11.8) H 01/19/19 08:55 Medications & Allergies - Medications Allergies/Adverse Reactions: Allergies No Known Allergies Allergy (Unverified 01/18/19 06:38) Home Medications: Home Medications Medication Instructions Recorded Confirmed Last Taken Type Lansoprazole Solutab [Prevacid 30 mg FEEDTUBE QDAY tab.rapdis 01/30/19 Unknown Rx Solutab] Lipase/Protease/Amylase [Pancreaze 1 each FEEDTUBE PRN PRN capsule 01/30/[address] 10,500 Unit] Metoclopramide [Reglan INJ] 5 mg IV Q6H PRN vial 01/30/19 Unknown Rx Sodium Bicarbonate 1,300 mg PO BID tablet 01/30/19 Unknown Rx Sodium Bicarbonate 150 meq IV DIRECT vial 01/30/19 Unknown Rx Active Medications: Generic Name Dose Route Start Last Admin Trade Name Freq PRN Reason Stop Dose Admin Acetaminophen 650 mg 01/22/19 09:08 01/27/19 12:33 Tylenol PO 650 mg Q4H PRN Administration Pain, Mild (1-3) Acetaminophen 650 mg 01/22/19 09:37 01/22/19 10:05 Tylenol [place] 650 mg Q4H PRN Administration Pain, Mild (1-3) Lipase/Protease/Amylase 1 each 01/25/19 16:20 01/27/19 06:[address] 10,500 Unit FEEDTUBE 1 each PRN PRN Administration For Clogged Feeding Tube Epoetin Oscar 10,000 unit 01/21/19 12:32 01/29/19 12:44 Procrit IV 10,000 unit REYES PRN Administration hemodialysis Haloperidol Lactate 5 mg 01/20/19 11:04 01/29/19 22:16 Haldol IM 5 mg Q6H PRN Administration Agitation Sodium Chloride 100 mls @ 999 mls/hr 01/21/19 12:32 Nacl 0.9% IV REYES PRN Hypotension Cefazolin Sodium 1 gm in 50 mls @ 100 mls/hr 01/25/19 18:00 01/29/19 17:30 Ancef/Ns 1 Gm/50 Ml IV 02/22/19 18:29 100 mls/hr QPM GILBERTO Administration Protocol Sodium Bicarbonate 150 meq/ 1,150 mls @ 50 mls/hr 01/28/19 12:00 01/29/19 2 2:21 Dextrose IV 50 mls/hr DIRECT GILBERTO Administration Labetalol HCl 10 mg 01/20/19 08:56 Normodyne IV Q4H PRN Hypertension Lansoprazole 30 mg 01/29/19 10:00 01/29/19 09:08 Prevacid Solutab FEEDTUBE 30 mg QDAY GILBERTO Administration Metoclopramide HCl 5 mg 01/26/19 08:00 Reglan IV Q6H PRN Nausea And Vomiting Ondansetron HCl 4 mg 01/18/19 15:51 01/27/19 10:50 Zofran IV 4 mg Q8H PRN Administration Nausea And Vomiting Simple Syrup 15 ml 01/25/19 16:20 Simple Syrup FEEDTUBE PRN PRN Hypoglycemia Simple Syrup 30 ml 01/25/19 16:20 Simple Syrup FEEDTUBE PRN PRN Hypoglycemia Sodium Bicarbonate 325 mg 01/25/19 16:20 Sodium Bicarbonate FEEDTUBE PRN PRN For Clogged Feeding Tube Sodium Bicarbonate 1,300 mg 01/28/19 12:00 01/30/19 00:14 Sodium Bicarbonate PO Not Given BID GILBERTO Sodium Chloride 10 ml 01/18/19 22:00 01/29/19 22:17 Sodium Chloride Flush Syringe 10 Ml IV 10 ml BID GILBERTO Administration Sodium Chloride 10 ml 01/18/19 15:51 01/27/19 19:00 Sodium Chloride Flush Syringe 10 Ml IV 10 ml PRN PRN Administration LINE FLUSH
[2019-02-02 13:23] LABS: Protein/Creatinine Ratio SEE SCANNED RESULT
[2019-02-02 13:24] LABS: Abnormal Protein Band 1 SEE SCANNED RESULT; Abnormal Protein Band 2 SEE SCANNED RESULT; Albumin SEE SCANNED RESULT; Creatinine, Random Urine SEE SCANNED RESULT; Gamma Globulin SEE SCANNED RESULT; Interpretation SEE SCANNED RESULT
== END 2019-01-30 09:45 | disposition short-term general hospital (02) | DRG 987 ==
LOC: ED 06:24 → 2B-ACE 11:17
PROVIDERS: ADMIT Internal Medicine; ATTEND Internal Medicine
PROC: 0JH63XZ Insertion of Tunneled Vascular Access Device into Chest Subcutaneous Tissue and Fascia, Percutaneous Approach (ICD-10-PCS; principal; 2019-01-19)
PROC: 02H633Z Insertion of Infusion Device into Right Atrium, Percutaneous Approach (ICD-10-PCS; 2019-01-19)
PROC: B2141ZZ Fluoroscopy of Right Heart using Low Osmolar Contrast (ICD-10-PCS; 2019-01-19)
PROC: B244YZZ Ultrasonography of Right Heart using Other Contrast (ICD-10-PCS; 2019-01-19)
PROC: 5A1D70Z Performance of Urinary Filtration, Intermittent, Less than 6 Hours Per Day (ICD-10-PCS; 2019-01-19)
PROC: 0DB68ZX Excision of Stomach, Via Natural or Artificial Opening Endoscopic, Diagnostic (ICD-10-PCS; 2019-01-19)
PROC: 5A1D70Z Performance of Urinary Filtration, Intermittent, Less than 6 Hours Per Day (ICD-10-PCS; 2019-01-20)
PROC: 5A1D70Z Performance of Urinary Filtration, Intermittent, Less than 6 Hours Per Day (ICD-10-PCS; 2019-01-22)
PROC: 5A1D70Z Performance of Urinary Filtration, Intermittent, Less than 6 Hours Per Day (ICD-10-PCS; 2019-01-24)
PROC: 0J2TXYZ Change Other Device in Trunk Subcutaneous Tissue and Fascia, External Approach (ICD-10-PCS; 2019-01-25)
PROC: 5A1D70Z Performance of Urinary Filtration, Intermittent, Less than 6 Hours Per Day (ICD-10-PCS; 2019-01-26)
PROC: 07DR3ZX Extraction of Iliac Bone Marrow, Percutaneous Approach, Diagnostic (ICD-10-PCS; 2019-01-26)
PROC: 0QB23ZX Excision of Right Pelvic Bone, Percutaneous Approach, Diagnostic (ICD-10-PCS; 2019-01-26)
DX: T82.7XXA Infection and inflammatory reaction due to other cardiac and vascular devices, implants and grafts, initial encounter (principal); A41.01 Sepsis due to Methicillin susceptible Staphylococcus aureus; N18.6 End stage renal disease; G93.41 Metabolic encephalopathy; K25.4 Chronic or unspecified gastric ulcer with hemorrhage; D62 Acute posthemorrhagic anemia; E87.1 Hypo-osmolality and hyponatremia; C90.00 Multiple myeloma not having achieved remission; I12.0 Hypertensive chronic kidney disease with stage 5 chronic kidney disease or end stage renal disease; D63.1 Anemia in chronic kidney disease; E78.5 Hyperlipidemia, unspecified; R77.1 Abnormality of globulin; E83.52 Hypercalcemia; F17.210 Nicotine dependence, cigarettes, uncomplicated; E66.9 Obesity, unspecified; K44.9 Diaphragmatic hernia without obstruction or gangrene; M81.0 Age-related osteoporosis without current pathological fracture; E87.6 Hypokalemia; M89.9 Disorder of bone, unspecified; D69.6 Thrombocytopenia, unspecified; Z68.31 Body mass index [BMI] 31.0-31.9, adult; Z90.49 Acquired absence of other specified parts of digestive tract; K20.9 Esophagitis, unspecified
CPT/HCPCS: 36415; 36514; 36558; 36581; 38220; 70450; 71045; 74018; 74176; 76770; 76937; 77001; 77074; 80048; 80053; 80074; 80202; 81001; 82570; 82607; 82728; 82747; 82962; 83036; 83550; 83735; 83970; 84100; 84156; 84165; 84166; 84300; 85007; 85014; 85018; 85025; 85097; 85610; 85652; 85730; 86038; 86160; 86334; 86850; 86900; 86901; 87040; 87076; 87186; 88161; 88305; 88311; 88313; 88342; 93005; 93010; 93306; 94760; 96361; 96374; G0378; C1750; C1769; C9113; J0330; J0610; J0630; J0690; J0692; J0885; J1100; J1170; J1630; J1644; J2060; J2250; J2370; J2405; J2430; J2704; J3010; J3370; J3480; J3486; J7030; J7040; J7050; J7070; P9045